=== PATIENT | female | born 1940 | race Caucasian/White ===

== ENCOUNTER 2023-03-05 09:48 | Outpatient (OUT) | payer MEDICARE, OTHER, SELFPAY ==
[2023-03-05 10:12] LABS: Basophils Percent Auto 0.4 % (0.2-2.0); Eosinophils Absolute Auto 0.2 10^3/uL (0.0-0.7); Eosinophils Percent Auto 2.8 % (0.9-7.0); Hematocrit 42.8 % (36.0-48.0); Hemoglobin 13.4 g/dL (12.0-16.0); Immature Granulocytes Abs Auto 0.03 10^3/uL (0.00-0.03); Immature Granulocytes Pct Auto 0.4 % (0.0-0.5); Lymphocytes Absolute Auto 2.1 10^3/uL (1.2-3.8); Lymphocytes Percent Auto 30.5 % (20.5-60.0); Mean Corpuscular HGB Conc 31.3 g/dL (29.9-35.2); Mean Corpuscular Hemoglobin 28.6 pg (26.7-34.0); Mean Corpuscular Volume 91.3 fL (81.0-99.0); Mean Platelet Volume 8.7 fL (9.5-13.5); Monocytes Absolute Auto 0.5 10^3/uL (0.3-0.8); Monocytes Percent Auto 7.8 % (1.7-12.0); Neutrophils Percent Auto 58.1 % (43.0-75.0); Platelet Count 202 10^3/uL (150-450); Red Blood Count 4.69 10^6/uL (4.20-5.40); Red Cell Distribution Width 16.1 % (11.0-15.0); White Blood Count 6.8 10^3/uL (4.0-11.0)
[2023-03-05 10:44] LABS: Alanine Aminotransferase 17 U/L (14-59); Albumin Globulin Ratio 0.7; Albumin Level 3.2 g/dL (3.4-5.0); Alkaline Phosphatase 83 U/L (46-116); Anion Gap 13.4; Aspartate Amino Transferase 15 U/L (15-37); BUN Creatinine Ratio 20.2; Bilirubin Total 0.5 mg/dL (0.2-1.0); Calcium 8.5 mg/dL (8.5-10.1); Carbon Dioxide 26.8 mmol/L (21.0-32.0); Chloride 103 mmol/L (98-107); Chol HDL Ratio 2.5; Cholesterol 158 mg/dL (<=200); Estimated GFR (African America >60 (>=60); Estimated GFR (Non-African Ame >60 (>=60); Globulin 4.7 g/dL; Glucose 102 mg/dL (74-106); HDL Cholesterol 63 mg/dL (40-60); Potassium 4.2 mmol/L (3.5-5.1); Sodium 139 mmol/L (136-145); Total Protein 7.9 g/dL (6.4-8.2); Triglycerides 105 mg/dL (<=150)
== END 2023-03-05 09:49 | disposition home or self-care (01) ==
LOC: LAB 09:53
PROVIDERS: PCP Internal Medicine; Visit Provider Nurse Practitioner Acute Care
DX: I25.10 Atherosclerotic heart disease of native coronary artery without angina pectoris (principal)
CPT/HCPCS: 36415; 80053; 80061; 85025

== ENCOUNTER 2023-05-25 12:45 | Outpatient (OUT) | payer MEDICARE, OTHER, SELFPAY ==
[2023-05-25 13:20] LABS: Basophils Percent Auto 0.3 % (0.2-2.0); Eosinophils Absolute Auto 0.1 10^3/uL (0.0-0.7); Hematocrit 43.1 % (36.0-48.0); Hemoglobin 13.6 g/dL (12.0-16.0); Immature Granulocytes Abs Auto 0.04 10^3/uL (0.00-0.03); Immature Granulocytes Pct Auto 0.4 % (0.0-0.5); Lymphocytes Absolute Auto 1.8 10^3/uL (1.2-3.8); Mean Corpuscular HGB Conc 31.6 g/dL (29.9-35.2); Mean Corpuscular Hemoglobin 28.3 pg (26.7-34.0); Mean Corpuscular Volume 89.6 fL (81.0-99.0); Mean Platelet Volume 9.2 fL (9.5-13.5); Monocytes Absolute Auto 0.7 10^3/uL (0.3-0.8); Monocytes Percent Auto 7.3 % (1.7-12.0); Neutrophils Absolute Auto 6.8 10^3/uL (1.4-6.5); Platelet Count 185 10^3/uL (150-450); Red Blood Count 4.81 10^6/uL (4.20-5.40); Red Cell Distribution Width 15.3 % (11.0-15.0); White Blood Count 9.4 10^3/uL (4.0-11.0)
[2023-05-25 13:54] LABS: Alanine Aminotransferase 15 U/L (14-59); Albumin Globulin Ratio 0.7; Albumin Level 3.1 g/dL (3.4-5.0); Alkaline Phosphatase 89 U/L (46-116); Anion Gap 12.9; Aspartate Amino Transferase 16 U/L (15-37); BUN Creatinine Ratio 22.1; Bilirubin Total 0.4 mg/dL (0.2-1.0); Calcium 8.8 mg/dL (8.5-10.1); Carbon Dioxide 25.2 mmol/L (21.0-32.0); Chloride 103 mmol/L (98-107); Estimated GFR (African America >60 (>=60); Estimated GFR (Non-African Ame >60 (>=60); Globulin 4.7 g/dL; Glucose 84 mg/dL (74-106); Potassium 4.1 mmol/L (3.5-5.1); Sodium 137 mmol/L (136-145); Total Protein 7.8 g/dL (6.4-8.2)
== END 2023-05-25 12:46 | disposition home or self-care (01) ==
LOC: LAB 12:52
PROVIDERS: PCP Family Medicine; Visit Provider Nurse Practitioner
DX: I50.41 Acute combined systolic (congestive) and diastolic (congestive) heart failure (principal)
CPT/HCPCS: 36415; 80053; 83880; 85025

== ENCOUNTER 2024-01-04 10:03 | Outpatient (OUT) | payer MEDICARE, OTHER, SELFPAY ==
--- NOTE | 2024-01-04 10:04 | CT_ITS ---
[address] [address] Patient Name: KEENAN SILVA MRN: [facility]:[id number] date: 1940 Sex: F Assigned Patient Location: CT Current Patient Location: CT Accession/Order Number: [id number] Exam Date: 01/04/2024 10:32 Report Date: 01/04/2024 13:01 At the request of: RICHARD TEMPLE Procedure: CT abdomen pelvis wo con EXAMINATION: CT abdomen pelvis wo con HISTORY: Kidney Stone N20.0 COMPARISON: CT abdomen pelvis 05/14/2019 TECHNIQUE: Axial, Coronal, and Sagittal images were obtained without and/or with IV contrast as indicated by examination type. Dose reduction techniques were achieved by using automated exposure control and/or adjustment of mA and/or kV according to patient size and/or use of iterative reconstruction technique. FINDINGS: LUNG BASES: Cardiomegaly. No visible pulmonary or pleural disease. LIVER: No enlargement, atrophy, suspicious density, or significant focal lesion. BILIARY: Cholecystectomy. PANCREAS: No lesion, fluid collection, or abnormal duct dilatation. SPLEEN: No enlargement or focal lesion. ADRENALS: No mass or enlargement. KIDNEYS: Large amount of fat within renal hilum bilaterally. Small parapelvic cysts in moderate cortical thinning bilaterally. 9 x 3 x 3 mm nonobstructing stone within left kidney inferior pole. Unremarkable ureters. BOWEL/MESENTERY: No visible mass, obstruction, or bowel wall thickening. Normal appendix. AORTA/VASCULAR: No aneurysm or dissection. Filter within IVC. RETROPERITONEUM: No mass or adenopathy. LYMPH NODES: No adenopathy. URINARY BLADDER: No visible focal wall thickening, lesion, or calculus. PELVIC ORGANS: Hysterectomy. ABDOMINAL WALL: No mass or hernia. BONES: L3-4 marked degenerative disc disease. L4-5 mild grade 1 anterolisthesis. OTHER: Negative. CT/CT abdomen pelvis wo con IMPRESSION: 1. Nonobstructing left nephrolithiasis. Moderate renal atrophy bilaterally. 2. Degenerative disc disease of lower lumbar spine. 3. Cardiomegaly. Electronically authenticated by: DIMITRI BIANCHI Date: 01/04/2024 13:01
== END 2024-01-04 10:04 | disposition home or self-care (01) ==
LOC: CT 10:03
PROVIDERS: PCP Family Medicine; Visit Provider Physician Assistant
DX: N20.0 Calculus of kidney (principal); M51.36 Other intervertebral disc degeneration, lumbar region; I51.7 Cardiomegaly
CPT/HCPCS: 74176

== ENCOUNTER 2024-02-06 09:21 | Outpatient (OUT) | payer MEDICARE, OTHER, SELFPAY ==
--- OUTSIDE RECORDS SUMMARY | 2024-02-06 09:44 | XMS_ITS | CCD ---
Author Organization [facility] Care Team Providers Care General Forecaster Name Role Phone DEE DEE GARBER Admitting Unavailable SELF, REFERRED Referring Unavailable MARIA EUGENIA BHATIA Primary Care Unavailable MARY DRAKE Attending Unavailable MO Procedure Practitioner UnavailKENNEDI Burroughs Surgeon Unavailable COMPA FOOTE Primary Care Physician [phone] DR ANASTASIIA BUTCHER Admitting Unavailable HADLEY, DR LAURENT Attending Unavailable HADLEY, DR LAURENT Consulting Unavailable QAMAR, DR DIXON Primary Care Unavailable QAMAR, DR DIXON Primary Care Unavailable REGINA VALIENTE Admitting Unavailable REGINA VALIENTE Attending Unavailable REGINA VALIENTE Consulting Unavailable QAMAR, DR DIXON Primary Care Unavailable ANASTASIIA ESTRADA Admitting Unavailable ANASTASIIA ESTRADA Attending Unavailable ANASTASIIA ESTRADA Consulting Unavailable MERLIN, DR DARYA Falk Attending Unavailabl e MERLIN, DR DARYA Falk Consulting Unavailabl e QAMAR, DR DIXON Primary Care Unavailable MERLIN, DR DARYA Falk Admitting Unavailabl JORGE Henley Attending Unavailable YULISSA WOODARD Attending Unavailable SHELL GUARDADO Attending Unavailable MARY LUGO Primary Care Physician [phone] JUAN DIEGO CATSILLO Primary Care Physician Unav ailable Anna RAG INSPECTOR-STATE ARCHIVISTJuan Diego Primary Care Provide r Compa Foote MD Unavailable Mary Lugo MD Primary Care Provider MICHELLE VIDALES Attending Unavailable MAKENNA TAMAYO Attending Unavailable MAKENNA TAMAYO Attending Unavailable MAKENNA TAMAYO Attending Unavailable JUAN DIEGO CASTILLO Primary Care Unavailable REGINA VALIENTE Attending Unavailable REGINA VALIENTE Attending Unavailable JUAN DIEGO CASTILLO Primary Care Unavailable JUAN DIEGO CASTILLO Primary Care Unavailable REGAN, Leonardo R Attending Unavailable SCHLACHTER, JUAN DIEGO Primary Care Unavailable REGAN, Leonardo R Attending Unavailable MAVERICK, REGINA E Attending Unavailable REGAN, Leonardo R Referring Unavailable SCHLACHTER, JUAN DIEGO Primary Care Unavailable REGAN, Leonardo R Admitting Unavailable REGAN, Leonardo R Attending Unavailable SCHLACHTER, JUAN DIEGO Primary Care Unavailable MAVERICK, REGINA E Admitting Unavailable MAVERICK, REGINA E Attending Unavailable MAVERICK, REGINA E Attending Unavailable MAVERICK, REGINA E Admitting Unavailable SCHLACHTER, JUAN DIEGO Primary Care Unavailable MAVERICK, REGINA E Attending Unavailable MAVERICK, REGINA E Admitting Unavailable SCHLACHTER, JUAN DIEGO Primary Care Unavailable SCHLACHTER, JUAN DIEGO Primary Care Unavailable MAVERICK, REGINA E Attending Unavailable MAVERICK, REGINA E Attending Unavailable REGAN, Leonardo R Attending Unavailable SCHLACHTER, JUAN DIEGO Primary Care Unavailable MAVERICK, REGINA E Attending Unavailable SCHLACHTER, JUAN DIEGO Attending Unavailable SCHLACHTER, JUAN DIEGO Referring Unavailable SCHLACHTER, JUAN DIEGO Primary Care Unavailable SCHLACHTER, JUAN DIEGO Attending Unavailable SCHLACHTER, JUAN DIEGO Referring Unavailable SCHLACHTER, JUAN DIEGO Primary Care Unavailable SCHLACHTER, JUAN DIEGO Attending Unavailable SCHLACHTER, JUAN DIEGO Referring Unavailable SCHLACHTER, JUAN DIEGO Primary Care Unavailable SCHLACHTER, JUAN DIEGO Referring Unavailable SCHLACHTER, JUAN DIEGO Primary Care Unavailable Qamar GREENFIELD MD, Compa Calhoun Primary Care Provider [phone] John ELY, Maria Eugenia [place] Unavailable Allergies Allergy Classification Reported Allergen(s) Allergy Type Date of Onset Reaction(s) Facility (8 sources) linaclotide; Translations: [LINACLOTIDE] Drug Allergy 6 Diarrhea, Other (See Comments), GI Disturbance, Vomiting [facility] Repository Medications Current Medications Medication Drug Class(es) Dates Sig (Normalized) Sig (Original) 8 hr acetaminophen 650 mg extended release oral tablet (2 sources) take 1 tablet by mouth every eight hours as needed acetaminophen (TYLENOL ARTHRITIS PAIN) 650 mg CR tablet Take 650 mg by mouth every 8 hours as needed. 0 Active [id number] actuat albuterol 0.09 mg/actuat metered dose inhaler (7 sources) beta2-Adrenergic Agonist Start: 06-05-2023 take 2 puff(s) by inhalation every six hours as needed albuterol HFA (PROVENTIL HFA, VENTOLIN HFA) 90 mcg/actuation inhaler Inhale 2 Puffs as instructed every 6 hours as needed. 0 06/05/2023 Active Start: 06-05-2023 take 2 puff(s) by in halation every six hours as needed for chronic obstructive pulmonary disease albuterol (PROVENTIL HFA;VENTOLIN HFA) 90 mcg/actuation inhaler Indications: Chronic obstructive pulmonary disease, unspecified COPD type ([facility]) Inhale 2 puffs every 6 (six) hours as needed for wheezing or shortness of breath. For COPD 18 g 11 06/05/2023 Active Start: 04-19-2020 take 1 puff(s) by in halation every four hours albuterol HFA 90 mcg/act inhaler Inhale 1 puff every 4 (four) hours if needed. 0 04/19/2020 Active Start: 07-02-2015 take 2 puff(s) by in halation every four hours ProAir HFA 2 puff(s), Inhalation, q4hr Wheezing, Refill(s) 0 Start Date: 07/02/15 Status: Ordered albuterol 0.833 mg/ml / ipratropium bromide 0.167 mg/ml inhalation solution (1 source) Anticholinergic, beta2-Adrenergic Agonist ipratropium-albutero l (Duo-Neb) 0.5-2.5 mg/3 mL nebulizer solution 3 mL in the morning and 3 mL at noon and 3 mL in the evening and 3 mL before bedtime. 0 Active amLODIPine 5 mg oral tablet (4 sources) Dihydropyridine Calcium Channel Hussein Star t: 06-07- 15 take 1 tablet by mouth once daily amLODIPine (NORVASC) 5 mg tablet Take 1 tablet by mouth once daily. 90 tablet 3 05/22/2018 Active apixaban 5 mg oral tablet (19 sources) Factor Xa Inhibitor Star t: 05-06 2- 20 take 1 mg by mouth twice daily Eliquis 5 mg oral tablet mg tab(s), Oral, BID, Refills(s) 0 Start Date: 05/17/20 Status: Ordered atorvastatin 40 mg oral tablet (20 sources) HMG-CoA Reductase Inhibitor Star t: 06-07 End: 09-06 take 1 tablet by mouth once daily atorvastatin (LIPITOR) 40 mg tablet Take 1 tablet by mouth once daily. 90 tablet 3 05/22/2018 Active betamethasone 0.5 mg/ml / clotrimazole 10 mg/ml topical cream (1 source) Azole Antifungal, Corticosteroid Star t: 01-04 clotrimazole-betamethason e (LOTRISONE) cream Apply 1 Application to affected area. 0 01/14/2024 Active biotin 10 mg oral tablet (1 source) take 1 tablet by mouth twice daily biotin 10 MG tablet 1 tablet Orally two times daily for 30 days 0 Active carboxymethylcellulose sodium 5 mg/ml ophthalmic solution (1 source) carboxymethylcel lulose PF (EQ Restore Plus Lubricant Eye) 0.5 % ophthalmic solution Eye promise restore 0 Active cephalexin 500 mg oral capsule (9 sources) Cephalosporin Antibacterial Star t: 11-05 End: 11-06 take 1 capsule by mouth every twelve hours Keflex 500 mg Cap 500 mg = 1 cap(s), Oral, q12hr, X 7 day(s), # 14 cap(s), Refills(s) 0, [facility]acy: [facility] #[id number], 153, cm, 11/27/23 10:33:00 EDT, Height/Length Dosing, 120, kg, 11/27/23 10:33:00 EDT, Weight Dosing Start Date: 11/27/23 Stop Date: 12/04/23 Status: Ordered Start: 07-27-2023 take 1 capsule by [facility] twice daily Keflex 500 mg Cap 500 mg = 1 cap(s), Oral, BID, Start the day prior to procedure, # 14 cap(s), Refills(s) 0, [facility]: [id number], 153, cm, 06/05/23 11:56:00 EDT, Height/Length Dosing, 116, kg, 06/05/23 11:56:00 EDT, Weight Dosing Start Date: 07/27/23 Status: Ordered Start: 06-05-2023 take 1 capsule by [facility] twice daily Keflex 250 mg Cap 250 mg = 1 cap(s), Oral, BID, Start the day before the procedure, # 14 cap(s), Refills(s) 0, Pharmacy: [facility] #[id number], 153, cm, 06/05/23 11:56:00 EDT, Height/Length Dosing, 116, kg, 06/05/23 11:56:00 EDT, Weight Dosing Start Date: 06/05/23 Status: Ordered diazePAM 5 mg oral tablet (3 sources) Benzodiazepine Start: 07-27-2023 Valium 5 mg Tab 5 mg = 1 tab(s), Oral, Once, Take 1 hour prior to procedure. 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, # 1 tab(s), Refills(s) 0, Pharmacy: [facility] #[id number], 153, cm, 06/05/23 11:56:00 EDT, Height/Length Dosing, 116, kg, 06/05/23 11:56:00 EDT, Weight Dosing Start Date: 07/27/23 Status: Ordered docusate sodium 100 mg oral capsule (1 source) Start: 06-11-2019 take 1 capsule by mouth twice daily docusate sodium (COLACE) 100 mg capsule Take 1 capsule by mouth twice daily. 30 capsule 0 06/11/2019 Active donepezil hydrochloride 5 mg oral tablet (16 sources) Start: 04-06-2023 donepezil (ARICEPT) 5 mg tablet Take 5 mg by mouth. 0 04/24/2023 Active FLUoxetine 40 mg oral capsule (19 sources) Serotonin Reuptake Inhibitor Start: 05-10-2022 FLUoxetine 40 mg Cap Refills(s) 0 Start Date: 05/10/22 Status: Ordered furosemide 40 mg oral tablet (20 sources) Loop Diuretic Start: 02-26-2023 take 1 tablet by mouth in the morning furosemide (Lasix) 20 MG tablet Indications: Chronic diastolic heart failure (CMS/HCC) Take 1 tablet (20 mg) by mouth in the morning. 100 tablet 3 02/26/2023 Active Start: 07-02-2015 End: 05-27-2024 take 1 tablet by mouth once daily furosemide (LASIX) 40 mg tablet Indications: Chronic diastolic heart failure (HCC) Take 1 tablet by mouth once daily. 90 tablet 3 07/24/2018 Active hyoscyamine sulfate 0.125 mg oral tablet (1 source) hyoscyamine (Praveena spaz,Levsin) 0.125 MG tablet every 4 (four) hours if needed. 0 Active lactulose 667 mg/ml oral solution (3 sources) Osmotic Laxative Start: 05-10-2022 Lactulose 10 g/15 mL Syrup Refills(s) 0 Start Date: 05/10/22 Status: Ordered lactulose (Chron ulac) 10 GM/15ML solution Take 15 mL by mouth. 0 Active memantine hydrochloride 10 mg oral tablet (13 sources) D-uawitd-B-aspartate Receptor Antagonist Start: 01-11-2024 End: 02-10-2024 memantine (NAMENDA) 10 mg tablet Take 10 mg by mouth. 0 01/11/2024 02/10/2024 Active Start: 03-30-2023 memantine 5 mg Tab Refills(s) 0 Start Date: 04/24/23 Status: Ordered 24 hr metoprolol succinate 100 mg extended release oral tablet (7 sources) beta-Adrenergic Hussein Start: 05-28-2023 take 1 tablet by mouth every twenty-four hours in the morning metoprolol succinate XL (TOPROL XL) 100 mg 24 hr tablet Take 1 tablet (100 mg total) by mouth in the morning. 0 05/28/2023 Active Start: 05-17-2020 take 1 mg by mouth once daily metoprolol 50 mg ER Tab mg tab(s), Oral, Daily, Refills(s) 0 Start Date: 05/17/20 Status: Ordered metoprolol succi charlene ER (TOPROL XL) 50 mg 24 hr tablet 100 mg. 0 Active METOPROLOL SUCC ER 50 MG TAB (14 sources) Start: 05-10-2022 METOPROLOL SUC C ER 50 MG TAB METOPROLOL SUCC ER 50 MG TAB Start Date: 05/10/22 Status: Ordered 24 hr mirabegron 50 mg extended release oral tablet (18 sources) beta3-Adrenergic Agonist Start: 06-05-2023 take 1 tablet by mouth once daily Myrbetriq 50 mg oral tablet, extended release 50 mg = 1 tab(s), Oral, Daily Start Date: 06/05/23 Status: Ordered Start: 02-26-2023 take 1 tablet by khushi th every twenty-four hours in the morning mirabegron ER (Myrbetriq) 50 MG 24 hr tablet Indications: OAB (overactive bladder) Take 1 tablet (50 mg) by mouth in the morning. 100 tablet 3 02/26/2023 Active Start: 10-17-2022 Myrbetriq 50 m g oral tablet, extended release Refills(s) 0 Start Date: 10/17/22 Status: Ordered Start: 06-26-2021 End: 06-21-2022 take 2 tablets by mouth once daily Myrbetriq 50 mg oral tablet, extended release 100 mg = 2 tab(s), Oral, Daily, X 90 day(s), # 180 tab(s), Refills(s) 3, [facility]: [id number], 153, cm, 10/25/20 11:47:00 EDT, Height/Length Dosing, 125, kg, 10/25/20 11:47:00 EDT, Weight Dosing Start Date: 06/26/21 Stop Date: 06/21/22 Status: Ordered nitrofurantoin, macrocrystals 25 mg / nitrofurantoin, monohydrate 75 mg oral capsule (1 source) Nitrofuran Antibacterial Start: 01-08-2024 End: 01-15-2024 take 1 capsule by mouth twice daily Macrobid 100 mg Cap 100 mg = 1 cap(s), Oral, BID, X 7 day(s), # 14 cap(s), Refills(s) 0, [facility]: [facility][id number], 153, cm, 01/08/24 15:17:00 EDT, Height/Length Dosing, 116, kg, 01/08/24 15:17:00 EDT, Weight Dosing Start Date: 01/08/24 Stop Date: 01/15/24 Status: Ordered Oxygen (1 source) oxygen (O2) gas 2 L/min if needed. 0 Active OXYGEN, HOME THERAPY, (1 source) OXYGEN, HOME THERAPY, 2 L/min by Nasal Cannula route as directed. 0 Active pantoprazole 40 mg delayed release oral tablet (19 sources) Proton Pump Inhibitor Start: 05-17-2020 take 1 mg by mouth once daily Pantoprazole [address] Tab mg tab(s), Oral, Daily, Refills(s) 0 Start Date: 05/17/20 Status: Ordered phenazopyridine hydrochloride 200 mg oral tablet (2 sources) Start: 12-07-2023 End: 05-06-2024 take 1 tablet by mouth three times daily as needed Pyridium 200 mg Tab 200 mg = 1 tab(s), Oral, TID, PRN burning with urination, X 3 day(s), # 9 tab(s), Refills(s) 0, [facility]: [facility][id number], 153, cm, 11/27/23 10:33:00 EDT, Height/Length Dosing, 120, kg, 11/27/23 10:33:00 EDT, Weight Dosing Start Date: 12/07/23 Stop Date: 12/10/23 Status: Ordered promethazine hydrochloride 25 mg oral tablet (18 sources) Phenothiazine Start: 06-04-2023 take 1 tablet by mouth every six hours as needed for nausea and vomiting promethazine (PHENERGAN) 25 mg tablet Take 1 tablet (25 mg total) by mouth every 6 (six) hours as needed for nausea or vomiting. 30 tablet 5 06/04/2023 Active Start: 12-26-2022 take 1 tablet by mouth once pr omethazine (Phenergan) 25 MG tablet Indications: Nausea Take 1 tablet (25 mg) by mouth every 12 (twelve) hours if needed for nausea or vomiting. 60 tablet 3 12/26/2022 Active Start: 05-17-2020 take 1 mg rectal rou te every six hours promethazine 25 mg Supp mg supp, Rectal, q6hr, Refills(s) 0 Start Date: 05/17/20 Status: Ordered QUEtiapine 25 mg oral tablet (3 sources) Atypical Antipsychotic Start: 12-13-2023 quetiap ine 25 mg Tab 25 mg = 1 tab(s) Start Date: 01/08/24 Status: Ordered Start: 07-12-2023 take 0.5 tablet by m outh at bedtime QUEtiapine (SEROquel) 25 MG tablet Indications: Mild cognitive impairment with memory loss , Alzheimer's disease (CMS/HCC) Take 0.5 tablets (12.5 mg) by mouth at bedtime 15 tablet 3 07/12/2023 Active 0.25 mg, 0.5 mg dose 1.5 ml semaglutide 1.34 mg/ml pen injector (1 source) Start: 02-26-2023 inject 0.5 mg by subcutaneous injection every week semaglutide (Ozempic, 0.25 or 0.5 MG/DOSE,) 2 MG/1.5ML solution pen-injector Indications: Type 2 diabetes mellitus without complication, unspecified whether [place] insulin use (CMS/[facility]) Inject 0.5 mg under the skin 1 (one) time per week. 4.5 mL 3 02/26/2023 Active sucralfate 1000 mg oral tablet (2 sources) Aluminum Complex Start: 05-17-2020 sucralfate 1 g Tab gram tab(s), Oral, QIDACHS, Refills(s) 0 Start Date: 05/17/20 Status: Ordered sulfamethoxazole 800 mg / trimethoprim 160 mg oral tablet (2 sources) Dihydrofolate Reductase Inhibitor Antibacterial, Sulfonamide Antimicrobial Start: 12-07-2023 End: 12-17-2023 Bactrim D.S. 800 mg-160 mg Tab 1 tab(s), Oral, BID for 10 day(s), 20 tab(s), Refill(s) 0, [facility] #[id number], 153, cm, 11/27/23 10:33:00 EDT, Height/Length Dosing, 120, kg, 11/27/23 10:33:00 EDT, Weight Dosing Start Date: 12/07/23 Stop Date: 12/17/23 Status: Ordered Symbicort 160/4.5 inhalation aerosol with adapter (2 sources) Start: 07-02-2015 take 2 puff(s) by inhalation twice daily Symbicort 160/4.5 inhalation aerosol with adapter 2 puff(s), Inhalation, BID Shortness of breath or wheezing, Refill(s) 0 Start Date: 07/02/15 Status: Ordered tamsulosin hydrochloride 0.4 mg oral capsule (3 sources) alpha-Adrenergic Hussein Start: 06-12-2019 tamsulosin ER (FLOMAX) 0.4 mg cap Take 1 capsule by mouth once daily. 30 minutes after the same meal each day. 30 capsule 0 06/12/2019 Active tamsulosin ER (F TRESA) 0.4 mg cap q 24 HR. 0 Active 24 hr tolterodine tartrate 4 mg extended release oral capsule (3 sources) Cholinergic Muscarinic Antagonist Start: 06-26-2021 End: 06-21-2022 take 1 capsule by mouth twice daily Detrol LA 4 mg Cap-ER 4 mg = 1 cap(s), Oral, BID, X 90 day(s), # 180 cap(s), Refills(s) 3, Pharmacy: [id number], 153, cm, 10/25/20 11:47:00 EDT, Height/Length Dosing, 125, kg, 10/25/20 11:47:00 EDT, Weight Dosing Start Date: 06/26/21 Stop Date: 06/21/22 Status: Ordered tolterodine LA ( Detrol LA) 4 MG 24 hr capsule tolterodine ER 4 mg capsule,extended release 24 hr 0 Active traMADol hydrochloride 50 mg oral tablet (1 source) Opioid Agonist Start: 08-26-2021 take 1-2 tablets by mouth every six hours as needed traMADol (Ultram) 50 MG tablet 1-2 tablets every 6 (six) hours if needed. 0 08/26/2021 Active Completed/Discontinued Medications Medication Drug Class(es) Dates Sig (Normalized) Sig (Original) ciprofloxacin 500 mg oral tablet (2 sources) Quinolone Antimicrobial Start: 05-10-2022 take 1 tablet by mouth once daily Cipro 500 mg Tab 500 mg = 1 tab(s), Oral, q12hr, Take 1 tab the day before procedure and 1 tab the day of procedure after the procedure., # 2 tab(s), Refills(s) 0, Pharmacy: [facility] [id number], 153, cm, 10/25/20 11:47:00 EDT, Height/Length Dosing, 125, kg, 10/25... Start Date: 05/10/22 Status: Ordered linaclotide 0.29 mg oral capsule (4 sources) Guanylate Cyclase-C Agonist Start: 07-02-2015 take 1 capsule by mouth once daily Linzess 290 mcg oral capsule 290 microgram = 1 cap(s), Oral, Daily, Refills(s) 0 Start Date: 07/02/15 Status: Ordered linaclotide (ABHI ZESS) 145 mcg capsule Linzess 145 mcg capsule 0 Active Problems Active Problems Problem Classification Problem Date Documented Da te Episodic/Chronic Abdominal hernia (15 sources) Hiatal hernia; Translations: [Diaphragmatic hernia without obstruction or gangrene] Onset: 09-06-2022 07-02-2015 Episodic Abdominal pain (14 sources) Flank pain 05-17-2020 Episodic Allergic reactions (1 source) Dermatitis, unspecified; Translations: [Dermatitis, unspecified] Onset: 01-14-2024 Episodic Blindness and vision defects (1 source) Visual impairment; Translations: [Unspecified visual loss] Onset: 12-22-2022 12-22-2022 Chronic Calculus of urinary tract (20 sources) Calculus of kidney; Translations: [History of calculus of kidney] Onset: 06-25-2018 Episodic Cardiac dysrhythmias (10 sources) Chronic atrial fibrillation; Translations: [Longstanding persistent atrial fibrillation] Onset: 06-04-2018 03-15-2023 Chronic Chronic kidney disease (4 sources) Chronic kidney disease stage 3A ; Translations: [Stage 3a chronic kidney disease] Onset: 12-22-2022 03-15-2023 Chronic Chronic kidney disease (1 source) Chronic kidney disease; Translations: [Chronic kidney disease, stage 3a] Onset: 03-15-2023 Chronic obstructive pulmonary disease and bronchiectasis (5 sources) Chronic obstructive lung disease; Translations: [Chronic obstructive pulmonary disease, unspecified] Onset: 12-22-2022 03-15-2023 Chronic Conditions associated with dizziness or vertigo (3 sources) Dizziness and giddiness; Translations: [DIZZINESS AND GIDDINESS] Onset: 09-05-2022 Episodic Congestive heart failure; nonhypertensive (7 sources) Chronic diastolic heart failure; Translations: [Chronic diastolic (congestive) heart failure] Onset: 06-24-2015 03-15-2023 Chronic Coronary atherosclerosis and other heart disease (10 sources) Atherosclerotic heart disease of [place] coronary artery without angina pectoris; Translations: [Coronary arteriosclerosis] Onset: 06-24-2015 Resolved: 09-06-2017 Chronic Deficiency and other anemia (1 source) Anemia, unspecified; Translations: [ANEMIA, UNSPECIFIED] Onset: 08-11-2018 Episodic Delirium, dementia, and amnestic and other cognitive disorders (6 sources) Alzheimer's disease; Translations: [Alzheimer's disease, unspecified] Onset: 12-22-2022 03-15-2023 Chronic Diabetes mellitus with complications (2 sources) Disorder of kidney due to diabetes mellitus; Translations: [Type 2 diabetes mellitus with diabetic nephropathy] Onset: 12-22-2022 12-22-2022 Chronic Diabetes mellitus without complication (1 source) Type 2 diabetes mellitus without complication; Translations: [Type 2 diabetes mellitus without complications] Onset: 12-22-2022 12-22-2022 Chronic Esophageal disorders (20 sources) Gastro-esophageal reflux disease without esophagitis; Translations: [Gastroesophageal reflux disease] Onset: 08-11-2018 07-02-2015 Chronic Essential hypertension (20 sources) Essential (primary) hypertension; Translations: [Hypertensive disorder] Onset: 08-11-2018 07-02-2015 Chronic Genitourinary symptoms and ill-defined conditions (20 sources) Mixed incontinence; Translations: [Incontinence] Onset: 04-23-2022 Chronic Genitourinary symptoms and ill-defined conditions (20 sources) Dysuria; Translations: [Dysuria] Onset: 04-23-2022 Episodic Hypertension with complications and secondary hypertension (3 sources) 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; Translations: [Hypertensive heart disease with heart failure] Onset: 12-22-2022 12-22-2022 Chronic Menopausal disorders (1 source) Decreased estrogen level; Translations: [Other primary ovarian failure] Onset: 12-22-2022 12-22-2022 Chronic Mood disorders (5 sources) Recurrent major depressive episodes, moderate ; Translations: [Major depressive disorder, recurrent, moderate] Onset: 12-22-2022 03-15-2023 Chronic Osteoarthritis (17 sources) Osteoarthritis; Translations: [Primary gonarthrosis, bilateral] Onset: 12-22-2022 07-02-2015 Chronic Osteoporosis (4 sources) Senile osteoporosis; Translations: [Age-related osteoporosis without current pathological fracture] Onset: 12-22-2022 03-15-2023 Chronic Other circulatory disease (1 source) Other disorders of arteries, arterioles and capillaries in diseases classified elsewhere; Translations: [Other disorders of arteries, arterioles and capillaries in diseases classified elsewhere] Onset: 01-28-2024 Chronic Other circulatory disease (1 source) Personal history of transient ischemic attack (TIA), and cerebral infarction without residual deficits; Translations: [PERS HX TIA AND CI NO RESID DEFICIT] Onset: 09-06-2022 Episodic Other connective tissue disease (2 sources) Other specified soft tissue disorders; Translations: [Other specified soft tissue disorders] Onset: 01-28-2024 Episodic Other diseases of bladder and urethra (4 sources) Overactive bladder; Translations: [OVERACTIVE BLADDER] Onset: 04-18-2022 Chronic Other diseases of bladder and urethra (1 source) Overactive bladder; Translations: [Overactive bladder] Onset: 12-22-2022 12-22-2022 Chronic Other gastrointestinal disorders (2 sources) Pelvic mass; Translations: [Intra-abdominal and pelvic swelling, mass and lump, unspecified site] Onset: 08-15-2022 12-27-2022 Episodic Other nervous system disorders (4 sources) Polyneuropathy; Translations: [Polyneuropathy, unspecified] Onset: 12-22-2022 03-15-2023 Chronic Other nervous system disorders (1 source) Chronic pain syndrome; Translations: [Chronic pain syndrome] Onset: 12-22-2022 12-22-2022 Chronic Other nervous system disorders (1 source) Polyneuropathy, unspecified; Translations: [Polyneuropathy, unspecified] Onset: 03-15-2023 Chronic Other nutritional; endocrine; and metabolic disorders (1 source) Body mass index (BMI) 50-59.9, adult; Translations: [BODY MASS INDEX (BMI) 50-59.9, ADULT] Onset: 08-11-2018 Chronic Other nutritional; endocrine; and metabolic disorders (2 sources) Morbid (severe) obesity due to excess calories; Translations: [MORBID (SEVERE) OBESITY DUE TO EXCESS CALORIES] Onset: 08-11-2018 Chronic Other nutritional; endocrine; and metabolic disorders (4 sources) Obesity caused by energy imbalance; Translations: [Morbid (severe) obesity due to excess calories] Onset: 12-22-2022 03-15-2023 Chronic Other nutritional; endocrine; and metabolic disorders (2 sources) Body mass index 40+ - severely obese; Translations: [Body mass index (BMI) 50.0-59.9, adult] Onset: 08-08-2016 07-12-2023 Chronic Peripheral and visceral atherosclerosis (3 sources) Peripheral vascular disease, unspecified; Translations: [Peripheral vascular disease] Onset: 12-22-2022 Chronic Phlebitis; thrombophlebitis and thromboembolism (6 sources) 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; Translations: [Embolism from thrombosis of vein of distal lower extremity] Onset: 08-11-2018 03-15-2023 Chronic Pulmonary heart disease (2 sources) Pulmonary hypertension, unspecified; Translations: [Pulmonary hypertension, unspecified] Onset: 03-02-2023 Chronic Residual codes; unclassified (1 source) Obstructive sleep apnea (adult) (pediatric); Translations: [OBSTRUCTIVE SLEEP APNEA (ADULT) (PEDIATRIC)] Onset: 08-11-2018 Chronic Residual codes; unclassified (15 sources) Sleep apnea; Translations: [Sleep apnea, unspecified] 07-02-2015 Chronic Residual codes; unclassified (1 source) Sleep apnea, unspecified; Translations: [SLEEP APNEA UNSPECIFIED] Onset: 09-06-2022 Chronic Residual codes; unclassified (4 sources) Obstructive sleep apnea syndrome; Translations: [Obstructive sleep apnea (adult) (pediatric)] Onset: 12-22-2022 03-15-2023 Chronic Residual codes; unclassified (1 source) Dependence on wheelchair; Translations: [Dependence on wheelchair] Onset: 12-22-2022 12-22-2022 Chronic Residual codes; unclassified (1 source) Acquired absence of other specified parts of digestive tract; Translations: [ACQ ABSENCE OTH PART DIGESTV TRACT] Onset: 09-06-2022 Episodic Residual codes; unclassified (1 source) Acquired absence of both cervix and uterus; Translations: [ACQUIRED ABSENCE BOTH CERVIX AND UTERUS] Onset: 09-06-2022 Episodic Residual codes; unclassified (2 sources) Edema, unspecified; Translations: [Edema, unspecified] Onset: 05-25-2023 Episodic Retinal detachments; defects; vascular occlusion; and retinopathy (4 sources) Exudative age-related macular degeneration; Translations: [Exudative age-related macular degeneration, unspecified eye, stage unspecified] Onset: 12-22-2022 12-22-2022 Chronic Rheumatoid arthritis and related disease (1 source) Rheumatoid arthritis; Translations: [Rheumatoid arthritis, unspecified] Onset: 12-22-2022 12-22-2022 Chronic Transient cerebral ischemia (16 sources) Transient cerebral ischemia; Translations: [Transient cerebral ischemic attack, unspecified] Onset: 08-15-2022 07-02-2015 Chronic Unclassified (2 sources) LLE DVT Onset: 08-11-2018 Unclassified (3 sources) Longstanding persistent atrial fibrillation; Translations: [Longstanding persistent atrial fibrillation] Onset: 03-01-2023 Unclassified (1 source) Annual Exam Onset: 01-28-2024 Urinary tract infections (20 sources) Urinary tract infection, site not specified; Translations: [Postinfective urethral stricture of female] Onset: 08-29-2022 Episodic Viral infection (1 source) COVID-19; Translations: [COVID-19] Onset: 09-06-2022 Past or Other Problems Problem Classification Problem Date Documented Da te Episodic/Chronic Nausea and vomiting (3 sources) Nausea; Translations: [NAUSEA] Onset: 02-03-2022 Episodic Other aftercare (1 source) intermediate manager (current) use of anticoagulants; Translations: [ALF CURRNT USE ANTICOAGULANTS] Onset: 02-07-2022 Episodic Other aftercare (1 source) Other oysterman (current) drug therapy; Translations: [OTH ELEVATOR PILOT CURRENT DRUG THERAPY] Onset: 02-07-2022 Episodic Other connective tissue disease (2 sources) Repeated falls; Translations: [Repeated falls] Onset: 08-15-2022 Episodic Other connective tissue disease (1 source) Pain in right lower limb; Translations: [Pain in right leg] Onset: 12-22-2022 12-22-2022 Episodic Other connective tissue disease (1 source) Fibromyalgia; Translations: [Fibromyalgia] Onset: 12-22-2022 12-22-2022 Episodic Other connective tissue disease (1 source) Recurrent falls ; Translations: [Repeated falls] Onset: 12-22-2022 12-22-2022 Episodic Other connective tissue disease (1 source) Muscle weakness; Translations: [Muscle weakness (generalized)] Onset: 12-22-2022 12-22-2022 Episodic Other diseases of kidney and ureters (3 sources) Renal impairment; Translations: [Disorder of kidney and ureter, unspecified] Onset: 11-01-2022 11-01-2022 Episodic Other eye disorders (1 source) Dry eyes; Translations: [Dry eye syndrome of bilateral lacrimal glands] Onset: 04-23-2023 04-23-2023 Episodic Other nervous system disorders (1 source) Ataxic gait; Translations: [Ataxic gait] Onset: 12-22-2022 12-22-2022 Episodic Other nervous system disorders (1 source) Skin sensation disturbance; Translations: [Unspecified disturbances of skin sensation] Onset: 01-11-2023 01-11-2023 Episodic Other non-traumatic joint disorders (1 source) Pain in right knee; Translations: [Pain in joint, lower leg] Onset: 12-22-2022 12-22-2022 Episodic Phlebitis; thrombophlebitis and thromboembolism (9 sources) Acute embolism and thrombosis of left femoral vein; Translations: [Acute embolism and thrombosis of unspecified deep veins of left lower extremity] Onset: 08-11-2018 Episodic Residual codes; unclassified (1 source) Altered mental status, unspecified; Translations: [ALTERED MENTAL STATUS UNSPECIFIED] Onset: 04-23-2022 Episodic Residual codes; unclassified (4 sources) Altered mental status; Translations: [Altered mental status, unspecified] Onset: 11-01-2022 11-01-2022 Episodic Residual codes; unclassified (1 source) Bilateral lower limb edema; Translations: [Localized edema] Onset: 12-22-2022 12-22-2022 Episodic Residual codes; unclassified (1 source) Amnesia; Translations: [Other amnesia] Onset: 12-22-2022 12-22-2022 Episodic Spondylosis; intervertebral disc disorders; other back problems (4 sources) Lumbar radiculopathy; Translations: [Radiculopathy, lumbar region] Onset: 12-22-2022 05-03-2023 Episodic Unclassified (3 sources) Onset: 07-27-2023 07-27-2023 Results Test Name Value Interpretation Reference Range Facil ity Screenson 01-09-2024 Screens [id number]# 1.00TIFF Normal [facility] Ambulatory Visit Summaryon 0 01-08-2024 Ambulatory Visit Summary LACIE GARZA :1940 Visit Date:01/08/2024 Ambulatory Visit Instructions Your Diagnosis Left renal stone Mixed incontinence History of UTI History of kidney stones Postinfective urethral stricture in female Your Care Team Attending Physician - REGINA VALIENTE PA-C Primary Care Physician - JUAN DIEGO CASTILLO CNP This Is Your Medications List [facility] Prescription (METOPROLOL SUCC ER 50 MG TAB) apixaban (Eliquis 5 mg oral tablet) atorvastatin (Lipitor 40 mg Tab) donepezil (donepezil 5 mg Tab) fluoxetine (FLUoxetine 40 mg Cap) furosemide (Lasix 40 mg Tab) memantine (memantine 5 mg Tab) mirabegron (Myrbetriq 50 mg oral tablet, extended release) pantoprazole (Pantoprazole [address] Tab) promethazine (promethazine 25 mg Supp) quetiapine (quetiapine 25 mg Tab) Procedures Performed Injection of botulinum toxin type A into detrusor muscle of urinary bladder (08/07/2023), Cystourethroscopy with dilation of urethral stricture (06/13/2022), Cystourethroscopy with dilation of urethral stricture (05/25/2020), Cystoscopic removal of ureteric stent (06/24/2019), Cataract, Catheterization of aorta, Cholecystectomy, Colonoscopy, Hernia repair, Hysterectomy, Knee, Tonsillectomy and adenoidectomy, Total knee replacement.., Umbilical hernia. Discharge Vitals Height 153 cm Height 60 in Weight 116 kg Weight 255.2 lb BMI 49.55 What to do next Scheduled Follow-Up Appointments Sunday 10:00 AM EST With: REGINA VALIENTE PA-C Where: [facility] Patient Educationon 01-08-20 Patient Education Nephrology Laser Therapy for Kidney Stones, Care After This sheet gives you information about how to care for yourself after your procedure. Your health care provider may also give you more specific instructions. If you have problems or questions, contact your health care provider. What can I expect after the procedure? After the procedure, it is common to have: ? Pain. ? A burning sensation while urinating. ? Small amounts of blood in your urine. ? A need to urinate frequently. ? Pieces of kidney stone in your urine. ? Mild discomfort when urinating that may be felt in the back. You may experience this if you have a flexible tube (stent) in your ureter. Follow these instructions at home: Medicines ? Take rvyx-juv-cnhotdh and prescription medicines only as told by your health care provider. ? If you were prescribed an antibiotic medicine, take it as told by your health care provider. Do not stop taking the antibiotic even if you start to feel better. ? Ask your health care provider if the medicine prescribed to you: ? Requires you to avoid driving or using heavy machinery. ? Can cause constipation. You may need to take actions to prevent or treat constipation, such as: ? Take lzdh-ljq-fijikgf or prescription medicines. ? Eat foods that are high in fiber, such as beans, whole grains, and fresh fruits and vegetables. ? Limit foods that are high in fat and processed sugars, such as fried or sweet foods. Activity ? Return to your normal activities as told by your health care provider. Ask your health care provider what activities are safe for you. ? Do not drive for 24 hours if you were given a sedative during your procedure. General instructions ? If your health care provider approves, you may take a warm bath to ease discomfort and burning. ? Drink enough fluid to keep your urine pale yellow. Your health care provider may recommend drinking two 8 oz (237 mL) glasses of water per hour for a few hours after your procedure. ? You may be asked to strain your urine to collect any stone fragments that you pass. These fragments may be tested. ? Keep all follow-up visits as told by your health care provider. This is important. If you have a stent, you will need to return to your health care provider to have the stent removed. Contact a health care provider if you: ? Have pain or a burning feeling that lasts more than 2 days. ? Feel nauseous. ? Vomit more and more often. ? Have difficulty urinating. ? Have pain that gets worse or does not get better with medicine. Get help right away if: ? You are unable to urinate, even if your bladder feels full. ? You have: ? Bright red blood or blood clots in your urine. ? More blood in your urine. ? Severe pain or discomfort. ? A fever or shaking chills. ? Abdominal pain. ? Difficulty breathing. ? Swelling in your legs. This information is not intended to replace advice given to you by your health care provider. Make sure you discuss any questions you have with your health care provider. Document Revised: 11/29/2022 Document Reviewed: 03/27/2022 [employer] Patient Education ? 2022 [employer] Laser Therapy for Kidney Stones Laser therapy for kidney stones is a procedure to break up small, hard mineral deposits that form in the kidney (kidney stones). The procedure is done using a device that produces a focused beam of light (laser). The laser breaks up kidney stones into pieces that are small enough to be passed out of the body through urination or removed from the body during the procedure. You may need laser therapy if you have kidney stones that are painful or block your urinary tract. This procedure is done by inserting a tube (ureteroscope) into your kidney through the urethral opening. The urethra is the part of the body that drains urine from the bladder. In women, the urethra opens above the vaginal opening. In men, the urethra opens at the tip of the penis. The ureteroscope is inserted through the urethra, and surgical instruments are moved through the bladder and the muscular tube that connects the kidney to the bladder (ureter) until they reach the kidney. Tell a health care provider about: ? Any allergies you have. ? All medicines you are taking, including vitamins, herbs, eye drops, creams, and mfau-ggy-vfxclyg medicines. ? Any problems you or family members have had with anesthetic medicines. ? Any blood disorders you have. ? Any surgeries you have had. ? Any medical conditions you have. ? Whether you are or may be . What are the risks? Generally, this is a safe procedure. However, problems may occur, including: ? Infection. ? Bleeding. ? Allergic reactions to medicines. ? Damage to the urethra, bladder, or ureter. ? Urinary tract infection (UTI). ? Narrowing of the urethra (urethral stricture). ? Difficulty passing urine. ? Blockage of the kidney caused by a fragment of kidney st (more content not included)... Normal [facility] Urology Office/Clinic Noteon 01-08-2024 Urology Office/Clinic Note Chief Complaint OV HPI Staff 83 year old female here for F/U with CT done 01/04/24. Previous DX: mixed incontinence, nocturia, UTI, postinfective urethral stricture in female and H/O kidney stone. S/P Cysto/UD done 05/25/20 and 06/13/22. Pt. taking Myrbetriq 50mg ER bid. Pt. given Keflex on 11/27/23 and finished on 12/03/23, Pt. called in c/o pain, burning, frequency, urgency and leaking. 12/07/23 C&S done and Pt. given Bactrim D.S 800mg-160mg BID. 12/19/23 Pt. still having burning. Pt. urine being sent for UTiD on 12/20/23, PVR 62mL done 12/20/23. Pt. was given Macrobid 100mg BID 01/01/24. Dysuria: Pt. states still having some burning. Pt. states not as it was. Incomplete bladder emptying: no Hematuria: no Frequency: at least once an hour Urgency: yes Nocturia: 2x's Stream: good stream Post void dripping: _ Wearing pads/ Depends: yes, Pt. will use a pull and pad together Urge incontinence: yes Stress incontinence: yes Incontinence without Sensory Awareness: yes Abdominal pain: no Flank pain: no History of Present Illness staff HPI reviewed and agree. Tests Reviewed: Reviewed UA, cx, CT Review of Systems PHQ Score Initial Depression Screen Score: 0 SCORE no fever, chills, malaise, myalgia. no rash/lesions. no chest pain, palpitations, or SOB. no abdominal pain, nausea, vomiting. no unilateral calf swelling, redness, pain Physical Exam Vitals & Measurements HT: 60 in HT: 153 cm WT: 116 kg WT: 255.2 lb BMI: 49.55 General: nontoxic, NAD Mouth: moist mucosa Lungs: normal respiratory effort Cardio: regular rate, good distal perfusion Abdomen: nondistended, no suprapubic distention or tenderness, no CVA tenderness Neurologic: Grossly normal Skin: No rashes or suspicious lesions Assessment/Plan Pt accompanied by two adults today. 1. Left renal stone (N20.0: Calculus of kidney) CT AP wo con 01/04/24 - 9 x 3 x 3 mm nonobstructing stone LIP. Large amount of fat w/i renal hilum bilaterally. Reviewed CT with pt. Pt/daughter shares that ESWL has not worked for pt in the past multiple times due to body habitus. States laser litho is all that works. However she does not tolerate stent very well. -Will schedule L URS, L laser litho with Dr. Regan. The procedural risks, benefits, details, and treatment alternatives have been discussed with the patient. These include bleeding, infection, inability to break or retrieve all of the stone, injury to the ureter (the tube which connects the kidney to the bladder), injury to the kidney scarring of the ureter, and need for repeat procedures, among others. Full informed consent has been obtained. Will order General anesthesia. 2. Mixed incontinence (N39.46: Mixed incontinence) Failed tolterodine. Not a candidate for other anticholinergics due to chronic constipation and risk of confusion. [1] S/p Botox 100u 08/07/23. Taking Myrbetriq 50mg ER qd. Reports she did not notice improvement immediately after Botox but started to a few weeks after. However then things worsened again. I suspect this is due to the UTI and advised her as much. PVR (cc): 12/20/23 - 62 Need to get her cleared of UTIs before we can truly assess efficacy of Botox. 3. History of UTI (Z87.440: Personal history of urinary (tract) infections) UCx: 11/27/23 - >100k E. coli, loya sensitive, treated with Keflex 12/07/23 - >100k E. coli, loya sensitive, treated with Bactrim DS 12/20/23 - UTiD sent, showed Enterobacter and Aerococcus, treated with Macrobid 100 mg bid x 7 days Burning has improved but has not completed resolved. Will extend abx course another 7 days. ? renal stone harboring infection ? pt is not retaining urine. she is does not have fecal incontinence. hopefully infections will clear once stone treated. otherwise may need suppressive abx. -Extend abx course with Macrobid 100 mg bid x 7 days. Rx sent to [facility]. 4. History of kidney stones (Z87.442: Personal history of urinary calculi) Pt shares she has an extensive hx of renal stones. 5. Postinfective urethral stricture in female (N35.12: Postinfective urethral stricture, not elsewhere classified, female) S/p Cysto/UD 06/13/22 and 05/25/20. Follow-up With When Contact Information MAVERICK TREJO, REGINA Covington, URL [address] [place] [address] Additional Instructions: schedule L URS, L laser litho with Dr. Regan Patient Education Laser Therapy for Kidney Stones, Care After Laser Therapy for Kidney Stones Documentation recorded by the scrmirna Coyne accurately reflects the services(s) I performed and decisions made by me. Authenticated by Regina Valiente PA-C on 01/08/2024 15:45:37. I, Caty Coyne, personally scribed for [employer] on 01/08/2024 15:32:29. . Problem List/Past Medical History Ongoing Apnea, sleep At risk for falls Dysuria Flank pain GERD (gastroesophageal reflux disease) Hiatal hernia History of ki (more content not included)... Normal [facility] Comment on above: Result Comment: Elec tronically Signed By: REGINA VALIENTE PA-C\.br\Date and Time Signed: 01/08/24 15:46 EDT\.br\Electronically Co-Signed By: Caty Coyne\.br\Date and Time Co-Signed: 01/08/24 15:33 EDT RAD - CT Reporton 01-07-2024 RAD - CT Report [id number] #1.00TIFF Normal [facility] Pre-Certification Formon Pre-Certification Form [id number] #1.00TIFF Normal [facility] UTI ([facility])on 12-25-2023 URINARY TRACT PATHOGENS PANEL:-:PT:URINE:-: PROBE.AMP.TAR Diagnosis Info Invalid Interpretation Code [facility] Comment on above: Result Comment: Álvaro penalauro UTI Organisms Acinetobacter baumannii:NOTDETECTED Aerococcus urinae:DETECTED Alloscardovia omnicolens:NOTDETECTED Paloma albicans:NOTDETECTED Paloma glabrata:NOTDETECTED Paloma parapsilosis:NOTDETECTED Corynebacterium riegelii:NOTDETECTED Corynebacterium urealyticum:NOTDETECTED Citrobacter amalonaticus:NOTDETECTED Citrobacter freundii:NOTDETECTED Citrobacter koseri:NOTDETECTED Enterobacter aerogenes:NOTDETECTED Enterobacter cloacae:DETECTED Enterococcus faecalis:NOTDETECTED Escherichia coli:NOTDETECTED Enterococcus faecium:NOTDETECTED Klebsiella oxytoca:NOTDETECTED Klebsiella pneumoniae:NOTDETECTED Morganella morganii:NOTDETECTED Pantoea agglomerans:NOTDETECTED Proteus mirabilis:NOTDETECTED Providencia stuartii:NOTDETECTED Pseudomonas aeruginosa:NOTDETECTED Serratia marcescens:NOTDETECTED Staphylococcus aureus:NOTDETECTED Staphylococcus epidermidis:NOTDETECTED Staphylococcus haemolyticus:NOTDETECTED Mycobacterium tuberculosis:NOTDETECTED Mycoplasma genitalium:NOTDETECTED Mycoplasma hominis:NOTDETECTED Staphylococcus Lugdunensis:NOTDETECTED Staphylococcus saprophyticus:NOTDETECTED Streptococcus agalactiae:NOTDETECTED Streptococcus pasteuranus:NOTDETECTED Streptococcus pyogenes:NOTDETECTED Ureaplasma urealyticum:NOTDETECTED ABR Genes AmpC ?-lactamase (Class C):NOTDETECTED Carbapenemase (Class A):NOTDETECTED Carbapenemase (Class A):NOTDETECTED Carbapenemase (Class B):NOTDETECTED Carbapenemase (Class B):NOTDETECTED Carbapenemase (Class D):NOTDETECTED Extended Spectrum ?-lactamase (Class A):NOTDETECTED Extended Spectrum ?-lactamase (Class A):NOTDETECTED Extended-Spectrum-?-Lactamase:NOTDETECTED Extended-Spectrum-?-Lactamase:NOTDETECTED Extended-Spectrum-?-Lactamase:NOTDETECTED Extended-Spectrum-?-Lactamase:NOTDETECTED Macrolide Resistance:NOTDETECTED Quinolone Resistance:NOTDETECTED Vancomycin Resistance:NOTDETECTED ?-lactamase (class D):NOTDETECTED Quinolone Resistance:NOTDETECTED rosalina integron-encoded metallo-?-lactamase:NOTDETECTED Culture Urine Enterobacter cloacae complex AntibioticAntibiotic MICMIC Sensitivity Amoxicillin/Clavulanic AcidAmoxicillin/Clavulanic Acid N AztreonamAztreonam N CefazolinCefazolin >32>32 Resistant CefepimeCefepime <=0.12<=0.12 Susceptible CeftazidimeCeftazidime <=1<=1 Susceptible CeftriaxoneCeftriaxone N CiprofloxacinCiprofloxacin <=0.25<=0.25 Susceptible ErtapenemErtapenem N GentamicinGentamicin <=1<=1 Susceptible ImipenemImipenem <=0.25<=0.25 Susceptible LevofloxacinLevofloxacin <=0.12<=0.12 Susceptible MeropenemMeropenem N NitrofurantoinNitrofurantoin 6464 Intermediate Piperacillin/TazobactamPiperacillin/Tazobactam 88 Susceptible TetracyclineTetracycline N TobramycinTobramycin <=1<=1 Susceptible Trimethoprim/SulfamethoxazoleTrimethoprim/Sulfamethoxazole >160>160 Resistant ColonyCountColonyCount Electronically signed by : on: 12/25/2023 22:17:02 Performed By: #### 2 [id number] #### [facility] [address] [address] UTI ([facility])on 12-20-2023 UTI Method of Extraction Voided Normal [facility] Comment on above: Performed By: #### 2 [id number] #### [facility] [address] [place] [address] UTI Number of Jars 1 Invalid Interpretation Code [facility] Comment on above: Performed By: #### 2 [id number] #### [facility] [address] [place] [address] UTI Specimen Urine Normal [facility] Comment on above: Performed By: #### 2 [id number] #### [facility] [address] [place] [address] UTI Type of Service Global Normal [facility] Comment on above: Performed By: #### 2 [id number] #### [facility] [address] [place] [address] C Urineon 12-09-2023 Bacteria identified Cx Nom (U) Microbiology PROCEDURE: Urine Culture [R1] SOURCE: U CleanCatch BODY SITE: COLLECTED DATE/TIME: 12/07/2023 15:08 EDT RECEIVED DATE/TIME: 12/07/2023 22:02 EDT START DATE/TIME: 12/07/2023 22:02 EDT FREE TEXT SOURCE: REGINA VALIENTE PA-C, PA-C, REGINA Covington FINAL REPORTS Final Report [] Verified Date/Time: 12/09/2023 09:53 EDT >100,000 cfu/ml Escherichia coli <10,000 cfu/ml Mixed skin contaminants SUSCEPTIBILITY RESULTS LEGEND: S=Susceptible, N/R=Not Reported, Blank=Data not available, or drug not advisable or tested, I=Intermediate, ESBL=Extended spectrum beta-lactamase, R=Resistant, TFG=Thymidine-depend ent strain, SUSHMA=Beta-lactamase positive, ANNIE=mcg/m;(mg/L), S*=Predicted susceptible interp, R*=Predicted resistant interp EC Antibiotic ANNIE Dilutn ANNIE Interp Amikacin <=16 S Ampicillin <=8 S Ampicillin/ <=8/4 S Sulbactam Aztreonam <=4 S Cefazolin <=2 S Cefepime <=2 S Cefoxitin <=8 S Ceftazidime <=1 S Ceftazidime/ <=8 S Avibactam Ceftriaxone <=1 S Ciprofloxacin <=1 S Ertapenem <=0.5 S Gentamicin <=4 S Levofloxacin <=2 S Meropenem <=1 S Nitrofurantoin <=32 S Piperacillin/ <=16 S Tazobactam Tetracycline <=4 S Tigecycline <=2 S Tobramycin <=4 S Trimethoprim/ <=2/38 S Sulfa Performing Locations R1: This test was performed at: [facility], [address] [place] [address], [facility] , , [facility] Comment on above: Performed By: #### [id number] ####[place] [address] C Urineon 11-29-2023 Bacteria identified Cx Nom (U) Microbiology PROCEDURE: Urine Culture [R1] SOURCE: U Random BODY SITE: COLLECTED DATE/TIME: 11/27/2023 10:44 EDT RECEIVED DATE/TIME: 11/27/2023 18:06 EDT START DATE/TIME: 11/27/2023 18:06 EDT FREE TEXT SOURCE: REGINA VALIENTE PA-C, PA-C, REGINA Covington FINAL REPORTS Final Report [] Verified Date/Time: 11/29/2023 09:16 EDT >100,000 cfu/ml Escherichia coli SUSCEPTIBILITY RESULTS LEGEND: S=Susceptible, N/R=Not Reported, Blank=Data not available, or drug not advisable or tested, I=Intermediate, ESBL=Extended spectrum beta-lactamase, R=Resistant, TFG=Thymidine-depend ent strain, SUSHMA=Beta-lactamase positive, ANNIE=mcg/m;(mg/L), S*=Predicted susceptible interp, R*=Predicted resistant interp EC Antibiotic ANNIE Dilutn ANNIE Interp Amikacin <=16 S Ampicillin <=8 S Ampicillin/ <=8/4 S Sulbactam Aztreonam <=4 S Cefazolin <=2 S Cefepime <=2 S Cefoxitin <=8 S Ceftazidime <=1 S Ceftazidime/ <=8 S Avibactam Ceftriaxone <=1 S Ciprofloxacin <=1 S Ertapenem <=0.5 S Gentamicin <=4 S Levofloxacin <=2 S Meropenem <=1 S Nitrofurantoin <=32 S Piperacillin/ <=16 S Tazobactam Tetracycline <=4 S Tigecycline <=2 S Tobramycin <=4 S Trimethoprim/ <=2/38 S Sulfa Performing Locations R1: This test was performed at: [facility], [address] [place] [address], [phone] , [place], Normal [facility] Comment on above: Performed By: #### [id number] ####[facility] [id number] [place] [address] Screenson 11-28-2023 Screens [id number] 9#1.00TIFF [facility] Ambulatory Visit Summaryon 0 11-27-2023 Ambulatory Visit Summary LACIE GARZA :1940 Visit Date:11/27/2023 Ambulatory Visit Instructions Your Diagnosis Mixed incontinence Nocturia UTI symptoms Postinfective urethral stricture in female History of kidney stones Your Care Team Attending Physician - REGINA VALIENTE PA-C Primary Care Physician - JUAN DIEGO CASTILLO CNP This Is Your Medications List diazepam (Valium 5 mg Tab) Contact prescribing physician if questions or concerns Misc Prescription (METOPROLOL SUCC ER 50 MG TAB) apixaban (Eliquis 5 mg oral tablet) atorvastatin (Lipitor 40 mg Tab) donepezil (donepezil 5 mg Tab) fluoxetine (FLUoxetine 40 mg Cap) furosemide (Lasix 40 mg Tab) memantine (memantine 5 mg Tab) mirabegron (Myrbetriq 50 mg oral tablet, extended release) pantoprazole (Pantoprazole [address] Tab) promethazine (promethazine 25 mg Supp) Procedures Performed Injection of botulinum toxin type A into detrusor muscle of urinary bladder (08/07/2023), Cystourethroscopy with dilation of urethral stricture (06/13/2022), Cystourethroscopy with dilation of urethral stricture (05/25/2020), Cystoscopic removal of ureteric stent (06/24/2019), Cataract, Catheterization of aorta, Cholecystectomy, Colonoscopy, Hernia repair, Hysterectomy, Knee, Tonsillectomy and adenoidectomy, Total knee replacement.., Umbilical hernia. Discharge Vitals Heart Rate (Peripheral) 77 Respiratory Rate 16 Blood Pressure 131/71 Height 153 cm Height 60 in Weight 120 kg Weight 264 lb BMI 51.26 What to do next You Need to Schedule the Following Appointments Follow Up with MAVERICK TREJO, FRANCISCA BALTAZAR When: Where: [address] [address] [id number] Medications What How Much When Instructions Unchanged diazepam (Valium 5 mg Tab) 1 Tablets By Mouth Once Take 1 hour prior to procedure. 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 Unchanged apixaban (Eliquis 5 mg oral tablet) By Mouth 2 times a day Contact prescribing physician if questions or concerns Unchanged atorvastatin (Lipitor 40 mg Tab) 1 Tablets By Mouth Once a day (at bedtime) Contact prescribing physician if questions or concerns Unchanged donepezil (donepezil 5 mg Tab) Contact prescribing physician if questions or concerns Unchanged fluoxetine (FLUoxetine 40 mg Cap) Contact prescribing physician if questions or concerns Unchanged furosemide (Lasix 40 mg Tab) 1 Tablets By Mouth Every day Contact prescribing physician if questions or concerns Unchanged memantine (memantine 5 mg Tab) Contact prescribing physician if questions or concerns Unchanged mirabegron (Myrbetriq 50 mg oral tablet, extended release) 1 Tablets By Mouth Every day Contact prescribing physician if questions or concerns Unchanged Misc Prescription (METOPROLOL SUCC ER 50 MG TAB) 0 Contact prescribing physician if questions or concerns Unchanged pantoprazole (Pantoprazole [address] Tab) By Mouth Every day Contact prescribing physician if questions or concerns Unchanged promethazine (promethazine 25 mg Supp) By rectum Every 6 hours Contact prescribing physician if questions or concerns Allergies No Known Allergies Problems Ongoing - Any problem that you are currently receiving treatment for. Apnea, sleep At risk for falls Dysuria Flank pain GERD (gastroesophageal reflux disease) Hiatal hernia History of kidney stones History of urethral stricture HTN (hypertension) Kidney stone Mixed incontinence Nocturia OA (osteoarthritis) Postinfective urethral stricture in female TIA (transient ischemic attack) Urinary tract infection Patient Survey You may receive a survey via text or e-mail asking about your office visit. Please share your experience with us by completing your survey. We appreciate your feedback and thank you for choosing us for your care. Education Materials Urinary Tract Infection, Adult A urinary tract infection (UTI) is an infection of any part of the urinary tract. The urinary tract includes: ? The kidneys. ? The ureters. ? The bladder. ? The urethra. These organs make, store, and get rid of pee (urine) in the body. What are the causes? This infection is caused by germs (bacteria) in your genital area. These germs grow and cause swelling (inflammation) of your urinary tract. What increases the risk? The following factors may make you more likely to develop this condition: ? Using a small, thin tube (catheter) to drain pee. ? Not being able to control when you pee or poop (incontinence). ? Being female. If you are female, these things can increase the risk: ? Using these methods to prevent : ? A medicine that kills sperm (spermicide). ? A device that blocks sperm (diaphragm). ? Having low levels of a female hormone (estrogen). ? Being . You are more likely to develop this condition if: ? You have genes that add to your risk. ? You are sexually active. (more content not included)... Normal [facility] Patient Educationon 11-27-19 Patient Education Obstetrics and Gynecology Urinary Tract Infection, Adult A urinary tract infection (UTI) is an infection of any part of the urinary tract. The urinary tract includes: ? The kidneys. ? The ureters. ? The bladder. ? The urethra. These organs make, store, and get rid of pee (urine) in the body. What are the causes? This infection is caused by germs (bacteria) in your genital area. These germs grow and cause swelling (inflammation) of your urinary tract. What increases the risk? The following factors may make you more likely to develop this condition: ? Using a small, thin tube (catheter) to drain pee. ? Not being able to control when you pee or poop (incontinence). ? Being female. If you are female, these things can increase the risk: ? Using these methods to prevent : ? A medicine that kills sperm (spermicide). ? A device that blocks sperm (diaphragm). ? Having low levels of a female hormone (estrogen). ? Being . You are more likely to develop this condition if: ? You have genes that add to your risk. ? You are sexually active. ? You take antibiotic medicines. ? You have trouble peeing because of: ? A prostate that is bigger than normal, if you are male. ? A blockage in the part of your body that drains pee from the bladder. ? A kidney stone. ? A nerve condition that affects your bladder. ? Not getting enough to drink. ? Not peeing often enough. ? You have other conditions, such as: ? Diabetes. ? A weak disease-fighting system (immune system). ? Sickle cell disease. ? Gout. ? Injury of the spine. What are the signs or symptoms? Symptoms of this condition include: ? Needing to pee right away. ? Peeing small amounts often. ? Pain or burning when peeing. ? Blood in the pee. ? Pee that smells bad or not like normal. ? Trouble peeing. ? Pee that is cloudy. ? Fluid coming from the vagina, if you are female. ? Pain in the belly or lower back. Other symptoms include: ? Vomiting. ? Not feeling hungry. ? Feeling mixed up (confused). This may be the first symptom in older adults. ? Being tired and grouchy (irritable). ? A fever. ? Watery poop (diarrhea). How is this treated? ? Taking antibiotic medicine. ? Taking other medicines. ? Drinking enough water. In some cases, you may need to see a specialist. Follow these instructions at home: Medicines ? Take fmtw-eoy-rbbidsu and prescription medicines only as told by your doctor. ? If you were prescribed an antibiotic medicine, take it as told by your doctor. Do not stop taking it even if you start to feel better. General instructions ? Make sure you: ? Pee until your bladder is empty. ? Do not hold pee for a long time. ? Empty your bladder after sex. ? Wipe from front to back after peeing or pooping if you are a female. Use each tissue one time when you wipe. ? Drink enough fluid to keep your pee pale yellow. ? Keep all follow-up visits. Contact a doctor if: ? You do not get better after 1?2 days. ? Your symptoms go away and then come back. Get help right away if: ? You have very bad back pain. ? You have very bad pain in your lower belly. ? You have a fever. ? You have chills. ? You feeling like you will vomit or you vomit. Summary ? A urinary tract infection (UTI) is an infection of any part of the urinary tract. ? This condition is caused by germs in your genital area. ? There are many risk factors for a UTI. ? Treatment includes antibiotic medicines. ? Drink enough fluid to keep your pee pale yellow. This information is not intended to replace advice given to you by your health care provider. Make sure you discuss any questions you have with your health care provider. Document Revised: 03/04/2021 Document Reviewed: 03/04/2021 ITC Patient Education ? 2022 [employer] Urology Office/Clinic Noteon 11-27-2023 Urology Office/Clinic Note Chief Complaint 7 mo f/u HPI Staff PRW pt S/P Botox 100u 08/07/23 DX: Mixed Incontinence, Nocturia, UTI, Urethral Stricture & Hx of Kidney Stones *Myrbetriq 50mg ER bid Dysuria: yes Incomplete bladder emptying: yes Hematuria: denies Frequency: yes Urgency: yes Nocturia: 0-1x a night Stream: steady Leaking: yes Post void dripping: yes Wearing pads/ Depends: wears depends and pads Urge incontinence: yes Stress incontinence: yes Incontinence without Sensory Awareness: denies Abdominal pain: denies Flank pain: denies Sexual complaints: _ History of Present Illness staff HPI reviewed and agree. Review of Systems PHQ Score Initial Depression Screen Score: 0 SCORE no fever, chills, malaise, myalgia. no rash/lesions. no chest pain, palpitations, or SOB. no abdominal pain, nausea, vomiting. no unilateral calf swelling, redness, pain Physical Exam Vitals & Measurements HR: 77(Peripheral) RR: 16 BP: 131/71 HT: 60 in HT: 153 cm WT: 120 kg WT: 264 lb BMI: 51.26 General: nontoxic, NAD Mouth: moist mucosa Lungs: normal respiratory effort Cardio: regular rate, good distal perfusion Abdomen: nondistended, no suprapubic distention or tenderness, no CVA tenderness Neurologic: Grossly normal Skin: No rashes or suspicious lesions Assessment/Plan Dr. Regan pt here with her daughter today. Pt is a poor historian. 1. UTI symptoms (R39.9: Unspecified symptoms and signs involving the genitourinary system) UA today shows moderate blood, large leuks, and positive nitrites. Has pain/burning with urination. Says it's been going on for a while. Thought she called to tell us. Has trouble remembering things. -Urine sample sent for culture. Pt to take Keflex 500mg bid x7 days. -Timed voids (see #2) Ordered: Urine Culture 2. Mixed incontinence (N39.46: Mixed incontinence) Failed tolterodine. Not a candidate for other anticholinergics due to chronic constipation and risk of confusion. [1] S/p Botox 100u 08/07/23. BBS 22 (20). PVR 44 (55) mL. Taking Myrbetriq 50mg ER qd. Reports she did not notice improvement immediately after Botox but started to a few weeks after. However then things worsened again. I suspect this is due to the UTI and advised her as much. Still wearing pads and depends due to incontinence. However daughter thinks this is more behavioral than medical at this point. Says pt waits too long to void. Says she will get urge to void and doesn't immediately go. I explained that if she waits for urge to void it's probably already too late, needs to be doing timed voids. Pt also reports issues w constipation. Was managing w apple juice/prunes but reports having to push/strain. I recommended bowel regimen and again, not holding BMs. -Timed voids -bowel regimen -Cont Myrbetriq Ordered: [id number] Measure Post Void residual urine and/or bladder capacity by US- non-imaging Body Mass Index (BMI) documented 3008F Current tobacco non-user 1036F Depression Screening Negative 3352F Influenza immunization status assessed 1030F Medication list documented in medical record 1159F Most recent diastolic blood pressure <80 mm Hg 3078F Patient screen for fall risk: no falls in last year or 1 fall with no injury in last year 1101F Review of all meds by a prescribing practitioner or clinical pharmacist documented in EHR 1160F Systolic BP 130-139 mm Hg (Most Recent) 3075F Urine Culture Urnls Dip Stick Auto w/o Microscopy POC 61466 3. 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 Reported improvement in urination after dilation. Grade 2 cystocele noted at that time. S/p Cysto/UD 06/13/[address] Regan. No noticeable improvement this time. [2] Good, steady stream. Ordered: 58422 Measure Post Void residual urine and/or bladder capacity by US- non-imaging Body Mass Index (BMI) documented 3008F Current tobacco non-user 1036F Depression Screening Negative 3352F Influenza immunization status assessed 1030F Medication list documented in medical record 1159F Most recent diastolic blood pressure <80 mm Hg 3078F Patient screen for fall risk: no falls in last year or 1 fall with no injury in last year 1101F Review of all meds by a prescribing practitioner or clinical pharmacist documented in EHR 1160F Systolic BP 130-139 mm Hg (Most Recent) 3075F Urine Culture Urnls Dip Stick Auto w/o Microscopy POC 89629 4. History of kidney stones (Z87.442: Personal history of urinary calculi) Has passed stones on her own before. Has also required surgical intervention. No recent stone episodes. denies flank pain. Ordered: 11789 Measure Post Void residual urine and/or bladder capacity by US- non-imaging Body Mass Index (BMI) documented 3008F Current tobacco non-user 1036F Depression Screening Negative 3352F Influenza immunization status assessed 1030F Medication list documented in med (more content not included)... Normal [facility] Comment on above: Result Comment: Elec tronically Signed By: REGINA VALIENTE PA-C\.br\Date and Time Signed: 11/27/23 11:13 EDT\.br\Electronically Co-Signed By: Lauren Foote\.br\Date and Time Co-Signed: 11/27/23 10:54 EDT Consent for Procedure/Surger yon 08-30-2023 Consent for Procedure/Surgery [id number] 9#1.00TIFF [facility] Insurance Correspondenceon 0 08-09-2023 Insurance Correspondence [id number] 7#1.00TIFF [facility] Consent for Procedure/Surger yon 08-07-2023 Consent for Procedure/Surgery [id number] 0#1.00TIFF [facility] Consent for Treatmenton Consent for Treatment [id number] #1.00TIFF [facility] IntraOperative Documentson 0 08-07-2023 IntraOperative Documents [id number] 5#1.00TIFF [facility] Main OR Intraoperative Recor don 08-07-2023 Main OR Intraoperative Record IntraOp Document Type FTURO Summary Primary Physician: Leonardo REGAN MD Finalized Date/Time: 08/07/23 12:34:13 Pt. Name: GARZALACIE/Sex: 1940 Female Med Rec #: [id number] Physician: Leonardo REGAN MD Financial #: [id number] Pt. Type: O Room/Bed: / Admit/Disch: 08/07/23 10:19:19 - Institution: Case Times FTURO Entry 1 Patient Times In Room 08/07/23 12:10:00 Out Room 08/07/23 12:30:00 Procedure Times Start 08/07/23 12:13:00 Stop 08/07/23 12:25:00 Anesthesia Times Last Modified By: Maritza CAVANAUGH, Samantha THURSTON 08/07/23 12:22:43 Case Attendance FTURO Entry 1 Entry 2 Entry 3 Case Attendee SHEREEN ELY, Leonardo Salas RN, EVIEOR, Rosy Warner Role Performed Surgeon - Primary Lithographer Helper - Primary Scrub - Primary Time In 08/07/23 12:10:00 08/07/23 12:10:00 08/07/23 12:10:00 Time Out 08/07/23 12:30:00 08/07/23 12:30:00 08/07/23 12:30:00 Procedure CYSTOSCOPY LOCAL BOTOX CYSTOSCOPY LOCAL BOTOX CYSTOSCOPY LOCAL BOTOX INJECTION(.) INJECTION(.) INJECTION(.) Comments Last Modified By: Maritza RN, CNOR, Maritza RN, EVIEOR, Maritza CAVANAUGH, Samantha THURSTON 08/07/23 Samantha 08/07/23 Samantha 08/07/23 12:22:44 12:22:44 12:22:44 Surgical Procedures FTURO Entry 1 Procedure Description Procedure CYSTOSCOPY LOCAL BOTOX Modifiers . INJECTION Surgeon Description CYSTO WITH BOTOX 100 UNITS Primary Procedure Yes Primary Surgeon Leonardo REGAN MD Start 08/07/23 12:13:00 Stop 08/07/23 12:25:00 Anesthesia Type Local Surgical Service Urology Wound Class 2 - Clean-Contaminated Last Modified By: KARENA Salas RN, Ruthann 08/07/23 12:23:45 General Comments: BOTOX 100 UNITS OUTDATE 11/29 LOT [id number] General Case Data FTURO Pre-Care Text: Classifies surgical wound, implements aseptic technique, initiates traffic control Entry 1 Case Information OR URO 1 FT Case Level None Wound Class 2 - Clean-Contaminated Specialty Urology Preop Diagnosis MIXED INCONTINENCE Postop Same As Preop Yes Postop Diagnosis MIXED INCONTINENCE Outcomes Met? Yes Last Modified By: KARENA Salas RN, Ruthann 08/07/23 12:23:54 Post-Care Text: The patient is free from signs and symptoms of infection EU IntraOp - FTURO Pre-Care Text: Implements protective measures prior to operative or invasive procedure, confirms identity before the operative or invasive procedure, verifies operative procedure, surgical site, and laterality Entry 1 EU Perioperative Protocols Procedure(s) CYSTOSCOPY LOCAL BOTOX Patient Identity Birthday, ID Band INJECTION(.) Verified (select at Check, Patient least 2): Participation Consents / H and P HandP, Surgery/Procedure Operative Site N/A Verified Consent Marking Verified Surgical Site Yes Laterality Verified n/a Verified Procedure Verified Yes Correct Patient Yes Position Verified Availability Equipment, Medication Time Out Leonardo REGAN MD, Verified (If Participants Maritza CAVANAUGH, EVIEOR, Applicable) Timmy Singh Laura C Time Out Complete 08/07/23 12:12:00 Allergies Reviewed? Yes Allergies Reviewed Self/Patient With Body Position Low Lithotomy Prep Area PERINEAL AREA Prep Agents Betadine Solution Skin. Condition Unable to Visualize Additional None Specimens Collected Vitals - EU Blood Pressure Pulse Respirations SPO2 EBL 0 IandO - EU Total Intake 0 mL Total Output 0 mL Outcomes Met? Yes Last Modified By: KARENA Salas RN, Ruthann 08/07/23 12:22:01 Post-Care Text: The patient is free from signs and symptoms of injury caused by extraneous objects Sign Out FTURO Entry 1 Before Patient Leaves OR Nurse verbally Yes Nurse verbally n/a confirms with the confirms with the team the name of team that the procedure(s) instrument, sponge, recorded and needle counts are correct (or N/A) Nurse verbally n/a Nurse verbally n/a confirms with the confirms with the team how the team whether there specimen is labeled are any equipment (including patient problems to be name), if applicable addressed Sign Out Complete 08/07/23 12:27:00 Last Modified By: KARENA Salas RN, Ruthann 08/07/23 12:25:06 Case Comments Finalized By: KARENA Salas RN, Ruthann Document Signatures Signed By: KARENA Salas RN, Ruthann 08/07/23 12:33 KARENA Salas RN, Ruthann 08/07/23 12:25 KARENA Salas RN, Ruthann 08/07/23 12:34 Normal [facility] Main OR Preoperative Recordo n 08-07-2023 Main OR Preoperative Record Holding Area Document Type FTURO Summary Primary Physician: Leonardo REGAN MD Finalized Date/Time: 08/07/23 12:22:25 Pt. Name: LACIE GARZA Nadya Kelsey/Sex: 1940 Female Med Rec #: [id number] Physician: Leonardo REGAN MD Financial #: [id number] Pt. Type: O Room/Bed: / Admit/Disch: 08/07/23 10:19:19 - Institution: Case Times Holding FTURO Pre-Care Text: Verifies consent for planned procedure, identifies individual values and wishes concerning care, includes family members in perioperative teaching Secures patient's records' belongings, and valuables, maintains patient's dignity and privacy, and maintains patient confidentiality Entry 1 In Holding 08/07/23 11:40:00 Outcomes Met? Yes Last Modified By: Krysta Genao RN 08/07/23 11:41:03 Post-Care Text: The patient participates in decisions affecting his or her perioperative plan of care The patient's right to privacy is maintained Surgery Checklist FTURO Entry 1 Patient Birthday, ID Band Procedure History and Physical, Identification: Check, Patient Verification: Surgical Consent, With Participation Patient NPO after Midnight: n/a Personal Items: Glasses, Jewelry Personal Items GLASSES; WATCH X 1; Limitations: UP AD BLAKE WITH CANE Comment: RING X 3 Complaints of Pain: No Pain Comment: 0/10 Skin Integrity Dry, Warm, Bruised Vitals - EU Blood Pressure 161/85 Pulse 67 bpm Respirations 16 br/min SPO2 95 % Additional Other (See Comment) Specimens Comment URINE DIPSTICK Specimens Collected RN Reviewed Yes Last Modified By: Krysta Genao RN 08/07/23 12:01:27 General Comments: ECCHYMOSIS TO RIGHT LEG. MAO MÉNDEZ Finalized By: KARENA Salas RN, Ruthann Document Signatures Signed By: Krysta Genao RN 08/07/23 12:01 Krysta Genao RN 08/07/23 11:49 KARENA Salas RN, Ruthann 08/07/23 12:22 Normal [facility] Operative Reporton Operative Report Patient: LACIE GARZA Age: 83 years Sex: Female : 1940 Associated Diagnoses: None Author: Leonardo REGAN MD Procedure Operative Information Details: Date/ Time: 08/07/2023 12:28:00. Pre-Op Dx: Incont/Urge - N39.41, Mixed Urinary Incontinence - N39.46. Post-Op Dx: Same. Anesthesia Type: Local. Procedure: Local Cystoscopy with botox injection. Complications: None. Risks/Benefits/Infor med Consent: Surgical risks, benefits, details of the procedure have been explained to the patient, Full informed consent has been obtained. Intraoperative Information Prepped: Patient is brought back to the endoscopy suite, Male Prep, Female Prep (Patient is placed in modified dorso/lithotomy position, 5 cc 2% Xylocaine Jelly is placed per Urethra, Straight cath inserted to obtain urine specimen, 60 cc 2% Xylocaine liquid inserted into bladder, 5 additional cc 2% Xylocaine Jelly is placed per Urethra, Patient in sitting position for 20 min dwell), Urine Specimen Results Negative for infection, Patient prepped in the usual fashion with Betadine solution, After waiting several minutes the Cystoscope is introduced. Procedure: The trigone was identified and evaluated, 20 template injection sites were identified, The bladder was instilled with enough saline to achieve adequate visualization for the injections, The needle was inserted approximately 2 mm into the detrusor spaced approximately 1 cm apart, A total of 20 injections with a 0.5 ml volume was delivered at each site for a total of 100 units of Botox. The Urethra is: Normal. The Bladder is: Normal. The ureteral orifices: Show efflux of clear urine. Devices Implanted: None. Removal: Cystoscope is removed, The patient tolerated it well. Postoperative Information Discharge: Patient is discharged home with antibiotic coverage, Follow up arranged. Normal [facility] Comment on above: Result Comment: Elec tronically Signed By: SHEREEN ELY, Leonardo Cisneros\.br\Date and Time Signed: 08/07/23 12:28 EST Outpatient Surgery Discharge Instructionon 08-07-2023 Outpatient Surgery Discharge Instruction [id number] 9#1.00TIFF Normal [facility] Ambulatory Visit Summaryon 1 10-02-2022 Ambulatory Visit Summary LACIE GARZA :1940 Visit Date:08/01/2023 Ambulatory Visit Instructions Your Care Team Attending Physician - SHEREEN ELY, Leonardo Cisneros Primary Care Physician - MARY LUGO MD This Is Your Medications List Misc Prescription (METOPROLOL SUCC ER 50 MG TAB) apixaban (Eliquis 5 mg oral tablet) atorvastatin (Lipitor 40 mg Tab) cephalexin (Keflex 250 mg Cap) cephalexin (Keflex 500 mg Cap) diazepam (Valium 5 mg Tab) donepezil (donepezil 5 mg Tab) fluoxetine (FLUoxetine 40 mg Cap) furosemide (Lasix 40 mg Tab) memantine (memantine 5 mg Tab) mirabegron (Myrbetriq 50 mg oral tablet, extended release) pantoprazole (Pantoprazole [address] Tab) promethazine (promethazine 25 mg Supp) Procedures Performed Cystourethroscopy with dilation of urethral stricture (06/13/2022), Cystourethroscopy with dilation of urethral stricture (05/25/2020), Cystoscopic removal of ureteric stent (06/24/2019), Cataract, Catheterization of aorta, Cholecystectomy, Colonoscopy, Hernia repair, Hysterectomy, Knee, Tonsillectomy and adenoidectomy, Total knee replacement.., Umbilical hernia. What to do next Scheduled Follow-Up Appointments Sunday 9:00 AM EST With: Where: [facility] Sunday 11:30 AM EST With: Where: [facility] Sunday 10:00 AM EST With: MAVERICK TREJO, REGINA [place] Where: [facility] Normal [address] [place] [address]- \.br\ Medications\.br\ What How Much When Instructions\.br \ Unchanged apixaban (Eliquis 5 mg oral tablet) By Mouth 2 times a day\.br\ Unchanged atorvastatin (Lipitor 40 mg Tab) 1 Tablets By Mouth Once a day (at bedtime)\.br\ Unchanged cephalexin (Keflex 250 mg Cap) 1 Capsules By Mouth 2 times a day Start the day before the procedure \.br\ Unchanged cephalexin (Keflex 500 mg Cap) 1 Capsules By Mouth 2 times a day Start the day prior to procedure \.br\ Unchanged diazepam (Valium 5 mg Tab) 1 Tablets By Mouth Once Take 1 hour prior to procedure. 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 \.br\ Unchanged donepezil (donepezil 5 mg Tab)\.br\ Unchanged fluoxetine (FLUoxetine 40 mg Cap)\.br\ Unchanged furosemide (Lasix 40 mg Tab) 1 Tablets By Mouth Every day\.br\ Unchanged memantine (memantine 5 mg Tab)\.br\ Unchanged mirabegron (Myrbetriq 50 mg oral tablet, extended release) 1 Tablets By Mouth Every day\.br\ Unchanged Misc Prescription (METOPROLOL SUCC ER 50 MG TAB) 0\.br\ Unchanged pantoprazole (Pantoprazole [address] Tab) By Mouth Every day\.br\ Unchanged promethazine (promethazine 25 mg Supp) By rectum Every 6 hours\.br\ Allergies\.br\ No Known Allergies\.br\ Problems\.br\ Ongoing - Any problem that you are currently receiving treatment for.\.br\ Apnea, sleep\.br\ Dysuria\.br\ Flank pain\.br\ GERD (gastroesophagea l reflux disease)\.br\ Hiatal hernia\.br\ History of kidney stones\.br\ History of urethral stricture\.br\ HTN (hypertension)\. br\ Kidney stone\.br\ Mixed incontinence\.br \ Nocturia\.br\ OA (osteoarthritis) \.br\ Postinfective urethral stricture in female\.br\ TIA (transient ischemic attack)\.br\ Urinary tract infection\.br\ Patient Survey\.br\ You may receive a survey via text or e-mail asking about your office visit. Please share your experience with us by completing your survey. We appreciate your feedback and thank you for choosing us for your care.\.br\ \.br\ [facility] Urology Office/Clinic Noteon 06-11-2023 Urology Office/Clinic Note Chief Complaint OV HPI Staff PRW pt, Pt. was asking about being put back on Flomax or Tolterodine. Last seen in our office by BK due to Mixed Incontinence, Nocturia, UTI, Urethral Stricture & Hx of Kidney Stones. Plan at that time was to f/u in 7m. Pt is scheduled for 11/27/23 *Myrbetriq 50mg ER BID Pt's daughter corey walton office 05/10/23 stating that the pt was getting up 4-5x/night. & having increased incontinence. NEG UA @ PCP's office Pt is here today to discuss Tx options. S/P Cysto/UD 06/13/22 Dysuria: Pt. states having some pain with urination Incomplete bladder emptying: no Hematuria: no Frequency: every 2 hours Urgency: yes Nocturia: 1x Stream: good stream Post void dripping: yes Wearing pads/ Depends: Pt. using a big pack in a week Urge incontinence: yes Stress incontinence: yes Incontinence without Sensory Awareness: yes Abdominal pain: lower abd Flank pain: lower back History of Present Illness staff HPI reviewed and agree. Review of Systems PHQ Score Initial Depression Screen Score: 0 no fever, chills, malaise, myalgia. no rash/lesions. no chest pain, palpitations, or SOB. no abdominal pain, nausea, vomiting. no unilateral calf swelling, redness, pain Physical Exam Vitals & Measurements HT: 60 in HT: 153 cm WT: 116 kg WT: 255.2 lb BMI: 49.55 General: nontoxic, NAD Mouth: moist mucosa Lungs: normal respiratory effort Cardio: regular rate, good distal perfusion Abdomen: nondistended, no suprapubic distention or tenderness, no CVA tenderness Neurologic: Grossly normal Skin: No rashes or suspicious lesions Assessment/Plan Dr. Regan pt here with her daughter. 1. Mixed incontinence (N39.46: Mixed incontinence) Failed tolterodine. Not a candidate for other anticholinergics due to chronic constipation and risk of confusion. BBSQ 20. PVR 10/17/ - 55mL Wears pads daily, changes 6-7x/day. Does not always have sensation to void. Advised pt to begin timed voids at prior OV. No major improvements despite this. C/o nocturia x4-5 as most bothersome sx. Wakes up wet. Denies other reasons for nocturia (LE swelling, sleep apnea, PM bladder irritants, anxiety, insomnia, PM diuretics). Taking Myrbetriq 50mg ER bid. Educated pt that she is currently on double max dose of Myrbetriq. Discussed with patient and daughter that Botox would be the most appropriate option at this time. Had another long discussion regarding Botox. -Will schedule Botox with Dr. Regan. The procedural risks, benefits, details, and treatment alternatives have been discussed with the patient. These include bleeding, infection, continued problems with overactive bladder, inability to empty the bladder which could require an indwelling catheter or need for in/out catheterization to empty the bladder, and need for repeat procedures over time (usually lasts up to six months), as well as fatigue and insomnia, among others. There is a minimal risk of Botox entering the blood stream and causing neurological problems, which is quite rare. Full informed consent has been obtained. Will order Local anesthesia. -Bladder irritant sheet given. Discussed with the patient that limiting foods and fluids which are irritating to the bladder may help decrease urinary symptoms. If medications have been given, avoiding these irritants may allow the medications to work better. 2. Nocturia (R35.1: Nocturia) 4-5x/ night on Myrbetriq. Was 0-1x/night at prior OV. 3. Urinary tract infection (N39.0: Urinary tract infection, site not specified) UA today shows trace leuks. Continues applying barrier protection. 4. 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 Reported improvement in urination after dilation. Grade 2 cystocele noted at that time. S/p Cysto/UD 06/13/[address] Regan. No noticeable improvement this time. 5. History of kidney stones (Z87.442: Personal history of urinary calculi) Has passed stones on her own before. Has also required surgical intervention. Chronic mild, intermittent R flank pain. Follow-up With When Contact Information REGINA VALIENTE PA-C, URL [address] [place] [address] [phone] Additional Instructions: sched Botox Patient Education Overactive Bladder, Adult Documentation recorded by the scribnadya Foote accurately reflects the services(s) I performed and decisions made by me. Authenticated by Rgeina Valinete PA-C on 06/11/2023 21:00:46. I, Lauren Foote, personally scribed for Regina Valiente PA-C on 06/05/2023 13:12:10. . Problem List/Past Medical History Ongoing Apnea, sleep Dysuria Flank pain GERD (gastroesophageal reflux disease) Hiatal hernia History of kidney stones History of urethral stricture HTN (hypertension) Kidney stone Mixed incontinence Nocturia OA (osteoarthritis) Postinfectiv (more content not included)... Normal [facility] Comment on above: Result Comment: Elec tronically Signed By: REGINA VALIENTE PA-C\.br\Date and Time Signed: 06/11/23 21:04 EST [place] 06-06-2023 Screens [id number] Normal [facility] Ambulatory Visit Summaryon 1 Ambulatory Visit Summary LACIE GARZA :1940 MRN: Visit Date:06/05/2023 Ambulatory Visit Instructions Your Diagnosis Mixed incontinence Nocturia Urinary tract infection Postinfective urethral stricture in female History of kidney stones Tests Performed Urnls Dip Stick Auto w/o Microscopy POC 00762 Your Care Team Attending Physician - REGINA VALIENTE PA-C Primary Care Physician - MARY LUGO MD This Is Your Medications List Contact prescribing physician if questions or concerns Misc Prescription (METOPROLOL SUCC ER 50 MG TAB) apixaban (Eliquis 5 mg oral tablet) atorvastatin (Lipitor 40 mg Tab) donepezil (donepezil 5 mg Tab) fluoxetine (FLUoxetine 40 mg Cap) furosemide (Lasix 40 mg Tab) memantine (memantine 5 mg Tab) mirabegron (Myrbetriq 50 mg oral tablet, extended release) pantoprazole (Pantoprazole [address] Tab) promethazine (promethazine 25 mg Supp) Procedures Performed Cystourethroscopy with dilation of urethral stricture (06/13/2022), Cystourethroscopy with dilation of urethral stricture (05/25/2020), Cystoscopic removal of ureteric stent (06/24/2019), Cataract, Catheterization of aorta, Cholecystectomy, Colonoscopy, Hernia repair, Hysterectomy, Knee, Tonsillectomy and adenoidectomy, Total knee replacement.., Umbilical hernia. Discharge Vitals Height 153 cm Height 60 in Weight 116 kg Weight 255.2 lb BMI 49.55 What to do next Scheduled Follow-Up Appointments Sunday 10:30 AM EST With: Where: [facility] Invalid Interpretation Code [address] [place] [address]- \.br\ Sunday 10:00 AM EDT \.br\ With: REGINA VALIENTE PA-C\.br\ Where: [facility] Patient Educationon 06-05-20 23 Patient Education Obstetrics and Gynecology Overactive Bladder, Adult Overactive bladder is a condition in which a person has a sudden and frequent need to urinate. A person might also leak urine if he or she cannot get to the bathroom fast enough (urinary incontinence). Sometimes, symptoms can interfere with work or social activities. What are the causes? Overactive bladder is associated with poor nerve signals between your bladder and your brain. Your bladder may get the signal to empty before it is full. You may also have very sensitive muscles that make your bladder squeeze too soon. This condition may also be caused by other factors, such as: ? Medical conditions: ? Urinary tract infection. ? Infection of nearby tissues. ? Prostate enlargement. ? Bladder stones, inflammation, or tumors. ? Diabetes. ? Muscle or nerve weakness, especially from these conditions: ? A spinal cord injury. ? Stroke. ? Multiple sclerosis. ? Parkinson's disease. ? Other causes: ? Surgery on the uterus or urethra. ? Drinking too much caffeine or alcohol. ? Certain medicines, especially those that eliminate extra fluid in the body (diuretics). ? Constipation. What increases the risk? You may be at greater risk for overactive bladder if you: ? Are an older adult. ? Smoke. ? Are going through menopause. ? Have prostate problems. ? Have a neurological disease, such as stroke, dementia, Parkinson's disease, or multiple sclerosis (MS). ? Eat or drink alcohol, spicy food, caffeine, and other things that irritate the bladder. ? Are overweight or obese. What are the signs or symptoms? Symptoms of this condition include a sudden, strong urge to urinate. Other symptoms include: ? Leaking urine. ? Urinating 8 or more times a day. ? Waking up to urinate 2 or more times overnight. How is this diagnosed? This condition may be diagnosed based on: ? Your symptoms and medical history. ? A physical exam. ? Blood or urine tests to check for possible causes, such as infection. You may also need to see a health care provider who specializes in urinary tract problems. This is called a urologist. How is this treated? Treatment for overactive bladder depends on the cause of your condition and whether it is mild or severe. Treatment may include: ? Bladder training, such as: ? Learning to control the urge to urinate by following a schedule to urinate at regular intervals. ? Doing Kegel exercises to strengthen the pelvic floor muscles that support your bladder. ? Special devices, such as: ? Biofeedback. This uses sensors to help you become aware of your body's signals. ? Electrical stimulation. This uses electrodes placed inside the body (implanted) or outside the body. These electrodes send gentle pulses of electricity to strengthen the nerves or muscles that control the bladder. ? Women may use a plastic device, called a pessary, that fits into the vagina and supports the bladder. ? Medicines, such as: ? Antibiotics to treat bladder infection. ? Antispasmodics to stop the bladder from releasing urine at the wrong time. ? Tricyclic antidepressants to relax bladder muscles. ? Injections of botulinum toxin type A directly into the bladder tissue to relax bladder muscles. ? Surgery, such as: ? A device may be implanted to help manage the nerve signals that control urination. ? An electrode may be implanted to stimulate electrical signals in the bladder. ? A procedure may be done to change the shape of the bladder. This is done only in very severe cases. Follow these instructions at home: Eating and drinking ? Make diet or lifestyle changes recommended by your health care provider. These may include: ? Drinking fluids throughout the day and not only with meals. ? Cutting down on caffeine or alcohol. ? Eating a healthy and balanced diet to prevent constipation. This may include: ? Choosing foods that are high in fiber, such as beans, whole grains, and fresh fruits and vegetables. ? Limiting foods that are high in fat and processed sugars, such as fried and sweet foods. Lifestyle ? Lose weight if needed. ? Do not use any products that contain nicotine or tobacco. These include cigarettes, chewing tobacco, and vaping devices, such as e-cigarettes. If you need help quitting, ask your health care provider. General instructions ? Take [id number] and prescription medicines only as told by your health care provider. ? If you were prescribed an antibiotic medicine, take it as told by your health care provider. Do not stop taking the antibiotic even if you start to feel better. ? Use any implants or pessary as told by your health care provider. ? If needed, wear pads to absorb urine leakage. ? Keep a log to track how much and when you drink, and when you need to urinate. This will help your health care provider monitor yo (more content not included)... Normal [facility] 37on 05-25-2023 37 Resume metoprolol 100 mg daily Increase lasix (furosemide) to 40 mg daily Continue all other meds Normal [facility] Office Visiton 05-25-2023 Follow-up visit [id number] Lacie Garza Nadya 1940 F Date Provider Department Center 05/25/2023 [place] AMIA [place] Family History Problem Relation Age of Onset Coronary artery disease Mother Family Status - Relation Status Age at Mother Level of Service:88379 MO OFFICE/OUTPATIENT ESTABLISHED LOW MDM 20-29 MIN Normal [facility] Documentationon 05-23-2023 Documentation [id number] Lacie Garza Nadya 1940 F Date Provider Department Center 05/23/20[address] [place] MA[address] [facility] Family History Problem Relation Age of Onset Coronary artery disease Mother Family Status - Relation Status Age at Mother Normal [facility] Patient Educationon 04-24-20 Patient Education Obstetrics and Gynecology Kegel Exercises Kegel exercises can help strengthen your pelvic floor muscles. The pelvic floor is a group of muscles that support your rectum, small intestine, and bladder. In females, pelvic floor muscles also help support the uterus. These muscles help you control the flow of urine and stool (feces). Kegel exercises are painless and simple. They do not require any equipment. Your provider may suggest Kegel exercises to: ? Improve bladder and bowel control. ? Improve sexual response. ? Improve weak pelvic floor muscles after surgery to remove the uterus (hysterectomy) or after , in females. ? Improve weak pelvic floor muscles after prostate gland removal or surgery, in males. Kegel exercises involve squeezing your pelvic floor muscles. These are the same muscles you squeeze when you try to stop the flow of urine or keep from passing gas. The exercises can be done while sitting, standing, or lying down, but it is best to vary your position. Ask your health care provider which exercises are safe for you. Do exercises exactly as told by your health care provider and adjust them as directed. Do not begin these exercises until told by your health care provider. Exercises How to do Kegel exercises: 1. Squeeze your pelvic floor muscles tight. You should feel a tight lift in your rectal area. If you are a female, you should also feel a tightness in your vaginal area. Keep your stomach, buttocks, and legs relaxed. 2. Hold the muscles tight for up to 10 seconds. 3. Breathe normally. 4. Relax your muscles for up to 10 seconds. 5. Repeat as told by your health care provider. Repeat this exercise daily as told by your health care provider. Continue to do this exercise for at least 4?6 weeks, or for as long as told by your health care provider. You may be referred to a physical therapist who can help you learn more about how to do Kegel exercises. Depending on your condition, your health care provider may recommend: ? Varying how long you squeeze your muscles. ? Doing several sets of exercises every day. ? Doing exercises for several weeks. ? Making Kegel exercises a part of your regular exercise routine. This information is not intended to replace advice given to you by your health care provider. Make sure you discuss any questions you have with your health care provider. Document Revised: 12/01/2021 Document Reviewed: 12/01/2021 ITC Patient Education ? 2022 [employer]. [facility] Urology Office/Clinic Noteon 04-24-2023 Urology Office/Clinic Note Chief Complaint 6m HPI Staff PRW pt 6 month F/U Previous DX; Mixed Incontinence, Nocturia, Urinary Tract infection, Urethral stricture, History of Kidney Stones *Myrbetriq 50mg increased to 2 tabs qd Pt states she take the Myrbetriq BID. 1 in the AM 1 QHS. Since then she does not wet as much Continues to wear a pad daily. Has to change 6-7x/day. (Has improved per pt) Loss of bladder control while just sitting and watching TV. Occasional urge to void, sometimes loses bladder control with sensory awareness. Occasionally wets the bed. Other times the urge does waken her through the night. Maybe 1-2x/night. Adamant that she does not want Botox procedure. Can tolerate the leaking. Believes it is getting better. Intermittent burning with urination. Started back up this morning. Denies visible blood in urine. Intermittent Rt flank pain. No complaints with urinary stream. PVR last office visit 55ml. Pt does feel empty. History of Present Illness staff HPI reviewed and agree. Review of Systems PHQ Score Initial Depression Screen Score: 0 no fever, chills, malaise, myalgia. no rash/lesions. no chest pain, palpitations, or SOB. no abdominal pain, nausea, vomiting. no unilateral calf swelling, redness, pain Physical Exam Vitals & Measurements HR: 87(Peripheral) RR: 16 BP: 144/85 HT: 60 in HT: 153 cm WT: 116 kg WT: 255.2 lb BMI: 49.55 General: nontoxic, NAD Mouth: moist mucosa Lungs: normal respiratory effort Cardio: regular rate, good distal perfusion Abdomen: nondistended, no suprapubic distention or tenderness, no CVA tenderness Neurologic: Grossly normal Skin: No rashes or suspicious lesions Assessment/Plan 1. Mixed incontinence (N39.46: Mixed incontinence) Pt failed tolterodine previously. Would not be a good candidate for other anticholinergics due to already experiencing constipation & confusion. (daughter confirms pt is in early stages of dementia) Pt is currently on Myrbetriq 50mg ER - 2 tabs QD. Pt states she take the Myrbetriq BID. 1 in the AM 1 QHS. PVR (55mL) Since then she does not wet as much . Continues to wear pads daily. Has to change 6-7x/day. (Has improved per pt). Adamant that she does not want Botox procedure. Can tolerate the leaking. Believes it is getting better. Pt states that she drink apple juice in the morning and then water for the rest of the day. Pt states that she voids prior to leaving for appts and when she gets to her appt, she will void when she feels the sensation, but she doesn't always get he sensation. Discussed timed voids and ensure that she empties as well as she can. -Cont Myrbetriq. -Timed voids. 2. Nocturia (R35.1: Nocturia) much better. was 3-4x/night, now 0-1x. 3. Urinary tract infection (N39.0: Urinary tract infection, site not specified) Pt was c/o constant burning since [place], vaginal & urethral. UA was neg for infection. Advised this could be due to irritation from incontinence, recommended barrier protection like Desitin/Aquaphor. Pt started this last visit and has been diligent w use. was doing really well for a while. still gets burning intermittently. Started back up this morning. Denies visible blood in urine. UA today is negative for blood and infection. Advised pt that her UA looks good and shows no signs of infection, if the burning doesn't go away within the next couple of days, she is to give our office a call. Pt states that the burning comes and goes. 4. 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 Reported improvement in urination after dilation. Grade 2 cystocele noted at that time. S/p Cysto/UD 06/13/[address] Regan. No noticeable improvement this time. 5. History of kidney stones (Z87.442: Personal history of urinary calculi) Has passed stones on her own before & surgical intervention. Pt was c/o mild intermittent back pain but unsure if it's related to kidney stones. More midline, not where kidneys located. Pt states she has intermittent Rt flank pain. Follow up in 7mos. All questions/concerns were discussed. Pt to call the office if she encounters any issues prior. Pt acknowledges understanding. Follow-up With When Contact Information REGINA VALIENTE PA-C, [place] In 7 months [address] [place] [address] Additional Instructions: Patient Education Sharon Astudillo I, Nadeen Valentine, personally scribed for Regina Valiente PA-C on 04/24/2023 10:38:59. . Documentation recorded by the scrmirna Valentine accurately reflects the services(s) I performed and decisions made by me. Authenticated by Regina Valiente PA-C on 04/24/2023 10:45:05. Problem List/Past Medical History Ongoing Apnea, sleep Dysuria Flank pain GERD (gastroesophageal reflux disease) Hiatal hernia History of kidney stones History of urethral strict (more content not included)... Normal [facility] Comment on above: Result Comment: Elec tronically Signed By: REGINA VALIENTE PA-C\.br\Date and Time Signed: 04/24/23 10:45 EDT\.br\Electronically Co-Signed By: Nadeen Valentinebr\Date and Time Co-Signed: 04/24/23 10:39 EDT Office Visiton 03-02-2023 Follow-up visit [id number] Lacie Garza Nadya 1940 F Date Provider Department Center 03/02/2023 JORGE ALATORRE MAIA [facility] Family History Problem Relation Age of Onset Coronary artery disease Mother Family Status - Relation Status Age at Mother Level of Service:36015 MO OFFICE/OUTPATIENT ESTABLISHED MOD MDM 30-39 MIN Reason for Visit and Comments: Follow-up [805179] Normal [facility] CULTURE URINEon 09-06-2022 CULTURE URINE Culture Observations: GREATER THAN TWO ORGANISMS PRESENT. PLEASE RESUBMIT CLEAN CATCH MID-STREAM URINE IF CLINICALLY INDICATED. Normal [facility] Comment on above: Performed By: #### B MP #### [facility] [address] [place] [address] Dr. Jesse Maldonado CBC W MANUAL DIFFon 09-05-19 23 ATYPICAL LYMPH # 0.00 103/ul Normal [facility] Comment on above: Performed By: #### B MP #### [facility] [address] [place] [address] Dr. Jesse Maldonado ATYPICAL LYMPH % 0 % Normal [facility] Comment on above: Performed By: #### B MP #### [facility] [address] [place] [address] Dr. Jesse Maldonado BAND # 0.7 103/ul Critically high 0.0-0.3 [facility] Comment on above: Performed By: #### B MP #### [facility] Laboratory [address] [place] [address] Dr. Jesse Maldonado BAND % 14 % Critically high 0-5 [facility] Comment on above: Performed By: #### B MP #### [facility] [address] [place] [address] Dr. Jesse Maldonado BASOM # 0.11 103/ul Critically high 0.00-0.10 [facility] Comment on above: Performed By: #### B MP #### [facility] [address] [place] [address] Dr. Jesse Maldonado BASOM % 2.0 % Normal 0.2-2.0 [facility] Comment on above: Performed By: #### B MP #### [facility] [address] [place] [address] Dr. Jesse Maldonado BLAST # 0.0 103/ul Normal [facility] Comment on above: Performed By: #### B MP #### [facility] [address] [place] [address] Dr. Jesse Maldonado BLAST % 0 % Normal [facility] Comment on above: Performed By: #### B MP #### [facility] [address] [place] [address] Dr. Jesse Maldonado CORRECTED WBC Normal 4.0-11.0 [facility] Comment on above: Performed By: #### B MP #### [facility] [address] [place] [address] Dr. Jesse Maldonado EOS # 0.05 103/ul Normal 0.00-0.70 [facility] Comment on above: Performed By: #### B MP #### [facility] [address] [place] [address] Dr. Jesse Maldonado EOS% 1.0 % Normal 0.9-7.0 [facility] Comment on above: Performed By: #### B MP #### [facility] [address] [place] [address] Dr. Jesse Maldonado HCT 41.5 % Normal 36.0-48.0 [facility] Comment on above: Performed By: #### B MP #### [facility] [address] [place] [address] Dr. Jesse Maldonado HGB 13.2 g/dl Normal 12.0-16.0 [facility] Comment on above: Performed By: #### B MP #### [facility] [address] [place] [address] Dr. Jesse Maldonado LYMPHM # 0.42 103/ul Critically low 1.20-3.80 [facility] Comment on above: Performed By: #### B MP #### [facility] [address] [place] [address] Dr. Jesse Maldonado LYMPHM% 8.0 % Critically low 20.5-60.0 [facility] Comment on above: Performed By: #### B MP #### [facility] [address] [place] [address] Dr. Jesse Maldonado MCH 28.5 pg Normal 26.7-34.0 [facility] Comment on above: Performed By: #### B MP #### [facility] [address] [place] [address] Dr. Jesse Maldonado MCHC 31.8 g/dl Normal 29.9-35.2 [facility] Comment on above: Performed By: #### B MP #### [facility] [address] [place] [address] Dr. Jesse Maldonado MCV 89.6 fL Normal 81.0-99.0 [facility] Comment on above: Performed By: #### B MP #### [facility] [address] [place] [address] Dr. Jesse Maldonado METAMYELOCYTE # 0.2 103/ul Normal [facility] Comment on above: Performed By: #### B MP #### [facility] [address] [place] [address] Dr. eJsse Maldonado METAMYELOCYTE % 3 % Normal [facility] Comment on above: Performed By: #### B MP #### [facility] [address] [place] [address] Dr. Jesse Maldonado MONOM# 0.53 103/ul Normal 0.30-0.80 [facility] Comment on above: Performed By: #### B MP #### [facility] [address] [place] [address] Dr. Jesse Maldonado MONOM% 10.0 % Normal 1.7-12.0 [facility] Comment on above: Performed By: #### B MP #### [facility] [address] [place] [address] Dr. Jesse Maldonado MPV 9.7 fL Normal 9.5-13.5 [facility] Comment on above: Performed By: #### B MP #### [facility] [address] [place] [address] Dr. Jesse Maldonado MYELOCYTE # 0.0 103/ul Normal [facility] Comment on above: Performed By: #### B MP #### [facility] [address] [place] [address] Dr. Jesse Maldonado MYELOCYTE % 0 % Normal [facility] Comment on above: Performed By: #### B MP #### [facility] [address] [place] [address] Dr. Jesse Maldonado NRBC 0 Normal [facility] Comment on above: Performed By: #### B MP #### [facility] [address] [place] [address] Dr. Jesse Maldonado PLT 140 103/ul Critically low 150-450 [facility] Comment on above: Performed By: #### B MP #### [facility] [address] [place] [address] Dr. Jesse Maldonado RBC 4.63 106/ul Normal 4.20-5.40 [facility] Comment on above: Performed By: #### B MP #### [facility] [address] [place] [address] Dr. Jesse Maldonado RDW 14.8 % Normal 11.0-15.0 [facility] Comment on above: Performed By: #### B MP #### [facility] [address] [place] [address] Dr. Jesse Maldonado SEG # 3.29 103/ul Normal 1.40-6.50 [facility] Comment on above: Performed By: #### B MP #### [facility] [address] [place] [address] Dr. Jesse Maldonado SEG % 62.0 % Normal 43.0-75.0 [facility] Comment on above: Performed By: #### B MP #### [facility] [address] [place] [address] Dr. Jesse Maldoando WBC 5.3 103/ul Normal 4.0-11.0 [facility] Comment on above: Performed By: #### B MP #### [facility] [address] [place] [address] Dr. Jesse Maldonado Covid-19 PCR ([facility])on 08-08 SARS-CoV-2 (COVID-19) RNA JOE+probe Ql (Unsp spec) Detected Abnormal NOT DETECTED [facility] Comment on above: Result Comment: This test is not yet approved or cleared by the [place] FDA. When there are no FDA-approved or cleared tests available, and other criteria are met, FDA can make tests available under an emergency access mechanism called an Emergency Use Authorization (EUA). The EUA for this test is supported by the [employer] of Health and Human Service's declaration that circumstances exist to justify the emergency use of in vitro diagnostics for the detection and/or diagnosis of the virus that causes COVID-19. This EUA will remain in effect for the duration of the COVID-19 declaration justifying emergency of IVDs, unless it is terminated or revoked by the FDA (after which the test may no longer be used). Performed By: #### [facility] #### [facility] [address] [place] [address] Dr. Jesse Maldonado ER URINE PROFILEon 3 Bilirubin Ql (U) SMALL Abnormal NEGATIVE [facility] Comment on above: Performed By: #### E MICHAELR UMICRO #### [facility] [address] [place] [address] Dr. Jesse Maldonado Clarity (U) CLEAR Normal CLEAR [facility] Comment on above: Performed By: #### E MICHAELR, UMICRO #### [facility] [address] [place] [address] Dr. Jesse Maldonado Color (U) YELLOW Normal YELLOW [facility] Comment on above: Performed By: #### E RUR, UMICRO #### [facility] [address] [place] [address] Dr. Jesse Maldonado ERUAHD A micrscopic examination will be performed if indicated. Normal [facility] Comment on above: Performed By: #### E RUR, UMICRO #### [facility] [address] [place] [address] Dr. Jesse Maldonado Glucose Ql (U) Negative Normal NEGATIVE [facility] Comment on above: Performed By: #### E RUR, UMICRO #### [facility] [address] [place] [address] Dr. Jesse Maldonado Hemoglobin Ql (U) TRACE-INTACT Abnormal NEGATIVE [facility] Comment on above: Performed By: #### NICHOLAS QUINTERORO #### [facility] [address] [place] [address] Dr. Jesse Maldonado Ketones Ql (U) TRACE Abnormal NEGATIVE [facility] Comment on above: Performed By: #### NICHOLAS QUINTERORO #### [facility] [address] [place] [address] Dr. Jesse Maldonado LEUKOCYTES MODERATE Abnormal NEGATIVE [facility] Comment on above: Performed By: #### NICHOLAS QUINTERORO #### [facility] [address] [place] [address] Dr. Jesse Maldonado Nitrite Ql (U) Negative Normal NEGATIVE [facility] Comment on above: Performed By: #### NICHOLAS QUINTERORO #### [facility] [address] [place] [address] Dr. Jesse Maldonado pH (U) 5.5 [pH] Normal 5-9 [facility] Comment on above: Performed By: #### NICHOLAS QUINTERORO #### [facility] [address] [place] [address] Dr. Jesse Maldonado Protein (U) [Mass/Vol] 100 mg/dL Abnormal NEGATIVE/ TRACE [facility] Comment on above: Performed By: #### NICHOLAS QUINTERORO #### [facility] [address] [place] [address] Dr. Jesse Maldonado SPEC GRAVITY >=1.030 Abnormal 1.005-<=1.025 [facility] Comment on above: Performed By: #### NICHOLAS QUINTERORO #### [facility] [address] [place] [address] Dr. Jesse Maldonado UR MICRO IND INDICATED Normal [facility] Comment on above: Performed By: #### CAIN QUINTERO #### [facility] [address] [place] [address] Dr. Jesse Maldonado Urobilinogen Qn (U) 1.0 {Christiano'U}/dL Normal 0.2 - 1. 0 [facility] Comment on above: Performed By: #### E CAIN BEAUCHAMP #### [facility] [address] [place] [address] Dr. Jesse Maldonado LACTATE/LACTIC ACIDon 2022 Lactate [Moles/Vol] 1.9 mmol/L Normal 0.4-1.9 [facility] Comment on above: Performed By: #### L ACT #### [facility] [address] [address] [address] Jesse Maldonado PROF 14(COMP METB)on 023 Albumin [Mass/Vol] 3.1 g/dL Critically low 3.4-5.0 [facility] Comment on above: Performed By: #### C MP, HSTROPN #### [facility] [address] [place] [address] Dr. Jesse Maldonado Albumin/Globulin [Mass ratio] 0.7 {ratio} Normal [facility] Comment on above: Performed By: #### C MP, HSTROPN #### [facility] [address] [address] [address] Jesse Maldonado ALP [Catalytic activity/Vol] 70 U/L Normal 46-116 [facility] Comment on above: Performed By: #### C MP, HSTROPN #### [facility] [address] [address] [address] Jesse Maldonado ALT [Catalytic activity/Vol] 17 U/L Normal 14-59 [facility] Comment on above: Performed By: #### C MP, HSTROPN #### [facility] [address] [address] [address] Jesse Maldonado Anion gap [Moles/Vol] 16.4 mmol/L Normal [facility] Comment on above: Performed By: #### C MP, HSTROPN #### [facility] [address] [address] [address] Jesse Maldonado AST [Catalytic activity/Vol] 23 U/L Normal 15-37 [facility] Comment on above: Performed By: #### C MP, HSTROPN #### [facility] [address] [address] [address] Jesse Maldonado Bilirubin [Mass/Vol] 0.5 mg/dL Normal 0.2-1.0 [facility] Comment on above: Performed By: #### C MP, HSTROPN #### [facility] [address] [address] [address] Jesse Maldonado Calcium [Mass/Vol] 8.4 mg/dL Critically low 8.5-10.1 Th e [facility] Comment on above: Performed By: #### C MP, HSTROPN #### [facility] [address] [place] [address] Dr. Jesse Maldonado Chloride [Moles/Vol] 102 mmol/L Normal 98-107 [facility] Comment on above: Performed By: #### C MP, HSTROPN #### [facility] [address] [address] [address] Jesse Maldonado CO2 [Moles/Vol] 25.3 mmol/L Normal 21.0-32.0 [facility] Comment on above: Performed By: #### C MP, HSTROPN #### [facility] [address] [place] [address] Dr. Jesse Maldonado Creatinine [Mass/Vol] 0.95 mg/dL Normal 0.55-1.02 [facility] Comment on above: Performed By: #### C MP, HSTROPN #### [facility] [address] [place] [address] Dr. Jesse Maldonado EGFR-AF CHILEAN >60 Normal >=60 [facility] Comment on above: Performed By: #### C MP, HSTROPN #### [facility] [address] [place] [address] Dr. Jesse Maldonado EGFR-NON AF CHILEAN 56 mL/min/1.73m2 Critically low >=60 [facility] Comment on above: Performed By: #### C MP, HSTROPN #### [facility] [address] [place] [address] Dr. Jesse Maldonado Globulin (S) [Mass/Vol] 4.7 g/dL Normal [facility] Comment on above: Performed By: #### C MP, HSTROPN #### [facility] [address] [address] [address] Jesse Maldonado Glucose [Mass/Vol] 135 mg/dL Critically high 74-106 [facility] Comment on above: Performed By: #### C MP, HSTROPN #### [facility] [address] [place] [address] Dr. Jesse Maldonado Potassium [Moles/Vol] 3.7 mmol/L Normal 3.5-5.1 [facility] Comment on above: Performed By: #### C MP, HSTROPN #### [facility] [address] [place] [address] Dr. Jesse Maldonado Protein [Mass/Vol] 7.8 g/dL Normal 6.4-8.2 [facility] Comment on above: Performed By: #### C MP, HSTROPN #### [facility] [address] [place] [address] Dr. Jesse Maldonado Sodium [Moles/Vol] 140 mmol/L Normal 136-145 [facility] Comment on above: Performed By: #### C MP, HSTROPN #### [facility] [address] [place] [address] Dr. Jesse Maldonado Urea nitrogen [Mass/Vol] 12.0 mg/dL Normal 7.0-18.0 [facility] Comment on above: Performed By: #### C MP, HSTROPN #### [facility] [address] [place] [address] Dr. Jesse Maldonado Urea nitrogen/Creatinine [Mass ratio] 12.6 mg/mg Normal [facility] Comment on above: Performed By: #### C MP, HSTROPN #### [facility] [address] [place] [address] Dr. Jesse Maldonado TROPONIN, HIGH SENSITIVITYon 09-05-2022 HSTROP 10.7 pg/mL Normal 4.0-51.3 [facility] Comment on above: Result Comment: CUT- OFF POINTS HAVE BEEN ESTABLISHED BASED ON THE FOURTH UNIVERSAL DEFINITIONS OF MYOCARDIAL INFARCTION. THE UPPER REFERENCE LIMIT (URL) OF TROPONIN, DEFINED THE 99TH PERCENTILE OF cTnI DISTRIBUTION IN A REFERENCE POPULATION, HAS BEEN CONFIRMED THE DECISION THRESHOLD FOR [place] DIAGNOSIS. Performed By: #### C MP, HSTROPN #### [facility] [address] [place] [address] Dr. Jesse Maldonado URINE MICROSCOPIC ONLYon BACTERIA SMALL Abnormal NONE SEEN The [facility] Comment on above: Performed By: #### E RUR, UMICRO #### [facility] [address] [place] [address] Dr. Jesse Maldonado Bacteria identified Cx Nom (U) INDICATED Normal [facility] Comment on above: Performed By: #### E RUR, UMICRO #### [facility] [address] [place] [address] Dr. Jesse Maldonado CAST NONE SEEN Normal NONE SEEN [facility] Comment on above: Performed By: #### E RUR, UMICRO #### [facility] [address] [place] [address] Dr. Jesse Maldonado Crystals LM Nom (Urine sed) NONE SEEN Normal NONE SEEN [facility] Comment on above: Performed By: #### E RUR, UMICRO #### [facility] [address] [place] [address] Dr. Jesse Maldonado Epithelial cells LM Ql (Urine sed) MODERATE Abnormal NONE SEEN /RARE The [facility] Comment on above: Performed By: #### E RUR, UMICRO #### [facility] [address] [place] [address] Dr. Jesse Maldonado MUCOUS SMALL Abnormal NONE SEEN The [facility] Comment on above: Performed By: #### E RUR, UMICRO #### [facility] [address] [place] [address] Dr. Jesse Maldonado RBC 0-2 Normal 0-2 [facility] Comment on above: Performed By: #### E RUR, UMICRO #### [facility] [address] [place] [address] Dr. Jesse Maldonado WBC 5-10 Abnormal NONE SEEN The [facility] Comment on above: Performed By: #### E CAIN BEAUCHAMP #### [facility] [address] [address] [address] Jesse Maldonado CULTURE URINEon 08-31-2022 CULTURE URINE Isolate 1 Escherichia coli 25,000 cfu/mL of ORGANISM 1 Escherichia coli ANTIBIOTIC M.I.C RX STATUS Ampicillin <=2 S F Ampicillin/Sulbactam <=2 S F Piperacillin/Tazobac gunderson <=4 S F Cefazolin <=4 S F Ceftazidime <=1 S F Ceftriaxone <=1 S F Ertapenem <=0.5 S F Imipenem <=0.25 S F Amikacin <=2 S F Gentamicin <=1 S F Tobramycin <=1 S F Ciprofloxacin <=0.25 S F Levofloxacin <=0.12 S F Nitrofurantoin <=16 S F Trimethoprim/Sulfame thoxazole <=20 S F Normal [facility] Comment on above: Performed By: #### B MP #### [facility] [address] [place] [address] Dr. Jesse Maldonado Follow-Upon 08-15-2022 Follow-Up [id number] Lacie Garza 1940 F Date Provider Department Center 08/15/2022 YULISSA HAYES [facility] Family History Problem Relation Age of Onset Coronary artery disease Mother Family Status - Relation Status Age at Mother Level of Service:91920 MO OFFICE/OUTPATIENT ESTABLISHED LOW MDM 20-29 MIN Reason for Visit and Comments: Atrial Fibrillation [80] Peripheral Vascular Disease [458] Hypertension [800758] Normal [facility] 36on 08-04-2022 34 Approving, but needs appt for additional refills. Normal [facility] CULTURE URINEon 04-20-2022 CULTURE URINE Isolate 1 Escherichia coli 25,000 cfu/mL of ORGANISM 1 Escherichia coli ANTIBIOTIC M.I.C RX STATUS Ampicillin 4 S F Ampicillin/Sulbactam <=2 S F Piperacillin/Tazobac gunderson <=4 S F Cefazolin <=4 S F Ceftazidime <=1 S F Ceftriaxone <=1 S F Ertapenem <=0.5 S F Imipenem <=0.25 S F Amikacin <=2 S F Gentamicin <=1 S F Tobramycin <=1 S F Ciprofloxacin <=0.25 S F Levofloxacin <=0.12 S F Nitrofurantoin <=16 S F Trimethoprim/Sulfame thoxazole <=20 S F Normal [facility] Comment on above: Performed By: #### B MP #### [facility] [address] [place] [address] Dr. Jesse Maldonado AMMONIAon 04-18-2022 Ammonia (P) [Mass/Vol] ug/dL Critically low [facility] Comment on above: Performed By: #### A MM #### [facility] [address] [place] [address] Dr. Jesse Maldonado CBC AUTO DIFFon 04-18-2022 BASO # 0.0 103/ul Normal 0.0-0.1 [facility] Comment on above: Performed By: #### C BC #### [facility] [address] [place] [address] Dr. Jesse Maldonado Basophils/100 WBC (Bld) 0.5 % Normal 0.2-2.0 [facility] Comment on above: Performed By: #### C BC #### [facility] [address] [place] [address] Dr. Jesse Maldonado EO # 0.1 103/ul Normal 0.0-0.7 [facility] Comment on above: Performed By: #### C BC #### [facility] [address] [place] [address] Dr. Jesse Maldonado Eosinophils/100 WBC (Bld) 0.9 % Normal 0.9-7.0 [facility] Comment on above: Performed By: #### C BC #### [facility] [address] [place] [address] Dr. Jesse Maldonado Erythrocyte distribution width (RBC) [Ratio] 14.4 % Normal 11.0-15.0 [facility] Comment on above: Performed By: #### C BC #### [facility] [address] [place] [address] Dr. Jesse Maldonado Hematocrit (Bld) [Volume fraction] 43.9 % Normal 36.0-48.0 [facility] Comment on above: Performed By: #### C BC #### [facility] [address] [place] [address] Dr. Jesse Maldonado Hemoglobin (Bld) [Mass/Vol] 13.9 g/dL Normal 12.0-16.0 [facility] Comment on above: Performed By: #### C BC #### [facility] [address] [place] [address] Dr. Jesse Maldonado IG # 0.03 10e3/ul Normal 0.00-0.03 [facility] Comment on above: Performed By: #### C BC #### [facility] [address] [place] [address] Dr. Jesse Maldonado IG % 0.3 % Normal 0.0-0.5 [facility] Comment on above: Performed By: #### C BC #### [facility] [address] [place] [address] Dr. Jesse Maldonado LYMPH # 2.5 103/ul Normal 1.2-3.8 [facility] Comment on above: Performed By: #### C BC #### [facility] [address] [place] [address] Dr. Jesse Maldonado Lymphocytes/100 WBC (Bld) 29.0 % Normal 20.5-60.0 [facility] Comment on above: Performed By: #### C BC #### [facility] [address] [place] [address] Dr. Jesse Maldonado MANUAL DIFF REQ NO Normal [facility] Comment on above: Performed By: #### C BC #### [facility] [address] [place] [address] Dr. Jesse Maldonado MCH (RBC) [Entitic mass] 28.9 pg Normal 26.7-34.0 [facility] Comment on above: Performed By: #### C BC #### [facility] [address] [place] [address] Dr. Jesse Maldonado MCHC (RBC) [Mass/Vol] 31.7 g/dL Normal 29.9-35.2 [facility] Comment on above: Performed By: #### C BC #### [facility] [address] [place] [address] Dr. Jesse Maldonado MCV (RBC) [Entitic vol] 91.3 fL Normal 81.0-99.0 [facility] Comment on above: Performed By: #### C BC #### [facility] [address] [place] [address] Dr. Jesse Maldonado MONO # 0.7 103/ul Normal 0.3-0.8 [facility] Comment on above: Performed By: #### C BC #### [facility] [address] [place] [address] Dr. Jesse Maldonado Monocytes/100 WBC (Bld) 7.6 % Normal 1.7-12.0 [facility] Comment on above: Performed By: #### C BC #### [facility] [address] [place] [address] Dr. Jesse Maldonado NEUT # 5.4 103/ul Normal 1.4-6.5 [facility] Comment on above: Performed By: #### C BC #### [facility] [address] [place] [address] Dr. Jesse Maldonado Neutrophils/100 WBC (Bld) 61.7 % Normal 43.0-75.0 [facility] Comment on above: Performed By: #### C BC #### [facility] [address] [place] [address] Dr. Jesse Maldonado Platelet mean volume (Bld) [Entitic vol] 9.7 fL Normal 9.5-13.5 [facility] Comment on above: Performed By: #### C BC #### [facility] [address] [place] [address] Dr. Jesse Maldonado PLT 198 103/ul Normal 150-450 [facility] Comment on above: Performed By: #### C BC #### [facility] [address] [place] [address] Dr. Jesse Maldonado RBC 4.81 106/ul Normal 4.20-5.40 [facility] Comment on above: Performed By: #### C BC #### [facility] [address] [place] [address] Dr. Jesse Maldonado WBC 8.8 103/ul Normal 4.0-11.0 [facility] Comment on above: Performed By: #### C BC #### [facility] [address] [place] [address] Dr. Jesse Maldonado PROF 14(COMP METB)on 022 Albumin [Mass/Vol] 3.4 g/dL Normal 3.4-5.0 [facility] Comment on above: Performed By: #### B MP #### [facility] [address] [place] [address] Dr. Jesse Maldonado Albumin/Globulin [Mass ratio] 0.7 {ratio} Normal [facility] Comment on above: Performed By: #### B MP #### [facility] [address] [place] [address] Dr. Jesse Maldonado ALP [Catalytic activity/Vol] 85 U/L Normal 46-116 [facility] Comment on above: Performed By: #### B MP #### [facility] [address] [place] [address] Dr. Jesse Maldonado ALT [Catalytic activity/Vol] 13 U/L Critically low 14-59 [facility] Comment on above: Performed By: #### B MP #### [facility] [address] [place] [address] Dr. Jesse Maldonado Anion gap [Moles/Vol] 11.3 mmol/L Normal [facility] Comment on above: Performed By: #### B MP #### [facility] [address] [place] [address] Dr. Jesse Maldonado AST [Catalytic activity/Vol] 13 U/L Critically low 15-37 [facility] Comment on above: Performed By: #### B MP #### [facility] [address] [place] [address] Dr. Jesse Maldonado Bilirubin [Mass/Vol] 0.6 mg/dL Normal 0.2-1.0 [facility] Comment on above: Performed By: #### B MP #### [facility] [address] [address] [address] Jesse Maldonado Calcium [Mass/Vol] 8.8 mg/dL Normal 8.5-10.1 [facility] Comment on above: Performed By: #### B MP #### [facility] [address] [address] [address] Jesse Maldonado Chloride [Moles/Vol] 104 mmol/L Normal 98-107 [facility] Comment on above: Performed By: #### B MP #### [facility] [address] [address] [address] Jesse Maldonado CO2 [Moles/Vol] 26.7 mmol/L Normal 21.0-32.0 [facility] Comment on above: Performed By: #### B MP #### [facility] [address] [address] [address] Jesse Maldonado Creatinine [Mass/Vol] 0.99 mg/dL Normal 0.55-1.02 [facility] Comment on above: Performed By: #### B MP #### [facility] [address] [address] [address] Jesse Maldonado EGFR-AF CHILEAN >60 Normal >=60 [facility] Comment on above: Performed By: #### B MP #### [facility] [address] [address] [address] Jesse Maldonado EGFR-NON AF CHILEAN 53 mL/min/1.73m2 Critically low >=60 [facility] Comment on above: Performed By: #### B MP #### [facility] [address] [address] [address] Jesse Maldonado Globulin (S) [Mass/Vol] 4.6 g/dL Normal [facility] Comment on above: Performed By: #### B MP #### [facility] [address] [address] [address] Jesse Maldonado Glucose [Mass/Vol] 106 mg/dL Normal 74-106 [facility] Comment on above: Performed By: #### B MP #### [facility] [address] [address] [address] Jesse Maldonado Potassium [Moles/Vol] 4.0 mmol/L Normal 3.5-5.1 [facility] Comment on above: Performed By: #### B MP #### [facility] [address] [place] [address] Dr. Jesse Maldonado Protein [Mass/Vol] 8.0 g/dL Normal 6.4-8.2 [facility] Comment on above: Performed By: #### B MP #### [facility] [address] [place] [address] Dr. Jesse Maldonado Sodium [Moles/Vol] 138 mmol/L Normal 136-145 [facility] Comment on above: Performed By: #### B MP #### [facility] [address] [place] [address] Dr. Jesse Maldonado Urea nitrogen [Mass/Vol] 19.0 mg/dL Critically high 7.0-18.0 [facility] Comment on above: Performed By: #### B MP #### [facility] [address] [place] [address] Dr. Jesse Maldonado Urea nitrogen/Creatinine [Mass ratio] 19.2 mg/mg Normal [facility] Comment on above: Performed By: #### B MP #### [facility] [address] [place] [address] Dr. Jesse Maldonado UA (CLEAN/CATCH) GUN SYNCHRONIZER/MICRO I F IND.on 04-18-2022 Bilirubin Ql (U) Negative Normal NEGATIVE [facility] Comment on above: Performed By: #### B MP #### [facility] [address] [place] [address] Dr. Jesse Maldonado Clarity (U) CLEAR Normal CLEAR [facility] Comment on above: Performed By: #### B MP #### [facility] [address] [place] [address] Dr. Jesse Maldonado Color (U) YELLOW Normal YELLOW [facility] Comment on above: Performed By: #### B MP #### [facility] [address] [place] [address] Dr. Jesse Maldonado Glucose Ql (U) Negative Normal NEGATIVE [facility] Comment on above: Performed By: #### B MP #### [facility] [address] [place] [address] Dr. Jesse Maldonado Hemoglobin Ql (U) Negative Normal NEGATIVE [facility] Comment on above: Performed By: #### B MP #### [facility] [address] [place] [address] Dr. Jesse Maldonado Ketones Ql (U) Negative Normal NEGATIVE [facility] Comment on above: Performed By: #### B MP #### [facility] [address] [place] [address] Dr. Jesse Maldonado LEUKOCYTES TRACE Abnormal NEGATIVE [facility] Comment on above: Performed By: #### B MP #### [facility] [address] [place] [address] Dr. Jesse Maldonado Nitrite Ql (U) Negative Normal NEGATIVE [facility] Comment on above: Performed By: #### B MP #### [facility] [address] [place] [address] Dr. Jesse Maldonado pH (U) 5.5 [pH] Normal 5-9 [facility] Comment on above: Performed By: #### B MP #### [facility] [address] [place] [address] Dr. Jesse Maldonado SPEC GRAVITY 1.025 Normal 1.005-<=1.025 [facility] Comment on above: Performed By: #### B MP #### [facility] [address] [place] [address] Dr. Jesse Maldonado UA PROTEIN Negative Normal NEGATIVE/ TRACE [facility] Comment on above: Performed By: #### B MP #### [facility] [address] [place] [address] Dr. Jesse Maldonado UR MICRO IND INDICATED Normal [facility] Comment on above: Performed By: #### B MP #### [facility] [address] [place] [address] Dr. Jesse Maldonado Urobilinogen Qn (U) 0.2 {Christiano'U}/dL Normal 0.2 - 1. 0 [facility] Comment on above: Performed By: #### B MP #### [facility] [address] [place] [address] Dr. Jesse Maldonado URINE MICROSCOPIC ONLYon BACTERIA SMALL Abnormal NONE SEEN [facility] Comment on above: Performed By: #### B MP #### [facility] [address] [place] [address] Dr. Jesse Maldonado Bacteria identified Cx Nom (U) INDICATED Normal [facility] Comment on above: Performed By: #### B MP #### [facility] [address] [place] [address] Dr. Jesse Maldonado CAST NONE SEEN Normal NONE SEEN [facility] Comment on above: Performed By: #### B MP #### [facility] [address] [place] [address] Dr. Jesse Maldonado Crystals LM Nom (Urine sed) NONE SEEN Normal NONE SEEN [facility] Comment on above: Performed By: #### B MP #### [facility] [address] [place] [address] Dr. Jesse Maldonado Epithelial cells LM Ql (Urine sed) MANY Abnormal NONE SEEN /RARE [facility] Comment on above: Performed By: #### B MP #### [facility] [address] [place] [address] Dr. Jesse Maldonado MUCOUS NONE SEEN Normal NONE SEEN [facility] Comment on above: Performed By: #### B MP #### [facility] [address] [place] [address] Dr. Jesse Maldonado RBC NONE SEEN Abnormal 0-2 [facility] Comment on above: Performed By: #### B MP #### [facility] [address] [place] [address] Dr. Jesse Maldonado WBC 10-20 Abnormal NONE SEEN [facility] Comment on above: Performed By: #### B MP #### [facility] [address] [place] [address] Dr. Jesse Maldonado CULTURE URINEon 02-05-2022 CULTURE URINE Isolate 1 Escherichia coli >100,000 cfu/ml of ORGANISM 1 Escherichia coli ANTIBIOTIC M.I.C RX STATUS Ampicillin <=2 S F Ampicillin/Sulbactam <=2 S F Piperacillin/Tazobac gunderson <=4 S F Cefazolin <=4 S F Ceftazidime <=1 S F Ceftriaxone <=1 S F Ertapenem <=0.5 S F Imipenem <=0.25 S F Amikacin <=2 S F Gentamicin <=1 S F Tobramycin <=1 S F Ciprofloxacin <=0.25 S F Levofloxacin <=0.12 S F Nitrofurantoin <=16 S F Trimethoprim/Sulfame thoxazole <=20 S F Normal [facility] Comment on above: Performed By: #### B MP #### [facility] [address] [place] [address] Dr. Jesse Maldonado CBC AUTO DIFFon 02-03-2022 BASO # 0.0 103/ul Normal 0.0-0.1 [facility] Comment on above: Performed By: #### C BC #### [facility] [address] [place] [address] Dr. Jesse Maldonado Basophils/100 WBC (Bld) 0.5 % Normal 0.2-2.0 [facility] Comment on above: Performed By: #### C BC #### [facility] [address] [place] [address] Dr. Jesse Maldonado EO # 0.2 103/ul Normal 0.0-0.7 [facility] Comment on above: Performed By: #### C BC #### [facility] [address] [place] [address] Dr. Jesse Maldonado Eosinophils/100 WBC (Bld) 2.0 % Normal 0.9-7.0 [facility] Comment on above: Performed By: #### C BC #### [facility] [address] [place] [address] Dr. Jesse Maldonado Erythrocyte distribution width (RBC) [Ratio] 14.5 % Normal 11.0-15.0 [facility] Comment on above: Performed By: #### C BC #### [facility] [address] [place] [address] Dr. Jesse Maldonado Hematocrit (Bld) [Volume fraction] 42.1 % Normal 36.0-48.0 [facility] Comment on above: Performed By: #### C BC #### [facility] [address] [place] [address] Dr. Jesse Maldonado Hemoglobin (Bld) [Mass/Vol] 13.6 g/dL Normal 12.0-16.0 [facility] Comment on above: Performed By: #### C BC #### [facility] [address] [place] [address] Dr. Jesse Maldonado IG # 0.03 10e3/ul Normal 0.00-0.03 [facility] Comment on above: Performed By: #### C BC #### [facility] [address] [place] [address] Dr. Jesse Maldonado IG % 0.4 % Normal 0.0-0.5 [facility] Comment on above: Performed By: #### C BC #### [facility] [address] [place] [address] Dr. Jesse Maldonado LYMPH # 2.1 103/ul Normal 1.2-3.8 [facility] Comment on above: Performed By: #### C BC #### [facility] [address] [place] [address] Dr. Jesse Maldonado Lymphocytes/100 WBC (Bld) 28.4 % Normal 20.5-60.0 [facility] Comment on above: Performed By: #### C BC #### [facility] [address] [place] [address] Dr. Jesse Maldonado MANUAL DIFF REQ NO Normal [facility] Comment on above: Performed By: #### C BC #### [facility] [address] [place] [address] Dr. Jesse Maldonado MCH (RBC) [Entitic mass] 29.3 pg Normal 26.7-34.0 [facility] Comment on above: Performed By: #### C BC #### [facility] [address] [place] [address] Dr. Jesse Maldonado MCHC (RBC) [Mass/Vol] 32.3 g/dL Normal 29.9-35.2 [facility] Comment on above: Performed By: #### C BC #### [facility] [address] [address] [address] Jesse Maldonado MCV (RBC) [Entitic vol] 90.7 fL Normal 81.0-99.0 [facility] Comment on above: Performed By: #### C BC #### [facility] [address] [address] [address] Jesse Maldonado MONO # 0.6 103/ul Normal 0.3-0.8 [facility] Comment on above: Performed By: #### C BC #### [facility] [address] [address] [address] Jesse Maldonado Monocytes/100 WBC (Bld) 7.9 % Normal 1.7-12.0 [facility] Comment on above: Performed By: #### C BC #### [facility] [address] [place] [address] Dr. Jesse Maldonado NEUT # 4.6 103/ul Normal 1.4-6.5 [facility] Comment on above: Performed By: #### C BC #### [facility] [address] [place] [address] Dr. Jesse Maldonado Neutrophils/100 WBC (Bld) 60.8 % Normal 43.0-75.0 [facility] Comment on above: Performed By: #### C BC #### [facility] [address] [place] [address] Dr. Jesse Maldonado Platelet mean volume (Bld) [Entitic vol] 9.1 fL Critically low 9.5-13.5 [facility] Comment on above: Performed By: #### C BC #### [facility] [address] [address] [address] Jesse Maldonado PLT 178 103/ul Normal 150-450 [facility] Comment on above: Performed By: #### C BC #### [facility] [address] [address] [address] Jesse Maldonado RBC 4.64 106/ul Normal 4.20-5.40 [facility] Comment on above: Performed By: #### C BC #### [facility] [address] [place] [address] Dr. Jesse Maldonado WBC 7.5 103/ul Normal 4.0-11.0 [facility] Comment on above: Performed By: #### C BC #### [facility] [address] [place] [address] Dr. Jesse Maldonado ER URINE PROFILEon 2 Bilirubin Ql (U) Negative Normal NEGATIVE [facility] Comment on above: Performed By: #### B MP #### [facility] [address] [place] [address] Dr. Jesse Maldonado Clarity (U) CLEAR Normal CLEAR [facility] Comment on above: Performed By: #### B MP #### [facility] [address] [place] [address] Dr. Jesse Maldonado Color (U) LT. YELLOW Normal YELLOW [facility] Comment on above: Performed By: #### B MP #### [facility] [address] [place] [address] Dr. Jesse HENNESSYLauro A micrscopic examination will be performed if indicated. Normal [facility] Comment on above: Performed By: #### B MP #### [facility] [address] [place] [address] Dr. Jesse Maldonado Glucose Ql (U) Negative Normal NEGATIVE [facility] Comment on above: Performed By: #### B MP #### [facility] [address] [place] [address] Dr. Jesse Maldonado Hemoglobin Ql (U) TRACE-LYSED Abnormal NEGATIVE [facility] Comment on above: Performed By: #### B MP #### [facility] [address] [place] [address] Dr. Jesse Maldonado Ketones Ql (U) Negative Normal NEGATIVE [facility] Comment on above: Performed By: #### B MP #### [facility] [address] [place] [address] Dr. Jesse Maldonado LEUKOCYTES Negative Normal NEGATIVE [facility] Comment on above: Performed By: #### B MP #### [facility] [address] [place] [address] Dr. Jesse Maldonado Nitrite Ql (U) Negative Normal NEGATIVE [facility] Comment on above: Performed By: #### B MP #### [facility] [address] [place] [address] Dr. Jesse Maldonado pH (U) 5.5 [pH] Normal 5-9 [facility] Comment on above: Performed By: #### B MP #### [facility] [address] [place] [address] Dr. Jesse Maldonado SPEC GRAVITY 1.020 Normal 1.005-<=1.025 [facility] Comment on above: Performed By: #### B MP #### [facility] [address] [place] [address] Dr. Jesse Maldonado UA PROTEIN Negative Normal NEGATIVE/ TRACE [facility] Comment on above: Performed By: #### B MP #### [facility] [address] [place] [address] Dr. Jesse Maldonado UR MICRO IND INDICATED Normal [facility] Comment on above: Performed By: #### B MP #### [facility] [address] [place] [address] Dr. Jesse Maldonado Urobilinogen Qn (U) 0.2 {Christiano'U}/dL Normal 0.2 - 1. 0 [facility] Comment on above: Performed By: #### B MP #### [facility] [address] [place] [address] Dr. Jesse Maldonado PROF CHEM 8 (BAS METB)on Anion gap [Moles/Vol] 13.4 mmol/L Normal [facility] Comment on above: Performed By: #### B MP #### [facility] [address] [place] [address] Dr. Jesse Maldonado Calcium [Mass/Vol] 8.6 mg/dL Normal 8.5-10.1 [facility] Comment on above: Performed By: #### B MP #### [facility] [address] [place] [address] Dr. Jesse Maldonado Chloride [Moles/Vol] 105 mmol/L Normal 98-107 [facility] Comment on above: Performed By: #### B MP #### [facility] [address] [address] [address] Jesse Maldonado CO2 [Moles/Vol] 23.4 mmol/L Normal 21.0-32.0 [facility] Comment on above: Performed By: #### B MP #### [facility] [address] [address] [address] Jesse Maldonado Creatinine [Mass/Vol] 1.02 mg/dL Normal 0.55-1.02 [facility] Comment on above: Performed By: #### B MP #### [facility] [address] [address] [address] Jesse Maldonado EGFR-AF CHILEAN 63 mL/min/1.73m2 Normal >=60 [facility] Comment on above: Performed By: #### B MP #### [facility] [address] [address] [address] Jesse Maldonado EGFR-NON AF CHILEAN 52 mL/min/1.73m2 Critically low >=60 [facility] Comment on above: Performed By: #### B MP #### [facility] [address] [address] [address] Jesse Maldonado Glucose [Mass/Vol] 101 mg/dL Normal 74-106 [facility] Comment on above: Performed By: #### B MP #### [facility] [address] [address] [address] Jesse Maldonado Potassium [Moles/Vol] 3.8 mmol/L Normal 3.5-5.1 [facility] Comment on above: Performed By: #### B MP #### [facility] [address] [address] [address] Jesse Maldonado Sodium [Moles/Vol] 138 mmol/L Normal 136-145 [facility] Comment on above: Performed By: #### B MP #### [facility] [address] [address] [address] Jesse Maldonado Urea nitrogen [Mass/Vol] 18.0 mg/dL Normal 7.0-18.0 [facility] Comment on above: Performed By: #### B MP #### [facility] [address] [place] [address] Dr. Jesse Maldonado Urea nitrogen/Creatinine [Mass ratio] 17.6 mg/mg Normal [facility] Comment on above: Performed By: #### B MP #### [facility] [address] [place] [address] Dr. Jesse Maldonado URINE MICROSCOPIC ONLYon BACTERIA SMALL Abnormal NONE SEEN [facility] Comment on above: Performed By: #### B MP #### [facility] [address] [place] [address] Dr. Jesse Maldonado Bacteria identified Cx Nom (U) INDICATED Normal [facility] Comment on above: Performed By: #### B MP #### [facility] [address] [place] [address] Dr. Jesse Maldonado CAST SEEN Abnormal NONE SEEN [facility] Comment on above: Performed By: #### B MP #### [facility] [address] [place] [address] Dr. Jesse Maldonado Crystals LM Nom (Urine sed) NONE SEEN Normal NONE SEEN [facility] Comment on above: Performed By: #### B MP #### [facility] [address] [place] [address] Dr. Jesse Maldonado Epithelial cells LM Ql (Urine sed) FEW Abnormal NONE SEEN /RARE [facility] Comment on above: Performed By: #### B MP #### [facility] [address] [place] [address] Dr. Jesse Maldonado HYALINE CAST RARE Normal [facility] Comment on above: Performed By: #### B MP #### [facility] [address] [place] [address] Dr. Jesse Maldonado MUCOUS TRACE Abnormal NONE SEEN [facility] Comment on above: Performed By: #### B MP #### [facility] [address] [place] [address] Dr. Jesse Maldonado RBC 0-2 Normal 0-2 [facility] Comment on above: Performed By: #### B MP #### [facility] [address] [place], [place] [id number] Dr. Jesse Maldonado WBC 5-10 Abnormal NONE SEEN [facility] Comment on above: Performed By: #### B #### [facility] [address] [place] [address] Dr. Jesse Maldonado CNPTOUTREACHon 09-02-2020 CNPTOUTRGEETA Patient Outreach ([facility]) LACIE GARZA ([id number]) 1940 F Date Time Provider Department 09/02/20 ANGELICAS, JUAN ALBERTO [facility] During your visit today, we recorded the following information about you: Allergies As of Date: 09/02/2020 Noted Allergy Reaction LINACLOTIDE 03/02/2016 6 - Diarrhea 11 - Vomiting Comments: Bile regurgitation Date Reviewed: 06/12/2019 Reviewed by: Doris (Rn) MAO De La Cruz - Fully Assessed Order(s):SARS-COVID VACCINE 1ST DOSE APPT [[id number]] Order #: [id number] FUTURE Prescriptions as of 09/02/2020 Sig: ACETAMINOPHEN ER 650 MG TABLE* Take 650 mg by mouth every 8 * DOCUSATE SODIUM 100 MG CAPSULE Take 1 capsule by mouth twice* PANTOPRAZOLE 40 MG TABLET,DEL* pantoprazole 40 mg tablet,del* APIXABAN 5 MG TABLET Eliquis 5 mg tablet LINACLOTIDE 145 MCG CAPSULE Linzess 145 mcg capsule METOPROLOL SUCCINATE ER 50 MG* metoprolol succinate ER 50 mg* TAMSULOSIN 0.4 MG CAPSULE q 24 HR. FUROSEMIDE 40 MG TABLET Take 1 tablet by mouth once d* AMLODIPINE 5 MG TABLET Take 1 tablet by mouth once d* ATORVASTATIN 40 MG TABLET Take 1 tablet by mouth once d* OXYGEN (HOME THERAPY) 2 L/min by Nasal Cannula rout* MIRABEGRON ER 50 MG TABLET,EX* Take 50 mg by mouth once luis carlos* Problem List As Of Date 09/02/2020 Noted Resolved Ischemic chest pain (HCC) [I20.9] 06/24/2015 09/06/2017 Chronic diastolic heart failure (HCC) [I50.32] 06/24/2015 TIA (transient ischemic attack) [G45.9] Sleep apnea [G47.30] Pelvic mass in female [R19.00] Kidney stones [N20.0] Hypertension [I10] GERD (gastroesophageal reflux disease) [K21.9] BMI 50.0-59.9, adult (HCC) [Z68.43] 08/08/2016 Coronary artery disease involving [place]*10/04/2017 Paroxysmal atrial fibrillation (HCC) [I48.0] 06/04/2018 Calculus of kidney [N20.0] 06/25/2018 More... Left renal stone [N20.0] 06/11/2019 Encounter Status:Closed by [employer], PRODUSER on 09/06/20 Normal [facility] BASIC METABOLIC PANELon Calcium mass conc 8.2 mg/dL Low 8.6-10.3 [facility] Comment on above: Order Comment: Yes: Add to Previous draw if able Performed By: #### 0 0071 #### [facility] [address] [place] [address], [facility] Chloride molar conc 104 mmol/L Normal 98-107 [facility] Comment on above: Order Comment: Yes: Add to Previous draw if able Performed By: #### 0 0071 #### [facility] [address] [place] [address], [facility] CO2 molar conc 27 mmol/L Normal 21-31 [facility] Comment on above: Order Comment: Yes: Add to Previous draw if able Performed By: #### 0 0071 #### [facility] [address] [place] [address], [facility] Creatinine mass conc 0.70 mg/dL Normal 0.60-1.20 [facility] Comment on above: Order Comment: Yes: Add to Previous draw if able Performed By: #### 0 0071 #### [facility] [address] [place] [id number], [facility] GFR/1.73 sq M predicted among blacks MDRD vol rate/area (S/P/Bld) mL/min/{1.73_m2} Normal >60 [facility] Comment on above: Order Comment: Yes: Add to Previous draw if able Result Comment: Calc ulation may not be valid for patients over 70 years Performed By: #### 0 0071 #### [facility] [address] [place] [address], [facility] GFR/1.73 sq M predicted among non-blacks MDRD vol rate/area (S/P/Bld) mL/min/{1.73_m2} Normal >60 [facility] Comment on above: Order Comment: Yes: Add to Previous draw if able Result Comment: Calc ulation may not be valid for patients over 70 years Performed By: #### 0 0071 #### [facility] [address] [place] [address], [facility] Glucose mass conc 139 mg/dL High 70-100 [facility] Comment on above: Order Comment: Yes: Add to Previous draw if able Performed By: #### 0 0071 #### [facility] [address] [place] [address], [facility] Potassium molar conc 3.4 mmol/L Low 3.5-5.1 [facility] Comment on above: Order Comment: Yes: Add to Previous draw if able Performed By: #### 0 0071 #### [facility] [address] [place] [address], [place] Sodium molar conc 139 mmol/L Normal 136-145 [facility] Comment on above: Order Comment: Yes: Add to Previous draw if able Performed By: #### 0 0071 #### [facility] [address] [place] [address], [place] Urea nitrogen mass conc 12 mg/dL Normal 7-25 [facility] Comment on above: Order Comment: Yes: Add to Previous draw if able Performed By: #### 0 0071 #### [facility] [address] [place] [address], [place] POC GLUCOSE LABon 08-14-2018 Glucose mass conc 134 mg/dL High 70-100 [facility] Comment on above: Performed By: #### 5 6101, 71953 #### [facility] [address] [place] [address], [place] Glucose mass conc 123 mg/dL High 70-100 [facility] Comment on above: Performed By: #### 5 6101, 48563 #### [facility] [address] [place] [address], [place] ACTIVATED CLOTTING TIMEon ACTIVATED CLOTTING TIME 115 sec Normal 82-152 [facility] Comment on above: Performed By: #### 5 6101, 83872 #### [facility] [address] [place] [address], [place] BASIC METABOLIC PANELon Calcium mass conc 8.3 mg/dL Low 8.6-10.3 [facility] Comment on above: Order Comment: No: D o not add to previous draw Performed By: #### 5 6101, 12594 #### [facility] [address] [place] [address], [place] Chloride molar conc 105 mmol/L Normal 98-107 [facility] Comment on above: Order Comment: No: D o not add to previous draw Performed By: #### 5 6101, 49162 #### [facility] [address] [place] [address], [place] CO2 molar conc 25 mmol/L Normal 21-31 [facility] Comment on above: Order Comment: No: D o not add to previous draw Performed By: #### 5 6101, 76028 #### [facility] [address] [place] [address], [place] Creatinine mass conc 0.82 mg/dL Normal 0.60-1.20 [facility] Comment on above: Order Comment: No: D o not add to previous draw Performed By: #### 5 610, 19517 #### [facility] [address] [place] [address], [place] GFR/1.73 sq M predicted among blacks MDRD vol rate/area (S/P/Bld) mL/min/{1.73_m2} Normal >60 [facility] Comment on above: Order Comment: No: D o not add to previous draw Result Comment: Calc ulation may not be valid for patients over 70 years Performed By: #### 5 610, 72205 #### [facility] [address] [place] [address], [facility] GFR/1.73 sq M predicted among non-blacks MDRD vol rate/area (S/P/Bld) mL/min/{1.73_m2} Normal >60 [facility] Comment on above: Order Comment: No: D o not add to previous draw Result Comment: Calc ulation may not be valid for patients over 70 years Performed By: #### 5 610, 84745 #### [facility] [address] [place] [address], [facility] Glucose mass conc 133 mg/dL High 70-100 [facility] Comment on above: Order Comment: No: D o not add to previous draw Performed By: #### 5 610, 85107 #### [facility] [address] [place] [address], [place] Potassium molar conc 3.6 mmol/L Normal 3.5-5.1 [facility] Comment on above: Order Comment: No: D o not add to previous draw Performed By: #### 5 6101, 93550 #### [facility] [address] [place] [address], [place] Sodium molar conc 139 mmol/L Normal 136-145 [facility] Comment on above: Order Comment: No: D o not add to previous draw Performed By: #### 5 610, 87412 #### [facility] [address] [place] [address], [facility] Urea nitrogen mass conc 22 mg/dL Normal 7-25 [facility] Comment on above: Order Comment: No: D o not add to previous draw Performed By: #### 5 6100, 57094 #### [facility] [address] [place] [id number], [facility] CBC COMPLETE BLOOD COUNTon 0 08-13-2018 Erythrocyte distribution width Ratio (RBC) 15.4 % High 11.5-15.0 [facility] Comment on above: Order Comment: No: D o not add to previous draw Performed By: #### 5 6100, 92437 #### [facility] [address] Hematocrit Volume Fraction (Bld) 33.0 % Low 36.0-45.0 [facility] Comment on above: Order Comment: No: D o not add to previous draw Performed By: #### 5 6100, 23847 #### [facility] [address] [place] [address], [facility] Hemoglobin mass conc (Bld) 10.2 g/dL Low 12.0-15.0 [facility] Comment on above: Order Comment: No: D o not add to previous draw Performed By: #### 5 6100, 52760 #### [facility] [address] [place] [address], [facility] MCH Entitic mass (RBC) 26.6 pg Low 27.0-33.0 [facility] Comment on above: Order Comment: No: D o not add to previous draw Performed By: #### 5 6100, 45373 #### [facility] [address] [place] [address], [facility] MCHC mass conc (RBC) 30.9 g/dL Low 32.0-35.0 [facility] Comment on above: Order Comment: No: D o not add to previous draw Performed By: #### 5 6100, 08384 #### [facility] [address] [place] [address], [facility] MCV Entitic volume (RBC) 86.2 fL Normal 82.0-98.0 [facility] Comment on above: Order Comment: No: D o not add to previous draw Performed By: #### 5 6100, 23624 #### [facility] [address] [place] [address], [facility] Nucleated RBC/100 WBC Ratio (Bld) 0 % Normal 0-0 [facility] Comment on above: Order Comment: No: D o not add to previous draw Performed By: #### 5 6100, 43044 #### [facility] [address] [place] [address], [facility] PLAT CNT 130 10*3/uL Low 150-400 [facility] Comment on above: Order Comment: No: D o not add to previous draw Performed By: #### 5 6100, 15202 #### [facility] [address] [place] [address], [facility] RBC #/vol (Bld) 3.83 10*6/uL Normal 3.80-5.00 [facility] Comment on above: Order Comment: No: D o not add to previous draw Performed By: #### 5 6100, 20423 #### [facility] [address] [place] [address], [facility] WBC #/vol (Bld) 11.09 10*3/uL High 4.00-10.60 [facility] Comment on above: Order Comment: No: D o not add to previous draw Performed By: #### 5 6100, 28778 #### [facility] [address] [place] [address], [facility] Erythrocyte distribution width Ratio (RBC) 15.2 % High 11.5-15.0 [facility] Comment on above: Order Comment: No: D o not add to previous draw Performed By: #### 5 6101, 08903 #### [facility] [address] [place] [address], [facility] Hematocrit Volume Fraction (Bld) 33.0 % Low 36.0-45.0 [facility] Comment on above: Order Comment: No: D o not add to previous draw Performed By: #### 5 6100, 50863 #### [facility] [address] [place] [address], [facility] Hemoglobin mass conc (Bld) 10.3 g/dL Low 12.0-15.0 [facility] Comment on above: Order Comment: No: D o not add to previous draw Performed By: #### 5 6100, 28628 #### [facility] [address] [place] [address], [facility] MCH Entitic mass (RBC) 26.4 pg Low 27.0-33.0 [facility] Comment on above: Order Comment: No: D o not add to previous draw Performed By: #### 5 6100, 27175 #### [facility] [address] [place] [address], [facility] MCHC mass conc (RBC) 31.2 g/dL Low 32.0-35.0 [facility] Comment on above: Order Comment: No: D o not add to previous draw Performed By: #### 5 6100, 35066 #### [facility] [address] [place] [address], [facility] MCV Entitic volume (RBC) 84.6 fL Normal 82.0-98.0 [facility] Comment on above: Order Comment: No: D o not add to previous draw Performed By: #### 5 6100, 59292 #### [facility] [address] [place] [address], [facility] Nucleated RBC/100 WBC Ratio (Bld) 0 % Normal 0-0 [facility] Comment on above: Order Comment: No: D o not add to previous draw Performed By: #### 5 6100, 52957 #### [facility] [address] [place] [address], [facility] PLAT CNT 135 10*3/uL Low 150-400 [facility] Comment on above: Order Comment: No: D o not add to previous draw Performed By: #### 5 6100, 20275 #### [facility] [address] [place] [id number], [facility] RBC #/vol (Bld) 3.90 10*6/uL Normal 3.80-5.00 [facility] Comment on above: Order Comment: No: D o not add to previous draw Performed By: #### 5 6100, 00963 #### [facility] [address] [place] [address], [facility] WBC #/vol (Bld) 12.38 10*3/uL High 4.00-10.60 [facility] Comment on above: Order Comment: No: D o not add to previous draw Performed By: #### 5 6100, 64842 #### [facility] [address] [place] [address], [facility] Erythrocyte distribution width Ratio (RBC) 15.3 % High 11.5-15.0 [facility] Comment on above: Order Comment: No: D o not add to previous draw Performed By: #### 5 6100, 24747 #### [facility] [address] [place] [address], [facility] Hematocrit Volume Fraction (Bld) 33.7 % Low 36.0-45.0 [facility] Comment on above: Order Comment: No: D o not add to previous draw Performed By: #### 5 6100, 22418 #### [facility] [address] [place] [address], [facility] Hemoglobin mass conc (Bld) 10.7 g/dL Low 12.0-15.0 [facility] Comment on above: Order Comment: No: D o not add to previous draw Performed By: #### 5 6100, 43181 #### [facility] [address] MCH Entitic mass (RBC) 26.9 pg Low 27.0-33.0 [facility] Comment on above: Order Comment: No: D o not add to previous draw Performed By: #### 5 6100, 71489 #### [facility] [address] MCHC mass conc (RBC) 31.8 g/dL Low 32.0-35.0 [facility] Comment on above: Order Comment: No: D o not add to previous draw Performed By: #### 5 6100, 52014 #### [facility] [address] MCV Entitic volume (RBC) 84.7 fL Normal 82.0-98.0 [facility] Comment on above: Order Comment: No: D o not add to previous draw Performed By: #### 5 6100, 15098 #### [facility] [address] Nucleated RBC/100 WBC Ratio (Bld) 0 % Normal 0-0 [facility] Comment on above: Order Comment: No: D o not add to previous draw Performed By: #### 6100, 74823 #### [facility] [address] [place] [address], [facility] PLAT CNT 138 10*3/uL Low 150-400 [facility] Comment on above: Order Comment: No: D o not add to previous draw Performed By: #### 5 6100, 17662 #### [facility] [address] [place] [address], [facility] RBC #/vol (Bld) 3.98 10*6/uL Normal 3.80-5.00 [facility] Comment on above: Order Comment: No: D o not add to previous draw Performed By: #### 5 6100, 26067 #### [facility] [address] WBC #/vol (Bld) 13.08 10*3/uL High 4.00-10.60 [facility] Comment on above: Order Comment: No: D o not add to previous draw Performed By: #### 5 6100, 32088 #### [facility] [address] Erythrocyte distribution width Ratio (RBC) 15.1 % High 11.5-15.0 [facility] Comment on above: Order Comment: No: D o not add to previous draw Performed By: #### 5 6100, 67406 #### [facility] [address] Hematocrit Volume Fraction (Bld) 33.7 % Low 36.0-45.0 [facility] Comment on above: Order Comment: No: D o not add to previous draw Performed By: #### 5 6100, 99909 #### [facility] [address] [facility] Hemoglobin mass conc (Bld) 10.7 g/dL Low 12.0-15.0 [facility] Comment on above: Order Comment: No: D o not add to previous draw Performed By: #### 5 6100, 61168 #### [facility] [address] [facility] [address], [facility] MCH Entitic mass (RBC) 27.0 pg Normal 27.0-33.0 [facility] Comment on above: Order Comment: No: D o not add to previous draw Performed By: #### 5 610, 77935 #### [facility] [address] [facility] [address], [facility] MCHC mass conc (RBC) 31.8 g/dL Low 32.0-35.0 [facility] Comment on above: Order Comment: No: D o not add to previous draw Performed By: #### 5 610, 68656 #### [facility] [address] [place] [address], [facility] MCV Entitic volume (RBC) 84.9 fL Normal 82.0-98.0 [facility] Comment on above: Order Comment: No: D o not add to previous draw Performed By: #### 5 6100, 87067 #### [facility] [address] Nucleated RBC/100 WBC Ratio (Bld) 0 % Normal 0-0 [facility] Comment on above: Order Comment: No: D o not add to previous draw Performed By: #### 5 6100, 55461 #### [facility] [address] [place] [address], [facility] PLAT CNT 136 10*3/uL Low 150-400 [facility] Comment on above: Order Comment: No: D o not add to previous draw Performed By: #### 5 610, 38577 #### [facility] [address] [place] [address], [facility] RBC #/vol (Bld) 3.97 10*6/uL Normal 3.80-5.00 [facility] Comment on above: Order Comment: No: D o not add to previous draw Performed By: #### 5 610, 29293 #### [facility] [address] [place] [address], [facility] WBC #/vol (Bld) 15.94 10*3/uL High 4.00-10.60 [facility] Comment on above: Order Comment: No: D o not add to previous draw Performed By: #### 5 6101, 78353 #### [facility] [address] Cardiovascular Lab Reporton 08-13-2018 Cardiovascular Lab Report [facility] MR #: [id number] Department of Physician: Delroy Randolph M.D. Division of Service Date: 08/12/2018 Cardiology Birthdate: 1940 Adult Cardiovascular Room #: [id number] [facility] [address] [place] [address] Cardiovascular Laboratory Report PERIPHERAL INTERVENTION REPORT CLINICAL PRESENTATION: The patient is an 78-year-old female with past medical history significant for atrial fibrillation, hypertension, severe obesity, prior cholecystectomy and hysterectomy. The patient has been diagnosed with a staghorn calculus and is being evaluated by Urology. She recently developed severe left leg swelling and pain. She was evaluated in the [facility] and diagnosed with acute left leg DVT. She is transferred to the [facility] for further evaluation. I personally reviewed the duplex ultrasound, which showed large thrombus burden throughout the left femoral popliteal vein, as well as the left common and external iliac vein. On clinical exam, she has 3+ edema affecting the left leg and significant pain. I recommended IVC filter placement and catheter-directed thrombectomy and thrombolysis. FINAL IMPRESSION: 1. Severe clot burden throughout the distal IVC, left common and external iliac vein, left femoral and popliteal veins. 2. Successful Angiojet pulse spray thrombectomy. There was significant improvement in the left femoral and iliac veins after Angiojet thrombectomy. 3. There is significant residual thrombus in the distal IVC. I elected to place an EKOS catheter for catheter-directed thrombolysis. PLAN: 1. The patient will be treated with EKOS catheter-directed thrombolysis. The alteplase (t-PA) dose will be 1 mg/hour through the EKOS catheter. 2. Low-dose, fixed dose heparin will be infused at a rate of 600 units/hour through the left popliteal sheath during the catheter-directed thrombolysis. 3. The Interventional cardiology team will evaluate and remove the catheter and sheath at the bedside once the treatment period has completed. We are estimating a treatment period of 12-18 hours. 4. We will monitor CBC, fibrinogen during the treatment. PROCEDURES: IVC filter placement, venograms of the IVC, left iliac vein, left femoral vein, ultrasound guidance for vascular access, Angiojet percutaneous transluminal mechanical thrombectomy (venous), EKOS transcatheter therapy (venous infusion), left lower extremity venogram, conscious sedation 80 minutes. INDICATION: Acute left leg DVT, severe pain and swelling of the left leg, significant thrombus burden visualized with ultrasound. DESCRIPTION OF PROCEDURE: The patient was brought to the catheterization lab in a fasting state. Informed and written consent was obtained. She was prepped and draped in usual sterile fashion over the left popliteal vein. She was positioned in the prone position. I initially anesthetized the area above the popliteal vein with 1% lidocaine, then using ultrasound guidance and a micropuncture access technique, I placed a 6-[place] sheath in the left popliteal vein. Venograms were performed. This showed heavy thrombus burden throughout the entire popliteal, femoral, and iliac veins on the left side. Using a 5-[place] angled glide catheter and angled Glidewire, I maneuvered to the IVC. Using an exchange J-wire, I exchanged to a 6-[place] pigtail catheter. Venogram was performed. Venogram showed adequate size of the IVC for an IVC filter. Also showed a large clot in the distal IVC. I placed an Option Elite IVC filter. Using the exchange J-wire, the pigtail catheter was removed and then the Option Elite delivery sheath was delivered to the infrarenal IVC and the Option Elite filter was then deployed. Next, I performed Angiojet mechanical thrombectomy. The Angiojet device was prepared and then advanced through the femoral and iliac veins and using the pulse spray setting, 20 mg of T-PA was deposited into the venous system. We then waited 20 minutes to allow this to work. Using the normal suction thrombectomy settings, the Angiojet device was advanced with multiple passes throughout the femoral and iliac veins. At this point, venograms were performed, which showed significant improvement throughout the femoral and iliac veins. however, there remained a very large thrombus in the distal IVC. I elected to finish the procedure by placing an EKOS catheter for catheter-directed thrombolysis. The 50 cm EKOS catheter was then exchanged over the wire and placed from the IVC to the distal left femoral vein. It was then secured to the skin with Tegaderm dressings. The sheath was sutured to the skin and secured with Tegaderm dressings. The EKOS ultrasound filament was then advanced through the central lumen. The t-PA was then infused through the EKOS catheter and the heparin was infused through the left popliteal venous sheath. At this point, the procedure was completed. The patient will be monitored in the ICU. We will continue the T-PA infusion for 12-18 hours. There were no apparent complications. TOTAL CONTRAST: 35 mL. TOTAL CONSCIOUS SEDATION TIME: 80 minutes. TOTAL FLUOROSCOPY TIME: 50 minutes 26 seconds, 1.2 Gy. Electronically Signed by: Kennedi Mulligan M.D. 09/06/2018 03:47 P Kennedi Mulligan M.D. Date Dict: 08/12/2018/05:17 P/Kennedi Mulligan M.D. Date Trans: 08/13/2018 03:48 A/prashant [id number] cc: Maria Eugenia Miranda M.D. [address] [place] [id number] Normal [facility] FIBRINOGENon 08-13-2018 FIBRINOGEN 152 mg/dL Normal 150-425 [facility] Comment on above: Order Comment: No: D o not add to previous draw Performed By: #### 5 6101, 04465 #### [facility] [address] [facility]. [address] FIBRINOGEN 142 mg/dL Low 150-425 [facility] Comment on above: Order Comment: No: D o not add to previous draw Performed By: #### 5 6101, 46443 #### [facility] [address] [facility] [place] [address], [facility] FIBRINOGEN 162 mg/dL Normal 150-425 [facility] Comment on above: Performed By: #### 5 6101, 79411 #### [facility] [address] [place] [address], [facility] POC GLUCOSE LABon 08-13-2018 Glucose mass conc 157 mg/dL High 70-100 [facility] Comment on above: Performed By: #### 5 6101, 95415 #### [facility] [address] [place] [address], [facility] UFH HEPARIN ASSAYon 08-13-19 19 UNFRACTIONATED HEPARIN <0.10 Critically low 0.30-0.70 [facility] Comment on above: Result Comment: [place] roxaban and Apixaban will interfere with the anti Xa assay used to monitor UFH and LMWH. RESULTS CHECKED AND CALLED. ACCURATELY READ BACK BY LAZARO WISE RN @ 1775 Performed By: #### 5 6101, 34968 #### [facility] [address] [place] [address], [facility] UNFRACTIONATED HEPARIN <0.10 Critically low 0.30-0.70 [facility] Comment on above: Order Comment: No: D o not add to previous draw Result Comment: [place] roxaban and Apixaban will interfere with the anti Xa assay used to monitor UFH and LMWH. RESULTS CHECKED AND CALLED. ACCURATELY READ BACK BY Johana Zavaleta RN @ 0110 on 08-13-18 Performed By: #### 5 6101, 78501 #### [facility] [address] [place] [address], [facility] APTTon 08-12-2018 aPTT Coag time (Bld) 83.8 s Critically high 25.0-35.0 [facility] Comment on above: Result Comment: ALL RESULTS MUST BE INTERPRETED WITH RESPECT TO BLOOD DRAWING ARTIFACT OR DILUTION ERROR OF ANTICOAGULANT AT THE TIME OF SAMPLING. THE APTT SHOULD NOT BE USED TO MONITOR UNFRACTIONATED HEPARIN THERAPY, THIS LABORATORY NO LONGER HAS AN ESTABLISHED THERAPEUTIC RANGE BASED ON THE APTT. IT IS RECOMMENDED THAT THE UFH - HEPARIN ASSAY (ANTI-XA ACTIVITY) BE USED FOR THIS PURPOSE. RESULTS CHECKED AND CALLED. ACCURATELY READ BACK BY DELROY GUIDO RN @2736 CLINICAL SIGNIFICANCE OF THE PTT RESULT IS QUESTIONABLE IN THE PRESENCE OF HEPARIN. Performed By: #### 3 0477, 87564 #### [facility] [address] [place] [address], [facility] BASIC METABOLIC PANELon Calcium mass conc 8.8 mg/dL Normal 8.6-10.3 [facility] Comment on above: Order Comment: No: D o not add to previous draw Performed By: #### 4 1000, 58323, 83315 #### [facility] [address] [place] [address], [place] Chloride molar conc 101 mmol/L Normal 98-107 [facility] Comment on above: Order Comment: No: D o not add to previous draw Performed By: #### 4 1000, 24663, 10020 #### [facility] [address] [place] [address], [place] CO2 molar conc 24 mmol/L Normal 21-31 [facility] Comment on above: Order Comment: No: D o not add to previous draw Performed By: #### 4 1000, 26749, 30583 #### [facility] [address] [place] [address], [place] Creatinine mass conc 0.88 mg/dL Normal 0.60-1.20 [facility] Comment on above: Order Comment: No: D o not add to previous draw Performed By: #### 4 1000, 44704, 61790 #### [facility] [address] [place] [address], [place] GFR/1.73 sq M predicted among blacks MDRD vol rate/area (S/P/Bld) mL/min/{1.73_m2} Normal >60 [facility] Comment on above: Order Comment: No: D o not add to previous draw Result Comment: Calc ulation may not be valid for patients over 70 years Performed By: #### 4 1000, 34939, 33936 #### [facility] [address] [place] [address], [place] GFR/1.73 sq M predicted among non-blacks MDRD vol rate/area (S/P/Bld) mL/min/{1.73_m2} Normal >60 [facility] Comment on above: Order Comment: No: D o not add to previous draw Result Comment: Calc ulation may not be valid for patients over 70 years Performed By: #### 4 1000, 64858, 33495 #### [facility] [address] [place] [address], [place] Glucose mass conc 136 mg/dL High 70-100 [facility] Comment on above: Order Comment: No: D o not add to previous draw Performed By: #### 4 1000, 46875, 70943 #### [facility] [address] [place] [address], [place] Potassium molar conc 3.5 mmol/L Normal 3.5-5.1 [facility] Comment on above: Order Comment: No: D o not add to previous draw Performed By: #### 4 999, 56408, 91297 #### [facility] [address] [place] [address], [place] Sodium molar conc 137 mmol/L Normal 136-145 [facility] Comment on above: Order Comment: No: D o not add to previous draw Performed By: #### 4 999, 14192, 72134 #### [facility] [address] [place] [address], [place] Urea nitrogen mass conc 20 mg/dL Normal 7-25 [facility] Comment on above: Order Comment: No: D o not add to previous draw Performed By: #### 4 999, 77488, 93389 #### [facility] [address] [place] [address], [place] Calcium mass conc 8.9 mg/dL Normal 8.6-10.3 [facility] Comment on above: Order Comment: Yes: Add to Previous draw if able Performed By: #### 0 0071 #### [facility] [address] [place] [address], [place] Chloride molar conc 100 mmol/L Normal 98-107 [facility] Comment on above: Order Comment: Yes: Add to Previous draw if able Performed By: #### 0 0071 #### [facility] [address] [place] [address], [place] CO2 molar conc 23 mmol/L Normal 21-31 [facility] Comment on above: Order Comment: Yes: Add to Previous draw if able Performed By: #### 0 0071 #### [facility] [address] [place] [address], [facility] Creatinine mass conc 1.01 mg/dL Normal 0.60-1.20 [facility] Comment on above: Order Comment: Yes: Add to Previous draw if able Performed By: #### 0 0071 #### [facility] [address] [place] [address], [place] GFR/1.73 sq M predicted among blacks MDRD vol rate/area (S/P/Bld) mL/min/{1.73_m2} Normal >60 [facility] Comment on above: Order Comment: Yes: Add to Previous draw if able Result Comment: Calc ulation may not be valid for patients over 70 years Performed By: #### 0 0071 #### [facility] [address] [place] [address], [facility] GFR/1.73 sq M predicted among non-blacks MDRD vol rate/area (S/P/Bld) 53 ml/min/1.73sq m Abnormal >60 [facility] Comment on above: Order Comment: Yes: Add to Previous draw if able Result Comment: Calc ulation may not be valid for patients over 70 years Performed By: #### 0 0071 #### [facility] [address] [place] [address], [facility] Glucose mass conc 167 mg/dL High 70-100 [facility] Comment on above: Order Comment: Yes: Add to Previous draw if able Performed By: #### 0 0071 #### [facility] [address] [place] [address], [place] Potassium molar conc 3.4 mmol/L Low 3.5-5.1 [facility] Comment on above: Order Comment: Yes: Add to Previous draw if able Performed By: #### 0 0071 #### [facility] [address] [place] [address], [place] Sodium molar conc 136 mmol/L Normal 136-145 [facility] Comment on above: Order Comment: Yes: Add to Previous draw if able Performed By: #### 0 0071 #### [facility] [address] [place] [address], [facility] Urea nitrogen mass conc 22 mg/dL Normal 7-25 [facility] Comment on above: Order Comment: Yes: Add to Previous draw if able Performed By: #### 0 0071 #### [facility] [address] [place] [address], [facility] CBC COMPLETE BLOOD COUNTon 0 08-12-2018 Erythrocyte distribution width Ratio (RBC) 15.0 % Normal 11.5-15.0 [facility] Comment on above: Order Comment: No: D o not add to previous draw Performed By: #### 5 6101, 29044 #### [facility] [address] Hematocrit Volume Fraction (Bld) 39.2 % Normal 36.0-45.0 [facility] Comment on above: Order Comment: No: D o not add to previous draw Performed By: #### 5 610, 38431 #### [facility] [address] [place] [address], [facility] Hemoglobin mass conc (Bld) 11.9 g/dL Low 12.0-15.0 [facility] Comment on above: Order Comment: No: D o not add to previous draw Performed By: #### 5 6101, 02285 #### [facility] [address] [place] [address], [facility] MCH Entitic mass (RBC) 27.0 pg Normal 27.0-33.0 [facility] Comment on above: Order Comment: No: D o not add to previous draw Performed By: #### 5 610, 02209 #### [facility] [address] [place] [address], [facility] MCHC mass conc (RBC) 30.4 g/dL Low 32.0-35.0 [facility] Comment on above: Order Comment: No: D o not add to previous draw Performed By: #### 5 610, 46708 #### [facility] [address] [place] [address], [facility] MCV Entitic volume (RBC) 89.1 fL Normal 82.0-98.0 [facility] Comment on above: Order Comment: No: D o not add to previous draw Performed By: #### 5 610, 77509 #### [facility] [address] [place] [address], [facility] Nucleated RBC/100 WBC Ratio (Bld) 0 % Normal 0-0 [facility] Comment on above: Order Comment: No: D o not add to previous draw Performed By: #### 5 610, 25331 #### [facility] [address] [place] [address], [facility] PLAT CNT 168 10*3/uL Normal 150-400 [facility] Comment on above: Order Comment: No: D o not add to previous draw Performed By: #### 5 610, 50592 #### [facility] [address] [place] [address], [facility] RBC #/vol (Bld) 4.40 10*6/uL Normal 3.80-5.00 [facility] Comment on above: Order Comment: No: D o not add to previous draw Performed By: #### 5 610, 55945 #### [facility] [address] [place] [address], [facility] WBC #/vol (Bld) 19.58 10*3/uL High 4.00-10.60 [facility] Comment on above: Order Comment: No: D o not add to previous draw Performed By: #### 5 610, 35503 #### [facility] [address] [place] [id number], [facility] Erythrocyte distribution width Ratio (RBC) 14.9 % Normal 11.5-15.0 [facility] Comment on above: Order Comment: No: D o not add to previous draw Performed By: #### 5 0608 #### [facility] [address] [place] [address], [facility] Hematocrit Volume Fraction (Bld) 36.7 % Normal 36.0-45.0 [facility] Comment on above: Order Comment: No: D o not add to previous draw Performed By: #### 5 0608 #### [facility] [address] [place] [address], [facility] Hemoglobin mass conc (Bld) 11.4 g/dL Low 12.0-15.0 [facility] Comment on above: Order Comment: No: D o not add to previous draw Performed By: #### 5 0608 #### [facility] [address] [place] [address], [facility] MCH Entitic mass (RBC) 26.3 pg Low 27.0-33.0 [facility] Comment on above: Order Comment: No: D o not add to previous draw Performed By: #### 5 0608 #### [facility] [address] [place] [address], [facility] MCHC mass conc (RBC) 31.1 g/dL Low 32.0-35.0 [facility] Comment on above: Order Comment: No: D o not add to previous draw Performed By: #### 5 0608 #### [facility] [address] [place] [address], [facility] MCV Entitic volume (RBC) 84.8 fL Normal 82.0-98.0 [facility] Comment on above: Order Comment: No: D o not add to previous draw Performed By: #### 5 0608 #### [facility] [address] [place] [address], [facility] Nucleated RBC/100 WBC Ratio (Bld) 0 % Normal 0-0 [facility] Comment on above: Order Comment: No: D o not add to previous draw Performed By: #### 5 0608 #### [facility] [address] [place] [address], [facility] PLAT CNT 183 10*3/uL Normal 150-400 [facility] Comment on above: Order Comment: No: D o not add to previous draw Performed By: #### 5 0608 #### [facility] [address] [facility] [place] [address], [facility] RBC #/vol (Bld) 4.33 10*6/uL Normal 3.80-5.00 [facility] Comment on above: Order Comment: No: D o not add to previous draw Performed By: #### 5 0608 #### [facility] [address] [facility] [place] [address], [facility] WBC #/vol (Bld) 11.41 10*3/uL High 4.00-10.60 [facility] Comment on above: Order Comment: No: D o not add to previous draw Performed By: #### 5 0608 #### [facility] [address] [facility] [place] [address], [facility] FIBRINOGENon 08-12-2018 FIBRINOGEN 324 mg/dL Normal 150-425 [facility] Comment on above: Order Comment: No: D o not add to previous draw Performed By: #### 5 6101, 58472 #### [facility] [address] [facility] [address], [facility] MAGNESIUM BLOODon 08-12-2018 Magnesium mass conc 2.0 mg/dL Normal 1.9-2.7 [facility] Comment on above: Order Comment: No: D o not add to previous draw Performed By: #### 4 1000, 53440, 96916 #### [facility] [address] [facility] [place] [address], [facility] PHOSPHORUS BLOODon 9 Phosphate mass conc 4.0 mg/dL Normal 2.5-5.0 [facility] Comment on above: Order Comment: No: D o not add to previous draw Performed By: #### 4 1000, 69237, 74599 #### [facility] [address] [place] [address], [facility] TYPE AND SCREENon 08-12-2018 ABO INTERPRETATION O Normal [facility] Comment on above: Order Comment: No: D o not add to previous draw Performed By: #### 5 6101, 41717 #### [facility] [address] [place] [address], [facility] RH INTERPRETATION Positive Normal [facility] Comment on above: Order Comment: No: D o not add to previous draw Performed By: #### 5 6101, 63356 #### [facility] [address] [place] [address], [facility] UFH HEPARIN ASSAYon 08-12-19 19 UNFRACTIONATED HEPARIN 0.14 IU/mL Critically low 0.30-0.70 [facility] Comment on above: Order Comment: No: D o not add to previous draw Result Comment: [place] roxaban and Apixaban will interfere with the anti Xa assay used to monitor UFH and LMWH. RESULTS CHECKED AND CALLED. ACCURATELY READ BACK BY SALVATORE Garay Performed By: #### 5 6101, 58571 #### [facility] [address] [place] [address], [facility] UNFRACTIONATED HEPARIN 0.19 IU/mL Low 0.30-0.70 [facility] Comment on above: Result Comment: [place] roxaban and Apixaban will interfere with the anti Xa assay used to monitor UFH and LMWH. Performed By: #### 5 6101, 30332 #### [facility] [address] [place] [address], [facility] UNFRACTIONATED HEPARIN 0.79 IU/mL High 0.30-0.70 [facility] Comment on above: Result Comment: [place] roxaban and Apixaban will interfere with the anti Xa assay used to monitor UFH and LMWH. Performed By: #### 5 6101, 82553 #### [facility] [address] UNFRACTIONATED HEPARIN >1.00 Critically high 0.30-0.70 [facility] Comment on above: Result Comment: [place] roxaban and Apixaban will interfere with the anti Xa assay used to monitor UFH and LMWH. RESULTS CHECKED AND CALLED. ACCURATELY READ BACK BY DELROY GUIDO RN @5090 UFH=1.54 Performed By: #### 3 0477, 56962 #### [facility] [address] APTTon 08-11-2018 aPTT Coag time (Bld) 36.9 s High 25.0-35.0 [facility] Comment on above: Order Comment: No: D o not add to previous draw Result Comment: ALL RESULTS MUST BE INTERPRETED WITH RESPECT TO BLOOD DRAWING ARTIFACT OR DILUTION ERROR OF ANTICOAGULANT AT THE TIME OF SAMPLING. THE APTT SHOULD NOT BE USED TO MONITOR UNFRACTIONATED HEPARIN THERAPY, THIS LABORATORY NO LONGER HAS AN ESTABLISHED THERAPEUTIC RANGE BASED ON THE APTT. IT IS RECOMMENDED THAT THE UFH - HEPARIN ASSAY (ANTI-XA ACTIVITY) BE USED FOR THIS PURPOSE. Performed By: #### 5 6101, 35885 #### [facility] [address] [facility]. [address] CBC COMPLETE BLOOD COUNTon 0 08-11-2018 Erythrocyte distribution width Ratio (RBC) 15.2 % High 11.5-15.0 [facility] Comment on above: Order Comment: No: D o not add to previous draw Performed By: #### 5 0608 #### [facility] [address] [facility]. [address] Hematocrit Volume Fraction (Bld) 43.6 % Normal 36.0-45.0 [facility] Comment on above: Order Comment: No: D o not add to previous draw Performed By: #### 5 0608 #### [facility] [address] Hemoglobin mass conc (Bld) 13.4 g/dL Normal 12.0-15.0 [facility] Comment on above: Order Comment: No: D o not add to previous draw Performed By: #### 5 0608 #### [facility] [address] IMM PLATELET FRAC 2.6 % Normal 0.8-6.3 [facility] Comment on above: Order Comment: No: D o not add to previous draw Performed By: #### 5 0608 #### [facility] [address] [place] [address], [facility] MCH Entitic mass (RBC) 27.0 pg Normal 27.0-33.0 [facility] Comment on above: Order Comment: No: D o not add to previous draw Performed By: #### 5 0608 #### [facility] [address] MCHC mass conc (RBC) 30.7 g/dL Low 32.0-35.0 [facility] Comment on above: Order Comment: No: D o not add to previous draw Performed By: #### 5 0608 #### [facility] [address] MCV Entitic volume (RBC) 87.7 fL Normal 82.0-98.0 [facility] Comment on above: Order Comment: No: D o not add to previous draw Performed By: #### 5 0608 #### [facility] [address] [facility] [address] Nucleated RBC/100 WBC Ratio (Bld) 0 % Normal 0-0 [facility] Comment on above: Order Comment: No: D o not add to previous draw Performed By: #### 5 0608 #### [facility] [address] [facility] [place] [address], [facility] PLAT CNT 122 10*3/uL Low 150-400 [facility] Comment on above: Order Comment: No: D o not add to previous draw Performed By: #### 5 0608 #### [facility] [address] RBC #/vol (Bld) 4.97 10*6/uL Normal 3.80-5.00 [facility] Comment on above: Order Comment: No: D o not add to previous draw Performed By: #### 5 0608 #### [facility] [address] WBC #/vol (Bld) 12.98 10*3/uL High 4.00-10.60 [facility] Comment on above: Order Comment: No: D o not add to previous draw Performed By: #### 5 0608 #### [facility] [address] PROTHROMBIN TIMEon 9 INR Coag RelTime (PPP) 1.27 {INR} High 0.91-1.16 [facility] Comment on above: Order Comment: No: D o not add to previous draw Result Comment: ACCC P RECOMMENDED INR FOR WARFARIN THERAPY ------ ------- CONDITION INR PROPHYLAXIS OF VENOUS THROMBOSIS 2-3 (HIGH-RISK SURGERY) TREATMENT OF VENOUS THROMBOSIS 2-3 TREATMENT OF PULMONARY EMBOLISM 2-3 PREVENTION OF SYSTEMIC EMBOLISM: 2-3 ACUTE MYOCARDIAL INFARCTION TISSUE HEART VALVES VALVULAR HEART DISEASE ATRIAL FIBRILLATION RECURRENT SYSTEMIC EMBOLISM MECHANICAL HEART VALVE 2.5-3.5 FROM: ORAL ANTICOAGULANTS. MECHANISM OF ACTION, CLINICAL EFFECTIVENESS, AND OPTIMAL THERAPEUTIC RANGE. CHEST 1995;108:[id number]. Performed By: #### 5 6101, 43656 #### [facility] [address] Prothrombin time (PT) Coag time (PPP) 15.9 s High 12.3-14.8 [facility] Comment on above: Order Comment: No: D o not add to previous draw Result Comment: ALL RESULTS MUST BE INTERPRETED WITH RESPECT TO BLOOD DRAWING ARTIFACT OR DILUTION ERROR OF ANTICOAGULANT AT THE TIME OF SAMPLING. Performed By: #### 5 6101, 80097 #### [facility] [address] Vital Signs Date Time Vital Sign Value Performing Clinician Faci lity 02-05-2024 11:18-0400 Body height 152.4 cm Murali Rangel MD Work Phone: [facility] 02-05-2024 11:18-0400 Body mass index (BMI) [Ratio] 54.1 kg/m2 Murali Rangel MD Work Phone: [facility] 02-05-2024 11:18-0400 Body weight 125.65 kg Murali Rangel MD Work Phone: [facility] 02-05-2024 11:18-0400 Diastolic blood pressure 81 mm[Hg] Murali Rangel MD Work Phone: [facility] 02-05-2024 11:18-0400 Heart rate 55 /min Murali Rangel MD Work Phone: [facility] 02-05-2024 11:18-0400 Respiratory rate 18 /min Murali Rangel MD Work Phone: [facility] 02-05-2024 11:18-0400 Systolic blood pressure 129 mm[Hg] Murali Rangel MD Work Phone: [facility] 11-27-2023 10:18-0400 Blood Pressure Location REGINA VALIENTE [facility] 11-27-2023 10:18-0400 Diastolic blood pressure 71 mm[Hg] REGINA VALIENTE [facility] 11-27-2023 10:18-0400 Heart rate 77 /min REGINA MAVERICK [facility] 11-27-2023 10:18-0400 Respiratory rate 16 /min REGINA MAVERICK [facility] 11-27-2023 10:18-0400 Systolic blood pressure 131 mm[Hg] REGINA MAVERICK [facility] 04-24-2023 10:11-0400 Blood Pressure Location REGINA MAVERICK [facility] 04-24-2023 10:11-0400 Diastolic blood pressure 85 mm[Hg] REGINA MAVERICK [facility] 04-24-2023 10:11-0400 Heart rate 87 /min REGINA MAVERICK [facility] 04-24-2023 10:11-0400 Respiratory rate 16 /min REGINA MAVERICK [facility] 04-24-2023 10:11-0400 Systolic blood pressure 144 mm[Hg] REGINA MAVERICK [facility] 05-10-2022 13:43-0400 Blood Pressure Location Shayne England [facility] 05-10-2022 13:43-0400 Diastolic blood pressure 70 mm[Hg] Shayne England [facility] 05-10-2022 13:43-0400 Heart rate 77 /min Shayne England [facility] 05-10-2022 13:43-0400 Respiratory rate 16 /min Shayne England [facility] 05-10-2022 13:43-0400 Systolic blood pressure 117 mm[Hg] Shayne England [facility] Encounters Encounter Date Encounter Type Care Provider Facility Start: 02-05-2024 End: 02-05-2024 Patient encounter procedure Murali Rangel MD Work Phone: Urology Comment on above: Calculus of kidney ( Primary Dx); Kidney stones; Primary hypertension; Paroxysmal atrial fibrillation (HCC); Coronary artery disease involving [place] coronary artery of [place] heart without angina pectoris, 50% ostial LAD, 60% OM1; Urinary incontinence, mixed Start: 02-01-2024 End: 02-01-[address] [facility] Start: 01-28-2024 End: 01-28-2024 ambulatory [facility] Start: 01-28-2024 Encounter for genera l adult medical examination without abnormal findings [facility] Start: 01-14-2024 End: 01-14-2024 ambulatory [facility] Start: 01-08-2024 End: 01-08-2024 ambulatory [facility] Facility:[facility] Start: 01-08-2024 End: 01-08-2024 Patient encounter procedure REGINA VALIENTE [facility] Start: 12-20-2023 End: 12-20-2023 Lab Drop off REGINA VALIENTE [facility] Start: 12-20-2023 End: 12-20-2023 ambulatory [facility] Facility[facility] Start: 12-20-2023 End: 12-20-2023 Patient encounter procedure Leonardo REGAN [facility] Start: 12-13-2023 End: 12-13-2023 ambulatory MAKENNA TAMAYO Not Available Start: 12-07-2023 End: 12-07-2023 Lab Drop off REGINA Nadya VALIENTE [facility] Start: 12-07-2023 End: 12-07-2023 ambulatory REGINA Nadya MAVERICK Facility:[facility] Start: 12-07-2023 End: 12-07-2023 Patient encounter procedure Leonardo Cisneros REGAN [facility] Start: 11-27-2023 End: 11-27-2023 Lab Drop off REGINA VALIENTE [facility] Start: 11-27-2023 End: 11-27-2023 ambulatory REGINA VALIENTE Facility:[facility] Start: 11-27-2023 End: 11-27-2023 Patient encounter procedure REGINA VALIENTE [facility] Start: 09-20-2023 Refill Arianna [facility] Start: 09-13-2023 End: 09-13-2023 ambulatory MAKENNA TAMAYO Not Available Start: 09-12-2023 Chart abstracting Makenna malone MD Work Phone: [facility] Start: 08-28-2023 End: 08-28-2023 ambulatory JUAN DIEGO CASTILLO Facility:[facility] Start: 08-28-2023 End: 08-28-2023 Patient encounter procedure REGINA Nadya MAVERICK [facility] Start: 08-27-2023 Telephone encounter Estella [facility] Start: 08-20-2023 Telephone encounter Griselda willson CNA Work Phone: [facility] Start: 08-07-2023 End: 08-07-2023 ambulatory Leonardoad REGAN Facility:[facility] Start: 08-07-2023 End: 08-07-2023 Patient encounter procedure Leonardo REGAN [facility] Start: 08-01-2023 End: 08-01-2023 ambulatory Leonardoad REGAN Facility:[facility] Start: 08-01-2023 End: 08-01-2023 Patient encounter procedure Leonardo REGAN [facility] Start: 07-27-2023 End: 07-27-[address] [facility] Start: 07-12-2023 End: 07-12-2023 ambulatory MAKENNA TAMAYO Not Available Start: 06-19-2023 End: 06-19-2023 ambulatory MICHELLE VIDALES Not Available Start: 06-05-2023 End: 06-05-2023 ambulatory REGINA VALIENTE Facility:[facility] Start: 05-25-2023 End: 05-25-2023 [facility] Start: 04-24-2023 End: 04-24-2023 ambulatory REGINA VALIENTE Facility:[facility] Start: 04-24-2023 End: 04-24-2023 Patient encounter procedure REGINA VALIENTE [facility] Start: 03-02-2023 End: 03-02-2023 [facility] Start: 10-17-2022 End: 10-17-2022 Patient encounter procedure REGINA VALIENTE [facility] Start: 09-05-2022 End: 09-05-[address] DARYA BOYER Facility:[facility] Start: 08-29-2022 End: 08-29-[address] COMPA FOOTE Facility:[facility] Start: 08-15-2022 End: 08-15-2022 ambulatory YULISSA WOODARD [facility] Start: 06-13-2022 End: 06-13-2022 Patient encounter procedure Leonardo Blayne REGAN [facility] Start: 05-10-2022 End: 05-10-2022 Patient encounter procedure Shayne England [facility] Start: 04-18-2022 End: 04-19-[address] COMPA FOOTE Facility:[facility] Start: 02-03-2022 End: 02-03-[address] ANASTASIIA BUTCHER Facility:[facility] Start: 08-11-2018 End: 08-14-2018 Evaluation and management of inpatient DEE DEE GARBER Facility:[facility] Procedures Date Procedure Procedure Detail Performing Clinician Start: 08-07-2023 Injection of botulin um toxin type A into detrusor muscle of urinary bladder REGINADENISE MEJIARY Start: 07-27-2023 Follow-up visit Follow-up JUAN DIEGO CASTILLO Start: 06-13-2022 Cystourethroscopy wi th dilation of urethral stricture REIGNADENISE VALIENTE Start: 05-25-2020 Cystourethroscopy wi th dilation of urethral stricture REGINA VALIENTE Start: 06-24-2019 Cystoscopic removal of ureteric stent RGEINADENISE MEJIARY Start: 08-12-2018 Antibody screen INDIGO GARBER Comment on above: Order Comment: No: D o not add to previous draw Performed By: #### 5 [id number] #### [address] Start: 08-12-2018 EXTIRPATION OF MATTE R FROM L COM ILIAC VEIN, PERC APPROACH KENNEDI MULLIGAN Start: 08-12-2018 EXTIRPATION OF MATTE R FROM LEFT FEMORAL VEIN, PERC APPROACH KENNEDI MULLIGAN Start: 08-12-2018 FLUOROSCOPY OF INFER IOR VENA CAVA USING OTHER CONTRAST KENNEDI MULLIGAN Start: 08-12-2018 FLUOROSCOPY OF LEFT LOWER EXTREMITY VEINS USING OTH CONTRAST KENNEDI MULLIGAN Start: 08-12-2018 FLUOROSCOPY OF LEFT PELVIC (ILIAC) VEINS USING OTH CONTRAST KENNEDI MULLIGAN Start: 08-12-2018 INSERTION OF INFUSIO N DEV INTO INF VENA CAVA, PERC APPROACH KENNEDI MULLIGAN Start: 08-12-2018 INSERTION OF INTRALU M DEV INTO INF VENA CAVA, PERC APPROACH KENNEDI MULLIGAN Start: 08-12-2018 INTRODUCE OTH THROMB OLYTIC IN CENTRAL VEIN, PERC KENNEDI MULLIGAN Cataract (disorder) Shayne England Catheterization of aorta Cesar madai [place] Cholecystectomy Lanmadai Miguel mons Colonoscopy Lanmadai Clegermán s Hernia repair Shayne Riveramo ns Hysterectomy Shayne [place]iedra s Knee region structur e (body structure) Lanrochellee [place] Tonsillectomy and adenoidectomy Reddye [place] Total knee replacement Zia England Comment on above: rt Umbilical hernia (disorder) Shayne England Plan of Treatment Date Care Activity Detail Author Start: 04-01-2026 Diabetes Screening Diabetes Screening [facility] Start: 06-19-2025 Glaucoma screening Diabetes: Retinopathy Screening [facility] Start: 07-27-2024 Adult BMI Follow Up Plan Adult BMI Follow Up Plan [facility] Start: 07-27-2024 Adult BMI Screening Adult BMI Screening [facility] Start: 07-27-2024 Tobacco Screening Tobacco Screening [facility] Start: 06-10-2024 ambulatory Ambulatory Facility:[facility] Start: 04-06-2024 Influenza vaccination Influenza Vaccine (#1) [facility] Start: 01-28-2024 End: 01-28-2024 Patient encounter procedure 01/28/2024 9:00 AM EDT Office Visit [facility] [address] [place] [id number] Juan Diego Castillo, RAG INSPECTOR-STATE ARCHIVIST [address] [place] [address] [facility] Start: 11-14-2023 End: 11-14-2023 Patient encounter procedure 11/14/2023 1:30 PM EDT Office Visit [facility] [address] [place] [address] Rajni Lopez, RAG INSPECTOR-STATE ARCHIVIST [address] [address] [facility] Start: 09-13-2023 End: 09-13-2023 Patient encounter procedure 09/13/2023 10:00 AM EST Office Visit [facility] [address] [phone] Makenna Tamayo MD [address] [facility] [address] [id number] [facility] Start: 08-29-2023 End: 08-29-2023 Patient encounter procedure 08/29/2023 9:00 AM EST Office Visit [facility] [address] [place] [place] [address] Rajni Lopez, RAG INSPECTOR-STATE ARCHIVIST [address] [address] [facility] Start: 08-06-2023 Advance Directive Discussion Advance Directive Discussion [facility] Start: 08-06-2023 Behavioral Health Screening Behavioral Health Screening [facility] Start: 04-06-2023 COVID-19 Vaccine ( season) COVID-19 Vaccine ( season) [facility] Start: 04-06-2023 Influenza vaccination [facility] Start: 09-10-2021 Hemoglobin A1c measurement Diabetes: Hemoglobin A1C [facility] Start: 2003 Fall Risk Screening Fall Risk Screening [facility] Start: 1998 RSV Vaccine (1 - 1-dose 60+ series) RSV Vaccine (1 - 1-dose 60+ series) [facility] Start: 01-27-1988 Administration of varicella zoster vaccine Zoster (Shingles) Vaccine (1 of 2) [facility] Start: 01-27-1988 Shingrix Vaccine (1 of 2) Shingrix Vaccine (1 of 2) [facility] Start: 1957 DTaP,Tdap and Td Vaccines (1 - Tdap) DTaP,Tdap and Td Vaccines (1 - Tdap) [facility] Start: 1957 Urine microalbumin profile DTaP,Tdap,Td Vaccine (1 - Tdap) [facility] Start: 01-27-1956 Hepatitis B surface antibody level LDL Cholesterol [facility] Start: 1950 Depression Screening Depression Screening [facility] Start: 01-27-1944 Pneumococcal Vaccine: 65+ (1 of 2 - PCV) Pneumococcal Vaccine: 65+ (1 of 2 - PCV) [facility] Start: 1938 Medicare Annual Wellness (AWV) Medicare Annual Wellness (AWV) [facility] Start: 1938 Medicare Annual Wellness Visit Medicare Annual Wellness Visit [facility] Immunizations Immunization Date Immunization Notes Care Provider Zaid brown 06-21-2021 SARS-CoV-2 (COVID-19 ) mRNA BNT-162b2 [facility] 11-25-2020 SARS-CoV-2 (COVID-19 ) mRNA BNT-162b2 vax [facility] 11-05-2020 SARS-CoV-2 (COVID-19 ) mRNA BNT-162b2 [facility] Payers Date Payer Category Payer [employer] ( and others) 2022 [employer] ( and others) [id number] 2022 Medicare [id number] 2022 Medicare [id number] 2018 [facility] ( and others) [id number] 2015 Unknown [id number] 1959 [facility] ( and others) [id number] 1959 Unknown [id number] 1938 Unknown [id number] 2.16.840.1.768965.3.579.2.647 1938 Unknown [id number] 2.16.840.1.094890.3.579.2.593 1938 Unknown [id number] 2.16.840.1.144389.3.579.2.593 1938 Unknown [id number] 2.16.840.1.102121.3.579.2.593 1938 Unknown [id number] 2.16.840.1.376704.3.579.2.593 1938 Unknown [id number] 2.16.840.1.179730.3.579.2.1259 1938 Unknown [id number] 2.16.840.1.508120.3.579.2.1259 1938 Unknown [id number] 2.16.840.1.300892.3.579.2.1259 1938 Unknown [id number] 2.16.840.1.574245.3.579.2.1259 1938 Unknown [id number] 2.16.840.1.062158.3.579.2.727 1938 Unknown [id number] 2.16.840.1.350230.3.579.2.727 1938 Unknown [id number] 2.16.840.1.004066.3.579.2.727 1938 Unknown [id number] 2.16.840.1.395949.3.579.2.727 1938 Unknown [id number] 2.16.840.1.626674.3.579.2.72 1938 Unknown [id number] 2.16.840.1.011513.3.579.2.72 1938 Unknown [id number] 2.16.840.1.785106.3.579.2.72 1938 Unknown [id number] 2.16.840.1.225121.3.579.2. 1938 Unknown [id number] 2.16.840.1.093367.3.579.2. 1938 Unknown [id number] 2.16.840.1.871366.3.579.2. 1938 Unknown [id number] 2.16.840.1.237562.3.579.2. 1938 Unknown [id number] 2.16.840.1.539311.3.579.2. 1938 Unknown [id number] 2.16.840.1.718329.3.579.2. 1938 Unknown [id number] 2.16.840.1.527466.3.579.2.128 1938 Unknown [id number] 2.16.840.1.251848.3.579.2.128 1938 Unknown [id number] 2.16.840.1.911295.3.579.2.128 1938 Unknown [id number] 2.16.840.1.009628.3.579.2.1286 Medicare [id number] Social History Date Type Detail Facility Start: 06-24-2015 End: 10-25-2020 Tobacco smoking status Never smoked tobacco (finding) [facility] Start: 09-17-2020 End: 07-27-2023 Sex Assigned At Female [facility] Tobacco smoking status Never [facility] Start: 06-24-2015 End: 11-01-2022 Tobacco use and exposure Smokeless tobacco non-user [facility] [employer] [facility] Start: 07-12-2023 End: 07-27-2023 Alcohol intake Lifetime non-drinker (finding) [facility] Start: 09-17-2020 End: 07-27-2023 History of Social function [facility] Start: 1940 Sex Assigned At Not on file [facility] Start: 02-05-2024 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 intake 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 (finding) [facility] Medical Equipment Procedure Code Equipment Code Equipment Origin al Text Equipment Identifier Dates Stent Inlay Opti ma 7fr Taper [place] [employer] Polymer Phreecoat 26cm Ureteral - [id number] Start: 06-11-2019 Functional Status Date Assessment Result Facility 01-08-2024 Functional Status N/A [facility] 11-27-2023 Functional Status N/A [facility] 08-07-2023 Functional Status N/A [facility] 04-24-2023 Functional Status N/A [facility] 06-06-2022 Functional Status N/A [facility] 05-10-2022 Functional Status N/A [facility] Clinical Notes 06-13-2022 to 02-05-2024 Murali Rangel MD - 02/05/2024 11:34 AM EDTTelephone Encounter - Arianna Minre LPN - 09/20/2023 9:39 AM ESTTelephone Encounter - Arianna Miner LPN - 09/20/2023 9:39 AM EST Note Date & Type Note Facility 02-05-2024 History of Present illness Narrative STAFF UROLOGY NOTE: We had the pleasure of seeing Laice Garza in our Multidisciplinary Stone Clinic today. Notes indicate I previously saw this patient in 2017 and at that time, she decided to pursue further evaluation of her stone situation with CT and other tests and was to let me know if she wanted stone-removal surgery. She now returns after approximately 7 years, referred by Aaron Milligan, for possible treatment of left renal stone and recurrent UTI's. Consultation requested by Dr. Regan for an opinion regarding left renal calculus/UTI's. My final recommendations will be communicated back to the requesting physician by way of shared Medical record or letter to requesting physician via US mail. She is a pleasant 84 year old female who first had a stone episode approximately 30 years ago. She is accompanied by her ? daughter? Uncertain what if any prior stone surgery she has had. Recent CT (see below) shows a 5.1 mm stone in the left lower kidney without obstruction. She wears > 10 pads/day for incontinence, she gets recurrent UTI's, she is essentially wheel-chair bound due to arthritis and knee problems, she has essential hypertension, hx of CAD and paroxysmal atrial fibrillation, and she has used home oxygen in the past. She has chronic constipation. She's considered a very high surgical risk with BMI of 54.10. She has a positive family history of stones but not Gout. She was counseled on the most recent imaging studies. CT Scan Imaging Date: Stone Side Location Length (mm) Width (mm) HU STSD 1 2 3 4 5 Renal US or KUB Imaging Date: 01/04/24 Stone Side Location Length (mm) Width (mm) 1 Left Lower kidney 5.1 mm 2 3 4 5 She was counseled on the options of: 1. Observation - risks including stone growth, stone movement, pain, impact on renal function. Chance of spontaneous stone passage of the largest stone: 80-90% 2. Shockwave lithotripsy - risks of bleeding (1 in 1000 severe bleed), residual fragments, need for a secondary procedure. Success based on size, location, hounsfield units and ivfd-pj-nixvs distance: 30% 3. Ureteroscopy - risks of UTI, ureteral injury (1 in 1000 severe injury requiring major surgery), morbidity from ureteral stent Success: 80% 4. PCNL - risks of lung injury (1%), transfusion (5%), embolization (1%), injury to other organs, need for secondary procedure. Success: 95% Imp: The primary encounter diagnosis was Calculus of kidney. Diagnoses of Kidney stones, Primary hypertension, Paroxysmal atrial fibrillation (HCC), Coronary artery disease involving [place] coronary artery of [place] heart without angina pectoris, 50% ostial LAD, 60% OM1, and Urinary incontinence, mixed were also pertinent to this visit. Plan: Based on this discussion, she wishes to undergo surveillance for her 5.1 mm non-obstructing asymptomatic left lower pole renal calculus. I don't feel this very small stone relates to the patient's recurring UTI's and/or incontinence -- likely due to voiding dysfunction. Will refer to female urology for this. F/U with me prn. I spent >44 minutes in this visit (including reviewing x-rays and records plus patient discussion), with more than 50% of the total niko-rm-ctzh time of the visit devoted to patient counseling/coordination of care. Murali Rangel MD Director, Surgical Stone Disease [facility], [facility] Pager [phone] 02/05/2024 documented in this encounter [facility] 01-08-2024 Hospital Discharge instructions Patient Education 01/08/2024 15:29:37 Laser Therapy for Kidney Stones, Care After Laser Therapy for Kidney Stones, Care After This sheet gives you information about how to care for yourself after your procedure. Your health care provider may also give you more specific instructions. If you have problems or questions, contact your health care provider. What can I expect after the procedure? After the procedure, it is common to have: Pain. A burning sensation while urinating. Small amounts of blood in your urine. A need to urinate frequently. Pieces of kidney stone in your urine. Mild discomfort when urinating that may be felt in the back. You may experience this if you have a flexible tube (stent) in your ureter. Follow these instructions at home: Medicines Take ttpu-ddn-eapxdri and prescription medicines only as told by your health care provider. If you were prescribed an antibiotic medicine, take it as told by your health care provider. Do not stop taking the antibiotic even if you start to feel better. Ask your health care provider if the medicine prescribed to you: ?Requires you to avoid driving or using heavy machinery. ?Can cause constipation. You may need to take actions to prevent or treat constipation, such as: ?Take luot-xbn-aqphibh or prescription medicines. ?Eat foods that are high in fiber, such as beans, whole grains, and fresh fruits and vegetables. ?Limit foods that are high in fat and processed sugars, such as fried or sweet foods. Activity Return to your normal activities as told by your health care provider. Ask your health care provider what activities are safe for you. Do not drive for 24 hours if you were given a sedative during your procedure. General instructions If your health care provider approves, you may take a warm bath to ease discomfort and burning. Drink enough fluid to keep your urine pale yellow. Your health care provider may recommend drinking two 8 oz (237 mL) glasses of water per hour for a few hours after your procedure. You may be asked to strain your urine to collect any stone fragments that you pass. These fragments may be tested. Keep all follow-up visits as told by your health care provider. This is important. If you have a stent, you will need to return to your health care provider to have the stent removed. Contact a health care provider if you: Have pain or a burning feeling that lasts more than 2 days. Feel nauseous. Vomit more and more often. Have difficulty urinating. Have pain that gets worse or does not get better with medicine. Get help right away if: You are unable to urinate, even if your bladder feels full. You have: ?Bright red blood or blood clots in your urine. ?More blood in your urine. ?Severe pain or discomfort. ?A fever or shaking chills. ?Abdominal pain. ?Difficulty breathing. ?Swelling in your legs. This information is not intended to replace advice given to you by your health care provider. Make sure you discuss any questions you have with your health care provider. Document Revised: 11/29/2022 Document Reviewed: 03/27/2022 [employer] Patient Education 2022 [employer] 01/08/2024 15:29:36 Laser Therapy for Kidney Stones Laser Therapy for Kidney Stones Laser therapy for kidney stones is a procedure to break up small, hard mineral deposits that form in the kidney (kidney stones). The procedure is done using a device that produces a focused beam of light (laser). The laser breaks up kidney stones into pieces that are small enough to be passed out of the body through urination or removed from the body during the procedure. You may need laser therapy if you have kidney stones that are painful or block your urinary tract. This procedure is done by inserting a tube (ureteroscope) into your kidney through the urethral opening. The urethra is the part of the body that drains urine from the bladder. In women, the urethra opens above the vaginal opening. In men, the urethra opens at the tip of the penis. The ureteroscope is inserted through the urethra, and surgical instruments are moved through the bladder and the muscular tube that connects the kidney to the bladder (ureter) until they reach the kidney. Tell a health care provider about: Any allergies you have. All medicines you are taking, including vitamins, herbs, eye drops, creams, and srlj-tvr-soxyajh medicines. Any problems you or family members have had with anesthetic medicines. Any blood disorders you have. Any surgeries you have had. Any medical conditions you have. Whether you are or may be . What are the risks? Generally, this is a safe procedure. However, problems may occur, including: Infection. Bleeding. Allergic reactions to medicines. Damage to the urethra, bladder, or ureter. Urinary tract infection (UTI). Narrowing of the urethra (urethral stricture). Difficulty passing urine. Blockage of the kidney caused by a fragment of kidney stone. What happens before the procedure? Medicines Ask your health care provider about: ?Changing or stopping your regular medicines. This is especially important if you are taking diabetes medicines or blood thinners. ?Taking medicines such as aspirin and ibuprofen. These medicines can thin your blood. Do not take these medicines unless your health care provider tells you to take them. ?Taking jdrb-pju-gcgfqhk medicines, vitamins, herbs, and supplements. Eating and drinking Follow instructions from your health care provider about eating and drinking, which may include: 8 hours before the procedure stop eating heavy meals or foods, such as meat, fried foods, or fatty foods. 6 hours before the procedure stop eating light meals or foods, such as toast or cereal. 6 hours before the procedure stop drinking milk or drinks that contain milk. 2 hours before the procedure stop drinking clear liquids. Staying hydrated Follow instructions from your health care provider about hydration, which may include: Up to 2 hours before the procedure you may continue to drink clear liquids, such as water, clear fruit juice, black coffee, and plain tea. General instructions You may have a physical exam before the procedure. You may also have tests, such as imaging tests and blood or urine tests. If your ureter is too narrow, your health care provider may place a soft, flexible tube (stent) inside of it. The stent may be placed days or weeks before your laser therapy procedure. Plan to have someone take you home from the hospital or clinic. If you will be going home right after the procedure, plan to have someone stay with you for 24 hours. Do not use any products that contain nicotine or tobacco for at least 4 weeks before the procedure. These products include cigarettes, e-cigarettes, and chewing tobacco. If you need help quitting, ask your health care provider. Ask your health care provider: ?How your surgical site will be marked or identified. ?What steps will be taken to help prevent infection. These may include: ?Removing hair at the surgery site. ?Washing skin with a germ-killing soap. ?Taking antibiotic medicine. What happens during the procedure? An IV will be inserted into one of your veins. You will be given one or more of the following: ?A medicine to help you relax (sedative). ?A medicine to numb the area (local anesthetic). ?A medicine to make you fall asleep (general anesthetic). A ureteroscope will be inserted into your urethra. The ureteroscope will send images to a video screen in the operating room to guide your surgeon to the area of your kidney that will be treated. A small, flexible tube will be threaded through the ureteroscope and into your bladder and ureter, up to your kidney. The laser device will be inserted into your kidney through the tube. Your surgeon will pulse the laser on and off to break up kidney stones. A surgical instrument that has a tiny wire basket may be inserted through the tube into your kidney to remove the pieces of broken kidney stone. The procedure may vary among health care providers and hospitals. What happens after the procedure? Your blood pressure, heart rate, breathing rate, and blood oxygen level will be monitored until you leave the hospital or clinic. You will be given pain medicine as needed. You may continue to receive antibiotics. You may have a stent temporarily placed in your ureter. Do not drive for 24 hours if you were given a sedative during your procedure. You may be given a strainer to collect any stone fragments that you pass in your urine. Your health care provider may have these tested. This information is not intended to replace advice given to you by your health care provider. Make sure you discuss any questions you have with your health care provider. Document Revised: 11/29/2022 Document Reviewed: 03/27/2022 [employer] Patient Education 2022 [employer]. Follow Up Care 01/02/2024 15:42:06 With:MAVERICK TREJO, REGINA [place], URL Address: [address] [place] [address] When: Unknown [facility] [employer] 11-27-2023 Hospital Discharge instructions Patient Education 11/27/2023 10:53:04 Urinary Tract Infection, Adult, Wqzx-et-Jmxb Urinary Tract Infection, Adult A urinary tract infection (UTI) is an infection of any part of the urinary tract. The urinary tract includes: The kidneys. The ureters. The bladder. The urethra. These organs make, store, and get rid of pee (urine) in the body. What are the causes? This infection is caused by germs (bacteria) in your genital area. These germs grow and cause swelling (inflammation) of your urinary tract. What increases the risk? The following factors may make you more likely to develop this condition: Using a small, thin tube (catheter) to drain pee. Not being able to control when you pee or poop (incontinence). Being female. If you are female, these things can increase the risk: ?Using these methods to prevent : ?A medicine that kills sperm (spermicide). ?A device that blocks sperm (diaphragm). ?Having low levels of a female hormone (estrogen). ?Being . You are more likely to develop this condition if: You have genes that add to your risk. You are sexually active. You take antibiotic medicines. You have trouble peeing because of: ?A prostate that is bigger than normal, if you are male. ?A blockage in the part of your body that drains pee from the bladder. ?A kidney stone. ?A nerve condition that affects your bladder. ?Not getting enough to drink. ?Not peeing often enough. You have other conditions, such as: ?Diabetes. ?A weak disease-fighting system (immune system). ?Sickle cell disease. ?Gout. ?Injury of the spine. What are the signs or symptoms? Symptoms of this condition include: Needing to pee right away. Peeing small amounts often. Pain or burning when peeing. Blood in the pee. Pee that smells bad or not like normal. Trouble peeing. Pee that is cloudy. Fluid coming from the vagina, if you are female. Pain in the belly or lower back. Other symptoms include: Vomiting. Not feeling hungry. Feeling mixed up (confused). This may be the first symptom in older adults. Being tired and grouchy (irritable). A fever. Watery poop (diarrhea). How is this treated? Taking antibiotic medicine. Taking other medicines. Drinking enough water. In some cases, you may need to see a specialist. Follow these instructions at home: Medicines Take mthg-jox-fskpizm and prescription medicines only as told by your doctor. If you were prescribed an antibiotic medicine, take it as told by your doctor. Do not stop taking it even if you start to feel better. General instructions Make sure you: ?Pee until your bladder is empty. ?Do not hold pee for a long time. ?Empty your bladder after sex. ?Wipe from front to back after peeing or pooping if you are a female. Use each tissue one time when you wipe. Drink enough fluid to keep your pee pale yellow. Keep all follow-up visits. Contact a doctor if: You do not get better after 1 2 days. Your symptoms go away and then come back. Get help right away if: You have very bad back pain. You have very bad pain in your lower belly. You have a fever. You have chills. You feeling like you will vomit or you vomit. Summary A urinary tract infection (UTI) is an infection of any part of the urinary tract. This condition is caused by germs in your genital area. There are many risk factors for a UTI. Treatment includes antibiotic medicines. Drink enough fluid to keep your pee pale yellow. This information is not intended to replace advice given to you by your health care provider. Make sure you discuss any questions you have with your health care provider. Document Revised: 03/04/2021 Document Reviewed: 03/04/2021 [employer] Patient Education 2022 [employer]. Follow Up Care 04/24/2023 10:40:01 With:REGINA VALIENTE PA-C, URL Address: [address] [address] [phone] When: Unknown [facility] [employer] 09-20-2023 Miscellaneous Notes Johann requesting refill of Atorvastatin to [facility] documented in this encounter [facility] 09-20-2023 Telephone encounter Note Johann requesting refill of Atorvastatin to [facility] 08-27-2023 Miscellaneous Notes Left voicemail for patient informing her appointment on 08/29/2023 with [facility] was cancelled due to provider out of office in the morning, asked that patient contact our office to reschedule the appointment. documented in this encounter [facility] 08-27-2023 Telephone encounter Note Left voicemail for patient informing her appointment on 08/29/2023 with [facility] was cancelled due to provider out of office in the morning, asked that patient contact our office to reschedule the appointment. [facility] 08-20-2023 Miscellaneous Notes Left voicemail to move 08/29 appointment to later time on same day or 09/05. documented in this encounter [facility] 08-20-2023 Telephone encounter Note Left voicemail to move 08/29 appointment to later time on same day or 09/05. [place] Work Phone: 08-07-2023 Hospital Discharge instructions Patient Education 08/07/2023 12:26:58 [facility] - Cystoscopy with Botox Injection Discharge Instructions (CUSTOM) Cystoscopy with Botox injection Voiding after the procedure: there may be some pain, burning, urgency, frequency and blood tinged urine following the procedure. These symptoms usually resolve within 2-5 days. Drink the amount of fluid it takes to keep the urine pink to yellow or clear in color. Drinking enough water and fluids will help to ease any discomfort after your procedure. It may take a few days to a week to notice a gradual improvement in the overactive bladder symptoms. If you are having problems that seem out of the ordinary, please call. If unable to contact your physician and you feel it is an emergency, go to the nearest emergency room or call 911 Do not lift more than fifteen pounds for 1-2 days. If you see a lot of blood, you probably did too much. Diet you may resume your normal diet. Pain control You may take extra strength Tylenol or Motrin for discomfort. Call if you have a fever over 100 degrees. Follow Up Care 07/31/2023 12:42:03 With:Leonardo REGAN Address: [facility] [address] , [place] [address]- Business (1) When:08/21/2023 12:26:37 Comments:With a bladder scan PVR [facility] 08-07-2023 Note [id number] [facility] 08-07-2023 Note Custom Cystoscopy with Botox injection ? Voiding after the procedure: there may be some pain, burning, urgency, frequency and blood tinged urine following the procedure. These symptoms usually resolve within 2-5 days. Drink the amount of fluid it takes to keep the urine pink to yellow or clear in color. Drinking enough water and fluids will help to ease any discomfort after your procedure. ? It may take a few days to a week to notice a gradual improvement in the overactive bladder symptoms. ? If you are having problems that seem out of the ordinary, please call. ? If unable to contact your physician and you feel it is an emergency, go to the nearest emergency room or call 911 ? Do not lift more than fifteen pounds for 1-2 days. If you see a lot of blood, you probably did too much. ? Diet ? you may resume your normal diet. ? Pain control ? You may take extra strength Tylenol or Motrin for discomfort. ? Call if you have a fever over 100 degrees. [facility] 05-25-2023 Note Stable, continue top rol and eliquis D/W pt and family that if pt has recurrent falls/injury will need to revisit risk vs benefit of anticoagulation. [facility] 05-25-2023 Note [facility] II-III Continue GDMT- increase lasix to 40 mg daily- Diuretic therapy Monitor daily weights, I&O, fluid restriction 1.5-2L/day, renal function and electrolytes [facility] 05-25-2023 Note Hypertension is Elev ated 142/96- pt currently is not taking metoprolol 100 mg daily. Therefore, will resume toprol- script sent and med list sent with pt and family. [facility] 05-25-2023 Note Coronary artery dise ase is stable Continue GDMT- lipitor, toprol continue risk factor modifications- heart healthy diet, regular exercise as tolerated and continue all medications. [facility] 05-25-2023 Note Patient here per c/o LE edema and uncontrolled hypertension, per [facility]. Had labs today before apt. Amlodipine was stopped at last visit in February 2023 by Jorge Jose CNP due to lightheadedness and hypotension. Metoprolol is not on the med list she brought, nor is the bottle in the bag of her medication bottles today. Review of Systems Constitutional: Positive for weight loss (12# since February 2023). Cardiovascular: Positive for chest pain, dyspnea on exertion and leg swelling. Gastrointestinal: Positive for nausea. Neurological: Positive for dizziness and light-headedness. All other systems reviewed and are negative. [facility] 05-25-2023 Note [facility] ESS NOTE HPI: Lacie Garza is a 83 y.o. female here for F/U after visit with Pulm and concerns of elevated B/P and leg swelling Patient here per c/o LE edema and uncontrolled hypertension, per [facility]. Had labs today before apt. Amlodipine was stopped at last visit in February 2023 by Jorge Jose CNP due to lightheadedness and hypotension. Metoprolol is not on the med list she brought, nor is the bottle in the bag of her medication bottles today. Review of Systems Constitutional: Positive for weight loss (12# since February 2023). Cardiovascular: Positive for chest pain, dyspnea on exertion and leg swelling. Gastrointestinal: Positive for nausea. Neurological: Positive for dizziness and light-headedness. All other systems reviewed and are negative. Visit Vitals BP (!) 142/96 (BP Location: Right arm, Patient Position: Sitting) Pulse 81 Ht 1.524 m (5') Wt 120 kg (264 lb) SpO2 97% BMI 51.56 kg/m??? Smoking Status Never BSA 2.25 m??? Allergies Allergen Reactions Linaclotide Diarrhea and Other Bile regurgitation Other Reaction(s): Vomiting Bile regurgitation Medications: Current Outpatient Medications on File Prior to Visit Medication Sig Dispense Refill apixaban (Eliquis) 5 mg tablet Take 1 tablet (5 mg) by mouth in the morning and at bedtime. 180 tablet 3 atorvastatin (Lipitor) 40 mg tablet Take 40 mg by mouth at bedtime. donepezil (Aricept) 5 mg tablet Take 5 mg by mouth at bedtime. FLUoxetine (PROzac) 40 mg capsule Take 40 mg by mouth in the morning. mirabegron (Myrbetriq) 50 mg tablet extended release 24 hr Take 50 mg by mouth in the morning. pantoprazole (ProtoNix) 40 mg EC tablet pantoprazole 40 mg tablet,delayed release [DISCONTINUED] furosemide (Lasix) 40 mg tablet Take 1 tablet (40 mg) by mouth in the morning. (Patient taking differently: Take 20 mg by mouth in the morning.) 90 tablet 3 linaCLOtide (Linzess) 145 mcg capsule Take 145 mcg by mouth in the morning. metoprolol succinate XL (Toprol-XL) 100 mg 24 hr tablet Take 100 mg by mouth 1 (one) time each day. semaglutide (Ozempic) 0.25 mg or 0.5 mg(2 mg/1.5 mL) pen injector tamsulosin (Flomax) 0.4 mg 24 hr capsule Take 0.4 mg by mouth in the morning. traMADol (Ultram) 50 mg tablet Take 1 tablet as needed by oral route for 30 days. [DISCONTINUED] albuterol 90 mcg/actuation inhaler albuterol sulfate HFA 90 mcg/actuation aerosol inhaler No current facility-administered medications on file prior to visit. Physical Exam: Constitutional: Appearance: Normal appearance. Without apparent distress HENT: Head: Normocephalic and atraumatic. Nose: Nose normal. Mouth/Throat: Mouth: Mucous membranes are moist. Eyes: Extraocular Movements: Extraocular movements intact. Conjunctiva/sclera: Conjunctivae normal. Neck: Vascular: No JVD. Cardiovascular: Rate and Rhythm: Normal rate and regular rhythm. Pulses: Dorsalis pedis pulses are 3 on the right side and 3on the left side. Posterior tibial pulses are 3 on the right side and 3 on the left side. Heart sounds: Normal heart sounds, S1 normal and S2 normal. Pulmonary: Effort: Pulmonary effort is normal. Breath sounds: Normal breath sounds. Abdominal: General: Bowel sounds are normal. Palpations: Abdomen is soft. Musculoskeletal: General: Normal range of motion. Cervical back: Normal range of motion. Right lower le+ pitting edema and lymphedema Left lower le+ pitting edema and lymphedema Skin: General: Skin is warm and dry. Capillary Refill: Capillary refill takes less than 2 seconds. Neurological: General: No focal deficit present. Mental Status: She is alert and oriented to person, place, and time, forgetful Psychiatric: Mood and Affect: Mood normal. Behavior: Behavior normal. Labs: 05/25/23 CBC normal BUN 19, CR 0.86- normal K+ 4.1 LFT normal Pro BNP 736- normal Last lab values have been reviewed CV Testing: ECG 02/03/2022: Atrial fibrillation, nonspecific ST-T wave abnormalities. Heart rate 96 bpm. Blood testing 02/03/2022: Hemoglobin 13.6, platelets 178, potassium 3.8, BUN 18, creatinine 1.02, EGFR 52. ABIs 09/20/2018: R 1.03; L 0.51 Mild hemodynamic impairment of right lower extremity Moderate hemodynamic impairment of left lower extremity at rest ECG 08/12/2018: Atrial fibrillation Moderate voltage criteria for LVH, may be normal variant Nonspecific ST and T wave abnormality Abnormal ECG Echocardiogram 08/14/2018: Global left ventricular systolic function is normal (Visually estimated EF 60-65%). The septum is abnormal, consistent with RV volume and/or pressure overload. Unable to assess diastolic dysfunction. The left atrium is severely enlarged. The right atrium is severely enlarged. Mild mitral regurgitation. Doppler studies suggest mildly elevated right sided pressures. Mild aortic dilatation . Stress test on 10/16/2017 was negativ (more content not included)... [facility] 05-23-2023 Note [facility] in [place] called office today r/t concerns of uncontrolled HTN, leg edema of this pt at their visit today. State b/p was 140-150/80-90, sat 93%, HR stable in office- they asked if pt should be evaluated in ED. Recommended to offer to pt evaluation in ED, the other alternative is that she may be able to be seen in cardiology clinic in [place] tomorrow or Sunday depending if pulmonology provider feels pt is stable enough or not. Make sure pt is taking lasix and metoprolol as prescribed and I will send orders for labs- CBC, CMP and BNP Message sent to Lucia Graff MA in [place] clinic to set up appt tomorrow or Sunday and to call pt tomorrow. Shell Guardado [employer] Division of Cardiology, [facility]- [phone] Pager- [phone] Email- [email or web address] 04-24-2023 Hospital Discharge instructions Patient Education 04/24/2023 10:38:31 Kegel Exercises Kegel Exercises Kegel exercises can help strengthen your pelvic floor muscles. The pelvic floor is a group of muscles that support your rectum, small intestine, and bladder. In females, pelvic floor muscles also help support the uterus. These muscles help you control the flow of urine and stool (feces). Kegel exercises are painless and simple. They do not require any equipment. Your provider may suggest Kegel exercises to: Improve bladder and bowel control. Improve sexual response. Improve weak pelvic floor muscles after surgery to remove the uterus (hysterectomy) or after , in females. Improve weak pelvic floor muscles after prostate gland removal or surgery, in males. Kegel exercises involve squeezing your pelvic floor muscles. These are the same muscles you squeeze when you try to stop the flow of urine or keep from passing gas. The exercises can be done while sitting, standing, or lying down, but it is best to vary your position. Ask your health care provider which exercises are safe for you. Do exercises exactly as told by your health care provider and adjust them as directed. Do not begin these exercises until told by your health care provider. Exercises How to do Kegel exercises: 1.Squeeze your pelvic floor muscles tight. You should feel a tight lift in your rectal area. If you are a female, you should also feel a tightness in your vaginal area. Keep your stomach, buttocks, and legs relaxed. 2.Hold the muscles tight for up to 10 seconds. 3.Breathe normally. 4.Relax your muscles for up to 10 seconds. 5.Repeat as told by your health care provider. Repeat this exercise daily as told by your health care provider. Continue to do this exercise for at least 4 6 weeks, or for as long as told by your health care provider. You may be referred to a physical therapist who can help you learn more about how to do Kegel exercises. Depending on your condition, your health care provider may recommend: Varying how long you squeeze your muscles. Doing several sets of exercises every day. Doing exercises for several weeks. Making Kegel exercises a part of your regular exercise routine. This information is not intended to replace advice given to you by your health care provider. Make sure you discuss any questions you have with your health care provider. Document Revised: 12/01/2021 Document Reviewed: 12/01/2021 [employer] Patient Education 2022 [employer] Follow Up Care 10/17/2022 10:59:55 With:REGINA VALIENTE PA-C, URL Address: [address] [place] [address] When:Within 7 Month(s) [facility] 03-02-2023 Note Subjective Patient ID: Lacie Garza is a 83 y.o. female who presents for Follow-up. HPI Review of Systems Respiratory: Positive for shortness of breath. Gastrointestinal: Positive for nausea. Neurological: Positive for dizziness and light-headedness. Objective There were no vitals taken for this visit. Physical Exam Assessment/Plan No diagnosis found. No orders of the defined types were placed in this encounter. No results found for this or any previous visit (from the past 36 hour(s)). No follow-ups on file. [facility] 03-02-2023 Note Cardiology Clinic No te Subjective Lacie Garza is a 83 y.o. year old female patient with past medical history of atrial fibrillation on Eliquis, nonobstructive coronary artery disease, hypertension, peripheral artery disease, history of DVT, and morbid obesity seen in follow-up. 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 (CMS/HCC) Bilateral leg edema Chronic embolism and thrombosis of unspecified deep veins of unspecified distal lower extremity (CMS/HCC) Chronic obstructive pulmonary disease (CMS/HCC) Chronic pain syndrome Decreased estrogen level Dependent on wheelchair Renal insufficiency Disturbance of skin sensation Exudative age-related macular degeneration (CMS/HCC) Frailty Incontinence in female Longstanding persistent atrial fibrillation (CMS/HCC) Lumbar radiculopathy Memory loss Moderate episode of recurrent major depressive disorder (CMS/HCC) Morbid (severe) obesity due to excess calories (CMS/HCC) Muscle weakness OAB (overactive bladder) Polyneuropathy Primary osteoarthritis of both knees Primary osteoarthritis of left ankle Primary osteoarthritis of left knee Rheumatoid arthritis (CMS/HCC) Stage 3a chronic kidney disease (CMS/HCC) Type 2 diabetes mellitus without complication (CMS/HCC) Unspecified visual loss Ureter colic Family History Problem Relation Name Age of Onset Coronary artery disease Mother Social History Tobacco Use Smoking status: Never Smokeless tobacco: Never Substance Use Topics Alcohol use: Not Currently HPI She is an 83-year-old female with past medical history significant for atrial fibrillation on eliquis, coronary artery disease (coronary angiography 2014 showed moderate ostial LAD stenosis about 50%, moderate ostial OM1 stenosis about 60% with recommendations for medical management), left lower extremity DVT s/p IVC filter and EKOS catheter directed thrombolysis (08/12/2018), hypertension, severe obesity, prior cholecystectomy and hysterectomy. Update 10/21/2018: She is seen in follow up. She says that the left leg is week. She has no claudication, rest pain, significant numbness, or ulcers. Update 01/29/2019: She is seen in follow-up. She has been doing well. No chest pain and no significant shortness of breath. She has been ambulating better and now uses a cane. She denies any lower extremity claudication or ulcers. Update 05/26/2019: She is seen in follow-up. Most recently she had swelling in the leg. She underwent a duplex ultrasound that ruled out DVT. She says that recently she sustained a fall while standing up and injured her right knee and the right arm. She also says that she had near syncope. She did not seek medical attention at that time. This was about 2 weeks ago. she uses a cane to ambulate. She and her daughter mention that she falls frequently (twice this year). They mention that her balance is not steady. At home she uses the walker. She has no chest pain. She has dyspnea on exertion that is chronic. She says that the left leg is ok, no pain except occasionally. She needs to have a kidney stone removal on 06/11/2019. Update 01/29/2020: She is seen in follow up via telemedicine. She says she has been relatively well however she has been having issues with pain in her legs with worse pain in the left leg and the left leg has more swelling. Pain goes all the way to the hip. the calves hurt but not as bad as the rest of the leg. when she lays on her hip it hurts. She has swelling in the ankles. It's better in the morning or with leg elevation. She has dyspnea on exertion. No chest pain. Her balance is not good. She fell recently. She also fell few months ago. She says she walks like a drunk . Update 02/07/2022: She is seen in follow-up. Today she reports that she has been having episodes of chest discomfort that she describes as sharp pain located in epigastric area and the lower left side of the chest. She would drop the chest pain and it goes away. She noted that it is also related to her eating and she has difficulty swallowing and digesting food. She has a lot of issues in terms of balance and she uses a cane as well as a walker to ambulate. She has been trying to lose weight and manage her morbid obesity. She was evaluated in emergency room on 02/03/2022. ECG showed atrial fibrillation as k (more content not included)... [facility] 10-17-2022 Hospital Discharge instructions Patient Education 10/17/2022 10:43:03 Urinary Incontinence Urinary Incontinence Urinary incontinence refers to a condition in which a person is unable to control where and when to pass urine. A person with this condition will urinate when he or she does not mean to (involuntarily). What are the causes? This condition may be caused by: Medicines. Infections. Constipation. Overactive bladder muscles. Weak bladder muscles. Weak pelvic floor muscles. These muscles provide support for the bladder, intestine, and, in women, the uterus. Enlarged prostate in men. The prostate is a gland near the bladder. When it gets too big, it can pinch the urethra. With the urethra blocked, the bladder can weaken and lose the ability to empty properly. Surgery. Emotional factors, such as anxiety, stress, or post-traumatic stress disorder (PTSD). Pelvic organ prolapse. This happens in women when organs shift out of place and into the vagina. This shift can prevent the bladder and urethra from working properly. What increases the risk? The following factors may make you more likely to develop this condition: Older age. Obesity and physical inactivity. and childbirth. Menopause. Diseases that affect the nerves or spinal cord (neurological diseases). Long-term (chronic) coughing. This can increase pressure on the bladder and pelvic floor muscles. What are the signs or symptoms? Symptoms may vary depending on the type of urinary incontinence you have. They include: A sudden urge to urinate, but passing urine involuntarily before you can get to a bathroom (urge incontinence). Suddenly passing urine with any activity that forces urine to pass, such as coughing, laughing, exercise, or sneezing (stress incontinence). Needing to urinate often, but urinating only a small amount, or constantly dribbling urine (overflow incontinence). Urinating because you cannot get to the bathroom in time due to a physical disability, such as arthritis or injury, or communication and thinking problems, such as Alzheimer disease (functional incontinence). How is this diagnosed? This condition may be diagnosed based on: Your medical history. A physical exam. Tests, such as: ?Urine tests. ?X-rays of your kidney and bladder. ?Ultrasound. ?CT scan. ?Cystoscopy. In this procedure, a health care provider inserts a tube with a light and camera (cystoscope) through the urethra and into the bladder in order to check for problems. ?Urodynamic testing. These tests assess how well the bladder, urethra, and sphincter can store and release urine. There are different types of urodynamic tests, and they vary depending on what the test is measuring. To help diagnose your condition, your health care provider may recommend that you keep a log of when you urinate and how much you urinate. How is this treated? Treatment for this condition depends on the type of incontinence that you have and its cause. Treatment may include: Lifestyle changes, such as: ?Quitting smoking. ?Maintaining a healthy weight. ?Staying active. Try to get 150 minutes of moderate-intensity exercise every week. Ask your health care provider which activities are safe for you. ?Eating a healthy diet. ?Avoid high-fat foods, like fried foods. ?Avoid refined carbohydrates like white bread and white rice. ?Limit how much alcohol and caffeine you drink. ?Increase your fiber intake. Foods such as fresh fruits, vegetables, beans, and whole grains are healthy sources of fiber. Pelvic floor muscle exercises. Bladder training, such as lengthening the amount of time between bathroom breaks, or using the bathroom at regular intervals. Using techniques to suppress bladder urges. This can include distraction techniques or controlled breathing exercises. Medicines to relax the bladder muscles and prevent bladder spasms. Medicines to help slow or prevent the growth of a man's prostate. Botox injections. These can help relax the bladder muscles. Using pulses of electricity to help change bladder reflexes (electrical nerve stimulation). For women, using a medical director/head team physician to prevent urine leaks. This is a small, tampon-like, disposable device that is inserted into the urethra. Injecting collagen or carbon beads (bulking agents) into the urinary sphincter. These can help thicken tissue and close the bladder opening. Surgery. Follow these instructions at home: Lifestyle Limit alcohol and caffeine. These can fill your bladder quickly and irritate it. Keep yourself clean to help prevent odors and skin damage. Ask your doctor about special skin creams and cleansers that can protect the skin from urine. Consider wearing pads or adult diapers. Make sure to change them regularly, and always change them right after experiencing incontinence. General instructions Take [id number] and prescription medicines only as told by your health care provider. Use the bathroom about every 3 4 hours, even if you do not feel the need to urinate. Try to empty your bladder completely every time. After urinating, wait a minute. Then try to urinate again. Make sure you are in a relaxed position while urinating. If your incontinence is caused by nerve problems, keep a log of the medicines you take and the times you go to the bathroom. Keep all follow-up visits as told by your health care provider. This is important. Contact a health care provider if: You have pain that gets worse. Your incontinence gets worse. Get help right away if: You have a fever or chills. You are unable to urinate. You have redness in your groin area or down your legs. Summary Urinary incontinence refers to a condition in which a person is unable to control where and when to pass urine. This condition may be caused by medicines, infection, weak bladder muscles, weak pelvic floor muscles, enlargement of the prostate (in men), or surgery. The following factors increase your risk for developing this condition: older age, obesity, and childbirth, menopause, neurological diseases, and chronic coughing. There are several types of urinary incontinence. They include urge incontinence, stress incontinence, overflow incontinence, and functional incontinence. This condition is usually treated first with lifestyle and behavioral changes, such as quitting smoking, eating a healthier diet, and doing regular pelvic floor exercises. Other treatment options include medicines, bulking agents, medical devices, electrical nerve stimulation, or surgery. This information is not intended to replace advice given to you by your health care provider. Make sure you discuss any questions you have with your health care provider. Document Released: 08/30/2005 Document Revised: 08/02/2018 Document Reviewed: 11/01/2017 ITC Patient Education 2020 [employer]. Follow Up Care 06/13/2022 11:49:22 With:MAVERICK TREJO, REGINA Covington, URL Address: [address] [place] [id number] When: Unknown [facility] Note Patient here for 6 m o follow up afib, PVD/PAD, and hypertension. She fell around Thanksgiving. Has lots of balance and equilibrium issues she says, which are not new. She's been out of Eliquis for a week or so. Denies chest pain, SOB, and bleeding on Eliquis. Review of Systems Cardiovascular: Positive for leg swelling. Musculoskeletal: Positive for falls. Neurological: Positive for light-headedness. All other systems reviewed and are negative. [facility] 08-15-2022 Note Cardiovascular Medic ine [facility] SUBJECTIVE Chief Complaint Patient presents with Atrial Fibrillation Peripheral Vascular Disease Hypertension Lacie Garza is a 82 y.o. female here for follow-up. HPI She denies any changes from a cardiology standpoint. She c/o trouble with holding her urine and persistent issues with urinary tract infection. It is affecting her quality of life. She follows with Dr. Regan. She will be calling Dr. Foote and Dr. Regan to address. She c/o fatigue for the past month. She gets dizzy if she bends over and then stands up. She has occasional falls, no significant falls. She ambulates with a cane. Her accompanied her today. Last visit per Dr. Scott: Visit of 09/16/2018: She recently was admitted to [facility] with extensive left lower extremity DVT and underwent catheter directed lysis with placement of a retrievable Option Elite IVC filter. She had a duplex ultrasound of the legs that showed evidence of significant arterial obstruction to flow. This was done at [facility] on 09/09/2018. She has no palpable pulses in the left foot. She has been having leg swelling in the left that improved significantly after the left leg DVT intervention. She continues to be on eliquis. She still has hematuria. She has the renal calculi that she was supposed to have removed but this was canceled due to her developing DVT. She has no rest foot pain. No non-healed ulcers. Mild left leg swelling. She has left sided claudication. She uses a walker. Prior history: She is an 78-year-old female with past medical history significant for atrial fibrillation, hypertension, severe obesity, prior cholecystectomy and hysterectomy. She recently has been diagnosed with a staghorn calculus and is being evaluated by Urology. She was on eliquis but stopped due to ? hematuria. She recently developed severe left leg swelling and pain. She was evaluated in the [facility] and diagnosed with acute left leg DVT. She is transferred to the [facility] for further evaluation. Duplex ultrasound showed large thrombus burden throughout the left femoral popliteal vein, as well as the left common and external iliac vein. On clinical exam, she had 3+ edema affecting the left leg and significant pain. She underwent catheter directed lysis and IVC filter placement. Update 10/21/2018: She is seen in follow up. She says that the left leg is week. She has no claudication, rest pain, significant numbness, or ulcers. Update 01/29/2019: She is seen in follow-up. She has been doing well. No chest pain and no significant shortness of breath. She has been ambulating better and now uses a cane. She denies any lower extremity claudication or ulcers. Update 05/26/2019: She is seen in follow-up. Most recently she had swelling in the leg. She underwent a duplex ultrasound that ruled out DVT. She says that recently she sustained a fall while standing up and injured her right knee and the right arm. She also says that she had near syncope. She did not seek medical attention at that time. This was about 2 weeks ago. she uses a cane to ambulate. She and her daughter mention that she falls frequently (twice this year). They mention that her balance is not steady. At home she uses the walker. She has no chest pain. She has dyspnea on exertion that is chronic. She says that the left leg is ok, no pain except occasionally. She needs to have a kidney stone removal on 06/11/2019. Update 01/29/2020: She is seen in follow up via telemedicine. She says she has been relatively well however she has been having issues with pain in her legs with worse pain in the left leg and the left leg has more swelling. Pain goes all the way to the hip. the calves hurt but not as bad as the rest of the leg. when she lays on her hip it hurts. She has swelling in the ankles. It's better in the morning or with leg elevation. She has dyspnea on exertion. No chest pain. Her balance is not good. She fell recently. She also fell few months ago. She says she walks like a drunk . Update 02/07/2022: She is seen in follow-up. Today she reports that she has been having episodes of chest discomfort that she describes as sharp pain located in epigastric area and the lower left side of the chest. She would drop the chest pain and it goes away. She noted that it is also related to her eating and she has difficulty swallowing and digesting food. She has a lot of issues in terms of balance and she uses a cane as well as a walker to ambulate. She has been trying to lose weight and manage her morbid obesity. She was evaluated in emergency room on 02/03/2022. ECG showed atrial fibrillation as known before. Her blood work was within normal limits. She was found to have a urine infection and is being treated with antibiotics. Patient Ac (more content not included)... [facility] 06-13-2022 Hospital Discharge instructions Patient Education 06/13/2022 11:36:19 EU - Cystoscopy with Urethral Dilation Discharge Instructions (CUSTOM) Cystoscopy with Urethral Dilation Voiding after the procedure: there may be some pain, urethral bleeding, burning, urgency, frequency and blood tinged urine following the procedure. These symptoms usually resolve within 2-5 days. Drink the amount of fluid it takes to keep the urine pink to yellow or clear in color. Drinking enough water and fluids will help to ease any discomfort after your procedure. If you are having problems that seem out of the ordinary, please call. If unable to contact your physician and you feel it is an emergency, go to the nearest emergency room or call 911 Diet you may resume your normal diet. Activity you may resume your normal activities Call if you have a fever over 100 degrees Follow Up Care 05/30/2022 13:56:56 With:Leonardo REGAN Address: [facility] [address] [place] [address]- Business (1) When:10/11/2022 11:35:57 Comments:Patient is to see the physician assistant statistician [facility] Evaluation + Plan note No data available for this section [facility] Evaluation + Plan note Future Appointments Appointment Date:10/17/2022 11:00:00 AM Scheduled Provider:REGINA VALIENTE PA-C [facility] Office Visit [facility] Evaluation + Plan note Future Appointments Appointment Date:04/24/2023 10:00:00 AM Scheduled Provider:REGINA VALIENTE PA-C [facility] Type:URO Office Visit [facility] Evaluation + Plan note Future Appointments Appointment Date:11/27/2023 10:00:00 AM Scheduled Provider:REGINA VALIENTE PA-C [facility] Type:URO Office Visit [facility] Evaluation + Plan note Future Appointments Appointment Date:08/07/2023 11:30:00 AM Scheduled Provider: Location:[facility] Appointment Type:Urology FT Appointment Date:08/28/2023 10:00:00 AM Scheduled Provider:REGINA VALIENTE PA-C Location:[facility] [place] Appointment Type:URO Office Visit Appointment Date:11/27/2023 10:00:00 AM Scheduled Provider:REGINA VALIENTE PA-C Location:[facility] [place] Appointment Type:URO Office Visit [facility] Evaluation + Plan note Future Appointments Appointment Date:08/28/2023 10:00:00 AM Scheduled Provider:REGINA VALIENTE PA-C Location:[facility] Appointment Type:URO Office Visit Appointment Date:11/27/2023 10:00:00 AM Scheduled Provider:REGINA VALIENTE PA-C Location:[facility] Appointment Type:URO Office Visit [facility] Evaluation + Plan note Future Appointments Appointment Date:06/10/2024 10:00:00 AM Scheduled Provider:REGINA VALIENTE PA-C Location:[facility] Appointment Type:URO Office Visit [facility] Evaluation + Plan note Future Appointments Appointment Date:06/10/2024 10:00:00 AM Scheduled Provider:REGINA VALIENTE PA-C Location:[facility] Appointment Type:URO Office Visit Diagnostic Tests PendingUrine Culture 11/27/23 [facility] Evaluation + Plan note Future Appointments Appointment Date:06/10/2024 10:00:00 AM Scheduled Provider:REGINA VALIENTE PA-C Location:[facility] Appointment Type:URO Office Visit Diagnostic Tests PendingUrine Culture 12/07/23 [facility] Evaluation + Plan note Future Appointments Appointment Date:06/10/2024 10:00:00 AM Scheduled Provider:REGINA VALIENTE PA-C Location:[facility] Appointment Type:URO Office Visit Diagnostic Tests PendingUTI ([facility]) 12/20/23 [facility] Evaluation note Diagnosis Calculus of kidney- Primary Kidney stones Calculus of kidney Primary hypertension Unspecified essential hypertension Paroxysmal atrial fibrillation (HCC) Atrial fibrillation Coronary artery disease involving [place] coronary artery of [place] heart without angina pectoris, 50% ostial LAD, 60% OM1 Urinary incontinence, mixed Mixed incontinence urge and stress (male)(female) documented in this encounter [facility] Discharge instructions No data available for this section [facility] [place] InstructionsNot on filedocumented in this encounter [facility] on filedocumented in this encounter [facility] No data available for this section [facility] [place] Summary Purpose Family History No Family History Records FoundNo Family History Records FoundNo Family History Records FoundNo Family History Records Found No data available for this section No data available for this section No data available for this section No data available for this section No data available for this section No data available for this section No data available for this section No Family History Records Found No data available for this section No data available for this section No data available for this section No Family History Records FoundNo Family History Records FoundNo Family History Records FoundNo Family History Records Found Advance Directives Latest Code Status on File Code Status Date Activated Date Inactivated Comments Full Code 11/01/2022 10:40 AM 11/01/2022 7:52 PM Documents on File Type Date Recorded Patient [employer] Expl anation Advance Directive(s) 08/02/2018 3:20 PM Hospital Course Note MR#: [id number] [facility] Pt. Name: Lacie Garza Admitted: 08/11/2018 Discharged: 08/14/2018 Date of : 1940 Physician: Mary Drake MD DISCHARGE SUMMARY PRIMARY DIAGNOSIS: Left lower extremity deep vein thrombosis. SECONDARY DIAGNOSES: 1. Hypertension. 2. Staghorn renal calculi, bilateral. 3. Gastroesophageal reflux disease. 4. Obstructive sleep apnea, on CPAP. 5. Morbid obesity. CONSULTATIONS DURING HOSPITALIZATION: Cardiology. PROCEDURES DURING HOSPITALIZATION: Intravascular directed thrombolysis. HOSPITAL COURSE: The patient is an 78-year-old woman who was admitted with extensive left lower extremity venous thrombosis. The patient had been previously placed on anticoagulants on an outpatient basis and developed episode of unexplained presumed hemorrhage. This was attributed potentially to the known Staghorn renal calculi. The patient was scheduled to have these renal calculi addressed at [facility], but had not gone to t (more content not included)... Additional Source Comments INFORMATION SOURCE (unrecogn ized section and content) DATE CREATED AUTHOR 09/24/2018 [facility] DATE CREATED AUTHOR AUTHOR'S ORGANIZ ATION 09/19/2020 [facility] DATE CREATED AUTHOR AUTHOR'S ORGANIZ ATION 09/06/2022 [facility] DATE CREATED AUTHOR AUTHOR'S ORGANIZ ATION 05/27/2023 [facility] DATE CREATED AUTHOR AUTHOR'S ORGANIZ ATION 12/15/2023 [facility] DATE CREATED AUTHOR AUTHOR'S ORGANIZ ATION 01/09/2024 Rip [facility] DATE CREATED AUTHOR AUTHOR'S ORGANIZ ATION 01/28/2024 [facility] DATE CREATED AUTHOR AUTHOR'S ORGANIZ ATION 02/03/2024 [facility] Patient Care team informatio n (unrecognized section and content) General Forecaster Relationship Specialty Start Date End Date Juan Diego Castillo APRN-STATE ARCHIVIST [address] [place] [address] PCP - General Family Medicine 03/15/23 General Forecaster Relationship Specialty Start Date End Date Juan Diego Castillo APRN-STATE ARCHIVIST [address] [place] [address] PCP - General Family Medicine 03/15/23 General Forecaster Relationship Specialty Start Date End Date Compa Foote MD [address] [facility] [address] [place] [address] PCP - Abhay MESA 08/11/21 Mary Lugo MD [address] [place] [address] PCP - General Family Medicine 04/03/23 General Forecaster Relationship Specialty Start Date End Date Juan Diego Castillo RAG INSPECTOR-STATE ARCHIVIST [address] [place] [address] PCP - General Family Medicine 03/15/23 General Forecaster Relationship Specialty Start Date End Date Compa Foote II, MD [address] [facility] [address] [place] [address] PCP - General Internal Medicine 05/30/19 Maria Eugenia Bhatia MD [address] [facility] [place] [id number] Family Medicine 06/17/15 Reason for Visit (unrecogniz ed section and content) Reason Onset Date Comments Med Refill 09/20/2023 Source Comments (unrecognize d section and content) In the event this informatio n is protected by the Federal Confidentiality of Alcohol and Drug Abuse Patient Records regulations: The Federal rules restrict any use of the information to criminally investigate or prosecute any alcohol or drug abuse patient.[facility] FOR RECORDS PERTAINING TO PATIENTS WHO ARE OR HAVE BEEN ENROLLED IN A CHEMICAL DEPENDENCY/SUBSTANCEABUSE PROGRAM, SOME INFORMATION MAY BE OMITTED. This clinical summary was aggregated from multiple sources. Caution should be exercised in using it in the provision of clinical care. This summary normalizes information from multiple sources, and as a consequence, information in this document may materially change the coding, format and clinical context of patient data. In addition, data may be omitted in some cases. CLINICAL DECISIONS SHOULD BE BASED ON THE PRIMARY CLINICAL RECORDS. [facility]. provides no warranty or guarantee of the accuracy or completeness of information in this document.
[2024-02-06 09:54] LABS: Basophils Percent Auto 0.4 % (0.2-2.0); Eosinophils Absolute Auto 0.1 10^3/uL (0.0-0.7); Eosinophils Percent Auto 1.6 % (0.9-7.0); Hematocrit 42.2 % (36.0-48.0); Hemoglobin 13.1 g/dL (12.0-16.0); Immature Granulocytes Abs Auto 0.04 10^3/uL (0.00-0.03); Immature Granulocytes Pct Auto 0.5 % (0.0-0.5); Lymphocytes Absolute Auto 1.8 10^3/uL (1.2-3.8); Lymphocytes Percent Auto 22.3 % (20.5-60.0); Mean Corpuscular Hemoglobin 29.6 pg (26.7-34.0); Mean Corpuscular Volume 95.3 fL (81.0-99.0); Mean Platelet Volume 9.6 fL (9.5-13.5); Monocytes Absolute Auto 0.7 10^3/uL (0.3-0.8); Monocytes Percent Auto 8.2 % (1.7-12.0); Neutrophils Absolute Auto 5.5 10^3/uL (1.4-6.5); Platelet Count 181 10^3/uL (150-450); Red Blood Count 4.43 10^6/uL (4.20-5.40); Red Cell Distribution Width 14.8 % (11.0-15.0); White Blood Count 8.2 10^3/uL (4.0-11.0)
[2024-02-06 10:59] LABS: Alanine Aminotransferase 16 U/L (14-59); Albumin Globulin Ratio 0.6; Alkaline Phosphatase 90 U/L (46-116); Anion Gap 11.1; Aspartate Amino Transferase 15 U/L (15-37); Bilirubin Total 0.7 mg/dL (0.2-1.0); Calcium 8.8 mg/dL (8.5-10.1); Carbon Dioxide 30.7 mmol/L (21.0-32.0); Chloride 104 mmol/L (98-107); Cholesterol 231 mg/dL (<=200); Estimated GFR (African America >60 (>=60); Estimated GFR (Non-African Ame 53 (>=60); Globulin 4.7 g/dL; Glucose 104 mg/dL (74-106); HDL Cholesterol 58 mg/dL (40-60); Potassium 3.8 mmol/L (3.5-5.1); Sodium 142 mmol/L (136-145); Total Protein 7.7 g/dL (6.4-8.2); Triglycerides 138 mg/dL (<=150); VLDL CHOLESTEROL 27.6 mg/dL
== END 2024-02-06 09:22 | disposition home or self-care (01) ==
LOC: LAB 09:23
PROVIDERS: PCP Family Medicine; Visit Provider Nurse Practitioner Family
DX: I25.10 Atherosclerotic heart disease of native coronary artery without angina pectoris (principal); I50.32 Chronic diastolic (congestive) heart failure; I48.11 Longstanding persistent atrial fibrillation; N18.31 Chronic kidney disease, stage 3a; I15.9 Secondary hypertension, unspecified
CPT/HCPCS: 36415; 80053; 80061; 83880; 85025

== ENCOUNTER 2024-02-06 10:29 | Outpatient (OUT) | payer MEDICARE, OTHER, SELFPAY ==
--- OUTSIDE RECORDS SUMMARY | 2024-02-06 10:53 | XMS_ITS ---
Patient Summarization (C-CDA 2.1 CCD) Created on: February 06, 2024 GregMrs. Lacie : 1940 Sex: Female Author Organization Sample organization Care Team Providers Care Paste Up Artist Name Role Phone DEE DEE GARBER Admitting Unavailable SELF, REFERRED Referring Unavailable MARIA EUGENIA BHATIA Primary Care Unavailable MARY DRAKE Attending Unavailable RI Procedure Practitioner UnavailKENNEDI Burroughs Surgeon Unavailable COMPA FOOTE Primary Care Physician HADLEY, DR LAURENT Admitting Unavailable HADLEY, DR LAURENT Attending Unavailable HADLEY, DR LAURENT Consulting Unavailable QAMAR, DR DIXON Primary Care Unavailable QAMAR, DR DIXON Primary Care Unavailable REGINA VALIENTE Admitting Unavailable REGINA VALIENTE Attending Unavailable REGINA VALIENTE Consulting Unavailable QAMAR, DR DIXON Primary Care Unavailable ANASTASIIA ESTRADA Admitting Unavailable NATALIE, ANASTASIIA Attending Unavailable ANASTASIIA ESTRADA Consulting Unavailable MERLIN, DR DARYA Falk Attending Unavailabl e MERLIN, DR DARYA Falk Consulting Unavailabl e QAMAR, DR DIXON Primary Care Unavailable MERLIN, DR DRAYA Falk Admitting Unavailabl e JORGE CASSIDY Attending Unavailable YULISSA WOOADRD Attending Unavailable SHELL GUARDADO Attending Unavailable MARY LUGO Primary Care Physician JUAN DIEGO CASTILLO Primary Care Physician Unav ailable Anna TESTING ANALYST-HAND PAINTER, Juan Diego Primary Care Provide r Compa Foote MD Unavailable Mary Lugo MD Primary Care Provider [phone] MICHELLE VIDALES Attending Unavailable MAKENNA TAMAYO Attending Unavailable MAKENNA TAMAYO Attending Unavailable MAKENNA TAMAYO Attending Unavailable JUAN DIEGO CASTILLO Primary Care Unavailable REGINA VALIENTE Attending Unavailable MAVERICK, REGINA Covington Attending Unavailable JUAN DIEGO CASTILLO Primary Care [...] Unavailable MAVERICK, REGINA E Attending Unavailable MAVERICK, REIGNA E Admitting Unavailable SCHLACHTER, JUAN DIEGO Primary [...] GREENFIELD MD, Compa Calhoun Primary Care Provider John ELY, Maria Eugenia Covington Unavailable Allergies Allergy Classification Reported Allergen(s) Allergy Type Date of Onset Reaction(s) Facility (8 sources) linaclotide; Translations: [LINACLOTIDE] Drug Allergy 6 Diarrhea, Other (See Comments), GI Disturbance, Vomiting [facility] Repository Encounters Encounter Date Encounter Type Care Provider Facility Start: 02-05-2024 End: 02-05-2024 Patient encounter procedure Murali Rangel MD Work Phone: Urology Comment on above: Calculus of kidney ( Primary Dx); Kidney stones; Primary hypertension; Paroxysmal atrial fibrillation (HCC); 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 Start: 01-28-2024 End: 01-28-2024 ambulatory [facility] Start: 01-28-2024 Encounter for genera l adult medical examination without abnormal findings [facility] Start: 01-14-2024 End: 01-14-2024 ambulatory [facility] Start: 01-08-2024 End: 01-08-2024 ambulatory [facility] Facility:[facility] Start: 01-08-2024 End: 01-08-2024 Patient encounter procedure REGINA VALIENTE [facility] Start: 12-20-2023 End: 12-20-2023 Lab Drop off REGINA VALIENTE [facility] Start: 12-20-2023 End: 12-20-2023 ambulatory [facility] Start: 12-20-2023 End: 12-20-2023 Patient encounter procedure Leonardo REGAN [facility] Start: 12-13-2023 End: 12-13-2023 ambulatory MAKENNA TAMAYO Not Available Start: 12-07-2023 End: 12-07-2023 Lab Drop off REGINA VALIENTE [facility] Start: 12-07-2023 End: 12-07-2023 ambulatory REGINA VALIENTE [facility] Start: 12-07-2023 End: 12-07-2023 Patient encounter procedure Leonardo REGAN [facility] Start: 11-27-2023 End: 11-27-2023 Lab Drop off REGINA VALIENTE [facility] Start: 11-27-2023 End: 11-27-2023 ambulatory REGINA VALIENTE [facility] Start: 11-27-2023 End: 11-27-2023 Patient encounter procedure REGINA VALIENTE [facility] Start: 09-20-2023 Refill [facility] Start: 09-13-2023 End: 09-13-2023 ambulatory MAKENNA TAMAYO Not Available Start: 09-12-2023 Chart abstracting Makenna malone MD Work Phone: [facility] Start: 08-28-2023 End: 08-28-2023 ambulatory JUAN DIGEO CASTILLO Facility:[facility] Start: 08-28-2023 End: 08-28-2023 Patient encounter procedure REGINA VALIENTE [facility] Start: 08-27-2023 [facility]phone [facility] Start: 08-20-2023 Telephone encounter Griselda willson CNA Work Phone: [facility] Start: 08-07-2023 End: 08-07-2023 ambulatory Leonardo REGAN [facility] Start: 08-07-2023 End: 08-07-2023 Patient encounter procedure Leonardo REGAN [facility] Start: 08-01-2023 End: 08-01-2023 ambulatory Leonardo REGAN Facility:[facility] Start: 08-01-2023 End: 08-01-2023 Patient encounter procedure Leonardo REGAN [facility] Start: 07-27-2023 End: 07-27-2023 ambulatory [facility] Start: 07-12-2023 End: 07-12-2023 ambulatory MAKENNA W JERED Not Available Start: 06-19-2023 End: 06-19-2023 ambulatory MICHELLE VIDALES Not Available Start: 06-05-2023 End: 06-05-2023 ambulatory REGINA VALIENTE Facility:[facility] Start: 05-25-2023 End: 05-25-2023 ambulatory SHELL GEO [facility] Start: 04-24-2023 End: 04-24-2023 ambulatory REGINA VALIENTE Facility:[facility] Start: 04-24-2023 End: 04-24-2023 Patient encounter procedure [facility]GINA VALIENTE [facility] Start: 03-02-2023 End: 03-02-2023 ambulatory JORGE CASSIDY [facility] Start: 10-17-2022 End: 10-17-2022 Patient encounter procedure REGINA VALIENTE [facility] Start: 09-05-2022 End: 09-05-[address] DARYA BOYER Facility:[facility] Start: 08-29-2022 End: 08-29-[address] COMPA FOOTE Facility:[facility] Start: 08-15-2022 End: 08-15-2022 ambulatory YULISSA WOODARD [facility] Start: 06-13-2022 End: 06-13-2022 Patient encounter procedure Leonardo REGAN [facility] Start: 05-10-2022 End: 05-10-2022 Patient encounter procedure Shayne England [facility] Start: 04-18-2022 End: 04-19-[address] COMPA FOOTE Facility:[facility] Start: 02-03-2022 End: 02-03-[address] ANASTASIIA BUTCHER Facility:[facility] Start: 08-11-2018 End: 08-14-2018 Evaluation and management of inpatient DEE DEE GARBER Facility:[facility] Medical Equipment Procedure Code Equipment Code Equipment Origin al Text Equipment Identifier Dates Stent Inlay Opti ma 7fr Taper [place] Green Polymer Phreecoat 26cm Ureteral - [id number] Start: 06-11-2019 Immunizations Immunization Date Immunization Notes Care Provider Zaid brown 06-21-2021 SARS-CoV-2 (COVID-19 ) mRNA BNT-162b2 [facility] [place] [facility] 11-25-2020 SARS-CoV-2 (COVID-19 ) mRNA BNT-162b2 vax Shayne [facility] 11-05-2020 SARS-CoV-2 (COVID-19 ) mRNA BNT-162b2 [facility] Medications Current Medications Medication Drug Class(es) Dates Sig (Normalized) Sig (Original) 8 hr acetaminophen 650 mg extended release oral tablet (2 sources) take 1 tablet by mouth every eight hours as needed acetaminophen (TYLENOL ARTHRITIS PAIN) 650 mg CR tablet Take 650 mg by mouth every 8 hours as needed. 0 Active [id number] 200 actuat albuterol 0.09 mg/actuat metered dose [...] Chronic obstructive pulmonary disease, unspecified COPD type ([facility]) Inhale 2 puffs every 6 (six) hours [...] sources) Dihydropyridine Calcium Channel Hussein Star t: 06-07 15 take 1 tablet by mouth once daily amLODIPine (NORVASC) 5 mg tablet Take 1 tablet by mouth once daily. 90 tablet 3 05/22/2018 Active apixaban 5 mg oral tablet (19 sources) Factor Xa Inhibitor Star t: 05-06 20 take 1 mg by mouth twice daily Eliquis 5 mg oral tablet mg tab(s), Oral, BID, Refills(s) 0 Start Date: 05/17/20 Status: Ordered atorvastatin 40 mg oral tablet (20 sources) HMG-CoA Reductase Inhibitor Star t: 06-07 End: 09-06 24 take 1 tablet by mouth once daily atorvastatin (LIPITOR) 40 mg tablet Take 1 tablet by mouth once daily. 90 tablet 3 05/22/2018 Active betamethasone 0.5 mg/ml / clotrimazole 10 mg/ml topical cream (1 source) Azole Antifungal, Corticosteroid Star t: 01-04 0-20 24 clotrimazole-betamethason e (LOTRISONE) cream Apply 1 Application [...] day(s), # 14 cap(s), Refills(s) 0, Pharmacy: [facility] #[id number], 153, cm, 11/27/23 10:33:00 EDT, Height/Length Dosing, 120, kg, 11/27/23 10:33:00 EDT, Weight Dosing Start Date: 11/27/23 Stop Date: 12/04/23 Status: Ordered Start: 07-27-[address] [facility] twice daily Keflex 500 mg Cap 500 mg = 1 cap(s), Oral, BID, Start the day prior to procedure, # 14 cap(s), Refills(s) 0, Pharmacy: [facility] #[id number], 153, cm, 06/05/23 11:56:00 EDT, Height/Length Dosing, 116, kg, 06/05/23 11:56:00 EDT, Weight Dosing Start Date: 07/27/23 Status: Ordered Start: 06-05-20[address] [facility] twice daily Keflex 250 mg Cap 250 mg = 1 cap(s), Oral, BID, Start the day before the procedure, # 14 cap(s), Refills(s) 0, Pharmacy: [facility] #[id number], 153, cm, 06/05/23 11:56:00 EDT, Height/Length Dosing, 116, kg, 06/05/23 11:56:00 EDT, Weight Dosing Start Date: 06/05/23 Status: Ordered diazePAM 5 mg oral tablet (3 sources) Benzodiazepine Start: 07-27-2023 Valium 5 mg Tab 5 mg = 1 tab(s), Oral, Once, Take 1 hour prior to procedure. 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, # 1 tab(s), Refills(s) 0, [facility]: [id number], 153, cm, 06/05/23 11:56:00 EDT, Height/Length Dosing, [...] hydrochloride 10 mg oral tablet (13 sources) V-fjjida-T-aspartate Receptor Antagonist Start: 01-11-2024 End: 02-10-2024 memantine [...] day(s), # 14 cap(s), Refills(s) 0, Pharmacy: [facility] #[id number], 153, cm, 01/08/24 15:17:00 EDT, Height/Length Dosing, [...] oral tablet (2 sources) Start: 12-07-2023 End: 12-10-2023 take 1 tablet by mouth three times daily as needed Pyridium 200 mg Tab 200 mg = 1 tab(s), Oral, TID, PRN burning with urination, X 3 day(s), # 9 tab(s), Refills(s) 0, Pharmacy: [facility] #[id number], 153, cm, 11/27/23 10:33:00 EDT, Height/Length Dosing, [...] 2 diabetes mellitus without complication, unspecified whether line maintainer insulin use (CMS/HCC) Inject 0.5 mg under the skin 1 [...] day(s), 20 tab(s), Refill(s) 0, [facility] #[id number], 153, cm, 11/27/23 10:33:00 EDT, Height/Length Dosing, [...] day(s), # 180 cap(s), Refills(s) 3, Pharmacy: [facility], 153, [...] procedure., # 2 tab(s), Refills(s) 0, Pharmacy: [facility] [id number], 153, cm, 10/25/20 11:47:00 EDT, Height/Length Dosing, [...] capsule Linzess 145 mcg capsule 0 Active Payers Date Payer Category Payer [employer] [place] 2022 [employer] [place] [id number] 2022 Medicare [id number] 2022 Medicare [id number] 2018 [employer] ( [employer] others) [id number] 2015 Unknown [id number]. 1.13.159.2.7.3.6786 71.315 1959 [employer] ( and others) [id number] 1959 Unknown [id number] 1940 Unknown [id number] 2.16.840.1.750708.3.579.2.647 1940 Unknown [id number] 2.16.840.1.755325.3.579.2.593 1938 Unknown [id number] 2.16.840.1.744799.3.579.2.593 1938 Unknown [id number] 2.16.840.1.064099.3.579.2.593 1938 Unknown [id number] 2.16.840.1.255067.3.579.2.593 1938 Unknown [id number] 2.16.840.1.564106.3.579.2.1259 1938 Unknown [id number] 2.16.840.1.284468.3.579.2.1259 1938 Unknown [id number] 2.16.840.1.331811.3.579.2.1259 1938 Unknown [id number] 2.16.840.1.113271.3.579.2.1259 1938 Unknown [id number] 2.16.840.1.706528.3.579.2.727 1938 Unknown [id number] 2.16.840.1.470212.3.579.2.727 1938 Unknown [id number] 2.16.840.1.907251.3.579.2.727 1938 Unknown [id number] 2.16.840.1.971044.3.579.2.727 1938 Unknown [id number] 2.16.840.1.618936.3.579.2.727 1938 Unknown [id number] 2.16.840.1.268195.3.579.2.727 1938 Unknown [id number] 2.16.840.1.469761.3.579.2.727 1938 Unknown [id number] 2.16.840.1.051359.3.579.2.727 1938 Unknown [id number] 2.16.840.1.902880.3.579.2.727 1938 Unknown [id number] 2.16.840.1.939930.3.579.2.727 1938 Unknown [id number] 2.16.840.1.238856.3.579.2.727 1938 Unknown [id number] 2.16.840.1.034960.3.579.2.727 1938 Unknown [id number] 2.16.840.1.033741.3.579.2.7 1938 Unknown [id number] 2.16.840.1.249617.3.579.2.1286 1938 Unknown [id number] 2.16.840.1.552801.3.579.2.1286 1938 Unknown [id number] 2.16.840.1.497463.3.579.2.1286 1938 Unknown [id number] 2.16.840.1.356711.3.579.2.1286 Medicare [id number] Plan of Treatment Date Care Activity Detail Author Start: 04-01-2026 Diabetes Screening Diabetes Screening [facility] Start: 06-19-2025 Glaucoma screening Diabetes: Retinopathy Screening [facility] Start: 07-27-2024 Adult BMI Follow Up Plan Adult BMI Follow Up Plan [facility] Start: 07-27-2024 Adult BMI Screening Adult BMI Screening [facility] Start: 07-27-2024 Tobacco Screening Tobacco Screening [facility] Start: 06-10-2024 ambulatory Ambulatory Facility:[facility] Start: 04-06-2024 Influenza vaccination Influenza Vaccine (#1) [facility] Start: 01-28-2024 End: 01-28-2024 Patient encounter procedure 01/28/2024 9:00 AM EDT Office Visit [facility] [address] [facility] [place] [phone] Juan Diego Castillo, TESTING ANALYST-HAND PAINTER [address] [place] [address] [facility] Start: 11-14-2023 End: 11-14-2023 Patient encounter procedure 11/14/2023 1:30 PM EDT Office Visit [facility] [address] [place] [phone] Rajni Lopez, TESTING ANALYST-HAND PAINTER [address] [address] [facility] Start: 09-13-2023 End: 09-13-2023 Patient encounter procedure 09/13/2023 10:00 AM EST Office Visit [facility] [address] [phone] Makenna Tamayo MD [address] [facility] [address] [place] [address] [place] [address] [facility] Start: 08-29-2023 End: 08-29-2023 Patient encounter procedure 08/29/2023 9:00 AM EST Office Visit [facility] [address] [facility] [phone] Rajni Lopez, TESTING ANALYST-HAND PAINTER [facility] [address] [address] [facility] Start: 08-06-2023 Advance Directive Discussion Advance Directive Discussion [facility] Start: 08-06-2023 Behavioral Health Screening Behavioral Health Screening [facility] Start: 04-06-2023 COVID-19 Vaccine (4 - 2023-24 season) COVID-19 Vaccine ( season) [facility] Start: 04-06-2023 Influenza vaccination [facility] Start: 09-10-2021 Hemoglobin A1c measurement Diabetes: Hemoglobin A1C [facility] Start: 2003 Fall Risk Screening Fall Risk Screening [facility] Start: 1998 RSV Vaccine (1 - 1-dose 60+ series) RSV Vaccine (1 - 1-dose 60+ series) [facility] Start: 01-27-1988 Administration of varicella zoster vaccine Zoster (Shingles) Vaccine (1 of 2) [facility] Start: 01-27-1988 Shingrix Vaccine (1 of 2) Shingrix Vaccine (1 of 2) [facility] Start: 1957 DTaP,Tdap and Td Vaccines (1 - Tdap) DTaP,Tdap and Td Vaccines (1 - Tdap) [facility] Start: 1957 Urine microalbumin profile DTaP,Tdap,Td Vaccine (1 - Tdap) [facility] Start: 01-27-1956 Hepatitis B surface antibody level LDL Cholesterol [facility] Start: 1950 Depression Screening Depression Screening [facility] Start: 01-27-1944 Pneumococcal Vaccine: 65+ (1 of 2 - PCV) Pneumococcal Vaccine: 65+ (1 of 2 - PCV) [facility] Start: 1940 Medicare Annual Wellness (AWV) Medicare Annual Wellness (AWV) [facility] Start: 1940 Medicare Annual Wellness Visit Medicare Annual Wellness Visit [facility] Problems Active Problems Problem Classification Problem Date [...] disease (10 sources) Atherosclerotic heart disease of cahto coronary artery without angina pectoris; Translations: [Coronary [...] Onset: 02-03-2022 Episodic Other aftercare (1 source) 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; Translations: [KNIFE SETTER CURRNT USE ANTICOAGULANTS] Onset: 02-07-2022 Episodic Other aftercare (1 source) Other line maintainer (current) drug therapy; Translations: [OTH KNIFE SETTER CURRENT DRUG THERAPY] Onset: 02-07-2022 Episodic Other [...] Episodic Unclassified (3 sources) Onset: 07-27-2023 07-27-2023 Procedures Date Procedure Procedure Detail Performing Clinician Start: 08-07-2023 Injection of botulin um toxin type A into detrusor muscle of urinary bladder REGINA VALIENTE Start: 07-27-2023 Follow-up visit Follow-up JUAN DIEGO CASTILLO Start: 06-13-2022 Cystourethroscopy wi th dilation of urethral stricture REGINA VALIENTE Start: 05-25-2020 Cystourethroscopy wi th dilation of urethral stricture REGINADENISE VALIENTE Start: 06-24-2019 Cystoscopic removal of ureteric stent REGINA VALIENTE Start: 08-12-2018 Antibody screen INDIGO GARBER Comment on above: Order Comment: No: D o not add to previous draw Performed By: #### 5 [id number] #### [address] Start: 08-12-2018 EXTIRPATION OF MATTE R [...] CENTRAL VEIN, PERC KENNEDI MULLIGAN Cataract (disorder) Lannette [place] Catheterization of aorta Cesar madai Samanta Cholecystectomy Lannette Miguel mons Colonoscopy Lannette Clemon s Hernia repair Lannette Clemo ns Hysterectomy Lannette Clemon s Knee region structur e (body structure) Lannette [place] Tonsillectomy and adenoidectomy Lannette [place] Total knee replacement Zia schultze Samanta Comment on above: rt Umbilical hernia (disorder) Lannette Samanta Results Test Name Value Interpretation Reference Range Facil ity Screenson 01-09-2024 Screens [id number]# 1.00TIFF [facility] Ambulatory Visit Summaryon 0 01-08-2024 Ambulatory Visit Summary LACIE GARZA :1940 Visit Date:01/08/2024 Ambulatory Visit Instructions Your Diagnosis Left renal stone Mixed incontinence History of UTI History of kidney stones Postinfective urethral stricture in female Your Care Team Attending Physician - REGINA VALIENTE PA-C Primary Care Physician - JUAN DIEGO CASTILLO CNP This Is Your Medications List Misc Prescription [...] REGINA VALIENTE PA-C Where: [facility] Patient Educationon 01-08-20 Patient Education Nephrology Laser [...] these instructions at home: Medicines ? Take ails-vuo-phdtgnz and prescription medicines only as told by [...] or treat constipation, such as: ? Take uaae-kem-uzxrhct or prescription medicines. ? Eat foods that [...] provider. Document Revised: 11/29/2022 Document Reviewed: 03/27/2022 [employer] Patient Education ? 2022 [employer] Laser Therapy for Kidney Stones Laser [...] including vitamins, herbs, eye drops, creams, and clqd-sor-kpgzdpi medicines. ? Any problems you or family [...] kidney st (more content not included)... [facility] Urology Office/Clinic Noteon 01-08-2024 Urology Office/Clinic [...] Contact Information MAVERICK TREJO, REGINA [place], URL [address] [facility] [place] [address] Additional Instructions: schedule L URS, L laser litho with Dr. Regan Patient Education Laser Therapy for Kidney Stones, Care After Laser Therapy for Kidney Stones Documentation recorded by the scribnadya Coyne accurately reflects the services(s) I performed and decisions made by me. Authenticated by Regina Valiente PA-C on 01/08/2024 15:45:37. I, Caty Coyne, personally scribed for [facility] on 01/08/2024 15:32:29. . Problem List/Past Medical History Ongoing Apnea, sleep At risk for falls Dysuria Flank pain GERD (gastroesophageal reflux disease) Hiatal hernia History of ki (more content not included)... [facility] Comment on above: Result Comment: Elec tronically Signed By: REGINA VALIENTE PA-C\.br\Date and Time Signed: 01/08/24 15:46 EDT\.br\Electronically Co-Signed By: Caty Coyne\.br\Date and Time Co-Signed: 01/08/24 15:[address] EDT RAD - CT Reporton 01-07-2024 RAD - CT Report [id number] #1.00TIFF [facility] Pre-Certification Formon Pre-Certification Form [id number] #1.00TIFF [facility] UTI (P4 Labs)on 12-25-2023 URINARY TRACT PATHOGENS PANEL:-:PT:URINE:-: PROBE.AMP.TAR Diagnosis Info Invalid Interpretation Code [facility] Comment on above: Result Comment: Álvaro sanches UTI Organisms Acinetobacter baumannii:NOTDETECTED Aerococcus urinae:DETECTED [facility] [...] on: 12/25/2023 22:17:02 Performed By: #### 2 [id number] #### [facility] [address] [place] [address] UTI ( Labs)on 12-20-2023 UTI Method of Extraction Voided [facility] Comment on above: Performed By: #### 2 [id number] #### [facility] [address] [facility] [place] [address] UTI Number of Jars 1 Invalid Interpretation Code [facility] Comment on above: Performed By: #### 2 [id number] #### [facility] [address] [facility] [place] [address] UTI Specimen Urine Normal [facility] Comment on above: Performed By: #### 2 [id number] #### [facility] [address] [facility] [place] [address] UTI Type of Service Global Normal [facility] Comment on above: Performed By: #### 2 [id number] #### [facility] [address] [facility] [place] [address] C Urineon 12-09-2023 Bacteria identified Cx Nom (U) Microbiology PROCEDURE: Urine Culture [R1] SOURCE: U CleanCatch BODY SITE: COLLECTED DATE/TIME: 12/07/2023 15:08 EDT RECEIVED DATE/TIME: 12/07/2023 22:02 EDT START DATE/TIME: 12/07/2023 22:02 EDT FREE TEXT SOURCE: MAVERICK TREJO, REGINA VALIENTE PA-C, REGINA [place] FINAL REPORTS Final Report [...] Locations R1: This test was performed at: [facility], [address] [place] [address], [facility] , , [facility] Comment on above: Performed By: #### 2 [id number] ####[address] Urineon 11-29-2023 Bacteria identified Cx Nom (U) Microbiology PROCEDURE: Urine Culture [R1] SOURCE: U Random BODY SITE: COLLECTED DATE/TIME: 11/27/2023 10:44 EDT RECEIVED DATE/TIME: 11/27/2023 18:06 EDT START DATE/TIME: 11/27/2023 18:06 EDT FREE TEXT SOURCE: MAVERICK TREJO, REGINA VALIENTE PA-C, REGINA [place] FINAL REPORTS Final Report [...] Locations R1: This test was performed at: [facility], [address] [place], [place] [address], [address]- , [place], [facility] Comment on above: Performed By: #### 2 [id number] ####[facility] [address] [place] [address] Screenson 11-28-2023 Screens [id number] 9#1.00TIFF [facility] Ambulatory Visit Summaryon 0 11-27-2023 Ambulatory Visit [...] Schedule the Following Appointments Follow Up with KEYUR VALIENTE PA-CFER E, URL When: Where: [address] [place] [place] [address] [phone] Medications What How Much When Instructions Unchanged diazepam (Valium 5 mg Tab) 1 Tablets By Mouth Once Take 1 hour prior to procedure. 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 (more content not included)... [facility] Patient Educationon 11-27-19 Patient Education Obstetrics [...] these instructions at home: Medicines ? Take ekts-wdx-boeyheu and prescription medicines only as told by [...] provider. Document Revised: 03/04/2021 Document Reviewed: 03/04/2021 [employer] Patient Education ? 2022 [employer]. [facility] Urology Office/Clinic Noteon 11-27-2023 Urology Office/Clinic Note [...] -Timed voids -bowel regimen -Cont Myrbetriq Ordered: 55863 Measure Post Void residual urine and/or bladder [...] Urnls Dip Stick Auto w/o Microscopy POC 37097 3. 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 Reported improvement in urination after dilation. Grade 2 cystocele noted at that time. S/p Cysto/UD 06/13/[address] Regan. No noticeable improvement this time. [2] Good, steady stream. Ordered: 65872 Measure Post Void residual urine and/or bladder [...] Urnls Dip Stick Auto w/o Microscopy POC 83082 4. History of kidney stones (Z87.442: Personal history of urinary calculi) Has passed stones on her own before. Has also required surgical intervention. No recent stone episodes. denies flank pain. Ordered: 92840 Measure Post Void residual urine and/or bladder capacity by US- non-imaging Body Mass Index (BMI) documented 3008F Current tobacco non-user 1036F Depression Screening Negative 3352F Influenza immunization status assessed 1030F Medication list documented in med (more content not included)... [facility] Comment on above: Result Comment: Elec tronically Signed By: REGINA VALIENTE PA-C\.br\Date and Time Signed: 11/27/23 11:13 EDT\.br\Electronically Co-Signed By: Lauren Foote\.br\Date and Time Co-Signed: 11/27/23 10:54 EDT Consent for Procedure/Surger yon 08-30-2023 Consent for Procedure/Surgery [id number] 9#1.00TIFF [facility] Insurance Correspondenceon 0 08-09-2023 Insurance Correspondence [id number] 7#1.00TIFF [facility] Consent for Procedure/Surger yon 08-07-2023 Consent for Procedure/Surgery [id number] 0#1.00TIFF [facility] Consent for Treatmenton Consent for Treatment [id number] #1.00TIFF [facility] IntraOperative Documentson 0 08-07-2023 IntraOperative Documents [id number] 5#1.00TIFF [facility] Main OR Intraoperative Recor don 08-07-2023 Main OR Intraoperative Record IntraOp Document Type FTURO Summary Primary Physician: Leonardo REGAN MD Finalized Date/Time: 08/07/23 12:34:13 Pt. Name: LACIE GARZA Nadya Kelsey/Sex: 1940 Female Med Rec #: [id number] Physician: Leonardo REGAN MD Financial #: [id number] Pt. Type: O Room/Bed: / Admit/Disch: 08/07/23 10:19:19 - Institution: Case Times FTURO Entry 1 Patient Times In Room 08/07/23 12:10:00 Out Room 08/07/23 12:30:00 Procedure Times Start 08/07/23 12:13:00 Stop 08/07/23 12:25:00 Anesthesia Times Last Modified By: Maritza CAVANAUGH, KARENA, Samantha 08/07/23 12:22:43 Case Attendance FTURO Entry 1 Entry 2 Entry 3 Case Attendee Leonardo REGAN MD RN, CNOR, Rosy Warner Role Performed Surgeon - Primary Toe Closing Machine Tender - Primary Scrub - Primary Time In 08/07/23 12:10:00 08/07/23 12:10:00 08/07/23 12:10:00 Time Out 08/07/23 12:30:00 08/07/23 12:30:00 08/07/23 12:30:00 Procedure CYSTOSCOPY LOCAL BOTOX CYSTOSCOPY LOCAL BOTOX CYSTOSCOPY LOCAL BOTOX INJECTION(.) INJECTION(.) INJECTION(.) Comments Last Modified By: Maritza RN, CNOR, Maritza RN, EVIEOR, Maritza CAVANAUGH, EVIEOR, Samantha 08/07/23 Samantha 08/07/23 Samantha 08/07/23 12:22:44 12:22:44 [...] Comments: BOTOX 100 UNITS OUTDATE 11/29 LOT [id number] General Case Data FTURO Pre-Care Text: Classifies [...] Out Leonardo REGAN MD, Verified (If Participants KARENA Salas RN, Applicable) Timmy Singh Laura C Time Out [...] KARENA Salas RN, Ruthann 08/07/23 12:34 [facility] Main OR Preoperative Recordo n 08-07-2023 Main OR Preoperative Record Holding Area Document Type FTURO Summary Primary Physician: Leonardo REGAN MD Finalized Date/Time: 08/07/23 12:22:25 Pt. Name: LACIE GARZA Nadya Young./Sex: 1940 Female Med Rec #: [id number] Physician: Leonardo REGAN MD Financial #: [id number] Pt. Type: O Room/Bed: / Admit/Disch: 08/07/23 [...] KARENA Salas RN, Ruthann 08/07/23 12:22 [facility] Operative Reporton Operative Report Patient: LACIE [...] with antibiotic coverage, Follow up arranged. [facility] Comment on above: Result Comment: Elec tronically Signed By: SHEREEN ELY, Leonardo Cisneros\.br\Date and Time Signed: 08/07/23 12:28 EST Outpatient Surgery Discharge Instructionon 08-07-2023 Outpatient Surgery Discharge Instruction [id number] 9#1.00TIFF [facility] Ambulatory Visit Summaryon 1 10-02-2022 Ambulatory Visit Summary LACIE GARZA Nadya :1940 Visit Date:08/01/2023 Ambulatory Visit Instructions Your [...] Appointments Sunday 9:00 AM EST With: Where: [facility] Services Sunday 11:30 AM EST With: Where: [facility] Sunday 10:00 AM EST With: MAVERICK TREJO, REGINA [place] Where: [facility] Normal [address] [place] [address] [place] [address]- \.br\ Medications\.br\ What How Much When Instructions\.br [...] 1 hour prior to procedure. 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 BBSQ 20. PVR 10/17/22 - 55mL Wears pads daily, changes 6-7x/day. [...] When Contact Information REGINA VALIENTE PA-C, URL [address] [place] [address] [phone] Additional Instructions: sched Botox Patient Education Overactive Bladder, Adult Documentation recorded by the bk Foote accurately reflects the services(s) I performed and decisions made by me. Authenticated by Regina Valiente PA-C on 06/11/2023 21:00:46. I, Lauren Foote, personally scribed for Regina Valiente PA-C on 06/05/2023 13:12:10. . Problem List/Past Medical History Ongoing Apnea, sleep Dysuria Flank pain GERD (gastroesophageal reflux disease) Hiatal hernia History of kidney stones History of urethral stricture HTN (hypertension) Kidney stone Mixed incontinence Nocturia OA (osteoarthritis) Postinfectiv (more content not included)... [facility] Comment on above: Result Comment: Elec tronically Signed By: REGINA VALIENTE PA-C\.br\Date and Time Signed: 06/11/23 21:04 EST Screenson 06-06-2023 Screens [id number] #1.00TIFF [facility] Ambulatory Visit Summaryon 1 Ambulatory Visit Summary LACIE GARZA :1940 Visit Date:06/05/2023 Ambulatory Visit Instructions Your Diagnosis Mixed incontinence Nocturia Urinary tract infection Postinfective urethral stricture in female History of kidney stones Tests Performed Urnls Dip Stick Auto w/o Microscopy POC 22916 Your Care Team Attending Physician - REGINA [...] AM EST With: Where: [facility] Invalid Interpretation Code [address] [place] [address]- \.br\ Sunday 10:00 AM EDT \.br\ With: REGINA VALEINTE PA-C\.br\ Where: [facility] Patient Educationon 06-05-20 Patient Education Obstetrics and Gynecology Overactive Bladder, [...] health care provider. General instructions ? Take dmmk-tyi-qjibjym and prescription medicines only as told by [...] monitor yo (more content not included)... [facility] 37on 05-25-2023 37 Resume metoprolol 100 mg daily Increase lasix (furosemide) to 40 mg daily Continue all other meds Normal [facility] [place] Office Visiton 05-25-2023 Follow-up visit [id number] Lacie Garza 1940 F Date Provider Department Center 05/25/2023 [place] Family History Problem Relation Age of Onset Coronary artery disease Mother Family Status - Relation Status Age at Mother Level of Service:89339 [place] OFFICE/OUTPATIENT ESTABLISHED LOW MDM 20-29 MIN Normal [facility] [place] Documentationon 05-23-2023 Documentation [id number] Lacie Garza 1940 F Date Provider Department Center 05/23/[address] Family History Problem Relation Age of Onset Coronary artery disease Mother Family Status - Relation Status Age at Mother Normal [facility] [place] Patient Educationon 04-24-20 Patient Education Obstetrics and [...] provider. Document Revised: 12/01/2021 Document Reviewed: 12/01/2021 [employer] Patient Education ? 2022 [employer]. [facility] Urology Office/Clinic Noteon 04-24-2023 Urology Office/Clinic Note [...] specified) Pt was c/o constant burning since Jayna, vaginal & urethral. UA was neg for [...] When Contact Information REGINA VALIENTE PA-C, URL In 7 months [address] [place] [address] Additional Instructions: Patient Education Sharon Astudillo I, Nadeen Valentine, personally scribed for Regina Valiente PA-C on 04/24/2023 10:38:59. . Documentation recorded by the scribnadya Valentine accurately reflects the services(s) I performed and decisions made by me. Authenticated by Regina Valiente PA-C on 04/24/2023 10:45:05. Problem List/Past Medical History Ongoing Apnea, sleep Dysuria Flank pain GERD (gastroesophageal reflux disease) Hiatal hernia History of kidney stones History of urethral strict (more content not included)... [facility] Comment on above: Result Comment: Elec tronically Signed By: REGINA VALIENTE PA-C\.br\Date and Time Signed: 04/24/23 10:45 EDT\.br\Electronically Co-Signed By: Nadeen Valentine\.br\Date and Time Co-Signed: 04/24/23 10:39 EDT Office Visiton 03-02-2023 Follow-up visit [id number] Lacie Garza 1940 F Date Provider Department Center 03/02/202341341-IPZTWGXEYJORGE CASSIDY [facility] Family History Problem Relation Age of Onset Coronary artery disease Mother Family Status - Relation Status Age at Mother Level of Service:14924 RI OFFICE/OUTPATIENT ESTABLISHED MOD MDM 30-39 MIN Reason for Visit and Comments: Follow-up [328188] Normal [facility] [place] CULTURE URINEon 09-06-2022 CULTURE URINE Culture Observations: GREATER THAN TWO ORGANISMS PRESENT. PLEASE RESUBMIT CLEAN CATCH MID-STREAM URINE IF CLINICALLY INDICATED. Normal [facility] Comment on above: Performed By: #### B MP #### [facility] [address] [place] [address] Dr. Jesse Maldonado CBC W MANUAL DIFFon 09-05-19 ATYPICAL LYMPH # 0.00 103/ul Normal [facility] Comment on above: Performed By: #### B MP #### [facility] [address] [place] [address] Dr. Jesse Maldonado ATYPICAL LYMPH % 0 % Normal [facility] Comment on above: Performed By: #### B MP #### [facility] [address] [place] [address] Dr. Jesse Maldonado BAND # 0.7 103/ul Critically high 0.0-0.3 [facility] Comment on above: Performed By: #### B MP #### [facility] [address] [place] [address] Dr. Jesse Maldonado BAND % 14 % Critically high 0-5 [facility] Comment on above: Performed By: #### B MP #### [facility] [address] [place] [address] Dr. Jesse Maldonado BASOM # 0.11 103/ul Critically high 0.00-0.10 [facility] Comment on above: Performed By: #### B MP #### [facility] [address] [place] [address] Dr. Jesse Maldonado BASOM % 2.0 % Normal 0.2-2.0 [facility] Comment on above: Performed By: #### B MP #### [facility] [address] [place] [address] Dr. Jesse Maldonado BLAST # 0.0 103/ul Normal [facility] Comment on above: Performed By: #### B MP #### [facility] [address] [place] [address] Dr. Jesse Maldonado BLAST % 0 % Normal [facility] Comment on above: Performed By: #### B MP #### [facility] [address] [place] [address] Dr. Jesse Maldonado CORRECTED WBC Normal 4.0-11.0 [facility] Comment on above: Performed By: #### B MP #### [facility] [address] [place] [address] Dr. Jesse Maldonado EOS # 0.05 103/ul Normal 0.00-0.70 [facility] Comment on above: Performed By: #### B MP #### [facility] [address] [place] [address] Dr. Jesse Maldonado EOS% 1.0 % Normal 0.9-7.0 [facility] Comment on above: Performed By: #### B MP #### [facility] [address] [place] [address] Dr. Jesse Maldonado HCT 41.5 % Normal 36.0-48.0 [facility] Comment on above: Performed By: #### B MP #### [facility] [address] [place] [address] Dr. Jesse Maldonado HGB 13.2 g/dl Normal 12.0-16.0 [facility] Comment on above: Performed By: #### B MP #### [facility] [address] [place] [address] Dr. Jesse Maldonado LYMPHM # 0.42 103/ul Critically low 1.20-3.80 [facility] Comment on above: Performed By: #### B MP #### [facility] [address] [place] [address] Dr. Jesse Maldonado LYMPHM% 8.0 % Critically low 20.5-60.0 [facility] Comment on above: Performed By: #### B MP #### [facility] [address] [place] [address] Dr. Jesse Maldonado MCH 28.5 pg Normal 26.7-34.0 [facility] Comment on above: Performed By: #### B MP #### [facility] [address] [place] [address] Dr. Jesse Maldonado MCHC 31.8 g/dl Normal 29.9-35.2 [facility] Comment on above: Performed By: #### B MP #### [facility] [address] [place] [address] Dr. Jesse Maldonado MCV 89.6 fL Normal 81.0-99.0 [facility] Comment on above: Performed By: #### B MP #### [facility] [address] [place] [address] Dr. Jesse Maldonado METAMYELOCYTE # 0.2 103/ul [facility] Comment on above: Performed By: #### B MP #### [facility] [address] [place] [address] Dr. Jesse Maldonado METAMYELOCYTE % 3 % Normal [facility] Comment on above: Performed By: #### B MP #### [facility] [address] [place] [address] Dr. Jesse Maldonado MONOM# 0.53 103/ul Normal 0.30-0.80 [facility] Comment on above: Performed By: #### B MP #### [facility] [address] [place] [address] Dr. Jesse Maldonado MONOM% 10.0 % Normal 1.7-12.0 [facility] Comment on above: Performed By: #### B MP #### [facility] [address] [place] [address] Dr. Jesse Maldonado MPV 9.7 fL Normal 9.5-13.5 [facility] Comment on above: Performed By: #### B MP #### [facility] [address] [place] [address] Dr. Jesse Maldonado MYELOCYTE # 0.0 103/ul Normal [facility] Comment on above: Performed By: #### B MP #### [facility] [address] [place] [address] Dr. Jesse Maldonado MYELOCYTE % 0 % Normal [facility] Comment on above: Performed By: #### B MP #### [facility] [address] [place] [address] Dr. Jesse Maldonado NRBC 0 Normal [facility] Comment on above: Performed By: #### B MP #### [facility] [address] [place] [address] Dr. Jesse Maldonado PLT 140 103/ul Critically low 150-450 [facility] Comment on above: Performed By: #### B MP #### [facility] [address] [place] [address] Dr. Jesse Maldonado RBC 4.63 106/ul Normal 4.20-5.40 [facility] Comment on above: Performed By: #### B MP #### [facility] [address] [place] [address] Dr. Jesse Maldonado RDW 14.8 % Normal 11.0-15.0 [facility] Comment on above: Performed By: #### B MP #### [facility] [address] [place] [address] Dr. Jesse Maldonado SEG # 3.29 103/ul Normal 1.40-6.50 [facility] Comment on above: Performed By: #### B MP #### [facility] [address] [place] [address] Dr. Jesse Maldonado SEG % 62.0 % Normal 43.0-75.0 [facility] Comment on above: Performed By: #### B MP #### [facility] [address] [place] [address] Dr. Jesse Maldonado WBC 5.3 103/ul Normal 4.0-11.0 [facility] Comment on above: Performed By: #### B MP #### [facility] [address] [place] [address] Dr. Jesse Maldonado [facility] SARS-CoV-2 (COVID-19) RNA JOE+probe Ql (Unsp spec) Detected Abnormal NOT DETECTED [facility] Comment on above: Result Comment: This test is not yet approved or cleared by the [place] FDA. When there are no FDA-approved or cleared tests available, and other criteria are met, FDA can make tests available under an emergency access mechanism called an Emergency Use Authorization (EUA). The EUA for this test is supported by the [employer] In[employer] of [employer] and Human Service's declaration that [...] longer be used). Performed By: #### C VDTB #### [facility] [address] [place] [address] Dr. Jesse Maldonado ER URINE PROFILEon 3 Bilirubin Ql (U) SMALL Abnormal NEGATIVE [facility] Comment on above: Performed By: #### Nadya BEAUCHAMP UMICRO #### [facility] [address] [place] [address] Dr. Jesse Maldonado Clarity (U) CLEAR Normal CLEAR [facility] Comment on above: Performed By: #### Nadya BEAUCHAMP UMICRO #### [facility] [address] [place] [address] Dr. Jesse Maldonado Color (U) YELLOW Normal YELLOW [facility] Comment on above: Performed By: #### Nadya BEAUCHAMP UMICRO #### [facility] [address] [place] [address] Dr. Jesse Maldonado ERUAHD A micrscopic examination will be performed if indicated. Normal [facility] Comment on above: Performed By: #### Nadya RODRIGUEZR UMICRO #### [facility] [address] [place] [address] Dr. Jesse Maldonado Glucose Ql (U) Negative Normal NEGATIVE [facility] Comment on above: Performed By: #### E MICHAELR UMICRO #### [facility] [address] [place] [address] Dr. Jesse Maldonado Hemoglobin Ql (U) TRACE-INTACT Abnormal NEGATIVE [facility] Comment on above: Performed By: #### Nadya BEAUCHAMP UMICRO #### [facility] [address] [place] [address] Dr. Jesse Maldonado Ketones Ql (U) TRACE Abnormal NEGATIVE [facility] Comment on above: Performed By: #### Nadya BEAUCHAMP UMICRO #### [facility] [address] [place] [address] Dr. Jesse Maldonado LEUKOCYTES MODERATE Abnormal NEGATIVE [facility] Comment on above: Performed By: #### Nadya BEAUCHAMP UMICRO #### [facility] [address] [place] [address] Dr. Jesse Maldonado Nitrite Ql (U) Negative Normal NEGATIVE [facility] Comment on above: Performed By: #### Nadya BEAUCHAMP UMICRO #### [facility] [address] [place] [address] Dr. Jesse Maldonado pH (U) 5.5 [pH] Normal 5-9 [facility] Comment on above: Performed By: #### Nadya BEAUCHAMP ICRO #### [facility] [address] [place] [address] Dr. Jesse Maldonado Protein (U) [Mass/Vol] 100 mg/dL Abnormal NEGATIVE/ TRACE [facility] Comment on above: Performed By: #### Nadya BEAUCHAMP UMICRO #### [facility] [address] [place] [address] Dr. Jesse Maldonado SPEC GRAVITY >=1.030 Abnormal 1.005-<=1.025 [facility] Comment on above: Performed By: #### Nadya BEAUCHAMP UMICRO #### [facility] [address] [place] [address] Dr. Jesse Maldonado UR MICRO IND INDICATED Normal [facility] Comment on above: Performed By: #### BETTY QUINTEROICRO #### [facility] [address] [place] [address] Dr. Jesse Maldonado Urobilinogen Qn (U) 1.0 {Christiano'U}/dL Normal 0.2 - 1. 0 [facility] Comment on above: Performed By: #### NICHOLAS QUINTERORO #### [facility] [address] [place] [address] Dr. Jesse Maldonado LACTATE/LACTIC ACIDon 2022 Lactate [Moles/Vol] 1.9 mmol/L Normal 0.4-1.9 [facility] Comment on above: Performed By: #### L ACT #### [facility] [address] [place] [address] Dr. Jesse Maldonado PROF 14(COMP METB)on 023 Albumin [Mass/Vol] 3.1 g/dL Critically low 3.4-5.0 [facility] Comment on above: Performed By: #### C DHAVAL HSTROPN #### [facility] [address] [place] [address] Dr. Jesse Maldonado Albumin/Globulin [Mass ratio] 0.7 {ratio} Normal [facility] Comment on above: Performed By: #### C DHAVAL HSTROPN #### [facility] [address] [place] [address] Dr. Jesse Maldonado ALP [Catalytic activity/Vol] 70 U/L Normal 46-116 [facility] Comment on above: Performed By: #### C DHAVAL, HSTROPN #### [facility] [address] [place] [address] Dr. Jesse Maldonado ALT [Catalytic activity/Vol] 17 U/L Normal 14-59 [facility] Comment on above: Performed By: #### C DHAVAL, HSTROPN #### [facility] [address] [place] [address] Dr. Jesse Maldonado Anion gap [Moles/Vol] 16.4 mmol/L Normal [facility] Comment on above: Performed By: #### C DHAVAL, HSTROPN #### [facility] [address] [place] [address] Dr. Jesse Maldonado AST [Catalytic activity/Vol] 23 U/L Normal 15-37 [facility] Comment on above: Performed By: #### C DHAVAL, HSTROPN #### [facility] [address] [place] [address] Dr. Jesse Maldonado Bilirubin [Mass/Vol] 0.5 mg/dL Normal 0.2-1.0 [facility] Comment on above: Performed By: #### C MP, HSTROPN #### [facility] [address] [address] [address] Jesse Maldonado Calcium [Mass/Vol] 8.4 mg/dL Critically low 8.5-10.1 [facility] Comment on above: Performed By: #### C MP, HSTROPN #### [facility] [address] [address] [address] Jesse Maldonado Chloride [Moles/Vol] 102 mmol/L Normal 98-107 [facility] Comment on above: Performed By: #### C MP, HSTROPN #### [facility] [address] [place] [address] Dr. Jesse Maldonado CO2 [Moles/Vol] 25.3 mmol/L Normal 21.0-32.0 [facility] Comment on above: Performed By: #### C MP, HSTROPN #### [facility] [address] [address] [address] Jesse Maldonado Creatinine [Mass/Vol] 0.95 mg/dL Normal 0.55-1.02 [facility] Comment on above: Performed By: #### C MP, HSTROPN #### [facility] [address] [place] [address] Dr. Jesse Maldonado EGFR-AF [place] >60 Normal >=60 [facility] Comment on above: Performed By: #### C MP, HSTROPN #### [facility] [address] [address] [address] Jesse Maldonado EGFR-NON AF [place] 56 mL/min/1.73m2 Critically low >=60 [facility] Comment on above: Performed By: #### C MP, HSTROPN #### [facility] [address] [address] [address] Jesse Maldonado Globulin (S) [Mass/Vol] 4.7 g/dL Normal [facility] Comment on above: Performed By: #### C MP, HSTROPN #### [facility] [address] [address] [address] Jesse Maldonado Glucose [Mass/Vol] 135 mg/dL Critically high 74-[address] [facility] Comment on above: Performed By: #### C MP, HSTROPN #### [facility] [address] [place] [address] Dr. Jesse Maldonado Potassium [Moles/Vol] 3.7 mmol/L Normal 3.5-5.1 [facility] Comment on above: Performed By: #### C MP, HSTROPN #### [facility] [address] [place] [address] Dr. Jesse Maldonado Protein [Mass/Vol] 7.8 g/dL Normal 6.4-8.2 [facility] Comment on above: Performed By: #### C MP, HSTROPN #### [facility] [address] [place] [address] Dr. Jesse Maldonado Sodium [Moles/Vol] 140 mmol/L Normal 136-145 [facility] Comment on above: Performed By: #### C MP, HSTROPN #### [facility] [address] [place] [address] Dr. Jesse Maldonado Urea nitrogen [Mass/Vol] 12.0 mg/dL Normal 7.0-18.0 [facility] Comment on above: Performed By: #### C MP, HSTROPN #### [facility] [address] [place] [address] Dr. Jesse Maldonado Urea nitrogen/Creatinine [Mass ratio] 12.6 mg/mg Normal [facility] Comment on above: Performed By: #### C MP, HSTROPN #### [facility] [address] [place] [address] Dr. Jesse Maldonado TROPONIN, HIGH SENSITIVITYon 09-05-2022 HSTROP 10.7 pg/mL Normal 4.0-51.3 [facility] Comment on above: Result Comment: CUT- OFF POINTS HAVE BEEN ESTABLISHED BASED ON THE FOURTH UNIVERSAL DEFINITIONS OF MYOCARDIAL INFARCTION. THE UPPER REFERENCE LIMIT (URL) OF TROPONIN, DEFINED THE 99TH PERCENTILE OF cTnI DISTRIBUTION IN A REFERENCE POPULATION, HAS BEEN CONFIRMED THE DECISION THRESHOLD FOR [place] DIAGNOSIS. Performed By: #### C MP, HSTROPN #### [facility] [address] [place] [address] Dr. Jesse Maldonado URINE MICROSCOPIC ONLYon BACTERIA SMALL Abnormal NONE SEEN [facility] Comment on above: Performed By: #### E RUR, UMICRO #### [facility] [address] [place] [address] Dr. Jesse Maldonado Bacteria identified Cx Nom (U) INDICATED Normal [facility] Comment on above: Performed By: #### E RUR, UMICRO #### [facility] [address] [place] [address] Dr. Jesse Maldonado CAST NONE SEEN Normal NONE SEEN [facility] Comment on above: Performed By: #### E RUR, UMICRO #### [facility] [address] [place] [address] Dr. Jesse Maldonado Crystals LM Nom (Urine sed) NONE SEEN Normal NONE SEEN [facility] Comment on above: Performed By: #### E RUR, UMICRO #### [facility] [address] [place] [address] Dr. Jesse Maldonado Epithelial cells LM Ql (Urine sed) MODERATE Abnormal NONE SEEN /RARE [facility] Comment on above: Performed By: #### E RUR, UMICRO #### [facility] [address] [place] [address] Dr. Jesse Maldonado MUCOUS SMALL Abnormal NONE SEEN [facility] Comment on above: Performed By: #### E RUR, UMICRO #### [facility] [address] [place] [address] Dr. Jesse Maldonado RBC 0-2 Normal 0-2 [facility] Comment on above: Performed By: #### E RUR, UMICRO #### [facility] [address] [place] [address] Dr. Jesse Maldonado WBC 5-10 Abnormal NONE SEEN [facility] Comment on above: Performed By: #### E RUR, UMICRO #### [facility] [address] [place], [place] [address] Dr. Jesse Maldonado CULTURE URINEon 08-31-2022 CULTURE [...] F Trimethoprim/Sulfame thoxazole <=20 S F Normal [facility] Comment on above: Performed By: #### B MP #### [facility] [address] [place] [address] Dr. Jesse Maldonado Follow-Upon 08-15-2022 Follow-Up [id number] Lacie Garza 1940 F Date Provider Department Center 08/15/2022 YULISSA HAYES [facility] Family History Problem Relation Age of Onset Coronary artery disease Mother Family Status - Relation Status Age at Mother Level of Service:11924 [place] OFFICE/OUTPATIENT ESTABLISHED LOW MDM 20-29 MIN Reason for Visit and Comments: Atrial Fibrillation [80] Peripheral Vascular Disease [458] Hypertension [775113] Normal [facility] [place] 36on 08-04-2022 34 Approving, but needs appt for additional refills. Normal [facility] [place] CULTURE URINEon 04-20-2022 CULTURE URINE Isolate 1 [...] Trimethoprim/Sulfame thoxazole <=20 S F Normal [facility] Comment on above: Performed By: #### B MP #### [facility] [address] [place] [address] Dr. Jesse Maldonado AMMONIAon 04-18-2022 Ammonia (P) [Mass/Vol] ug/dL Critically low -32 [facility] Comment on above: Performed By: #### A MM #### [facility] [address] [place] [address] Dr. Jesse Maldonado CBC AUTO DIFFon 04-18-2022 BASO # 0.0 103/ul Normal 0.0-0.1 [facility] Comment on above: Performed By: #### C BC #### [facility] [address] [place] [address] Dr. Jesse Maldonado Basophils/100 WBC (Bld) 0.5 % Normal 0.2-2.0 [facility] Comment on above: Performed By: #### C BC #### [facility] [address] [place] [address] Dr. Jesse Maldonado EO # 0.1 103/ul Normal 0.0-0.7 [facility] Comment on above: Performed By: #### C BC #### [facility] [address] [place] [address] Dr. Jesse Maldonado Eosinophils/100 WBC (Bld) 0.9 % Normal 0.9-7.0 [facility] Comment on above: Performed By: #### C BC #### [facility] [address] [place] [address] Dr. Jesse Maldonado Erythrocyte distribution width (RBC) [Ratio] 14.4 % Normal 11.0-15.0 [facility] Comment on above: Performed By: #### C BC #### [facility] [address] [place] [address] Dr. Jesse Maldonado Hematocrit (Bld) [Volume fraction] 43.9 % Normal 36.0-48.0 [facility] Comment on above: Performed By: #### C BC #### [facility] [address] [place] [address] Dr. Jesse Maldonado Hemoglobin (Bld) [Mass/Vol] 13.9 g/dL Normal 12.0-16.0 [facility] Comment on above: Performed By: #### C BC #### [facility] [address] [place] [address] Dr. Jesse Maldonado IG # 0.03 10e3/ul Normal 0.00-0.03 [facility] Comment on above: Performed By: #### C BC #### [facility] [address] [place] [address] Dr. Jesse Maldonado IG % 0.3 % Normal 0.0-0.5 [facility] Comment on above: Performed By: #### C BC #### [facility] [address] [place] [address] Dr. Jesse Maldonado LYMPH # 2.5 103/ul Normal 1.2-3.8 [facility] Comment on above: Performed By: #### C BC #### [facility] [address] [place] [address] Dr. Jesse Maldonado Lymphocytes/100 WBC (Bld) 29.0 % Normal 20.5-60.0 [facility] Comment on above: Performed By: #### C BC #### [facility] [address] [place] [address] Dr. Jesse Maldonado MANUAL DIFF REQ NO Normal [facility] Comment on above: Performed By: #### C BC #### [facility] [address] [place] [address] Dr. Jesse Maldonado MCH (RBC) [Entitic mass] 28.9 pg Normal 26.7-34.0 [facility] Comment on above: Performed By: #### C BC #### [facility] [address] [place] [address] Dr. Jesse Maldonado MCHC (RBC) [Mass/Vol] 31.7 g/dL Normal 29.9-35.2 [facility] Comment on above: Performed By: #### C BC #### [facility] [address] [address] [address] Jesse Maldonado MCV (RBC) [Entitic vol] 91.3 fL Normal 81.0-99.0 [facility] Comment on above: Performed By: #### C BC #### [facility] [address] [address] [address] Jesse Maldonado MONO # 0.7 103/ul Normal 0.3-0.8 [facility] Comment on above: Performed By: #### C BC #### [facility] [address] [place] [address] Dr. Jesse Maldonado Monocytes/100 WBC (Bld) 7.6 % Normal 1.7-12.0 [facility] Comment on above: Performed By: #### C BC #### [facility] [address] [place] [address] Dr. Jesse Maldonado NEUT # 5.4 103/ul Normal 1.4-6.5 [facility] Comment on above: Performed By: #### C BC #### [facility] [address] [place] [address] Dr. Jesse Maldonado Neutrophils/100 WBC (Bld) 61.7 % Normal 43.0-75.0 [facility] Comment on above: Performed By: #### C BC #### [facility] [address] [place] [address] Dr. Jesse Maldonado Platelet mean volume (Bld) [Entitic vol] 9.7 fL Normal 9.5-13.5 [facility] Comment on above: Performed By: #### C BC #### [facility] [address] [place] [address] Dr. Jesse Maldonado PLT 198 103/ul Normal 150-450 [facility] Comment on above: Performed By: #### C BC #### [facility] [address] [place] [address] Dr. Jesse Maldonado RBC 4.81 106/ul Normal 4.20-5.40 [facility] Comment on above: Performed By: #### C BC #### [facility] [address] [place] [address] Dr. Jesse Maldonado WBC 8.8 103/ul Normal 4.0-11.0 [facility] Comment on above: Performed By: #### C BC #### [facility] [address] [place] [address] Dr. Jesse Maldonado PROF 14(COMP METB)on 022 Albumin [Mass/Vol] 3.4 g/dL Normal 3.4-5.0 [facility] Comment on above: Performed By: #### B MP #### [facility] [address] [place] [address] Dr. Jesse Maldonado Albumin/Globulin [Mass ratio] 0.7 {ratio} Normal [facility] Comment on above: Performed By: #### B MP #### [facility] [address] [place] [address] Dr. Jesse Maldonado ALP [Catalytic activity/Vol] 85 U/L Normal 46-116 [facility] Comment on above: Performed By: #### B MP #### [facility] [address] [place] [address] Dr. Jesse Maldonado ALT [Catalytic activity/Vol] 13 U/L Critically low 14-59 [facility] Comment on above: Performed By: #### B MP #### [facility] [address] [place] [address] Dr. Jesse Maldonado Anion gap [Moles/Vol] 11.3 mmol/L Normal [facility] Comment on above: Performed By: #### B MP #### [facility] [address] [place] [address] Dr. Jesse Maldonado AST [Catalytic activity/Vol] 13 U/L Critically low 15-37 [facility] Comment on above: Performed By: #### B MP #### [facility] [address] [place] [address] Dr. Jsese Maldonado Bilirubin [Mass/Vol] 0.6 mg/dL Normal 0.2-1.0 [facility] Comment on above: Performed By: #### B MP #### [facility] [address] [place] [address] Dr. Jesse Maldonado Calcium [Mass/Vol] 8.8 mg/dL Normal 8.5-10.1 [facility] [place] Comment on above: Performed By: #### B MP #### [facility] [address] [place] [address] Dr. Jesse Maldonado Chloride [Moles/Vol] 104 mmol/L Normal 98-107 [facility] Comment on above: Performed By: #### B MP #### [facility] [address] [address] [address] Jesse Maldonado CO2 [Moles/Vol] 26.7 mmol/L Normal 21.0-32.0 [facility] Comment on above: Performed By: #### B MP #### [facility] [address] [place] [address] Dr. Jesse Maldonado Creatinine [Mass/Vol] 0.99 mg/dL Normal 0.55-1.02 [facility] Comment on above: Performed By: #### B MP #### [facility] [address] [address] [address] Jesse Maldonado EGFR-AF [place] >60 Normal >=60 [facility] Comment on above: Performed By: #### B MP #### [facility] [address] [place] [address] Dr. Jesse Maldonado EGFR-NON AF [place] 53 mL/min/1.73m2 Critically low >=60 [facility] Comment on above: Performed By: #### B MP #### [facility] [address] [address] [address] Jesse Maldonado Globulin (S) [Mass/Vol] 4.6 g/dL Normal [facility] Comment on above: Performed By: #### B MP #### [facility] [address] [address] [address] Jesse Maldonado Glucose [Mass/Vol] 106 mg/dL Normal 74-106 [facility] [place] Comment on above: Performed By: #### B MP #### [facility] [address] [place] [address] Dr. Jesse Maldonado Potassium [Moles/Vol] 4.0 mmol/L Normal 3.5-5.1 [facility] Comment on above: Performed By: #### B MP #### [facility] [address] [address] [address] Jesse Maldonado Protein [Mass/Vol] 8.0 g/dL Normal 6.4-8.2 [facility] Comment on above: Performed By: #### B MP #### [facility] [address] [address] [address] Jesse Maldonado Sodium [Moles/Vol] 138 mmol/L Normal 136-145 [facility] Comment on above: Performed By: #### B MP #### [facility] [address] [place] [address] Dr. Jesse Maldonado Urea nitrogen [Mass/Vol] 19.0 mg/dL Critically high 7.0-18.0 [facility] Comment on above: Performed By: #### B MP #### [facility] [address] [place] [address] Dr. Jesse Maldonado Urea nitrogen/Creatinine [Mass ratio] 19.2 mg/mg Normal [facility] Comment on above: Performed By: #### B MP #### [facility] [address] [place] [address] Dr. Jesse Maldonado UA (CLEAN/CATCH) SEED COLLECTOR/MICRO I F IND.on 04-18-2022 Bilirubin Ql (U) Negative Normal NEGATIVE [facility] Comment on above: Performed By: #### B MP #### [facility] [address] [place] [address] Dr. Jesse Maldonado Clarity (U) CLEAR Normal CLEAR [facility] Comment on above: Performed By: #### B MP #### [facility] [address] [place] [address] Dr. Jesse Maldonado Color (U) YELLOW Normal YELLOW [facility] Comment on above: Performed By: #### B MP #### [facility] [address] [place] [address] Dr. Jesse Maldonado Glucose Ql (U) Negative Normal NEGATIVE [facility] Comment on above: Performed By: #### B MP #### [facility] [address] [place], [place] [id number] Dr. Jesse Maldonado Hemoglobin Ql (U) Negative Normal NEGATIVE [facility] Comment on above: Performed By: #### B MP #### [facility] [address] [address] Dr. Jesse Maldonado Ketones Ql (U) Negative Normal NEGATIVE [facility] Comment on above: Performed By: #### B MP #### [facility] [address] [address] Dr. Jesse Maldonado LEUKOCYTES TRACE Abnormal NEGATIVE [facility] Comment on above: Performed By: #### B MP #### [facility] [address] [place] [address] Dr. Jesse Maldonado Nitrite Ql (U) Negative Normal NEGATIVE [facility] Comment on above: Performed By: #### B MP #### [facility] [address] [place] [address] Dr. Jesse Maldonado pH (U) 5.5 [pH] Normal 5-9 [facility] Comment on above: Performed By: #### B MP #### [facility] [address] [place] [address] Dr. Jesse Maldonado SPEC GRAVITY 1.025 Normal 1.005-<=1.025 [facility] Comment on above: Performed By: #### B MP #### [facility] [address] [place] [address] Dr. Jesse Maldonado UA PROTEIN Negative Normal NEGATIVE/ TRACE [facility] Comment on above: Performed By: #### B MP #### [facility] [address] [place] [address] Dr. Jesse Maldonado UR MICRO IND INDICATED Normal [facility] Comment on above: Performed By: #### B MP #### [facility] [address] [place] [address] Dr. Jesse Maldonado Urobilinogen Qn (U) 0.2 {Christiano'U}/dL Normal 0.2 - 1. 0 [facility] Comment on above: Performed By: #### B MP #### [facility] [address] [place] [address] Dr. Jesse Maldonado URINE MICROSCOPIC ONLYon 09- 13-2022 BACTERIA SMALL Abnormal NONE SEEN [facility] Comment on above: Performed By: #### B MP #### [facility] [address] [place] [address] Dr. Jesse Maldonado Bacteria identified Cx Nom (U) INDICATED Normal [facility] Comment on above: Performed By: #### B MP #### [facility] [address] [place] [address] Dr. Jesse Maldonado CAST NONE SEEN Normal NONE SEEN [facility] Comment on above: Performed By: #### B MP #### [facility] [address] [place] [address] Dr. Jesse Maldonado Crystals LM Nom (Urine sed) NONE SEEN Normal NONE SEEN [facility] Comment on above: Performed By: #### B MP #### [facility] [address] [place] [address] Dr. Jesse Maldonado Epithelial cells LM Ql (Urine sed) MANY Abnormal NONE SEEN /RARE [facility] Comment on above: Performed By: #### B MP #### [facility] [address] [place] [address] Dr. Jesse Maldonado MUCOUS NONE SEEN Normal NONE SEEN [facility] Comment on above: Performed By: #### B MP #### [facility] [address] [place] [address] Dr. Jesse Maldonado RBC NONE SEEN Abnormal 0-2 [facility] Comment on above: Performed By: #### B MP #### [facility] [address] [place] [address] Dr. Jesse Maldonado WBC 10-20 Abnormal NONE SEEN [facility] Comment on above: Performed By: #### B MP #### [facility] [address] [place] [address] Dr. Jesse Maldonado CULTURE URINEon 02-05-2022 CULTURE [...] Trimethoprim/Sulfame thoxazole <=20 S F Normal [facility] Comment on above: Performed By: #### B MP #### [facility] [address] [place] [address] Dr. Jesse Maldonado CBC AUTO DIFFon 02-03-2022 BASO # 0.0 103/ul Normal 0.0-0.1 [facility] Comment on above: Performed By: #### C BC #### [facility] [address] [place] [address] Dr. Jesse Maldonado Basophils/100 WBC (Bld) 0.5 % Normal 0.2-2.0 [facility] Comment on above: Performed By: #### C BC #### [facility] [address] [place] [address] Dr. Jesse Maldonado EO # 0.2 103/ul Normal 0.0-0.7 [facility] Comment on above: Performed By: #### C BC #### [facility] [address] [place] [address] Dr. Jesse Maldonado Eosinophils/100 WBC (Bld) 2.0 % Normal 0.9-7.0 [facility] Comment on above: Performed By: #### C BC #### [facility] [address] [place] [address] Dr. Jesse Maldonado Erythrocyte distribution width (RBC) [Ratio] 14.5 % Normal 11.0-15.0 [facility] Comment on above: Performed By: #### C BC #### [facility] [address] [place] [address] Dr. Jesse Maldonado Hematocrit (Bld) [Volume fraction] 42.1 % Normal 36.0-48.0 [facility] Comment on above: Performed By: #### C BC #### [facility] [address] [place] [address] Dr. Jesse Maldonado Hemoglobin (Bld) [Mass/Vol] 13.6 g/dL Normal 12.0-16.0 [facility] Comment on above: Performed By: #### C BC #### [facility] [address] [place] [address] Dr. Jesse Maldonado IG # 0.03 10e3/ul Normal 0.00-0.03 [facility] Comment on above: Performed By: #### C BC #### [facility] [address] [place] [address] Dr. Jesse Maldonado IG % 0.4 % Normal 0.0-0.5 [facility] Comment on above: Performed By: #### C BC #### [facility] [address] [place] [address] Dr. Jesse Maldonado LYMPH # 2.1 103/ul Normal 1.2-3.8 [facility] Comment on above: Performed By: #### C BC #### [facility] [address] [address] [address] Dr. Jesse Maldonado Lymphocytes/100 WBC (Bld) 28.4 % Normal 20.5-60.0 [facility] Comment on above: Performed By: #### C BC #### [facility] [address] [place] [address] Dr. Jesse Maldonado MANUAL DIFF REQ NO [facility] Comment on above: Performed By: #### C BC #### [facility] [address] [address] Dr. Jesse Maldonado MCH (RBC) [Entitic mass] 29.3 pg Normal 26.7-34.0 [facility] Comment on above: Performed By: #### C BC #### [facility] [address] [address] Dr. Jesse Maldonado MCHC (RBC) [Mass/Vol] 32.3 g/dL Normal 29.9-35.2 [facility] Comment on above: Performed By: #### C BC #### [facility] [address] [address] Dr. Jesse Maldonado MCV (RBC) [Entitic vol] 90.7 fL Normal 81.0-99.0 [facility] Comment on above: Performed By: #### C BC #### [facility] [address] [place] [address] Dr. Jesse Maldonado MONO # 0.6 103/ul Normal 0.3-0.8 [facility] Comment on above: Performed By: #### C BC #### [facility] [address] [place] [address] Dr. Jesse Maldonado Monocytes/100 WBC (Bld) 7.9 % Normal 1.7-12.0 [facility] Comment on above: Performed By: #### C BC #### [facility] [address] [place] [address] Dr. Jesse Maldonado NEUT # 4.6 103/ul Normal 1.4-6.5 [facility] Comment on above: Performed By: #### C BC #### [facility] [address] [place] [address] Dr. Jesse Maldonado Neutrophils/100 WBC (Bld) 60.8 % Normal 43.0-75.0 [facility] Comment on above: Performed By: #### C BC #### [facility] [address] [place] [address] Dr. Jesse Maldonado Platelet mean volume (Bld) [Entitic vol] 9.1 fL Critically low 9.5-13.5 [facility] Comment on above: Performed By: #### C BC #### [facility] [address] [place] [address] Dr. Jesse Maldonado PLT 178 103/ul Normal 150-450 [facility] Comment on above: Performed By: #### C BC #### [facility] [address] [place] [address] Dr. Jesse Maldonado RBC 4.64 106/ul Normal 4.20-5.40 [facility] Comment on above: Performed By: #### C BC #### [facility] [address] [place] [address] Dr. Jesse Maldonado WBC 7.5 103/ul Normal 4.0-11.0 [facility] Comment on above: Performed By: #### C BC #### [facility] [address] [address] [address] Jesse Maldonado ER URINE PROFILEon 2 Bilirubin Ql (U) Negative Normal NEGATIVE [facility] Comment on above: Performed By: #### B MP #### [facility] [address] [address] [address] Jesse Maldonado Clarity (U) CLEAR Normal CLEAR [facility] Comment on above: Performed By: #### B MP #### [facility] [address] [address] [address] Jesse Maldonado Color (U) LT. YELLOW Normal YELLOW [facility] Comment on above: Performed By: #### B MP #### [facility] [address] [place] [address] Dr. Jesse JOHNSON A micrscopic examination will be performed if indicated. Normal [facility] Comment on above: Performed By: #### B MP #### [facility] [address] [address] [address] Jesse Maldonado Glucose Ql (U) Negative Normal NEGATIVE [facility] Comment on above: Performed By: #### B MP #### [facility] [address] [address] [address] Jesse Maldonado Hemoglobin Ql (U) TRACE-LYSED Abnormal NEGATIVE [facility] [place] Comment on above: Performed By: #### B MP #### [facility] [address] [address] [address] Jesse Maldonado Ketones Ql (U) Negative Normal NEGATIVE [facility] Comment on above: Performed By: #### B MP #### [facility] [address] [address] [address] Jesse Maldonado LEUKOCYTES Negative Normal NEGATIVE [facility] Comment on above: Performed By: #### B MP #### [facility] [address] [address] [address] Jesse Maldonado Nitrite Ql (U) Negative Normal NEGATIVE [facility] Comment on above: Performed By: #### B MP #### [facility] [address] [place] [address] Dr. Jesse Maldonado pH (U) 5.5 [pH] Normal 5-9 [facility] Comment on above: Performed By: #### B MP #### [facility] [address] [place] [address] Dr. Jesse Maldonado SPEC GRAVITY 1.020 Normal 1.005-<=1.025 [facility] Comment on above: Performed By: #### B MP #### [facility] [address] [place] [address] Dr. Jesse Maldonado UA PROTEIN Negative Normal NEGATIVE/ TRACE [facility] Comment on above: Performed By: #### B MP #### [facility] [address] [place] [address] Dr. Jesse Maldonado UR MICRO IND INDICATED Normal [facility] Comment on above: Performed By: #### B MP #### [facility] [address] [place] [address] Dr. Jesse Maldonado Urobilinogen Qn (U) 0.2 {Christiano'U}/dL Normal 0.2 - 1. 0 [facility] Comment on above: Performed By: #### B MP #### [facility] [address] [place] [address] Dr. Jsese Maldonado PROF CHEM 8 (BAS METB)on Anion gap [Moles/Vol] 13.4 mmol/L Normal [facility] Comment on above: Performed By: #### B MP #### [facility] [address] [place] [address] Dr. Jesse Maldonado Calcium [Mass/Vol] 8.6 mg/dL Normal 8.5-10.1 [facility] [place] Comment on above: Performed By: #### B MP #### [facility] [address] [place] [address] Dr. Jesse Maldonado Chloride [Moles/Vol] 105 mmol/L Normal 98-107 [facility] Comment on above: Performed By: #### B MP #### [facility] [address] [place] [address] Dr. Jesse Maldonado CO2 [Moles/Vol] 23.4 mmol/L Normal 21.0-32.0 [facility] Comment on above: Performed By: #### B MP #### [facility] [address] [address] [address] Jesse Maldonado Creatinine [Mass/Vol] 1.02 mg/dL Normal 0.55-1.02 [facility] Comment on above: Performed By: #### B MP #### [facility] [address] [address] [address] Jesse Maldonado EGFR-AF [place] 63 mL/min/1.73m2 Normal >=60 [facility] Comment on above: Performed By: #### B MP #### [facility] [address] [address] [address] Jesse Maldonado EGFR-NON AF [place] 52 mL/min/1.73m2 Critically low >=60 [facility] Comment on above: Performed By: #### B MP #### [facility] [address] [address] [address] Jesse Maldonado Glucose [Mass/Vol] 101 mg/dL Normal 74-106 [facility] Comment on above: Performed By: #### B MP #### [facility] [address] [address] [address] Jesse Maldonado Potassium [Moles/Vol] 3.8 mmol/L Normal 3.5-5.1 [facility] Comment on above: Performed By: #### B MP #### [facility] [address] [address] [address] Jesse Maldonado Sodium [Moles/Vol] 138 mmol/L Normal 136-145 [facility] Comment on above: Performed By: #### B MP #### [facility] [address] [address] [address] Jesse Maldonado Urea nitrogen [Mass/Vol] 18.0 mg/dL Normal 7.0-18.0 [facility] Comment on above: Performed By: #### B MP #### [facility] [address] [address] [address] Jesse Maldonado Urea nitrogen/Creatinine [Mass ratio] 17.6 mg/mg Normal [facility] Comment on above: Performed By: #### B MP #### [facility] [address] [place] [address] Dr. Jesse Maldonado URINE MICROSCOPIC ONLYon BACTERIA SMALL Abnormal NONE SEEN [facility] Comment on above: Performed By: #### B MP #### [facility] [address] [place] [address] Dr. Jesse Maldonado Bacteria identified Cx Nom (U) INDICATED Normal [facility] Comment on above: Performed By: #### B MP #### [facility] [address] [place] [address] Dr. Jesse Maldonado CAST SEEN Abnormal NONE SEEN [facility] Comment on above: Performed By: #### B MP #### [facility] [address] [place] [address] Dr. Jesse Maldonado Crystals LM Nom (Urine sed) NONE SEEN Normal NONE SEEN [facility] Comment on above: Performed By: #### B MP #### [facility] [address] [place] [address] Dr. Jesse Maldonado Epithelial cells LM Ql (Urine sed) FEW Abnormal NONE SEEN /RARE [facility] Comment on above: Performed By: #### B MP #### [facility] [address] [place] [address] Dr. Jesse Maldonado HYALINE CAST RARE Normal [facility] Comment on above: Performed By: #### B MP #### [facility] [address] [place] [address] Dr. Jesse Maldonado MUCOUS TRACE Abnormal NONE SEEN [facility] Comment on above: Performed By: #### B MP #### [facility] [address] [place] [address] Dr. Jesse Maldonado RBC 0-2 Normal 0-2 [facility] Comment on above: Performed By: #### B MP #### [facility] [address] [place] [address] Dr. Jesse Maldonado WBC 5-10 Abnormal NONE SEEN [facility] Comment on above: Performed By: #### B MP #### [facility] [address] [address] [address] Jesse Maldonado CNPTOUTRDeacon 09-02-2020 CNPTOUTRGEETACH Patient Outreach (COOCC3) LACIE GARZA ([id number]) 1940 F Date Time Provider Department 09/02/20 JUAN ALBERTO BANKS During your visit today, we recorded the following information about you: Allergies As of Date: 09/02/2020 Noted Allergy Reaction LINACLOTIDE 03/02/2016 6 - Diarrhea 11 - Vomiting Comments: Bile regurgitation Date Reviewed: 06/12/2019 Reviewed by: Doris Recinos) MAO De La Cruz - Fully Assessed Order(s):SARS-COVID VACCINE 1ST DOSE APPT [[id number]] Order #: [id number] FUTURE Prescriptions as of 09/02/2020 Sig: ACETAMINOPHEN [...] (HCC) [Z68.43] 08/08/2016 Coronary artery disease involving cahto churchill*10/04/2017 Paroxysmal atrial fibrillation (HCC) [I48.0] 06/04/2018 Calculus of kidney [N20.0] 06/25/2018 More... Left renal stone [N20.0] 06/11/2019 Encounter Status:Closed by [facility], PRODUSER on 09/06/20 Normal [facility] BASIC METABOLIC PANELon Calcium mass conc 8.2 mg/dL Low 8.6-10.3 [facility] Comment on above: Order Comment: Yes: Add to Previous draw if able Performed By: #### 0 0071 #### [facility] [address] [place] [address], [facility] Chloride molar conc 104 mmol/L Normal 98-107 [facility] Comment on above: Order Comment: Yes: Add to Previous draw if able Performed By: #### 0 0071 #### [facility] [address] [place] [address], [place] CO2 molar conc 27 mmol/L Normal 21-31 [facility] Comment on above: Order Comment: Yes: Add to Previous draw if able Performed By: #### 0 0071 #### [facility] [address] [place] [address], [place] Creatinine mass conc 0.70 mg/dL Normal 0.60-1.20 [facility] Comment on above: Order Comment: Yes: Add to Previous draw if able Performed By: #### 0 0071 #### [facility] [address] [place] [address], [place] GFR/1.73 sq M predicted among blacks MDRD vol rate/area (S/P/Bld) mL/min/{1.73_m2} Normal >60 [facility] Comment on above: Order Comment: Yes: Add to Previous draw if able Result Comment: Calc ulation may not be valid for patients over 70 years Performed By: #### 0 0071 #### [facility] [address] [place] [address], [place] GFR/1.73 sq M predicted among non-blacks MDRD vol rate/area (S/P/Bld) mL/min/{1.73_m2} Normal >60 [facility] Comment on above: Order Comment: Yes: Add to Previous draw if able Result Comment: Calc ulation may not be valid for patients over 70 years Performed By: #### 0 0071 #### [facility] [address] [place] [address], [place] Glucose mass conc 139 mg/dL High 70-100 [facility] Comment on above: Order Comment: Yes: Add to Previous draw if able Performed By: #### 0 0071 #### [facility] [address] [place] [address], [place] Potassium molar conc 3.4 mmol/L Low 3.5-5.1 [facility] Comment on above: Order Comment: Yes: Add to Previous draw if able Performed By: #### 0 0071 #### [facility] [address] [place] [address], [place] Sodium molar conc 139 mmol/L Normal 136-145 [facility] Comment on above: Order Comment: Yes: Add to Previous draw if able Performed By: #### 0 0071 #### [facility] [address] [place] [address], [place] Urea nitrogen mass conc 12 mg/dL Normal 7-25 [facility] Comment on above: Order Comment: Yes: Add to Previous draw if able Performed By: #### 0 0071 #### [facility] [address] [place] [address], [place] POC GLUCOSE LABon 08-14-2018 Glucose mass conc 123 mg/dL High 70-100 [facility] Comment on above: Performed By: #### 5 610, 72437 #### [facility] [address] [place] [address], [facility] Glucose mass conc 134 mg/dL High 70-100 [facility] Comment on above: Performed By: #### 5 610, 02229 #### [facility] [address] [place] [address], [facility] ACTIVATED CLOTTING TIMEon ACTIVATED CLOTTING TIME 115 sec Normal 82-152 [facility] Comment on above: Performed By: #### 5 610, 03596 #### [facility] [address] [place] [id number], [facility] BASIC METABOLIC PANELon Calcium mass conc 8.3 mg/dL Low 8.6-10.3 [facility] Comment on above: Order Comment: No: D o not add to previous draw Performed By: #### 5 610, 97452 #### [facility] [address] [place] [address], [facility] Chloride molar conc 105 mmol/L Normal 98-107 [facility] Comment on above: Order Comment: No: D o not add to previous draw Performed By: #### 5 610, 80974 #### [facility] [address] [place] [address], [facility] CO2 molar conc 25 mmol/L Normal 21-31 [facility] Comment on above: Order Comment: No: D o not add to previous draw Performed By: #### 5 610, 41900 #### [facility] [address] [place] [address], [facility] Creatinine mass conc 0.82 mg/dL Normal 0.60-1.20 [facility] Comment on above: Order Comment: No: D o not add to previous draw Performed By: #### 5 610, 93807 #### [facility] [address] [place] [address], [place] GFR/1.73 sq M predicted among blacks MDRD vol rate/area (S/P/Bld) mL/min/{1.73_m2} Normal >60 [facility] Comment on above: Order Comment: No: D o not add to previous draw Result Comment: Calc ulation may not be valid for patients over 70 years Performed By: #### 5 610, 10856 #### [facility] [address] [place] [address], [place] GFR/1.73 sq M predicted among non-blacks MDRD vol rate/area (S/P/Bld) mL/min/{1.73_m2} Normal >60 [facility] Comment on above: Order Comment: No: D o not add to previous draw Result Comment: Calc ulation may not be valid for patients over 70 years Performed By: #### 5 6101, 08097 #### [facility] [address] [place] [address], [place] Glucose mass conc 133 mg/dL High 70-100 [facility] Comment on above: Order Comment: No: D o not add to previous draw Performed By: #### 5 6101, 96200 #### [facility] [address] [place] [address], [place] Potassium molar conc 3.6 mmol/L Normal 3.5-5.1 [facility] Comment on above: Order Comment: No: D o not add to previous draw Performed By: #### 5 6101, 49581 #### [facility] [address] [place] [address], [place] Sodium molar conc 139 mmol/L Normal 136-145 [facility] Comment on above: Order Comment: No: D o not add to previous draw Performed By: #### 5 6101, 10423 #### [facility] [address] [place] [address], [place] Urea nitrogen mass conc 22 mg/dL Normal 7-25 [facility] Comment on above: Order Comment: No: D o not add to previous draw Performed By: #### 5 610, 90770 #### [facility] [address] [place] [address], [place] CBC COMPLETE BLOOD COUNTon 0 08-13-2018 Erythrocyte distribution width Ratio (RBC) 15.1 % High 11.5-15.0 [facility] Comment on above: Order Comment: No: D o not add to previous draw Performed By: #### 5 610, 68215 #### [facility] [address] [place] [address], [place] Erythrocyte distribution width Ratio (RBC) 15.3 % High 11.5-15.0 [facility] Comment on above: Order Comment: No: D o not add to previous draw Performed By: #### 5 610, 93185 #### [facility] [address] [place] [address], [place] Erythrocyte distribution width Ratio (RBC) 15.2 % High 11.5-15.0 [facility] Comment on above: Order Comment: No: D o not add to previous draw Performed By: #### 5 6100, 52274 #### [facility] [address] [place] [address], [place] Erythrocyte distribution width Ratio (RBC) 15.4 % High 11.5-15.0 [facility] Comment on above: Order Comment: No: D o not add to previous draw Performed By: #### 5 610, 25156 #### [facility] [address] [place] [address], [place] Hematocrit Volume Fraction (Bld) 33.7 % Low 36.0-45.0 [facility] Comment on above: Order Comment: No: D o not add to previous draw Performed By: #### 5 610, 00176 #### [facility] [address] [place] [address], [place] Hematocrit Volume Fraction (Bld) 33.7 % Low 36.0-45.0 [facility] Comment on above: Order Comment: No: D o not add to previous draw Performed By: #### 5 610, 06932 #### [facility] [address] [place] [address], [place] Hematocrit Volume Fraction (Bld) 33.0 % Low 36.0-45.0 [facility] Comment on above: Order Comment: No: D o not add to previous draw Performed By: #### 5 6100, 29467 #### [facility] [address] [place] [address], [place] Hematocrit Volume Fraction (Bld) 33.0 % Low 36.0-45.0 [facility] Comment on above: Order Comment: No: D o not add to previous draw Performed By: #### 5 6100, 90441 #### [facility] [address] [place] [address], [place] Hemoglobin mass conc (Bld) 10.7 g/dL Low 12.0-15.0 [facility] Comment on above: Order Comment: No: D o not add to previous draw Performed By: #### 5 6100, 21593 #### [facility] [address] [place] [address], [place] Hemoglobin mass conc (Bld) 10.7 g/dL Low 12.0-15.0 [facility] Comment on above: Order Comment: No: D o not add to previous draw Performed By: #### 5 610, 90320 #### [facility] [address] [place] [address], [place] Hemoglobin mass conc (Bld) 10.3 g/dL Low 12.0-15.0 [facility] Comment on above: Order Comment: No: D o not add to previous draw Performed By: #### 5 610, 68017 #### [facility] [address] [place] [address], [place] Hemoglobin mass conc (Bld) 10.2 g/dL Low 12.0-15.0 [facility] Comment on above: Order Comment: No: D o not add to previous draw Performed By: #### 5 610, 25171 #### [facility] [address] [place] [address], [facility] MCH Entitic mass (RBC) 27.0 pg Normal 27.0-33.0 [facility] Comment on above: Order Comment: No: D o not add to previous draw Performed By: #### 5 610, 09023 #### [facility] [address] [place] [address], [place] MCH Entitic mass (RBC) 26.9 pg Low 27.0-33.0 [facility] Comment on above: Order Comment: No: D o not add to previous draw Performed By: #### 5 6100, 05056 #### [facility] [address] [place] [address], [place] MCH Entitic mass (RBC) 26.4 pg Low 27.0-33.0 [facility] Comment on above: Order Comment: No: D o not add to previous draw Performed By: #### 5 6100, 80327 #### [facility] [address] [place] [address], [place] MCH Entitic mass (RBC) 26.6 pg Low 27.0-33.0 [facility] Comment on above: Order Comment: No: D o not add to previous draw Performed By: #### 5 610, 06812 #### [facility] [address] [place] [address], [place] MCHC mass conc (RBC) 31.8 g/dL Low 32.0-35.0 [facility] Comment on above: Order Comment: No: D o not add to previous draw Performed By: #### 5 610, 02612 #### [facility] [address] [place] [address], [place] MCHC mass conc (RBC) 31.8 g/dL Low 32.0-35.0 [facility] Comment on above: Order Comment: No: D o not add to previous draw Performed By: #### 5 610, 67885 #### [facility] [address] [place] [address], [place] MCHC mass conc (RBC) 31.2 g/dL Low 32.0-35.0 [facility] Comment on above: Order Comment: No: D o not add to previous draw Performed By: #### 5 610, 18760 #### [facility] [address] [place] [address], [place] MCHC mass conc (RBC) 30.9 g/dL Low 32.0-35.0 [facility] Comment on above: Order Comment: No: D o not add to previous draw Performed By: #### 5 610, 27676 #### [facility] [address] [place] [address], [place] MCV Entitic volume (RBC) 84.9 fL Normal 82.0-98.0 [facility] Comment on above: Order Comment: No: D o not add to previous draw Performed By: #### 5 610, 66801 #### [facility] [address] [place] [address], [place] MCV Entitic volume (RBC) 84.7 fL Normal 82.0-98.0 [facility] Comment on above: Order Comment: No: D o not add to previous draw Performed By: #### 5 610, 48814 #### [facility] [address] [place] [address], [place] MCV Entitic volume (RBC) 84.6 fL Normal 82.0-98.0 [facility] Comment on above: Order Comment: No: D o not add to previous draw Performed By: #### 5 610, 63182 #### [facility] [address] [place] [address], [place] MCV Entitic volume (RBC) 86.2 fL Normal 82.0-98.0 [facility] [place] Comment on above: Order Comment: No: D o not add to previous draw Performed By: #### 5 610, 46044 #### [facility] [address] [place] [address], [place] Nucleated RBC/100 WBC Ratio (Bld) 0 % Normal 0-0 [facility] [place] Comment on above: Order Comment: No: D o not add to previous draw Performed By: #### 5 610, 65715 #### [facility] [address] [place] [address], [place] Nucleated RBC/100 WBC Ratio (Bld) 0 % Normal 0-0 [facility] [place] Comment on above: Order Comment: No: D o not add to previous draw Performed By: #### 5 610, 73916 #### [facility] [address] [place] [address], [place] Nucleated RBC/100 WBC Ratio (Bld) 0 % Normal 0-0 [facility] [place] Comment on above: Order Comment: No: D o not add to previous draw Performed By: #### 5 610, 77469 #### [facility] [address] [place] [address], [place] Nucleated RBC/100 WBC Ratio (Bld) 0 % Normal 0-0 [facility] [place] Comment on above: Order Comment: No: D o not add to previous draw Performed By: #### 5 610, 86300 #### [facility] [address] [place] [address], [place] PLAT CNT 136 10*3/uL Low 150-400 [facility] [place] Comment on above: Order Comment: No: D o not add to previous draw Performed By: #### 5 610, 30836 #### [facility] [address] [place] [address], [place] PLAT CNT 138 10*3/uL Low 150-400 [facility] [place] Comment on above: Order Comment: No: D o not add to previous draw Performed By: #### 5 610, 75590 #### [facility] [address] [place] [address], [facility] PLAT CNT 135 10*3/uL Low 150-400 [facility] [place] Comment on above: Order Comment: No: D o not add to previous draw Performed By: #### 5 610, 93688 #### [facility] [address] [place] [address], [facility] PLAT CNT 130 10*3/uL Low 150-400 [facility] [place] Comment on above: Order Comment: No: D o not add to previous draw Performed By: #### 5 610, 38581 #### [facility] [address] [place] [address], [facility] RBC #/vol (Bld) 3.97 10*6/uL Normal 3.80-5.00 [facility] [place] Comment on above: Order Comment: No: D o not add to previous draw Performed By: #### 5 610, 44188 #### [facility] [address] [place] [id number], [facility] RBC #/vol (Bld) 3.98 10*6/uL Normal 3.80-5.00 [facility] [place] Comment on above: Order Comment: No: D o not add to previous draw Performed By: #### 5 610, 22783 #### [facility] [address] [place] [address], [facility] RBC #/vol (Bld) 3.90 10*6/uL Normal 3.80-5.00 [facility] [place] Comment on above: Order Comment: No: D o not add to previous draw Performed By: #### 5 610, 48736 #### [facility] [address] [place] [address], [facility] RBC #/vol (Bld) 3.83 10*6/uL Normal 3.80-5.00 [facility] [place] Comment on above: Order Comment: No: D o not add to previous draw Performed By: #### 5 6101, 71186 #### [facility] [address] [place] [address], [facility] WBC #/vol (Bld) 15.94 10*3/uL High 4.00-10.60 [facility] [place] Comment on above: Order Comment: No: D o not add to previous draw Performed By: #### 5 6101, 17750 #### [facility] [address] [place] [address], [facility] WBC #/vol (Bld) 13.08 10*3/uL High 4.00-10.60 [facility] [place] Comment on above: Order Comment: No: D o not add to previous draw Performed By: #### 5 6101, 37525 #### [facility] [address] [place] [id number], [facility] WBC #/vol (Bld) 12.38 10*3/uL High 4.00-10.60 [facility] [place] Comment on above: Order Comment: No: D o not add to previous draw Performed By: #### 5 6101, 89271 #### [facility] [address] [place] [id number], [facility] WBC #/vol (Bld) 11.09 10*3/uL High 4.00-10.60 [facility] [place] Comment on above: Order Comment: No: D o not add to previous draw Performed By: #### 5 6101, 18958 #### [facility] [address] [place] [address], [facility] Cardiovascular Lab Reporton 08-13-2018 Cardiovascular Lab Report [facility] Patient Name: [facility] MR #: [id number] Department of Physician: Delroy Randolph M.D. Division of Service Date: 08/12/2018 Cardiology Birthdate: 1940 Adult Cardiovascular Room #: [id number] [facility] [address] [place] [address] Cardiovascular Laboratory Report PERIPHERAL INTERVENTION REPORT CLINICAL PRESENTATION: The patient is an 78-year-old female with past medical history significant for atrial fibrillation, hypertension, severe obesity, prior cholecystectomy and hysterectomy. The patient has been diagnosed with a staghorn calculus and is being evaluated by Urology. She recently developed severe left leg swelling and pain. She was evaluated in the [facility] Emergency Department and diagnosed with acute left leg DVT. She is transferred to the [facility] for further evaluation. I personally reviewed the [...] a micropuncture access technique, I placed a 6-Eritrean sheath in the left popliteal vein. Venograms were performed. This showed heavy thrombus burden throughout the entire popliteal, femoral, and iliac veins on the left side. Using a 5-Eritrean angled glide catheter and angled Glidewire, I maneuvered to the IVC. Using an exchange J-wire, I exchanged to a 6-Eritrean pigtail catheter. Venogram was performed. Venogram showed [...] Mulligan M.D. Date Trans: 08/13/2018 03:48 A/prashant [id number] cc: Maria Eugenia Miranda M.D. [address] [facility] [address] Normal [facility] [place] FIBRINOGENon 08-13-2018 FIBRINOGEN 162 mg/dL Normal 150-425 [facility] [place] Comment on above: Performed By: #### 5 6101, 37788 #### [facility] [address] FIBRINOGEN 142 mg/dL Low 150-425 [facility] [place] Comment on above: Order Comment: No: D o not add to previous draw Performed By: #### 5 6101, 03470 #### [facility] [address] [place] [address], [facility] FIBRINOGEN 152 mg/dL Normal 150-425 [facility] [place] Comment on above: Order Comment: No: D o not add to previous draw Performed By: #### 5 6101, 84919 #### [facility] [address] POC GLUCOSE LABon 08-13-2018 Glucose mass conc 157 mg/dL High 70-100 [facility] [place] Comment on above: Performed By: #### 5 6101, 55860 #### [facility] [address] UFH HEPARIN ASSAYon 08-13-19 19 UNFRACTIONATED HEPARIN <0.10 Critically low 0.30-0.70 [facility] [place] Comment on above: Order Comment: No: D o not add to previous draw Result Comment: [place] roxaban and Apixaban will interfere with the anti Xa assay used to monitor UFH and LMWH. RESULTS CHECKED AND CALLED. ACCURATELY READ BACK BY Johana Zavaleta RN @ 0110 on 08-13-18 Performed By: #### 5 6101, 73366 #### [facility] [address] [place] [address], [facility] UNFRACTIONATED HEPARIN <0.10 Critically low 0.30-0.70 [facility] [place] Comment on above: Result Comment: [place] roxaban and Apixaban will interfere with the anti Xa assay used to monitor UFH and LMWH. RESULTS CHECKED AND CALLED. ACCURATELY READ BACK BY LAZARO WISE RN @ 0744 Performed By: #### 5 6101, 67656 #### [facility] [address] [facility]. [address] APTTon 08-12-2018 aPTT Coag time (Bld) 83.8 s Critically high 25.0-35.0 [facility] [place] Comment on above: Result Comment: ALL RESULTS [...] ACCURATELY READ BACK BY DELROY GUIDO RN @5495 CLINICAL SIGNIFICANCE OF THE PTT RESULT IS QUESTIONABLE IN THE PRESENCE OF HEPARIN. Performed By: #### 3 0477, 37276 #### [facility] [address] [facility] [address], [facility] BASIC METABOLIC PANELon Calcium mass conc 8.9 mg/dL Normal 8.6-10.3 [facility] [place] Comment on above: Order Comment: Yes: Add to Previous draw if able Performed By: #### 0 0071 #### [facility] [address] [place] [address], [facility] Calcium mass conc 8.8 mg/dL Normal 8.6-10.3 [facility] [place] Comment on above: Order Comment: No: D o not add to previous draw Performed By: #### 4 1000, 82826, 75765 #### [facility] [address] [place] [address], [place] Chloride molar conc 100 mmol/L Normal 98-107 [facility] [place] Comment on above: Order Comment: Yes: Add to Previous draw if able Performed By: #### 0 0071 #### [facility] [address] [place] [address], [place] Chloride molar conc 101 mmol/L Normal 98-107 [facility] [place] Comment on above: Order Comment: No: D o not add to previous draw Performed By: #### 4 1000, 65852, 44087 #### [facility] [address] [place] [address], [place] CO2 molar conc 23 mmol/L Normal 21-31 [facility] [place] Comment on above: Order Comment: Yes: Add to Previous draw if able Performed By: #### 0 0071 #### [facility] [address] [place] [address], [place] CO2 molar conc 24 mmol/L Normal 21-31 [facility] [place] Comment on above: Order Comment: No: D o not add to previous draw Performed By: #### 4 1000, 86232, 55429 #### [facility] [address] [place] [address], [place] Creatinine mass conc 1.01 mg/dL Normal 0.60-1.20 [facility] [place] Comment on above: Order Comment: Yes: Add to Previous draw if able Performed By: #### 0 0071 #### [facility] [address] [place] [address], [place] Creatinine mass conc 0.88 mg/dL Normal 0.60-1.20 [facility] [place] Comment on above: Order Comment: No: D o not add to previous draw Performed By: #### 4 1000, 11110, 26818 #### [facility] [address] [place] [address], [place] GFR/1.73 sq M predicted among blacks MDRD vol rate/area (S/P/Bld) mL/min/{1.73_m2} Normal >60 [facility] [place] Comment on above: Order Comment: Yes: Add to Previous draw if able Result Comment: Calc ulation may not be valid for patients over 70 years Performed By: #### 0 0071 #### [facility] [address] [place] [address], [place] GFR/1.73 sq M predicted among blacks MDRD vol rate/area (S/P/Bld) mL/min/{1.73_m2} Normal >60 [facility] [place] Comment on above: Order Comment: No: D o not add to previous draw Result Comment: Calc ulation may not be valid for patients over 70 years Performed By: #### 4 1000, 84464, 60180 #### [facility] [address] [place] [address], [facility] GFR/1.73 sq M predicted among non-blacks MDRD vol rate/area (S/P/Bld) 53 ml/min/1.73sq m Abnormal >60 [facility] [place] Comment on above: Order Comment: Yes: Add to Previous draw if able Result Comment: Calc ulation may not be valid for patients over 70 years Performed By: #### 0 0071 #### [facility] [address] [place] [address], [place] GFR/1.73 sq M predicted among non-blacks MDRD vol rate/area (S/P/Bld) mL/min/{1.73_m2} Normal >60 [facility] [place] Comment on above: Order Comment: No: D o not add to previous draw Result Comment: Calc ulation may not be valid for patients over 70 years Performed By: #### 4 1000, 47769, 19255 #### [facility] [address] [place] [address], [place] Glucose mass conc 167 mg/dL High 70-100 [facility] [place] Comment on above: Order Comment: Yes: Add to Previous draw if able Performed By: #### 0 0071 #### [facility] [address] [place] [address], [place] Glucose mass conc 136 mg/dL High 70-100 [facility] [place] Comment on above: Order Comment: No: D o not add to previous draw Performed By: #### 4 1000, 07568, 32543 #### [facility] [address] [place] [address], [place] Potassium molar conc 3.4 mmol/L Low 3.5-5.1 [facility] [place] Comment on above: Order Comment: Yes: Add to Previous draw if able Performed By: #### 0 0071 #### [facility] [address] [place] [address], [place] Potassium molar conc 3.5 mmol/L Normal 3.5-5.1 [facility] [place] Comment on above: Order Comment: No: D o not add to previous draw Performed By: #### 4 999, 10075, 84428 #### [facility] [address] [place] [address], [place] Sodium molar conc 136 mmol/L Normal 136-145 [facility] [place] Comment on above: Order Comment: Yes: Add to Previous draw if able Performed By: #### 0 0071 #### [facility] [address] [place] [address], [place] Sodium molar conc 137 mmol/L Normal 136-145 [facility] [place] Comment on above: Order Comment: No: D o not add to previous draw Performed By: #### 4 999, 35139, 74792 #### [facility] [address] [place] [address], [place] Urea nitrogen mass conc 22 mg/dL Normal 7-25 [facility] [place] Comment on above: Order Comment: Yes: Add to Previous draw if able Performed By: #### 0 0071 #### [facility] [address] [place] [address], [place] Urea nitrogen mass conc 20 mg/dL Normal 7-25 [facility] [place] Comment on above: Order Comment: No: D o not add to previous draw Performed By: #### 4 1000, 73786, 05931 #### [facility] [address] [place] [id number], [facility] CBC COMPLETE BLOOD COUNTon 0 08-12-2018 Erythrocyte distribution width Ratio (RBC) 14.9 % Normal 11.5-15.0 [facility] [place] Comment on above: Order Comment: No: D o not add to previous draw Performed By: #### 5 0608 #### [facility] [address] [place] [address], [facility] Erythrocyte distribution width Ratio (RBC) 15.0 % Normal 11.5-15.0 [facility] [place] Comment on above: Order Comment: No: D o not add to previous draw Performed By: #### 5 6101, 69198 #### [facility] [address] [place] [id number], [facility] Hematocrit Volume Fraction (Bld) 36.7 % Normal 36.0-45.0 [facility] [place] Comment on above: Order Comment: No: D o not add to previous draw Performed By: #### 5 0608 #### [facility] [address] [place] [address], [facility] Hematocrit Volume Fraction (Bld) 39.2 % Normal 36.0-45.0 [facility] [place] Comment on above: Order Comment: No: D o not add to previous draw Performed By: #### 5 6101, 38448 #### [facility] [address] [place] [address], [place] Hemoglobin mass conc (Bld) 11.4 g/dL Low 12.0-15.0 [facility] [place] Comment on above: Order Comment: No: D o not add to previous draw Performed By: #### 5 0608 #### [facility] [address] [place] [address], [place] Hemoglobin mass conc (Bld) 11.9 g/dL Low 12.0-15.0 [facility] [place] Comment on above: Order Comment: No: D o not add to previous draw Performed By: #### 5 6101, 17775 #### [facility] [address] [place] [address], [facility] MCH Entitic mass (RBC) 26.3 pg Low 27.0-33.0 [facility] [place] Comment on above: Order Comment: No: D o not add to previous draw Performed By: #### 5 0608 #### [facility] [address] [place] [address], [facility] MCH Entitic mass (RBC) 27.0 pg Normal 27.0-33.0 [facility] [place] Comment on above: Order Comment: No: D o not add to previous draw Performed By: #### 5 6101, 11246 #### [facility] [address] [place] [address], [facility] MCHC mass conc (RBC) 31.1 g/dL Low 32.0-35.0 [facility] [place] Comment on above: Order Comment: No: D o not add to previous draw Performed By: #### 5 0608 #### [facility] [address] [place] [id number], [facility] MCHC mass conc (RBC) 30.4 g/dL Low 32.0-35.0 [facility] [place] Comment on above: Order Comment: No: D o not add to previous draw Performed By: #### 5 6101, 06400 #### [facility] [address] [place] [address], [facility] MCV Entitic volume (RBC) 84.8 fL Normal 82.0-98.0 [facility] [place] Comment on above: Order Comment: No: D o not add to previous draw Performed By: #### 5 0608 #### [facility] [address] [place] [address], [facility] MCV Entitic volume (RBC) 89.1 fL Normal 82.0-98.0 [facility] [place] Comment on above: Order Comment: No: D o not add to previous draw Performed By: #### 5 6101, 03187 #### [facility] [address] [place] [address], [facility] Nucleated RBC/100 WBC Ratio (Bld) 0 % Normal 0-0 [facility] [place] Comment on above: Order Comment: No: D o not add to previous draw Performed By: #### 5 0608 #### [facility] [address] [place] [address], [facility] Nucleated RBC/100 WBC Ratio (Bld) 0 % Normal 0-0 [facility] [place] Comment on above: Order Comment: No: D o not add to previous draw Performed By: #### 5 6101, 23472 #### [facility] [address] [place] [address], [facility] PLAT CNT 183 10*3/uL Normal 150-400 [facility] [place] Comment on above: Order Comment: No: D o not add to previous draw Performed By: #### 5 0608 #### [facility] [address] [place] [address], [facility] PLAT CNT 168 10*3/uL Normal 150-400 [facility] [place] Comment on above: Order Comment: No: D o not add to previous draw Performed By: #### 5 6101, 59097 #### [facility] [address] [place] [address], [facility] RBC #/vol (Bld) 4.33 10*6/uL Normal 3.80-5.00 [facility] [place] Comment on above: Order Comment: No: D o not add to previous draw Performed By: #### 5 0608 #### [facility] [address] [place] [address], [facility] RBC #/vol (Bld) 4.40 10*6/uL Normal 3.80-5.00 [facility] [place] Comment on above: Order Comment: No: D o not add to previous draw Performed By: #### 5 6101, 28411 #### [facility] [address] [place] [address], [facility] WBC #/vol (Bld) 11.41 10*3/uL High 4.00-10.60 [facility] [place] Comment on above: Order Comment: No: D o not add to previous draw Performed By: #### 5 0608 #### [facility] [address] [place] [id number], [facility] WBC #/vol (Bld) 19.58 10*3/uL High 4.00-10.60 [facility] [place] Comment on above: Order Comment: No: D o not add to previous draw Performed By: #### 5 6101, 97103 #### [facility] [address] [place] [address], [facility] FIBRINOGENon 08-12-2018 FIBRINOGEN 324 mg/dL Normal 150-425 [facility] [place] Comment on above: Order Comment: No: D o not add to previous draw Performed By: #### 5 6101, 55421 #### [facility] [address] [place] [address], [facility] MAGNESIUM BLOODon 08-12-2018 Magnesium mass conc 2.0 mg/dL Normal 1.9-2.7 [facility] [place] Comment on above: Order Comment: No: D o not add to previous draw Performed By: #### 4 999, 84124, 26334 #### [facility] [address] [place] [address], [facility] PHOSPHORUS BLOODon 9 Phosphate mass conc 4.0 mg/dL Normal 2.5-5.0 [facility] [place] Comment on above: Order Comment: No: D o not add to previous draw Performed By: #### 4 999, 07438, 89654 #### [facility] [address] [place] [id number], [facility] TYPE AND SCREENon 08-12-2018 ABO INTERPRETATION O Normal [facility] [place] Comment on above: Order Comment: No: D o not add to previous draw Performed By: #### 5 6101, 26719 #### [facility] [address] [place] [address], [facility] RH INTERPRETATION Positive Normal [facility] [place] Comment on above: Order Comment: No: D o not add to previous draw Performed By: #### 5 6101, 48613 #### [facility] [address] UFH HEPARIN ASSAYon 08-12-19 19 UNFRACTIONATED HEPARIN >1.00 Critically high 0.30-0.70 [facility] [place] Comment on above: Result Comment: [place] roxaban and Apixaban will interfere with the anti Xa assay used to monitor UFH and LMWH. RESULTS CHECKED AND CALLED. ACCURATELY READ BACK BY DELROY GUIDO RN @9833 UFH=1.54 Performed By: #### 3 0477, 09744 #### [facility] [address] UNFRACTIONATED HEPARIN 0.79 IU/mL High 0.30-0.70 [facility] [place] Comment on above: Result Comment: [place] roxaban and Apixaban will interfere with the anti Xa assay used to monitor UFH and LMWH. Performed By: #### 5 6101, 23839 #### [facility] [address] [place] [address], [facility] UNFRACTIONATED HEPARIN 0.19 IU/mL Low 0.30-0.70 [facility] [place] Comment on above: Result Comment: [place] roxaban and Apixaban will interfere with the anti Xa assay used to monitor UFH and LMWH. Performed By: #### 5 6101, 34613 #### [facility] [address] [place] [address], [facility] UNFRACTIONATED HEPARIN 0.14 IU/mL Critically low 0.30-0.70 [facility] [place] Comment on above: Order Comment: No: D o not add to previous draw Result Comment: [place] roxaban and Apixaban will interfere with the anti Xa assay used to monitor UFH and LMWH. RESULTS CHECKED AND CALLED. ACCURATELY READ BACK BY SALVATORE Garay Performed By: #### 5 6101, 83545 #### [facility] [address] APTTon 08-11-2018 aPTT Coag time (Bld) 36.9 s High 25.0-35.0 [facility] [place] Comment on above: Order Comment: No: D [...] THIS PURPOSE. Performed By: #### 5 [id number], [id number] #### [facility] [address] CBC COMPLETE BLOOD COUNTon 0 08-11-2018 Erythrocyte distribution width Ratio (RBC) 15.2 % High 11.5-15.0 [facility] [place] Comment on above: Order Comment: No: D o not add to previous draw Performed By: #### 5 [id number] #### [facility] 3000 [facility]. [address] Hematocrit Volume Fraction (Bld) 43.6 % Normal 36.0-45.0 [facility] [place] Comment on above: Order Comment: No: D o not add to previous draw Performed By: #### 5 [id number] #### [facility] 3000 [facility]. [address] Hemoglobin mass conc (Bld) 13.4 g/dL Normal 12.0-15.0 [facility] [place] Comment on above: Order Comment: No: D o not add to previous draw Performed By: #### 5 [id number] #### [facility] [address] [facility] [place] [place] [address], [facility] IMM PLATELET FRAC 2.6 % Normal 0.8-6.3 [facility] [place] Comment on above: Order Comment: No: D o not add to previous draw Performed By: #### 5 [id number] #### [facility] [address] [place] [address], [facility] MCH Entitic mass (RBC) 27.0 pg Normal 27.0-33.0 [facility] [place] Comment on above: Order Comment: No: D o not add to previous draw Performed By: #### 5 [id number] #### [facility] [address] MCHC mass conc (RBC) 30.7 g/dL Low 32.0-35.0 [facility] [place] Comment on above: Order Comment: No: D o not add to previous draw Performed By: #### 5 [id number] #### [facility] [address] MCV Entitic volume (RBC) 87.7 fL Normal 82.0-98.0 [facility] [place] Comment on above: Order Comment: No: D o not add to previous draw Performed By: #### 5 [id number] #### [facility] 3000 [facility]. [address] Nucleated RBC/100 WBC Ratio (Bld) 0 % Normal 0-0 [facility] [place] Comment on above: Order Comment: No: D o not add to previous draw Performed By: #### 5 [id number] #### [facility] [address] [place] [address], [facility] PLAT CNT 122 10*3/uL Low 150-400 [facility] [place] Comment on above: Order Comment: No: D o not add to previous draw Performed By: #### 5 [id number] #### [facility] [address] [place] [address], [facility] RBC #/vol (Bld) 4.97 10*6/uL Normal 3.80-5.00 [facility] [place] Comment on above: Order Comment: No: D o not add to previous draw Performed By: #### 5 [id number] #### [facility] [address] [place] [address], [facility] WBC #/vol (Bld) 12.98 10*3/uL High 4.00-10.60 [facility] [place] Comment on above: Order Comment: No: D o not add to previous draw Performed By: #### 5 [id number] #### [facility] [address] PROTHROMBIN TIMEon 9 INR Coag RelTime (PPP) 1.27 {INR} High 0.91-1.16 [facility] [place] Comment on above: Order Comment: No: D [...] CHEST 1995;[id number]. Performed By: #### 5 [id number], [id number] #### [facility] [address] Prothrombin time (PT) Coag time (PPP) 15.9 s High 12.3-14.8 [facility] [place] Comment on above: Order Comment: No: D o not add to previous draw Result Comment: ALL RESULTS MUST BE INTERPRETED WITH RESPECT TO BLOOD DRAWING ARTIFACT OR DILUTION ERROR OF ANTICOAGULANT AT THE TIME OF SAMPLING. Performed By: #### 5 [id number], [id number] #### [facility] [place] [address], [facility] Social History Date Type Detail Facility Start: 02-05-2024 Alcohol intake Current non-dr head shipper of alcohol (finding) [facility] Start: 09-17-2020 End: 07-27-2023 Sex Assigned At Female [facility] [place] Start: 07-12-2023 End: 07-27-2023 Alcohol intake Lifetime non-drinker (finding) [email or web address] Start: 09-17-2020 End: 07-27-2023 History of Social function [email or web address] Start: 06-24-2015 End: 11-01-2022 Tobacco use and exposure [facility]ok[facility] Start: 06-24-2015 End: 10-25-2020 Tobacco smoking status Never smoked tobacco (finding) [facility] [place] Start: 1940 Sex Assigned At Not on file [employer] Tobacco smoking status Never [facility] [place] Vital Signs Date Time Vital Sign Value Performing Clinician Faci lity 02-05-2024 11:18040 Body height 152.4 cm Murali Rangel MD Work Phone: [facility] 02-05-2024 11:18-040 Body mass index (BMI) [Ratio] 54.1 kg/m2 Murali Rangel MD Work Phone: [facility] 02-05-2024 11:18-040 Body weight 125.65 kg Murali Rangel MD Work Phone: [facility] 02-05-2024 11:18-040 Diastolic blood pressure 81 mm[Hg] Murali Rangel MD Work Phone: [facility] 02-05-2024 11:18-0400 Heart rate 55 /min Murali Rangel MD Work Phone: [facility] 02-05-2024 11:18-0400 Respiratory rate 18 /min Murali Rangel MD Work Phone: [facility] 02-05-2024 11:18-0400 Systolic blood pressure 129 mm[Hg] Murali Rangel MD Work Phone: [facility] 11-27-2023 10:18-0400 Blood Pressure Location REGINA MAVERICK [facility] 11-27-2023 10:18-0400 Diastolic blood pressure 71 mm[Hg] REGINA MAVERICK [facility] 11-27-2023 10:18-0400 Heart rate 77 /min REGINA MAVERICK [facility] 11-27-2023 10:18-0400 Respiratory rate 16 /min REGINA MAVERICK [facility] 11-27-2023 10:18-0400 Systolic blood pressure 131 mm[Hg] REGINA MAVERICK [facility] 04-24-2023 10:11-0400 Blood Pressure Location REGINA MAVERICK [facility] 04-24-2023 10:11-0400 Diastolic blood pressure 85 mm[Hg] REGINA MAVERICK [facility] 04-24-2023 10:11-0400 Heart rate 87 /min REGINA MAVERICK [facility] 04-24-2023 10:11-0400 Respiratory rate 16 /min REGINA MAVERICK [facility] 04-24-2023 10:11-0400 Systolic blood pressure 144 mm[Hg] REGINA VALIENTE [facility] 05-10-2022 13:43-0400 Blood Pressure Location Shayne England [facility] 05-10-2022 13:43-0400 Diastolic blood pressure 70 mm[Hg] Shayne England [facility] 05-10-2022 13:43-0400 Heart rate 77 /min Shayne England [facility] 05-10-2022 13:43-0400 Respiratory rate 16 /min Shayne England [facility] 05-10-2022 13:43-0400 Systolic blood pressure 117 mm[Hg] Shayne England [facility] Functional Status Date Assessment Result Facility 01-08-2024 Functional Status N/A [facility] 11-27-2023 Functional Status N/A [facility] 08-07-2023 Functional Status N/A [facility] 04-24-2023 Functional Status N/A [facility] 06-06-2022 Functional Status N/A [facility] 05-10-2022 Functional Status N/A [facility] Clinical Notes 06-13-2022 to 02-05-2024 Murali Rangle MD - 02/05/2024 11:34 AM EDTTelephone Encounter - Arianna Miner LPN - 09/20/2023 9:39 AM ESTTelephone Encounter - Arianna Miner LPN - 09/20/2023 9:39 AM EST Note Date & Type Note Facility 02-05-2024 History of Present illness Narrative STAFF UROLOGY NOTE: We had the pleasure of seeing Lacie Garza in our Mult[facility] today. [...] based on size, location, hounsfield units and byzt-jk-fjejs distance: 30% 3. Ureteroscopy - risks of [...] atrial fibrillation (HCC), Coronary artery disease involving cahto coronary artery of cahto heart without angina pectoris, 50% ostial LAD, [...] with more than 50% of the total dssb-kh-dxiy time of the visit devoted to patient counseling/coordination of care. Murali Rangel MD Director, Surgical Stone Disease [facility] [place], [facility] Pager [phone] 02/05/2024 documented in this encounter [facility] 01-08-2024 Hospital Discharge instructions Patient Education [...] Follow these instructions at home: Medicines Take ekkj-wpo-kvctjyx and prescription medicines only as told by [...] prevent or treat constipation, such as: ?Take ryzm-xsm-opdegtl or prescription medicines. ?Eat foods that are [...] provider. Document Revised: 11/29/2022 Document Reviewed: 03/27/2022 [employer] Patient Education 2022 [employer] Inc. 01/08/2024 15:29:36 Laser Therapy for Kidney [...] including vitamins, herbs, eye drops, creams, and llww-ugm-ehphogn medicines. Any problems you or family members [...] provider tells you to take them. ?Taking rjap-fmh-xgzqoyt medicines, vitamins, herbs, and supplements. Eating and [...] provider. Document Revised: 11/29/2022 Document Reviewed: 03/27/2022 [employer] Patient Education 2022 [employer] Follow Up Care 01/02/2024 15:42:06 With:MAVERICK TREJO, REGINA Covington, URL Address: [address] [address] When: Unknown [facility] [employer] 11-27-2023 Hospital Discharge instructions Patient Education 11/27/2023 10:53:04 Urinary Tract Infection, Adult, Vokw-mc-Hith Urinary Tract Infection, Adult A urinary tract [...] Follow these instructions at home: Medicines Take busu-idu-osuqqkw and prescription medicines only as told by [...] provider. Document Revised: 03/04/2021 Document Reviewed: 03/04/2021 [employer] Patient Education 2022 [employer] Follow Up Care 04/24/2023 10:40:01 With:MAVERICK TREJO, REGINA [place], URL Address: [address] [place] [address] [phone] When: Unknown [facility] [employer] 09-20-2023 Miscellaneous Notes Johann requesting refill of Atorvastatin to [facility] documented in this encounter [facility] 09-20-2023 Telephone encounter Note Johann requesting refill of Atorvastatin to [facility] 08-27-2023 Miscellaneous Notes Left voicemail for patient informing her appointment on 08/29/2023 with [facility] was cancelled due to provider out of office in the morning, asked that patient contact our office to reschedule the appointment. documented in this encounter [facility] 08-27-2023 Telephone encounter Note Left voicemail for patient informing her appointment on 08/29/2023 with [facility] was cancelled due to provider out of office in the morning, asked that patient contact our office to reschedule the appointment. [facility] 08-20-2023 Miscellaneous Notes Left voicemail to move 08/29 appointment to later time on same day or 09/05. documented in this encounter [facility] 01-15-2024 Telephone encounter Note Left voicemail to move 08/29 appointment to later time on same day or 09/05. [employer] Work Phone: 08-07-2023 Hospital Discharge instructions Patient [...] With:Leonardo REGAN Address: [facility] [address] [place] [address]- Business (1) When:08/21/2023 12:26:37 Comments:With a bladder scan [facility] 08-07-2023 Note [id number] [facility] 08-07-2023 Note Custom Cystoscopy with Botox [...] you have a fever over 100 degrees. [facility] 05-25-2023 Note Stable, continue top rol and eliquis D/W pt and family that if pt has recurrent falls/injury will need to revisit risk vs benefit of anticoagulation. [facility] 05-25-2023 Note [facility]III Continue GDMT- increase lasix to 40 mg daily- Diuretic therapy Monitor daily weights, I&O, fluid restriction 1.5-2L/day, renal function and electrolytes [facility] 05-25-2023 Note Hypertension is Elev ated 142/96- pt currently is not taking metoprolol 100 mg daily. Therefore, will resume toprol- script sent and med list sent with pt and family. [facility] 05-25-2023 Note Coronary artery dise ase is stable Continue GDMT- lipitor, toprol continue risk factor modifications- heart healthy diet, regular exercise as tolerated and continue all medications. [facility] 05-25-2023 Note Patient here per c/o LE edema and uncontrolled hypertension, per [facility]. Had labs today before apt. Amlodipine was stopped at last visit in February 2023 by Jorge Cassidy CNP due to lightheadedness and hypotension. Metoprolol [...] All other systems reviewed and are negative. [facility] 05-25-2023 Note [facility] ESS NOTE HPI: Lacie Garza is a 83 y.o. female here for F/U after visit with Pulm and concerns of elevated B/P and leg swelling Patient here per c/o LE edema and uncontrolled hypertension, per [facility]. Had labs today before apt. Amlodipine was stopped at last visit in February 2023 by Jorge Cassidy CNP due to lightheadedness and hypotension. Metoprolol [...] 10/16/2017 was negativ (more content not included)... [facility] 05-23-2023 Note [facility] [place] called office today r/t concerns of uncontrolled HTN, leg edema of this pt at their visit today. State b/p was 140-150/80-90, sat 93%, HR stable in office- they asked if pt should be evaluated in ED. Recommended to offer to pt evaluation in ED, the other alternative is that she may be able to be seen in cardiology clinic in [place] tomorrow or Sunday depending if pulmonology provider feels pt is stable enough or not. Make sure pt is taking lasix and metoprolol as prescribed and I will send orders for labs- CBC, CMP and BNP Message sent to Lucia Graff MA in [facility] to set up appt tomorrow or Sunday and to call pt tomorrow. Shell Guardado TEACHER AIDE Division of Cardiology, [facility]- [phone] Pager- [phone] Email- [email or web address] 04-24-2023 Hospital Discharge instructions Patient Education [...] provider. Document Revised: 12/01/2021 Document Reviewed: 12/01/2021 [employer] Patient Education 2022 [employer]. Follow Up Care 10/17/2022 10:59:55 With:REGINA VALIENTE PA-C, URL Address: [address] [place] [address] When:Within 7 Month(s) [facility] 03-02-2023 Note Subjective Patient ID: Lacie Garza [...] past 36 hour(s)). No follow-ups on file. [facility] 03-02-2023 Note Cardiology Clinic No te Subjective Lacie Garza is a 83 y.o. year old female patient with past medical history of atrial fibrillation on Eliquis, nonobstructive coronary artery disease, hypertension, peripheral artery disease, history of DVT, and morbid obesity seen in follow-up. Patient Active Problem List Diagnosis Coronary arteriosclerosis in cahto artery Chronic diastolic heart failure (CMS/HCC) Calculus [...] on eliquis, coronary artery disease (coronary angiography 2015 showed moderate ostial LAD stenosis about 50%, [...] fibrillation as k (more content not included)... [facility] 10-17-2022 Hospital Discharge instructions Patient Education 10/17/2022 [...] (electrical nerve stimulation). For women, using a hospitalist medical director to prevent urine leaks. This is a [...] right after experiencing incontinence. General instructions Take lgqy-jum-pzbmnhe and prescription medicines only as told by [...] 08/30/2005 Document Revised: 08/02/2018 Document Reviewed: 11/01/2017 [employer] Patient Education 2020 [employer]. Follow Up Care 06/13/2022 11:49:22 With:MAVERICK TREJO, REGINA Nadya, URL Address: [address] [place] [address] When: Unknown [facility] [place] 08-15-2022 Note Patient here for 6 m [...] All other systems reviewed and are negative. [facility] 08-15-2022 Note Cardiovascular Medic ine [place] [facility] SUBJECTIVE Chief Complaint Patient presents with [...] of 09/16/2018: She recently was admitted to [facility] with extensive left lower extremity DVT and underwent catheter directed lysis with placement of a retrievable Option Elite IVC filter. She had a duplex ultrasound of the legs that showed evidence of significant arterial obstruction to flow. This was done at [facility] on 09/09/2018. She has no palpable pulses [...] and pain. She was evaluated in the [facility] Emergency Department and diagnosed with acute left leg DVT. She is transferred to the [facility] for further evaluation. Duplex ultrasound showed large [...] antibiotics. Patient Ac (more content not included)... [facility] 06-13-2022 Hospital Discharge instructions Patient Education 06/13/2022 [...] With:Leonardo REGAN Address: [facility] [address], [place] [address]- Business (1) When:10/11/2022 11:35:57 Comments:Patient is to see the physician executive chef assistant [facility] Evaluation + Plan note No data available for this section [facility] Evaluation + Plan note Future Appointments Appointment Date:10/17/2022 11:00:00 AM Scheduled Provider:REGINA VALIENTE PA-C Location:[facility] Appointment Type:URO Office Visit [facility] Evaluation + Plan note Future Appointments Appointment Date:04/24/2023 10:00:00 AM Scheduled Provider:REGINA VALIENTE PA-C [facility] Appointment Type:URO Office Visit [facility] Evaluation + Plan note Future Appointments Appointment Date:11/27/2023 10:00:00 AM Scheduled Provider:REGINA VALIENTE PA-C Location:[facility] Appointment Type:URO Office Visit [facility] Evaluation + Plan note Future Appointments Appointment Date:08/07/2023 11:30:00 AM Scheduled Provider: Location:[facility] Appointment Type:Urology FT Appointment Date:08/28/2023 10:00:00 AM Scheduled Provider:REGINA VALIENTE PA-C Location:[facility] Appointment Type:URO Office Visit Appointment Date:11/27/2023 10:00:00 AM Scheduled Provider:REGINA VALIENTE PA-C Location:[facility] Appointment Type:URO Office Visit [facility] Evaluation + Plan note Future Appointments Appointment Date:08/28/2023 10:00:00 AM Scheduled Provider:REGINA VALIENTE PA-C Location:[facility] Appointment Type:URO Office Visit Appointment Date:11/27/2023 10:00:00 AM Scheduled Provider:REGINA VALIENTE PA-C Location:[facility] Appointment Type:URO Office Visit [facility] Evaluation + Plan note Future Appointments Appointment Date:06/10/2024 10:00:00 AM Scheduled Provider:REGINA VALIENTE PA-C Location:[facility] Appointment Type:URO Office Visit [facility] Evaluation + Plan note Future Appointments Appointment Date:06/10/2024 10:00:00 AM Scheduled Provider:REGINA VALIENTE PA-C Location:[facility] Appointment Type:URO Office Visit Diagnostic Tests PendingUrine Culture 11/27/23 [facility] Evaluation + Plan note Future Appointments Appointment Date:06/10/2024 10:00:00 AM Scheduled Provider:REGINA VALIENTE PA-C Location:[facility] Appointment Type:URO Office Visit Diagnostic Tests PendingUrine Culture 12/07/23 [facility] Evaluation + Plan note Future Appointments Appointment Date:06/10/2024 10:00:00 AM Scheduled Provider:REGINA VALIENTE PA-C Location:[facility] Appointment Type:URO Office Visit Diagnostic Tests PendingUTI ([facility]) 12/20/23 [facility] Evaluation note Diagnosis Calculus of kidney- Primary Kidney stones Calculus of kidney Primary hypertension Unspecified essential hypertension Paroxysmal atrial fibrillation (HCC) Atrial fibrillation Coronary artery disease involving cahto coronary artery of cahto heart without angina pectoris, 50% ostial LAD, 60% OM1 Urinary incontinence, mixed Mixed incontinence urge and stress (male)(female) documented in this encounter [facility] Discharge instructions No data available for this section [facility] InstructionsNot on filedocumented in this encounter [facility] filedocumented in this [facility] No data available for this section [facility] Summary Purpose Family History No Family History [...] Documents on File Type Date Recorded Patient Denier Control Operator Expl anation Advance Directive(s) 08/02/2018 3:20 PM Hospital Course Note MR#: [id number] I [facility] Pt. Name: Lacie Garza Admitted: 08/11/2018 [...] to have these renal calculi addressed at [facility] in [facility], but had not gone to t (more content not included)... Additional Source Comments INFORMATION SOURCE (unrecogn ized section and content) DATE CREATED AUTHOR 09/24/2018 [facility] DATE CREATED AUTHOR AUTHOR'S ORGANIZ ATION 09/19/2020 [facility] DATE CREATED AUTHOR AUTHOR'S ORGANIZ ATION 09/06/2022 [facility] DATE CREATED AUTHOR AUTHOR'S ORGANIZ ATION 05/27/2023 [facility] DATE CREATED AUTHOR AUTHOR'S ORGANIZ ATION 12/15/2023 [facility] EPIC DATE CREATED AUTHOR AUTHOR'S ORGANIZ ATION 01/09/2024 [facility] DATE CREATED AUTHOR AUTHOR'S ORGANIZ ATION 01/28/2024 [facility] DATE CREATED AUTHOR AUTHOR'S ORGANIZ ATION 02/03/2024 [facility] Patient Care team informatio n (unrecognized section and content) Paste Up Artist Relationship Specialty Start Date End Date Juan Diego Castillo APRN-HAND PAINTER [address] [place] [address] PCP - General Family Medicine 03/15/23 Paste Up Artist Relationship Specialty Start Date End Date Juan Diego Castillo APRN-HAND PAINTER [address] [place] [address] PCP - General Family Medicine 03/15/23 Paste Up Artist Relationship Specialty Start Date End Date Compa Foote MD [address] [facility] [address] [place] [address] PCP - Abhay MESA 08/11/21 Mary Lugo MD [address] [place] [address] PCP - General Family Medicine 04/03/23 Paste Up Artist Relationship Specialty Start Date End Date Juan Diego Castillo APRN-HAND PAINTER [address] [place] [address] PCP - General Family Medicine 03/15/23 Paste Up Artist Relationship Specialty Start Date End Date Compa Foote II, MD [address] [place] [address] PCP - General Internal Medicine 05/30/19 [place] [address] [place] [id number] Family Medicine 06/17/15 Reason for Visit (unrecogniz [...] or prosecute any alcohol or drug abuse patient.[facility] FOR RECORDS PERTAINING TO PATIENTS WHO [...] BE BASED ON THE PRIMARY CLINICAL RECORDS. [employer] [facility]. provides no warranty or guarantee of the accuracy or completeness of information in this document.
== END 2024-02-06 10:30 | disposition home or self-care (01) ==
LOC: LAB 10:30
PROVIDERS: PCP Family Medicine; Visit Provider Nurse Practitioner
DX: I50.32 Chronic diastolic (congestive) heart failure (principal)
CPT/HCPCS: 36415; 83880

== ENCOUNTER 2024-03-14 09:53 | Outpatient (OUT) | payer MEDICARE, OTHER, SELFPAY ==
--- NOTE | 2024-03-14 10:00 | CA_ITS ---
Patient Name: KEENAN SILVA MR#: [id number] : 1940 Exam Date: 03/14/2024 Ordering Doctor: JAROD GUARDADO ECHOCARDIOGRAM REPORT PROCEDURE: CA ECHO DOPPLER COMPLETE INDICATIONS: Dyspnea, suspected heart failure, atrial fibrillation COMPARISON: None. DESCRIPTION: COMPLETE ECHOCARDIOGRAM Real-time transthoracic echocardiography with 2D, M-mode, spectral and color flow Doppler performed. QUALITY: Technical quality was good. LEFT VENTRICLE: Normal chamber size. Mild left ventricular hypertrophy. LV EF: Global left ventricular systolic function is difficult to assess but appears preserved; visually estimated ejection fraction is 55 to 60%. Unable to assess regional wall motion abnormalities. DIASTOLIC: Not adequately assessed due to heart rhythm. ATRIAL SEPTUM: Inadequately seen. LEFT ATRIUM: Severe dilatation. RIGHT ATRIUM: Moderate dilatation. RIGHT VENTRICLE: Mild dilatation. Decreased right ventricular systolic function. TRICUSPID VALVE: Normal mobility and thickness. No stenosis with no regurgitation. Unable to assess right-sided pressures due to lack of measurable tricuspid regurgitation. MITRAL VALVE: Normal mobility and thickness. No evidence of mitral valve stenosis. There is no mitral annular calcification. Mild mitral regurgitation. AORTIC VALVE: Normal trileaflet appearance. Mildly calcified aortic valve. Normal leaflet mobility. No evidence of aortic valve stenosis. No aortic regurgitation. AORTIC ROOT: Normal diameter and appearance. PULMONIC VALVE: Normal thickness and mobility. No stenosis. No regurgitation. PERICARDIUM: No evidence of pericardial effusion. IVC: Collapses with inspirations. CONCLUSION: 1. Global left ventricular systolic function is difficult to assess but appears preserved; visually estimated ejection fraction is 55 to 60% 2. The right ventricle is mildly dilated with reduced systolic function 3. Biatrial dilatation 4. Mild left ventricular hypertrophy 5. Mild mitral regurgitation Adult Echocardiography Procedure Report Left Ventricle LVEDD (3.7 - 5.6 cm): 4.43 cm LVESD (2.2 - 4.0 cm): 3.67 cm LVIVS thickness (0.6 - 1.2 cm): 1.18 cm LVPW thickness (0.5 - 1.0 cm): 1.15 cm LVOT Max Gradient: 1.99 mm[Hg], 1.59 mm[Hg] LVOT Area (cm2): 0.67 m/s Peak Velocity (LVOT): 0.71 m/s, 0.63 m/s LVOT Diameter 2.38 cm Left Atrium LA Volume Index (2D A2C): 57.30 ml/m2 Left Atrium Systolic Dimension: 5.62 cm Mitral Valve Mitral Valve E-Wave Peak Velocity: 0.91 m/s Right Ventricle Aorta AO Root Diam: 3.63 cm Ascending Ao Diam: 3.41 cm Aortic Valve AoV Area (Peak Victor Manuel): 3.05 cm2, 3.44 cm2, 2.71 cm2 Peak Velocity(Antegrade Flow): 0.91 m/s, 1.03 m/s Peak Gradient(Antegrade Flow): 3.33 mm[Hg], 4.27 mm[Hg] Tricuspid Valve Pulmonic Valve Mean Gradient: 1.60 mm[Hg] Mean Velocity: 0.58 m/s Peak Velocity: 0.98 m/s, 0.93 m/s Peak Gradient: 3.43 mm[Hg], 3.86 mm[Hg] Right Atrium Right Atrium Systolic Pressure: 82.31 ml, 82.31 ml Dictated by: Theo Hester M.D. on 03/17/2024 at 12:22 Approved by: Theo Hester M.D. on 03/17/2024 at 12:25
--- OUTSIDE RECORDS SUMMARY | 2024-03-14 10:09 | XMS_ITS | CCD ---
Author Organization [facility] Care Team Providers Care Survey Project Manager Name Role Phone DEE DEE GARBER Admitting Unavailable SELF, REFERRED Referring Unavailable MARIA EUGENIA BHATIA Primary Care Unavailable MARY DRAKE Attending Unavailable NE Procedure Practitioner Unavailab KENNEDI Warner Surgeon Unavailable COMPA FOOTE Primary Care Physician [...] Unavailable MERLIN, DR DARYA Falk Attending Unavailabl nadya BOYER, DR DARYA Flak Consulting Unavailavelino FOOTE, DR DIXON Primary Care Unavailable MERLIN, DR DARYA Falk Admitting UnavailMARY Brewer Primary Care Physician JUAN DIEGO CASTILLO Primary Care Physician Unav ailable Anna PEDIATRIC ALLERGIST-Juan Diego HOLLINS Primary Care Provide r Compa Foote MD Unavailable Mary Lugo MD Primary Care Provider MICHELLE VIDALES Attending Unavailable MAKENNA TAMAYO Attending Unavailable MAKENNA TAMAYO Attending Unavailable MAKENNA TAMAYO Attending Unavailable JUAN DIEGO CASTILLO Primary Care Unavailable REGINA VALIENTE Attending Unavailable REGINA VALIENTE Attending Unavailable JUAN DIEGO CASTILLO Primary Care Unavailable JUAN DIEGO CASTILLO Primary Care Unavailable Leonardo REGAN Attending Unavailable JUAN DIEGO CASTILLO Primary Care Unavailable Leonardo REGAN Attending Unavailable REGINA VALIENTE Attending Unavailable Leonardo REGAN Referring Unavailable SCHLACHTER, JUAN DIEGO Primary Care Unavailable Leonardo REGAN Admitting Unavailable Leonardo REGAN R Attending Unavailable SCHLACHTER, JUAN DIEGO Primary [...] REGINA E Attending Unavailable SCHLACHTER, JUAN DIEGO Referring Unavailable SCHLACHTER, JUAN DIEGO Primary Care Unavailable Qamar GREENFIELD MD, Compa Calhoun Primary Care Provider John ELY, Maria Eugenia C[place] Unavailable JORGE CASSIDY Attending Unavailable SHELL GUARDADO Attending Unavailable GEO, SHELL Attending Unavailable COMPA FOOTE II Primary Care Unavailable MITZI RANGEL Attending Unavailable SCHLACHTER, JUAN DIEGO Attending Unavailable [...] Unavailable SCHLACHTER, JUAN DIEGO Primary Care Unavailable Allergies Allergy Classification Reported Allergen(s) Allergy Type Date of Onset Reaction(s) Facility (9 sources) linaclotide; Translations: [LINACLOTIDE] Drug Allergy 6 Diarrhea, Other (See Comments), GI Disturbance, Vomiting [facility] (1 source) linaclotide Drug Allergy 6 Diarrhea [facility] Medications Current Medications Medication Drug Class(es) Dates Sig (Normalized) Sig (Original) 8 hr acetaminophen 650 mg extended release oral tablet (3 sources) take 1 tablet by mouth every eight hours as needed acetaminophen (TYLENOL ARTHRITIS PAIN) 650 mg CR tablet Take 650 mg by mouth every 8 hours as needed. 0 Active [id number] 200 actuat albuterol 0.09 mg/actuat metered dose inhaler (8 sources) beta2-Adrenergic Agonist Start: 06-05-2023 take 2 [...] Chronic obstructive pulmonary disease, unspecified COPD type ([facility]) Inhale 2 puffs [...] 0 Active amLODIPine 5 mg oral tablet (5 sources) Dihydropyridine Calcium Channel Hussein Star t: 06-07- 15 take 1 tablet by mouth once daily amLODIPine (NORVASC) 5 mg tablet Take 1 tablet by mouth once daily. 90 tablet 3 05/22/2018 Active apixaban 5 mg oral tablet (20 sources) Factor Xa Inhibitor Star t: 05-06-20 20 take 1 mg by mouth twice [...] mg/ml / clotrimazole 10 mg/ml topical cream (2 sources) Azole Antifungal, Corticosteroid Star t: 01-04 clotrimazole-betamethason [...] day(s), # 14 cap(s), Refills(s) 0, Pharmacy: [facility] #[id number], 153, cm, 11/27/23 10:33:00 EDT, Height/Length Dosing, 120, kg, 11/27/23 10:33:00 EDT, Weight Dosing Start Date: 11/27/23 Stop Date: 12/04/23 Status: Ordered Start: 07-27-2023 take 1 capsule by [facility] twice daily Keflex 500 mg Cap 500 mg = 1 cap(s), Oral, BID, Start the day prior to procedure, # 14 cap(s), Refills(s) 0, Pharmacy: [facility] #[id number], 153, cm, 06/05/23 11:56:00 EDT, Height/Length Dosing, 116, kg, 06/05/23 11:56:00 EDT, Weight Dosing Start Date: 07/27/23 Status: Ordered Start: 06-05-2023 take 1 capsule by [facility] twice daily Keflex 250 mg Cap 250 mg = 1 cap(s), Oral, BID, Start the day before the procedure, # 14 cap(s), Refills(s) 0, Pharmacy: [facility] #[id number], 153, cm, 06/05/23 11:56:00 EDT, Height/Length Dosing, 116, kg, 06/05/23 11:56:00 EDT, Weight Dosing Start Date: 06/05/23 Status: Ordered diazePAM 5 mg oral tablet (3 sources) Benzodiazepine Start: 07-27-2023 Valium 5 mg Tab 5 mg = 1 tab(s), Oral, Once, Take 1 hour prior to procedure. Have a patient transportation driver, # 1 tab(s), Refills(s) 0, Pharmacy: [facility] #[id number], 153, cm, 06/05/23 11:56:00 EDT, Height/Length Dosing, 116, kg, 06/05/23 11:56:00 EDT, Weight Dosing Start Date: 07/27/23 Status: Ordered docusate sodium 100 mg oral capsule (2 sources) Start: 06-11-2019 take 1 capsule by mouth twice daily docusate sodium (COLACE) 100 mg capsule Take 1 capsule by mouth twice daily. 30 capsule 0 06/11/2019 Active donepezil hydrochloride 5 mg oral tablet (17 sources) Start: 04-06-2023 donepezil (ARICEPT) 5 mg tablet Take 5 mg by mouth. 0 04/24/2023 Active FLUoxetine 40 mg oral capsule (20 sources) Serotonin Reuptake Inhibitor Start: 05-10-2022 FLUoxetine [...] Active memantine hydrochloride 10 mg oral tablet (14 sources) F-fargpx-V-aspartate Receptor Antagonist Start: 01-11-2024 End: 02-10-2024 memantine (NAMENDA) 10 mg tablet Take 10 mg by mouth. 0 01/11/2024 02/10/2024 Active Start: 03-30-2023 memantine 5 mg Tab Refills(s) 0 Start Date: 04/24/23 Status: Ordered 24 hr metoprolol succinate 100 mg extended release oral tablet (8 sources) beta-Adrenergic Hussein Start: 05-28-2023 take 1 [...] mirabegron 50 mg extended release oral tablet (19 sources) beta3-Adrenergi c Agonist Start: 02-26-2023 take 1 tablet by mouth every twenty-four hours in the morning mirabegron ER (Myrbetriq) 50 MG 24 hr tablet Indications: OAB (overactive bladder) Take 1 tablet (50 mg) by mouth in the morning. 100 tablet 3 02/26/2023 Active Start: 10-17-2022 take 1 tablet by mouth once da tomasa Myrbetriq 50 mg oral tablet, extended release 50 mg = 1 tab(s), Oral, Daily Start Date: 06/05/23 Status: Ordered Start: 06-26-2021 End: 06-21-2022 take [...] 14 cap(s), Refills(s) 0, [facility]: [id number], 153, cm, 01/08/24 15:17:00 EDT, Height/Length Dosing, 116, kg, 01/08/24 15:17:00 EDT, Weight Dosing Start Date: 01/08/24 Stop Date: 01/15/24 Status: Ordered Oxygen (1 source) oxygen (O2) gas 2 L/min if needed. 0 Active OXYGEN, HOME THERAPY, (2 sources) OXYGEN, HOME THERAPY, 2 L/min by Nasal Cannula route as directed. 0 Active pantoprazole 40 mg delayed release oral tablet (20 sources) Proton Pump Inhibitor Start: 05-17-2020 take [...] # 9 tab(s), Refills(s) 0, [facility]acy: [facility] #[id number], 153, cm, 11/27/23 10:33:00 EDT, Height/Length Dosing, [...] Status: Ordered QUEtiapine 25 mg oral tablet (4 sources) Atypical Antipsychotic Start: 12-13-2023 QUEtiap ine (SEROQUEL) 25 mg tablet Take 25 mg by mouth. 0 12/13/2023 Active Start: 07-12-2023 take 0.5 tablet by m [...] 2 diabetes mellitus without complication, unspecified whether group home insulin use ([facility]) Inject 0.5 mg under the skin 1 [...] day(s), 20 tab(s), Refill(s) 0, [facility] #[id number], 153, cm, 11/27/23 10:33:00 EDT, Height/Length Dosing, [...] Ordered tamsulosin hydrochloride 0.4 mg oral capsule (5 sources) alpha-Adrenergic Hussein Start: 06-12-2019 tamsulosin ER [...] day(s), # 180 cap(s), Refills(s) 3, Pharmacy: [id number], 153, cm, 10/25/20 11:47:00 EDT, [...] procedure., # 2 tab(s), Refills(s) 0, Pharmacy: [facility] [id number], 153, cm, 10/25/20 11:47:00 EDT, Height/Length Dosing, 125, kg, 10/25... Start Date: 05/10/22 Status: Ordered linaclotide 0.29 mg oral capsule (5 sources) Guanylate Cyclase-C Agonist Start: 07-02-2015 take [...] [Unspecified visual loss] Onset: 12-22-2022 12-22-2022 Chronic Cardiac dysrhythmias (12 sources) Chronic atrial fibrillation; Translations: [Longstanding persistent [...] Onset: 09-05-2022 Episodic Congestive heart failure; nonhypertensive (10 sources) Chronic diastolic heart failure; Translations: [Chronic diastolic (congestive) heart failure] Onset: 06-24-2015 03-15-2023 Chronic Coronary atherosclerosis and other heart disease (13 sources) Coronary arteriosclerosis; Translations: [Atherosclerotic heart disease of [place] coronary artery without angina pectoris] Onset: 06-24-2015 Resolved: 09-06-2017 03-15-2023 Chronic Deficiency and other anemia (1 source) [...] Essential (primary) hypertension; Translations: [Hypertensive disorder] Onset: 08-08-2016 07-02-2015 Chronic Genitourinary symptoms and ill-defined conditions (20 sources) Mixed incontinence; Translations: [Incontinence] Onset: 04-23-2022 Chronic Genitourinary symptoms and ill-defined conditions (20 sources) Dysuria; Translations: [Dysuria] Onset: 04-23-2022 Episodic Hypertension with complications and secondary hypertension (5 sources) Benign hypertensive heart disease with congestive [...] Onset: 12-22-2022 12-22-2022 Chronic Other gastrointestinal disorders (3 sources) Pelvic mass; Translations: [Intra-abdominal and pelvic [...] Chronic Other nutritional; endocrine; and metabolic disorders (3 sources) Body mass index 40+ - severely obese; Translations: [Body mass index (BMI) 50.0-59.9, adult] Onset: 08-08-2016 07-12-2023 Chronic Other screening for suspected conditions (not mental disorders or infectious disease) (1 source) Patient encounter status; Translations: [Encounter for screening for other disorder] 02-05-2024 Episodic Peripheral and visceral atherosclerosis (3 sources) Peripheral vascular disease; Translations: [Peripheral vascular disease, unspecified] Onset: 12-22-2022 12-22-2022 Chronic Phlebitis; thrombophlebitis and thromboembolism (6 [...] (PEDIATRIC)] Onset: 08-11-2018 Chronic Residual codes; unclassified (16 sources) Sleep apnea; Translations: [Sleep apnea, unspecified] [...] BOTH CERVIX AND UTERUS] Onset: 09-06-2022 Episodic Retinal detachments; defects; vascular occlusion; and retinopathy (4 sources) Exudative age-related macular degeneration; Translations: [Exudative age-related macular degeneration, unspecified eye, stage unspecified] Onset: 12-22-2022 12-22-2022 Chronic Rheumatoid arthritis and related disease (1 source) Rheumatoid arthritis; Translations: [Rheumatoid arthritis, unspecified] Onset: 12-22-2022 12-22-2022 Chronic Transient cerebral ischemia (17 sources) Transient cerebral ischemia; Translations: [Transient cerebral [...] Classification Problem Date Documented Da te Episodic/Chronic Calculus of urinary tract (20 sources) Calculus of kidney; Translations: [History of calculus of kidney] Onset: 08-08-2016 Episodic Nausea and vomiting (3 sources) Nausea; Translations: [NAUSEA] Onset: 02-03-2022 Episodic Other aftercare (1 source) snf (current) use of anticoagulants; Translations: [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 CURRNT USE ANTICOAGULANTS] Onset: 02-07-2022 Episodic Other aftercare (1 source) Other group home (current) drug therapy; Translations: [OTH THREADING 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 CURRENT DRUG THERAPY] Onset: 02-07-2022 Episodic Other connective tissue disease (1 source) [...] veins of left lower extremity] Onset: 08-11-2018 12-27-2022 Episodic Residual codes; unclassified (1 source) Altered [...] Translations: [Other amnesia] Onset: 12-22-2022 12-22-2022 Episodic Residual codes; unclassified (2 sources) Edema, unspecified; Translations: [Edema, unspecified] Onset: 05-25-2023 Episodic Spondylosis; intervertebral disc disorders; other back problems (4 sources) Lumbar radiculopathy; Translations: [Radiculopathy, lumbar region] Onset: 12-22-2022 05-03-2023 Episodic Unclassified (3 sources) Onset: 07-27-2023 07-27-2023 Results Test Name Value Interpretation Reference Range Facil ity 37on 02-06-2024 37 Increase lasix to 1 tablet twice a day for next 2-3 days and then return to 1 tab daily- (take in the morning and then again in early afternoon- 1-2 pm) Continue all other [facility] will call when to come in for Echocardigram *Continue heart healthy diet and low sodium diet. *Monitor daily weights, fluid restriction 1.5-2Liters/day, lab work to check kidney/renal function and electrolytes *Call office for weight gain of 2 pounds in 1 day or 5 pounds in 1 week, increased leg swelling, shortness of breath or shortness of breath at night and having to sleep sitting up taller/more pillows than normal or in recliner. Normal [facility] Office Visiton 02-06-2024 Follow-up visit [id number] Lacie Garza 1940 F Date Provider Department Center 02/06/2024 Alen-SHELL GUARDADO MAIA [place] Family History Problem Relation Age of Onset Coronary artery disease Mother Family Status - Relation Status Age at Mother Level of Service:77012 NE OFFICE/OUTPATIENT ESTABLISHED MOD MDM 30 MIN Normal [facility] CNOVon 02-05-2024 CNOV Office Visit (UROLMN) LACIE GARZA Nadya ([id number]) 1940 F CHT Date Time Provider Department 02/05/24 11:00 AM MITZI RANGEL During your visit today, we recorded the following information about you: Pulse Respiration Blood pressure Weight 55/minute 18/minute 129/81 125.6 kg Height 1.524 m Mitzi Rangel MD 02/05/2024 7:06 PM Signed STAFF UROLOGY NOTE: We had the pleasure [...] returns after approximately 7 years, referred by Theresa Milliganusky, for possible treatment of left renal stone [...] based on size, location, hounsfield units and hazt-hq-hwomu distance: 30% 3. Ureteroscopy - risks of [...] atrial fibrillation (HCC), Coronary artery disease involving [place] coronary artery of [place] heart without angina pectoris, 50% ostial LAD, [...] with more than 50% of the total qiun-qt-oxsc time of the visit devoted to patient counseling/coordinat ion of care. Mitzi Rangel MD Director, Surgical Stone Disease [facility] [place], [facility] Pager [phone] 02/05/2024 Referring Provider: SELF [200] Allergies As of Date: 02/05/2024 Noted Allergy Reaction LINACLOTIDE 03/02/2016 6 - Diarrhea 11 - Vomiting Comments: Bile regurgitation Date Reviewed: 02/05/2024 Reviewed by: Anna Benitez OCCA - Fully Assessed Primary Visit Diagnosis:Calculus of kidney [N20.0] Other Visit Diagnoses:Kidney stones [N20.0] Primary hypertension [I10] Paroxysmal atrial fibrillation (HCC) [I48.0] Coronary artery disease involving [place] coronary artery of [place] heart without angina pectoris, 50% ostial LAD, 60% OM1 [I25.10] Urinary incontinence, mixed [N39.46] Prescriptions as of 02/06/2024 - albuterol HFA (PROVENTIL HFA, VENTOLIN HFA) 90 mcg/actuation inhaler Inhale 2 Puffs as instructed every 6 hours as needed. - clotrimazole-betamet hasone (LOTRISONE) cream Apply 1 Application to affected area. - donepezil (ARICEPT) 5 mg tablet Take 5 mg by mouth. - FLUoxetine (PROZAC) 40 mg capsule Take 40 mg by mouth every morning. - memantine (NAMENDA) 10 mg tablet Take 10 mg by mouth. - QUEtiapine (SEROQ (more content not included)... Normal [facility] Screenson 01-09-2024 Screens [id number]# 1.00TIFF Normal [facility] Ambulatory Visit Summaryon 0 01-08-2024 Ambulatory Visit [...] REGINA VALIENTE PA-C Where: [facility] Emergency Department Patient Educationon 01-08-20 Patient Education Nephrology Laser [...] these instructions at home: Medicines ? Take uibo-dfc-oouibqc and prescription medicines only as told by [...] or treat constipation, such as: ? Take ikmi-jtq-wybhgek or prescription medicines. ? Eat foods that [...] provider. Document Revised: 11/29/2022 Document Reviewed: 03/27/2022 [employer] Patient Education ? 2022 [employer] Laser Therapy for Kidney Stones Laser [...] including vitamins, herbs, eye drops, creams, and otro-zqv-vrltwtz medicines. ? Any problems you or family [...] kidney st (more content not included)... Normal [facility] Urology Office/Clinic Noteon 01-08-2024 Urology Office/Clinic Note [...] and 05/25/20. Follow-up With When Contact Information REGINA VALIENTE PA-C, URL [address] [facility] [place] [address] Additional Instructions: schedule L URS, L laser litho with Dr. Regan Patient Education Laser Therapy for Kidney Stones, Care After Laser Therapy for Kidney Stones Documentation recorded by the scribe Caty Coyne accurately reflects the services(s) I performed and decisions made by me. Authenticated by Regina Valiente PA-C on 01/08/2024 15:45:37. Caty Becerra, personally scribed for [facility] on 01/08/2024 15:32:29. . Problem List/Past Medical History Ongoing Apnea, sleep At risk for falls Dysuria Flank pain GERD (gastroesophageal reflux disease) Hiatal hernia History of ki (more content not included)... Normal [facility] Comment on above: Result Comment: Elec tronically Signed By: MAVERICK TREJO, REGINA Covington\.br\Date and Time Signed: 01/08/24 15:46 EDT\.br\Electronically Co-Signed By: Caty Coyne\.br\Date and Time Co-Signed: 01/08/24 15:33 EDT RAD - CT Reporton 01-07-2024 RAD - CT Report [id number] #1.00TIFF Normal [facility] Pre-Certification Formon Pre-Certification Form [id number] #1.00TIFF Normal [facility] UTI (P4 Labs)on 12-25-2023 URINARY TRACT PATHOGENS PANEL:-:PT:URINE:-: PROBE.AMP.TAR Diagnosis Info Invalid Interpretation Code [facility] Comment on above: Result Comment: Álvaro verónica UTI Organisms Acinetobacter baumannii:NOTDETECTED Aerococcus urinae:DETECTED Alloscardovia [...] on: 12/25/2023 22:17:02 Performed By: #### 2 [id number] #### [facility] Laboratory [address] [place] [address] UTI ( Labs)on 12-20-2023 UTI Method of Extraction Voided Normal [facility] Comment on above: Performed By: #### 2 [id number] #### [facility] [address] [place] [address] UTI Number of Jars 1 Invalid Interpretation Code [facility] Comment on above: Performed By: #### 2 [id number] #### [facility] [address] [place] [address] UTI Specimen Urine Normal [facility] Comment on above: Performed By: #### 2 [id number] #### [facility] [address] [place] [address] UTI Type of Service Global Normal [facility] Comment on above: Performed By: #### 2 [id number] #### [facility] [address] [place] [address] C Urineon 12-09-2023 Bacteria identified Cx Nom [...] Locations R1: This test was performed at: [facility], [address] [place] [address], [address]- , [place], [facility] Comment on above: Performed By: #### 2 [id number] ####[address] [place] [address] C Urineon 11-29-2023 Bacteria identified Cx Nom [...] Locations R1: This test was performed at: [facility], [address] [place] [address], [address]- , [place], Normal [facility] Comment on above: Performed By: #### 2 [id number] ####[facility] [id number] [place] [address] Screenson 11-28-2023 Screens [id number] 9#1.00TIFF [facility] Ambulatory Visit Summaryon 0 11-27-2023 Ambulatory Visit [...] TREJO, FRANCISCA BALTAZAR When: Where: [address] [place] [address] [id number] Medications What How Much When Instructions Unchanged diazepam (Valium 5 mg Tab) 1 Tablets By Mouth Once Take 1 hour prior to procedure. Have a patient transportation driver Unchanged apixaban (Eliquis 5 mg oral [...] sexually active. (more content not included)... Normal [facility] Patient Educationon 11-27-19 Patient Education Obstetrics and [...] these instructions at home: Medicines ? Take trmg-qqe-nrltsii and prescription medicines only as told by [...] provider. Document Revised: 03/04/2021 Document Reviewed: 03/04/2021 [employer] Patient Education ? 2022 [employer]. [facility] Urology Office/Clinic Noteon 11-27-2023 Urology Office/Clinic Note [...] -Timed voids -bowel regimen -Cont Myrbetriq Ordered: 54018 Measure Post Void residual urine and/or bladder [...] Urnls Dip Stick Auto w/o Microscopy POC 90254 3. 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 Reported improvement in urination after dilation. Grade 2 cystocele noted at that time. S/p Cysto/UD 06/13/[address] Regan. No noticeable improvement this time. [2] Good, steady stream. Ordered: 76959 Measure Post Void residual urine and/or bladder [...] Urnls Dip Stick Auto w/o Microscopy POC 24826 4. History of kidney stones (Z87.442: Personal history of urinary calculi) Has passed stones on her own before. Has also required surgical intervention. No recent stone episodes. denies flank pain. Ordered: 62007 Measure Post Void residual urine and/or bladder capacity by US- non-imaging Body Mass Index (BMI) documented 3008F Current tobacco non-user 1036F Depression Screening Negative 3352F Influenza immunization status assessed 1030F Medication list documented in med (more content not included)... Normal [facility] Comment on above: Result Comment: Elec tronically Signed By: REGINA VALIENTE PA-C\.br\Date and Time Signed: 11/27/23 11:13 EDT\.br\Electronically Co-Signed By: Lauren Foote\.br\Date and Time Co-Signed: 11/27/23 10:54 EDT Consent for Procedure/Surger yon 08-30-2023 Consent for Procedure/Surgery [id number] 9#1.00TIFF [facility] Insurance Correspondenceon 0 08-09-2023 Insurance Correspondence [id number] 7#1.00TIFF Normal [facility] Consent for Procedure/Surger yon 08-07-2023 Consent for Procedure/Surgery [id number] 0#1.00TIFF Normal [facility] Consent for Treatmenton -0 Consent for Treatment [id number] #1.00TIFF Normal [facility] IntraOperative Documentson 0 08-07-2023 IntraOperative Documents [id number] 5#1.00TIFF [facility] Main OR Intraoperative Recor don 08-07-2023 Main OR Intraoperative Record IntraOp Document Type FTURO Summary Primary Physician: Leonardo REGAN MD Finalized Date/Time: 08/07/23 12:34:13 Pt. Name: LACIE GARZA/Sex: 1940 Female Med Rec #: [id number] Physician: Leonardo REGAN MD Financial #: [id number] Pt. Type: O Room/Bed: / Admit/Disch: 08/07/23 10:19:19 - Institution: Case Times FTURO Entry 1 Patient Times In Room 08/07/23 12:10:00 Out Room 08/07/23 12:30:00 Procedure Times Start 08/07/23 12:13:00 Stop 08/07/23 12:25:00 Anesthesia Times Last Modified By: Maritza CAVANAUGH, Samantha THURSTON 08/07/23 12:22:43 Case Attendance FTURO Entry 1 Entry 2 Entry 3 Case Attendee SHEREEN ELY, Leonardo Salas RN, KARENA, Rosy Warner Role Performed Surgeon - Primary Tailer In - Primary Scrub - Primary Time In 08/07/23 12:10:00 08/07/23 12:10:00 08/07/23 12:10:00 Time Out 08/07/23 12:30:00 08/07/23 12:30:00 08/07/23 12:30:00 Procedure CYSTOSCOPY LOCAL BOTOX CYSTOSCOPY LOCAL BOTOX CYSTOSCOPY LOCAL BOTOX INJECTION(.) INJECTION(.) INJECTION(.) Comments Last Modified By: Maritza CAVANAUGH, CNOR, Maritza CAVANAUGH, EVIEOR, Maritza CAVANAUGH, EVIEOR, Samantha 08/07/23 Samantha 08/07/23 Samantha 08/07/23 12:22:44 12:22:44 12:22:44 Surgical Procedures FTURO Entry 1 Procedure Description Procedure CYSTOSCOPY LOCAL [employer] Mod[employer] . INJECTION Surgeon Description CYSTO WITH BOTOX 100 UNITS Primary Procedure Yes Primary Surgeon Leonardo REGAN MD Start 08/07/23 12:13:00 Stop 08/07/23 12:25:00 Anesthesia Type Local Surgical Service Urology Wound Class 2 - Clean-Contaminated Last Modified By: Maritza CAVANAUGH, EVIEOR, Samantha 08/07/23 12:23:45 General Comments: BOTOX 100 UNITS OUTDATE 11/29 LOT [id number] General Case Data FTURO Pre-Care Text: Classifies surgical wound, implements aseptic technique, initiates traffic control Entry 1 Case Information OR URO 1 FT Case Level None Wound Class 2 - Clean-Contaminated Specialty Urology Preop Diagnosis MIXED INCONTINENCE Postop Same As Preop Yes Postop Diagnosis MIXED INCONTINENCE Outcomes Met? Yes Last Modified By: Maritza CAVANAUGH, EVIEOR, Samantha 08/07/23 12:23:54 Post-Care Text: The patient is [...] REGAN MD, Verified (If Participants Maritza CAVANAUGH, CNOR, Applicable) Timmy Singh Laura C Time Out [...] 12:25 KARENA Salas RN, Ruthann 08/07/23 12:34 [facility] Main OR Preoperative Recordo n 08-07-2023 Main OR Preoperative Record Holding Area Document Type FTURO Summary Primary Physician: Leonardo REGAN MD Finalized Date/Time: 08/07/23 12:22:25 Pt. Name: LACIE GARZA/Sex: 1940 Female Med Rec #: [id number] Physician: Leonardo REGAN MD Financial #: [id number] Pt. Type: O Room/Bed: / Admit/Disch: 08/07/23 [...] TO RIGHT LEG. MAO MÉNDEZ Finalized By: Maritza CAVANAUGH, Samantha THURSTON Document Signatures Signed By: Krysta Genao RN 08/07/23 12:01 Krysta Genao RN 08/07/23 11:49 KARENA Salas RN, Ruthann 08/07/23 12:22 Normal [facility] Operative Reporton Operative Report Patient: LACIE GARZA [...] with antibiotic coverage, Follow up arranged. Normal [facility] Comment on above: Result Comment: Elec tronically Signed By: SHEREEN ELY, Leonardo Cisneros\.br\Date and Time Signed: 08/07/23 12:28 EST Outpatient Surgery Discharge Instructionon 08-07-2023 Outpatient Surgery Discharge Instruction [id number] Normal [facility] Ambulatory Visit Summaryon 1 10-02-2022 Ambulatory Visit Summary LACIE GARZA :1940 Visit Date:08/01/2023 Ambulatory Visit Instructions Your Care Team Attending Physician - Leonardo REGAN MD Primary Care Physician - MARY LUGO MD [...] Appointments Sunday 9:00 AM EST With: Where: [facility] Services Sunday 11:30 AM EST With: Where: [facility] Services Sunday 10:00 AM EST With: REGINA VALIENTE PA-C Where: [facility] Normal [address] [place] [address] [place] [address]- \.br\ Medications\.br\ What How Much When Instructions\.br [...] 1 hour prior to procedure. Have a patient transportation driver \.br\ Unchanged donepezil (donepezil 5 mg [...] for choosing us for your care.\.br\ \.br\ [facility] Urology Office/Clinic Noteon 06-11-2023 Urology Office/Clinic Note [...] When Contact Information REGINA VALIENTE PA-C, URL [address] [facility] [place] [address] [phone] Additional Instructions: sched Botox Patient Education Overactive Bladder, Adult Documentation recorded by the bk Foote accurately reflects the services(s) I performed and decisions made by me. Authenticated by Regina Valiente PA-C on 06/11/2023 21:00:46. ILauren, personally scribed for Regina Valiente PA-C on 06/05/2023 13:12:10. . Problem List/Past Medical History Ongoing Apnea, sleep Dysuria Flank pain GERD (gastroesophageal reflux disease) Hiatal hernia History of kidney stones History of urethral stricture HTN (hypertension) Kidney stone Mixed incontinence Nocturia OA (osteoarthritis) Postinfectiv (more content not included)... Normal [facility] Comment on above: Result Comment: Elec tronically Signed By: REGINA VALIENTE PA-C\.br\Date and Time Signed: 06/11/23 21:04 EST [place] 06-06-2023 Screens [id number] #[id number] Normal [facility] Ambulatory Visit Summaryon 1 Ambulatory Visit Summary LACIE GARZA :1940 Visit Date:06/05/2023 Ambulatory Visit Instructions Your Diagnosis Mixed incontinence Nocturia Urinary tract infection Postinfective urethral stricture in female History of kidney stones Tests Performed Urnls Dip Stick Auto w/o Microscopy POC 18322 Your Care Team Attending Physician - REGINA [...] AM EST With: Where: [facility] Invalid Interpretation Code [address] [place] [address] [place] [address]- \.br\ Sunday 10:00 AM EDT \.br\ With: REGINA VALIENTE PA-C\.br\ Where: [facility] Patient Educationon 06-05-20 23 Patient Education [...] health care provider. General instructions ? Take [id number]-[id number] and prescription medicines only as told by [...] monitor yo (more content not included)... Normal [facility] 37on 05-25-2023 37 Resume metoprolol 100 mg daily Increase lasix (furosemide) to 40 mg daily Continue all other meds Normal [facility] Office Visiton 05-25-2023 Follow-up visit [id number] GregLacie Covington 1940 F Date Provider Department Center 05/25/2023 [facility] Family History Problem Relation Age of Onset Coronary artery disease Mother Family Status - Relation Status Age at Mother Level of Service:76421 NE OFFICE/OUTPATIENT ESTABLISHED LOW MDM 20-29 MIN Normal [facility] Documentationon 05-23-2023 Documentation [id number] Lacie Garza 1940 Provider Department Center 05/23/[address] Family History Problem Relation Age of Onset Coronary artery disease Mother Family Status - Relation Status Age at Mother Normal [facility] Patient Educationon 04-24-20 Patient Education Obstetrics and [...] provider. Document Revised: 12/01/2021 Document Reviewed: 12/01/2021 [employer] Patient Education ? 2022 Index. Normal [facility] Urology Office/Clinic Noteon 04-24-2023 Urology Office/Clinic Note [...] specified) Pt was c/o constant burning since [place], vaginal & urethral. UA was neg for [...] REGINA VALIENTE PA-C, GEMINIL In 7 months [address] [place] [address] Additional Instructions: Patient Education Nadeen Ku, personally scribed for Regina Valiente PA-C on 04/24/2023 10:38:59. . Documentation recorded by the bk Valentine accurately reflects the services(s) I performed and decisions made by me. Authenticated by Regina Valiente PA-C on 04/24/2023 10:45:05. Problem List/Past Medical History Ongoing Apnea, sleep Dysuria Flank pain GERD (gastroesophageal reflux disease) Hiatal hernia History of kidney stones History of urethral strict (more content not included)... Normal [facility] Comment on above: Result Comment: Elec tronically Signed By: REGINA VALIENTE PA-C\.br\Date and Time Signed: 04/24/23 10:45 EDT\.br\Electronically Co-Signed By: Nadeen Valentine E\.br\Date and Time Co-Signed: 04/24/23 10:39 EDT Office Visiton 03-02-2023 Follow-up visit [id number] Lacie Garza 1940 F Date Provider Department Center 03/02/2023 [id number] CASSIDY CARD [facility] Family History Problem Relation Age of Onset Coronary artery disease Mother Family Status - Relation Status Age at Mother Level of Service:04999 NE OFFICE/OUTPATIENT ESTABLISHED MOD MDM 30-39 MIN Reason for Visit and Comments: Follow-up [135407] Normal [facility] CULTURE URINEon 09-06-2022 CULTURE URINE Culture Observations: GREATER THAN TWO ORGANISMS PRESENT. PLEASE RESUBMIT CLEAN CATCH MID-STREAM URINE IF CLINICALLY INDICATED. Normal [facility] Comment on above: Performed By: #### B MP #### [facility] [address] [address] [address] Jesse Maldonado CBC W MANUAL DIFFon 09-05-19 23 ATYPICAL LYMPH # 0.00 103/ul Normal [facility] Comment on above: Performed By: #### B MP #### [facility] [address] [address] [address] Jesse Maldonado ATYPICAL LYMPH % 0 % Normal [facility] Comment on above: Performed By: #### B MP #### [facility] [address] [address] [address] Jesse Maldonado BAND # 0.7 103/ul Critically high 0.0-0.3 [facility] Comment on above: Performed By: #### B MP #### [facility] [address] [address] [address] Jesse Maldonado BAND % 14 % Critically high 0-5 [facility] Comment on above: Performed By: #### B MP #### [facility] [address] [address] [address] Jesse Maldonado BASOM # 0.11 103/ul Critically high 0.00-0.10 [facility] Comment on above: Performed By: #### B MP #### [facility] [address] [place] [address] Dr. Jesse Maldonado BASOM % 2.0 % Normal 0.2-2.[address] [facility] Comment on above: Performed By: #### B MP #### [facility] [address] [place] [address] Dr. Jesse Maldonado BLAST # 0.0 103/ul Normal [facility] Comment on above: Performed By: #### B MP #### [facility] [address] [place] [address] Dr. Jesse Maldonado BLAST % 0 % Normal [facility] Comment on above: Performed By: #### B MP #### [facility] [address] [place] [address] Dr. Jesse Maldonado CORRECTED WBC Normal 4.0-11.0 [facility] Comment on above: Performed By: #### B MP #### [facility] [address] [place] [address] Dr. Jesse Maldonado EOS # 0.05 103/ul Normal 0.00-0.[address] [facility] Comment on above: Performed By: #### B MP #### [facility] [address] [place] [address] Dr. Jesse Maldonado EOS% 1.0 % Normal 0.9-7.[address] [facility] Comment on above: Performed By: #### B MP #### [facility] [address] [place] [address] Dr. Jesse Maldonado HCT 41.5 % Normal 36.0-48.0 [facility] Comment on above: Performed By: #### B MP #### [facility] [address] [place] [address] Dr. Jesse Maldonado HGB 13.2 g/dl Normal 12.0-16.[address] [facility] Comment on above: Performed By: #### B MP #### [facility] [address] [place] [address] Dr. Jesse Maldonado LYMPHM # 0.42 103/ul Critically low 1.20-3.80 [facility] Comment on above: Performed By: #### B MP #### [facility] [address] [address] [address] Jesse Maldonado LYMPHM% 8.0 % Critically low 20.5-60.0 [facility] Comment on above: Performed By: #### B MP #### [facility] [address] [place] [address] Dr. Jesse Maldonado MCH 28.5 pg Normal 26.7-34.[address] [facility] Comment on above: Performed By: #### B MP #### [facility] [address] [place] [address] Dr. Jesse Maldonado MCHC 31.8 g/dl Normal 29.9-35.2 [facility] Comment on above: Performed By: #### B MP #### [facility] [address] [place] [address] Dr. Jesse Maldonado MCV 89.6 fL Normal 81.0-99.[address] [facility] Comment on above: Performed By: #### B MP #### [facility] [address] [place] [address] Dr. Jesse Maldonado METAMYELOCYTE # 0.2 103/ul Normal [facility] Comment on above: Performed By: #### B MP #### [facility] [address] [place] [address] Dr. Jesse Maldonado METAMYELOCYTE % 3 % Normal [facility] Comment on above: Performed By: #### B MP #### [facility] [address] [place] [address] Dr. Jesse Maldonado MONOM# 0.53 103/ul Normal 0.30-0.80 [facility] Comment on above: Performed By: #### B MP #### [facility] [address] [place] [address] Dr. Jesse Maldonado MONOM% 10.0 % Normal 1.7-12.[address] [facility] Comment on above: Performed By: #### B MP #### [facility] [address] [place] [address] Dr. Jesse Maldonado MPV 9.7 fL Normal 9.5-13.5 [facility] Comment on above: Performed By: #### B MP #### [facility] [address] [address] [address] Jesse Maldonado MYELOCYTE # 0.0 103/ul Normal [facility] Comment on above: Performed By: #### B MP #### [facility] [address] [place] [address] Dr. Jesse Maldonado MYELOCYTE % 0 % Normal [facility] Comment on above: Performed By: #### B MP #### [facility] [address] [place] [address] Dr. Jesse Maldonado NRBC [address] [facility] Comment on above: Performed By: #### B MP #### [facility] [address] [place] [address] Dr. Jesse Maldonado PLT 140 103/ul Critically low 150-450 [facility] Comment on above: Performed By: #### B MP #### [facility] [address] [place] [address] Dr. Jesse Maldonado RBC 4.63 106/ul Normal 4.20-5.[address] [facility] Comment on above: Performed By: #### B MP #### [facility] [address] [place] [address] Dr. Jesse Maldonado RDW 14.8 % Normal 11.0-15.[address] [facility] Comment on above: Performed By: #### B MP #### [facility] [address] [place] [address] Dr. Jesse Maldonado SEG # 3.29 103/ul Normal 1.40-6.[address] [facility] Comment on above: Performed By: #### B MP #### [facility] [address] [place] [address] Dr. Jesse Maldonado SEG % 62.0 % Normal 43.0-75.[address] [facility] Comment on above: Performed By: #### B MP #### [facility] [address] [place] [address] Dr. Jesse Maldonado WBC 5.3 103/ul Normal 4.0-11.[address] [facility] Comment on above: Performed By: #### B MP #### [facility] [address] [place] [address] Dr. Jesse Maldonado Covid-19 PCR (CVDTB)on 08-08 SARS-CoV-2 (COVID-19) RNA JOE+probe Ql (Unsp spec) Detected Abnormal NOT DETECTED [facility] Comment on above: Result Comment: This test is not yet approved or cleared by the [place] FDA. When there are no FDA-approved or cleared tests available, and other criteria are met, FDA can make tests available under an emergency access mechanism called an Emergency Use Authorization (EUA). The EUA for this test is supported by the Record Tabulating Clerk of Health and Human Service's declaration that [...] used). Performed By: #### C VDTB #### [facility] [address] [place] [address] Dr. Jesse Maldonado ER URINE PROFILEon Bilirubin Ql (U) SMALL Abnormal NEGATIVE [facility] Comment on above: Performed By: #### NICHOLAS QUINTERORO #### [facility] [address] [place] [address] Dr. Jesse Maldonado Clarity (U) CLEAR Normal CLEAR [facility] Comment on above: Performed By: #### BETTY QUINTEROICRO #### [facility] [address] [place] [address] Dr. Jesse Maldonado Color (U) YELLOW Normal YELLOW [facility] Comment on above: Performed By: #### NICHOLAS QUINTERORO #### [facility] [address] [place] [address] Dr. Jesse Maldonado ERUAHD A micrscopic examination will be performed if indicated. Normal [facility] Comment on above: Performed By: #### NICHOLAS QUINTERORO #### [facility] [address] [place] [address] Dr. Jesse Maldonado Glucose Ql (U) Negative Normal NEGATIVE [facility] Comment on above: Performed By: #### BETTY QUINTEROICRO #### [facility] [address] [place] [address] Dr. Jesse Maldonado Hemoglobin Ql (U) TRACE-INTACT Abnormal NEGATIVE [facility] Comment on above: Performed By: #### Nadya BEAUCHAMP UMICRO #### [facility] [address] [place] [address] Dr. Jesse Maldonado Ketones Ql (U) TRACE Abnormal NEGATIVE [facility] Comment on above: Performed By: #### Nadya BEAUCHAMP UMICRO #### [facility] [address] [place] [address] Dr. Jesse Maldonado LEUKOCYTES MODERATE Abnormal NEGATIVE [facility] Comment on above: Performed By: #### Nadya BEAUCHAMP UMICRO #### [facility] [address] [place] [address] Dr. Jesse Maldonado Nitrite Ql (U) Negative Normal NEGATIVE [facility] Comment on above: Performed By: #### Nadya BEAUCHAMP UMICRO #### [facility] [address] [place] [address] Dr. Jesse Maldonado pH (U) 5.5 [pH] Normal 5-[address] [facility] Comment on above: Performed By: #### Nadya BEAUCHAMP UMICRO #### [facility] [address] [place] [address] Dr. Jesse Maldonado Protein (U) [Mass/Vol] 100 mg/dL Abnormal NEGATIVE/ TRACE [facility] Comment on above: Performed By: #### Nadya BEAUCHAMP UMICRO #### [facility] [address] [place] [address] Dr. Jesse Maldonado SPEC GRAVITY >=1.030 Abnormal 1.005-<=1.025 [facility] Comment on above: Performed By: #### Nadya BEAUCHAMP UMICRO #### [facility] [address] [place] [address] Dr. Jesse Maldonado UR MICRO IND INDICATED Normal [facility] Comment on above: Performed By: #### E CAIN BEAUCHAMP #### [facility] [address] [place] [address] Dr. Jesse Maldonado Urobilinogen Qn (U) 1.0 {Christiano'U}/dL Normal 0.2 - 1. [address] [facility] Comment on above: Performed By: #### CAIN QUINTERO #### [facility] [address] [place] [address] Dr. Jesse Maldonado LACTATE/LACTIC ACIDon 2022 Lactate [Moles/Vol] 1.9 mmol/L Normal 0.4-1.9 [facility] Comment on above: Performed By: #### L ACT #### [facility] [address] [place] [address] Dr. Jesse Maldonado PROF 14(COMP METB)on 023 Albumin [Mass/Vol] 3.1 g/dL Critically low 3.4-5.0 [facility] Comment on above: Performed By: #### C DHAVAL, HSTROPN #### [facility] [address] [place] [address] Dr. Jesse Maldonado Albumin/Globulin [Mass ratio] 0.7 {ratio} [facility] Comment on above: Performed By: #### C MP, HSTROPN #### [facility] [address] [place] [address] Dr. Jesse Maldonado ALP [Catalytic activity/Vol] 70 U/L Normal 46-[address] [facility] Comment on above: Performed By: #### C MP, HSTROPN #### [facility] [address] [place] [address] Dr. Jesse Maldonado ALT [Catalytic activity/Vol] 17 U/L Normal 14-[address] [facility] Comment on above: Performed By: #### C MP, HSTROPN #### [facility] [address] [place] [address] Dr. Jesse Maldonado Anion gap [Moles/Vol] 16.4 mmol/L [facility] Comment on above: Performed By: #### C MP, HSTROPN #### [facility] [address] [address] [address] Jesse Maldonado AST [Catalytic activity/Vol] 23 U/L Normal 15-[address] [facility] Comment on above: Performed By: #### C MP, HSTROPN #### [facility] [address] [address] [address] Jesse Maldonado Bilirubin [Mass/Vol] 0.5 mg/dL Normal 0.2-1.[address] [facility] Comment on above: Performed By: #### C MP, HSTROPN #### [facility] [address] [place] [address] Dr. Jesse Maldonado Calcium [Mass/Vol] 8.4 mg/dL Critically low 8.5-10.1 [facility] Comment on above: Performed By: #### C MP, HSTROPN #### [facility] [address] [place] [address] Dr. Jesse Maldonado Chloride [Moles/Vol] 102 mmol/L Normal 98-107 [facility] Comment on above: Performed By: #### C MP, HSTROPN #### [facility] [address] [address] [address] Jesse Maldonado CO2 [Moles/Vol] 25.3 mmol/L Normal 21.0-32.0 [facility] Comment on above: Performed By: #### C MP, HSTROPN #### [facility] [address] [place] [address] Dr. Jesse Maldonado Creatinine [Mass/Vol] 0.95 mg/dL Normal 0.55-1.[address] [facility] Comment on above: Performed By: #### C MP, HSTROPN #### [facility] [address] [place] [address] Dr. Jesse Maldonado EGFR-AF SERBIAN >60 Normal >=60 [facility] Comment on above: Performed By: #### C MP, HSTROPN #### [facility] [address] [address] [address] Jesse Maldonado EGFR-NON AF SERBIAN 56 mL/min/1.73m2 Critically low >=[address] [facility] Comment on above: Performed By: #### C MP, HSTROPN #### [facility] [address] [place] [address] Dr. Jesse Maldonado Globulin (S) [Mass/Vol] 4.7 g/dL Normal [facility] Comment on above: Performed By: #### C MP, HSTROPN #### [facility] [address] [place] [address] Dr. Jesse Maldonado Glucose [Mass/Vol] 135 mg/dL Critically high 74-106 [facility] Comment on above: Performed By: #### C MP, HSTROPN #### [facility] [address] [place] [address] Dr. Jesse Maldonado Potassium [Moles/Vol] 3.7 mmol/L Normal 3.5-5.1 [facility] Comment on above: Performed By: #### C MP, HSTROPN #### [facility] [address] [place] [address] Dr. Jesse Maldonado Protein [Mass/Vol] 7.8 g/dL Normal 6.4-8.2 [facility] Comment on above: Performed By: #### C DHAVAL, HSTROPN #### [facility] [address] [place] [address] Dr. Jesse Maldonado Sodium [Moles/Vol] 140 mmol/L Normal 136-145 [facility] Comment on above: Performed By: #### C MP, HSTROPN #### [facility] [address] [place] [address] Dr. Jesse Maldonado Urea nitrogen [Mass/Vol] 12.0 mg/dL Normal 7.0-18.[address] [facility] Comment on above: Performed By: #### C MP, HSTROPN #### [facility] [address] [place] [address] Dr. Jesse Maldonado Urea nitrogen/Creatinine [Mass ratio] 12.6 mg/mg Normal [facility] Comment on above: Performed By: #### C MP, HSTROPN #### [facility] [address] [place] [address] Dr. Jesse Maldonado TROPONIN, HIGH SENSITIVITYon 09-05-2022 HSTROP 10.7 pg/mL Normal 4.0-51.3 [facility] Comment on above: Result Comment: CUT- OFF POINTS HAVE BEEN ESTABLISHED BASED ON THE FOURTH UNIVERSAL DEFINITIONS OF MYOCARDIAL INFARCTION. THE UPPER REFERENCE LIMIT (URL) OF TROPONIN, DEFINED THE 99TH PERCENTILE OF cTnI DISTRIBUTION IN A REFERENCE POPULATION, HAS BEEN CONFIRMED THE DECISION THRESHOLD FOR CO DIAGNOSIS. Performed By: #### C MP, HSTROPN #### [facility] [address] [place] [address] Dr. Jesse Maldonado URINE MICROSCOPIC ONLYon BACTERIA SMALL Abnormal NONE SEEN [facility] Comment on above: Performed By: #### Nadya BEAUCHAMP UMICRO #### [facility] [facility] [address] [place] [address] Dr. Jesse Maldonado Bacteria identified Cx Nom (U) INDICATED Normal [facility] Comment on above: Performed By: #### Nadya BEAUCHAMP UMICRO #### [facility] [address] [place] [address] Dr. Jesse Maldonado CAST NONE SEEN Normal NONE SEEN [facility] Comment on above: Performed By: #### Nadya BEAUCHAMP UMICRO #### [facility] [address] [place] [address] Dr. Jesse Maldonado Crystals LM Nom (Urine sed) NONE SEEN Normal NONE SEEN [facility] Comment on above: Performed By: #### Nadya BEAUCHAMP UMICRO #### [facility] [address] [place] [address] Dr. Jesse Maldonado Epithelial cells LM Ql (Urine sed) MODERATE Abnormal NONE SEEN /RARE [facility] Comment on above: Performed By: #### Nadya BEAUCHAMP UMICRO #### [facility] [address] [place] [address] Dr. Jesse Maldonado MUCOUS SMALL Abnormal NONE SEEN [facility] Comment on above: Performed By: #### Nadya BEAUCHAMP UMICRO #### [facility] [address] [place] [address] Dr. Jesse Maldonado RBC 0-2 Normal 0-[address] [facility] Comment on above: Performed By: #### CAIN QUINTERO #### [facility] [address] [place] [address] Dr. Jesse Maldonado WBC 5-10 Abnormal NONE SEEN [facility] Comment on above: Performed By: #### CAIN QUINTERO #### [facility] [address] [place] [address] Dr. Jesse Maldonado CULTURE URINEon 08-31-2022 CULTURE [...] thoxazole <=20 S F Normal [facility] Comment on above: Performed By: #### B MP #### [facility] [address] [place] [address] Dr. Jesse Maldonado CULTURE URINEon 04-20-2022 CULTURE URINE Isolate 1 [...] thoxazole <=20 S F Normal [facility] Comment on above: Performed By: #### B MP #### [facility] [address] [place] [address] Dr. Jesse Maldonado AMMONIAon 04-18-2022 Ammonia (P) [Mass/Vol] ug/dL Critically low 11-32 [facility] Comment on above: Performed By: #### A MM #### [facility] [address] [place] [address] Dr. Jesse Maldonado CBC AUTO DIFFon 04-18-2022 BASO # 0.0 103/ul Normal 0.0-0.[address] [facility] Comment on above: Performed By: #### C BC #### [facility] [address] [place] [address] Dr. Jesse Maldonado Basophils/100 WBC (Bld) 0.5 % Normal 0.2-2.[address] [facility] Comment on above: Performed By: #### C BC #### [facility] [address] [place] [address] Dr. Jesse Maldonado EO # 0.1 103/ul Normal 0.0-0.7 [facility] Comment on above: Performed By: #### C BC #### [facility] [address] [place] [address] Dr. Jesse Maldonado Eosinophils/100 WBC (Bld) 0.9 % Normal 0.9-7.[address] [facility] Comment on above: Performed By: #### C BC #### [facility] [address] [place] [address] Dr. Jesse Maldonado Erythrocyte distribution width (RBC) [Ratio] 14.4 % Normal 11.0-15.0 [facility] Comment on above: Performed By: #### C BC #### [facility] [address] [place] [address] Dr. Jesse Maldonado Hematocrit (Bld) [Volume fraction] 43.9 % Normal 36.0-48.0 [facility] Comment on above: Performed By: #### C BC #### [facility] [address] [place] [address] Dr. Jesse Maldonado Hemoglobin (Bld) [Mass/Vol] 13.9 g/dL Normal 12.0-16.0 [facility] Comment on above: Performed By: #### C BC #### [facility] [address] [place] [address] Dr. Jesse Maldonado IG # 0.03 10e3/ul Normal 0.00-0.[address] [facility] Comment on above: Performed By: #### C BC #### [facility] [address] [place] [address] Dr. Jesse Maldonado IG % 0.3 % Normal 0.0-0.[address] [facility] Comment on above: Performed By: #### C BC #### [facility] [address] [place] [address] Dr. Jesse Maldonado LYMPH # 2.5 103/ul Normal 1.2-3.[address] [facility] Comment on above: Performed By: #### C BC #### [facility] [address] [place] [address] Dr. Jesse Maldonado Lymphocytes/100 WBC (Bld) 29.0 % Normal 20.5-60.[address] [facility] Comment on above: Performed By: #### C BC #### [facility] [address] [place] [address] Dr. Jesse Maldonado MANUAL DIFF REQ NO Normal [facility] Comment on above: Performed By: #### C BC #### [facility] [address] [place] [address] Dr. Jesse Maldonado MCH (RBC) [Entitic mass] 28.9 pg Normal 26.7-34.[address] [facility] Comment on above: Performed By: #### C BC #### [facility] [address] [place] [address] Dr. Jesse Maldonado MCHC (RBC) [Mass/Vol] 31.7 g/dL Normal 29.9-35.2 [facility] Comment on above: Performed By: #### C BC #### [facility] [address] [place] [address] Dr. Jesse Maldonado MCV (RBC) [Entitic vol] 91.3 fL Normal 81.0-99.[address] [facility] Comment on above: Performed By: #### C BC #### [facility] [address] [place] [address] Dr. Jesse Maldonado MONO # 0.7 103/ul Normal 0.3-0.8 [facility] Comment on above: Performed By: #### C BC #### [facility] [address] [place] [address] Dr. Jesse Maldonado Monocytes/100 WBC (Bld) 7.6 % Normal 1.7-12.0 [facility] Comment on above: Performed By: #### C BC #### [facility] [address] [place] [address] Dr. Jesse Maldonado NEUT # 5.4 103/ul Normal 1.4-6.5 [facility] Comment on above: Performed By: #### C BC #### [facility] [address] [place] [address] Dr. Jesse Maldonado Neutrophils/100 WBC (Bld) 61.7 % Normal 43.0-75.0 [facility] Comment on above: Performed By: #### C BC #### [facility] [address] [place] [address] Dr. Jesse Maldonado Platelet mean volume (Bld) [Entitic vol] 9.7 fL Normal 9.5-13.[address] [facility] Comment on above: Performed By: #### C BC #### [facility] [address] [place] [address] Dr. Jesse Maldonado PLT 198 103/ul Normal 150-450 [facility] Comment on above: Performed By: #### C BC #### [facility] [address] [place] [address] Dr. Jesse Maldonado RBC 4.81 106/ul Normal 4.20-5.40 [facility] Comment on above: Performed By: #### C BC #### [facility] [address] [place] [address] Dr. Jesse Maldonado WBC 8.8 103/ul Normal 4.0-11.0 [facility] Comment on above: Performed By: #### C BC #### [facility] [address] [place] [address] Dr. Jesse Maldonado PROF 14(COMP METB)on 022 Albumin [Mass/Vol] 3.4 g/dL Normal 3.4-5.0 [place] Comment on above: Performed By: #### B MP #### [facility] [address] [place] [address] Dr. Jesse Maldonado Albumin/Globulin [Mass ratio] 0.7 {ratio} Normal [facility] Comment on above: Performed By: #### B MP #### [facility] [address] [place] [address] Dr. Jesse Maldonado ALP [Catalytic activity/Vol] 85 U/L Normal 46-[address] [facility] Comment on above: Performed By: #### B MP #### [facility] [address] [place] [address] Dr. Jesse Maldonado ALT [Catalytic activity/Vol] 13 U/L Critically low 14-[address] [facility] Comment on above: Performed By: #### B MP #### [facility] [address] [place] [address] Dr. Jesse Maldonado Anion gap [Moles/Vol] 11.3 mmol/L Normal [facility] Comment on above: Performed By: #### B MP #### [facility] [address] [place] [address] Dr. Jesse Maldonado AST [Catalytic activity/Vol] 13 U/L Critically low 15-[address] [facility] Comment on above: Performed By: #### B MP #### [facility] [address] [place] [address] Dr. Jesse Maldonado Bilirubin [Mass/Vol] 0.6 mg/dL Normal 0.2-1.[address] [facility] Comment on above: Performed By: #### B MP #### [facility] [address] [place] [address] Dr. Jesse Maldonado Calcium [Mass/Vol] 8.8 mg/dL Normal 8.5-10.1 [facility] Comment on above: Performed By: #### B MP #### [facility] [address] [place] [address] Dr. Jesse Maldonado Chloride [Moles/Vol] 104 mmol/L Normal 98-107 [facility] Comment on above: Performed By: #### B MP #### [facility] [address] [address] [address] Jesse Maldonado CO2 [Moles/Vol] 26.7 mmol/L Normal 21.0-32.0 [facility] Comment on above: Performed By: #### B MP #### [facility] [address] [address] [address] Jesse Maldonado Creatinine [Mass/Vol] 0.99 mg/dL Normal 0.55-1.[address] [facility] Comment on above: Performed By: #### B MP #### [facility] [address] [address] [address] Jesse Maldonado EGFR-AF SERBIAN >60 Normal >=60 [facility] Comment on above: Performed By: #### B MP #### [facility] [address] [address] [address] Jesse Maldonado EGFR-NON AF SERBIAN 53 mL/min/1.73m2 Critically low >=[address] [facility] Comment on above: Performed By: #### B MP #### [facility] [address] [place] [address] Dr. Jesse Maldonado Globulin (S) [Mass/Vol] 4.6 g/dL Normal [facility] Comment on above: Performed By: #### B MP #### [facility] [address] [address] [address] Jesse Maldonado Glucose [Mass/Vol] 106 mg/dL Normal 74-106 [facility] Comment on above: Performed By: #### B MP #### [facility] [address] [address] [address] Jesse Maldonado Potassium [Moles/Vol] 4.0 mmol/L Normal 3.5-5.1 [facility] Comment on above: Performed By: #### B MP #### [facility] [address] [place] [address] Dr. Jesse Maldonado Protein [Mass/Vol] 8.0 g/dL Normal 6.4-8.2 [facility] Comment on above: Performed By: #### B MP #### [facility] [address] [address] [address] Jesse Maldonado Sodium [Moles/Vol] 138 mmol/L Normal 136-145 [place] Comment on above: Performed By: #### B MP #### [facility] [address] [place] [address] Dr. Jesse Maldonado Urea nitrogen [Mass/Vol] 19.0 mg/dL Critically high 7.0-18.[address] [facility] Comment on above: Performed By: #### B MP #### [facility] [address] [place] [address] Dr. Jesse Maldonado Urea nitrogen/Creatinine [Mass ratio] 19.2 mg/mg Normal [facility] Comment on above: Performed By: #### B MP #### [facility] [address] [place] [address] Dr. Jesse Maldonado UA (CLEAN/CATCH) AUTOMATIC ENGRAVER/MICRO I F IND.on 04-18-2022 Bilirubin Ql (U) Negative Normal NEGATIVE [facility] Comment on above: Performed By: #### B MP #### [facility] [address] [place] [address] Dr. Jesse Maldonado Clarity (U) CLEAR Normal CLEAR [facility] Comment on above: Performed By: #### B MP #### [facility] [address] [place] [address] Dr. Jesse Maldonado Color (U) YELLOW Normal YELLOW [facility] Comment on above: Performed By: #### B MP #### [facility] [address] [place] [address] Dr. Jesse Maldonado Glucose Ql (U) Negative Normal NEGATIVE [facility] Comment on above: Performed By: #### B MP #### [facility] [address] [place] [address] Dr. Jesse Maldonado Hemoglobin Ql (U) Negative Normal NEGATIVE [facility] Comment on above: Performed By: #### B MP #### [facility] [address] [place] [address] Dr. Jesse Maldonado Ketones Ql (U) Negative Normal NEGATIVE [facility] Comment on above: Performed By: #### B MP #### [facility] [address] [place] [address] Dr. Jesse Maldonado LEUKOCYTES TRACE Abnormal NEGATIVE [facility] Comment on above: Performed By: #### B MP #### [facility] [address] [place] [address] Dr. Jesse Maldonado Nitrite Ql (U) Negative Normal NEGATIVE [facility] Comment on above: Performed By: #### B MP #### [facility] [address] [place] [address] Dr. Jesse Maldonado pH (U) 5.5 [pH] Normal 5-9 [facility] Comment on above: Performed By: #### B MP #### [facility] [address] [place] [address] Dr. Jesse Maldonado SPEC GRAVITY 1.025 Normal 1.005-<=1.025 [facility] Comment on above: Performed By: #### B MP #### [facility] [address] [place] [address] Dr. Jesse Maldonado UA PROTEIN Negative Normal NEGATIVE/ TRACE [facility] Comment on above: Performed By: #### B MP #### [facility] [address] [place] [address] Dr. Jesse Maldonado UR MICRO IND INDICATED Normal [facility] Comment on above: Performed By: #### B MP #### [facility] [address] [place] [address] Dr. Jesse Maldonado Urobilinogen Qn (U) 0.2 {Christiano'U}/dL Normal 0.2 - 1. 0 [facility] Comment on above: Performed By: #### B MP #### [facility] [address] [place] [address] Dr. Jesse Maldonado URINE MICROSCOPIC ONLYon BACTERIA SMALL Abnormal NONE SEEN [facility] Comment on above: Performed By: #### B MP #### [facility] [address] [place] [address] Dr. Jesse Maldonado Bacteria identified Cx Nom (U) INDICATED Normal [facility] Comment on above: Performed By: #### B MP #### [facility] [address] [place] [address] Dr. Jesse Maldonado CAST NONE SEEN Normal NONE SEEN [facility] Comment on above: Performed By: #### B MP #### [facility] [address] [place] [address] Dr. Jesse Maldonado Crystals LM Nom (Urine sed) NONE SEEN Normal NONE SEEN [facility] Comment on above: Performed By: #### B MP #### [facility] [address] [place] [address] Dr. Jesse Maldonado Epithelial cells LM Ql (Urine sed) MANY Abnormal NONE SEEN /RARE [facility] Comment on above: Performed By: #### B MP #### [facility] [address] [place] [address] Dr. Jesse Maldonado MUCOUS NONE SEEN Normal NONE SEEN [facility] Comment on above: Performed By: #### B MP #### [facility] [address] [place] [address] Dr. Jesse Maldonado RBC NONE SEEN Abnormal 0-2 [facility] Comment on above: Performed By: #### B MP #### [facility] [address] [place] [address] Dr. Jesse Maldonado WBC 10-20 Abnormal NONE SEEN [facility] Comment on above: Performed By: #### B MP #### [facility] [address] [place] [address] Dr. Jesse Maldonado CULTURE URINEon 02-05-2022 CULTURE [...] thoxazole <=20 S F Normal [facility] Comment on above: Performed By: #### B MP #### [facility] [address] [place] [address] Dr. Jesse Maldonado CBC AUTO DIFFon 02-03-2022 BASO # 0.0 103/ul Normal 0.0-0.[address] [facility] Comment on above: Performed By: #### C BC #### [facility] [address] [place] [address] Dr. Jesse Maldonado Basophils/100 WBC (Bld) 0.5 % Normal 0.2-2.[address] [facility] Comment on above: Performed By: #### C BC #### [facility] [address] [place] [address] Dr. Jesse Maldonado EO # 0.2 103/ul Normal 0.0-0.[address] [facility] Comment on above: Performed By: #### C BC #### [facility] [address] [place] [address] Dr. Jesse Maldonado Eosinophils/100 WBC (Bld) 2.0 % Normal 0.9-7.[address] [facility] Comment on above: Performed By: #### C BC #### [facility] [address] [place] [address] Dr. Jesse Maldonado Erythrocyte distribution width (RBC) [Ratio] 14.5 % Normal 11.0-15.[address] [facility] Comment on above: Performed By: #### C BC #### [facility] [address] [place] [address] Dr. Jesse Maldonado Hematocrit (Bld) [Volume fraction] 42.1 % Normal 36.0-48.[address] [facility] Comment on above: Performed By: #### C BC #### [facility] [address] [place] [address] Dr. Jesse Maldonado Hemoglobin (Bld) [Mass/Vol] 13.6 g/dL Normal 12.0-16.[address] [facility] Comment on above: Performed By: #### C BC #### [facility] [address] [place] [address] Dr. Jesse Maldonado IG # 0.03 10e3/ul Normal 0.00-0.[address] [facility] Comment on above: Performed By: #### C BC #### [facility] [address] [place] [address] Dr. Jesse Maldonado IG % 0.4 % Normal 0.0-0.[address] [facility] Comment on above: Performed By: #### C BC #### [facility] [address] [place] [address] Dr. Jesse Maldonado LYMPH # 2.1 103/ul Normal 1.2-3.[address] [facility] Comment on above: Performed By: #### C BC #### [facility] [address] [place] [address] Dr. Jesse Maldonado Lymphocytes/100 WBC (Bld) 28.4 % Normal 20.5-60.[address] [facility] Comment on above: Performed By: #### C BC #### [facility] [address] [place] [address] Dr. Jesse Maldonado MANUAL DIFF REQ NO Normal [facility] Comment on above: Performed By: #### C BC #### [facility] [address] [place] [address] Dr. Jesse Maldonado MCH (RBC) [Entitic mass] 29.3 pg Normal 26.7-34.[address] [facility] Comment on above: Performed By: #### C BC #### [facility] [address] [place] [address] Dr. Jesse Maldonado MCHC (RBC) [Mass/Vol] 32.3 g/dL Normal 29.9-35.2 [facility] Comment on above: Performed By: #### C BC #### [facility] [address] [place] [address] Dr. Jesse Maldonado MCV (RBC) [Entitic vol] 90.7 fL Normal 81.0-99.[address] [facility] Comment on above: Performed By: #### C BC #### [facility] [address] [place] [address] Dr. Jesse Maldonado MONO # 0.6 103/ul Normal 0.3-0.[address] [facility] Comment on above: Performed By: #### C BC #### [facility] [address] [place] [address] Dr. Jesse Maldonado Monocytes/100 WBC (Bld) 7.9 % Normal 1.7-12.[address] [facility] Comment on above: Performed By: #### C BC #### [facility] [address] [place] [address] Dr. Jesse Maldonado NEUT # 4.6 103/ul Normal 1.4-6.5 [facility] Comment on above: Performed By: #### C BC #### [facility] [address] [place] [address] Dr. Jesse Maldonado Neutrophils/100 WBC (Bld) 60.8 % Normal 43.0-75.[address] [facility] Comment on above: Performed By: #### C BC #### [facility] [address] [place] [address] Dr. Jesse Maldonado Platelet mean volume (Bld) [Entitic vol] 9.1 fL Critically low 9.5-13.5 [facility] Comment on above: Performed By: #### C BC #### [facility] [address] [place] [address] Dr. Jesse Maldonado PLT 178 103/ul Normal 150-450 [facility] Comment on above: Performed By: #### C BC #### [facility] [address] [place] [address] Dr. Jesse Maldonado RBC 4.64 106/ul Normal 4.20-5.40 [facility] Comment on above: Performed By: #### C BC #### [facility] [address] [place] [address] Dr. Jesse Maldonado WBC 7.5 103/ul Normal 4.0-11.0 [facility] Comment on above: Performed By: #### C BC #### [facility] [address] [place] [address] Dr. Jesse Maldonado ER URINE PROFILEon 2 Bilirubin Ql (U) Negative Normal NEGATIVE [facility] Comment on above: Performed By: #### B MP #### [facility] [address] [place] [address] Dr. Jesse Maldonado Clarity (U) CLEAR Normal CLEAR [facility] Comment on above: Performed By: #### B MP #### [facility] [address] [place] [address] Dr. Jesse Maldonado Color (U) LT. YELLOW Normal YELLOW [facility] Comment on above: Performed By: #### B MP #### [facility] [address] [place] [address] Dr. Jesse JOHNSON A micrscopic examination will be performed if indicated. Normal [facility] Comment on above: Performed By: #### B MP #### [facility] [address] [place] [address] Dr. Jesse Maldonado Glucose Ql (U) Negative Normal NEGATIVE [facility] Comment on above: Performed By: #### B MP #### [facility] [address] [place] [address] Dr. Jesse Maldonado Hemoglobin Ql (U) TRACE-LYSED Abnormal NEGATIVE [facility] Comment on above: Performed By: #### B MP #### [facility] [address] [place] [address] Dr. Jesse Maldonado Ketones Ql (U) Negative Normal NEGATIVE [facility] Comment on above: Performed By: #### B MP #### [facility] [address] [place] [address] Dr. Jesse Maldonado LEUKOCYTES Negative Normal NEGATIVE [facility] Comment on above: Performed By: #### B MP #### [facility] [address] [place] [address] Dr. Jesse Maldonado Nitrite Ql (U) Negative Normal NEGATIVE [facility] Comment on above: Performed By: #### B MP #### [facility] [address] [place] [address] Dr. Jesse Maldonado pH (U) 5.5 [pH] Normal 5-[address] [facility] Comment on above: Performed By: #### B MP #### [facility] [address] [place] [address] Dr. Jesse Maldonado SPEC GRAVITY 1.020 Normal 1.005-<=1.025 [facility] Comment on above: Performed By: #### B MP #### [facility] [address] [place] [address] Dr. Jesse Maldonado UA PROTEIN Negative Normal NEGATIVE/ TRACE [facility] Comment on above: Performed By: #### B MP #### [facility] [address] [place] [address] Dr. Jesse Maldonado UR MICRO IND INDICATED Normal [facility] Comment on above: Performed By: #### B MP #### [facility] [address] [place] [address] Dr. Jesse Maldonado Urobilinogen Qn (U) 0.2 {Christiano'U}/dL Normal 0.2 - 1. [address] [facility] Comment on above: Performed By: #### B MP #### [facility] [address] [place] [address] Dr. Jesse Maldonado PROF CHEM 8 (BAS METB)on Anion gap [Moles/Vol] 13.4 mmol/L Normal [facility] Comment on above: Performed By: #### B MP #### [facility] [address] [place] [address] Dr. Jesse Maldonado Calcium [Mass/Vol] 8.6 mg/dL Normal 8.5-10.1 [place] Comment on above: Performed By: #### B MP #### [facility] [address] [place] [address] Dr. Jesse Maldonado Chloride [Moles/Vol] 105 mmol/L Normal 98-107 [facility] Comment on above: Performed By: #### B MP #### [facility] [address] [place] [address] Dr. Jesse Maldonado CO2 [Moles/Vol] 23.4 mmol/L Normal 21.0-32.0 [facility] Comment on above: Performed By: #### B MP #### [facility] [address] [place] [address] Dr. Jesse Maldonado Creatinine [Mass/Vol] 1.02 mg/dL Normal 0.55-1.[address] [facility] Comment on above: Performed By: #### B MP #### [facility] [address] [address] [address] Jesse Maldonado EGFR-AF SERBIAN 63 mL/min/1.73m2 Normal >=60 [facility] Comment on above: Performed By: #### B MP #### [facility] [address] [address] [address] Jesse Maldonado EGFR-NON AF SERBIAN 52 mL/min/1.73m2 Critically low >=[address] [facility] Comment on above: Performed By: #### B MP #### [facility] [address] [address] [address] Jesse Maldonado Glucose [Mass/Vol] 101 mg/dL Normal 74-106 [place] Comment on above: Performed By: #### B MP #### [facility] [address] [address] [address] Jesse Maldonado Potassium [Moles/Vol] 3.8 mmol/L Normal 3.5-5.[address] [facility] Comment on above: Performed By: #### B MP #### [facility] [address] [address] [address] Jesse Maldonado Sodium [Moles/Vol] 138 mmol/L Normal 136-145 [place] Comment on above: Performed By: #### B MP #### [facility] [address] [address] [address] Jesse Maldonado Urea nitrogen [Mass/Vol] 18.0 mg/dL Normal 7.0-18.[address] [facility] Comment on above: Performed By: #### B MP #### [facility] [address] [address] [address] Jesse Maldonado Urea nitrogen/Creatinine [Mass ratio] 17.6 mg/mg Normal [facility] Comment on above: Performed By: #### B MP #### [facility] [address] [address] [address] Jesse Maldonado URINE MICROSCOPIC ONLYon BACTERIA SMALL Abnormal NONE SEEN [facility] Comment on above: Performed By: #### B MP #### [facility] [address] [place] [address] Dr. Jesse Maldonado Bacteria identified Cx Nom (U) INDICATED Normal [facility] Comment on above: Performed By: #### B MP #### [facility] [address] [place] [address] Dr. Jesse Maldonado CAST SEEN Abnormal NONE SEEN [facility] Comment on above: Performed By: #### B MP #### [facility] [address] [place] [address] Dr. Jesse Maldonado Crystals LM Nom (Urine sed) NONE SEEN Normal NONE SEEN [facility] Comment on above: Performed By: #### B MP #### [facility] [address] [place] [address] Dr. Jesse Maldonado Epithelial cells LM Ql (Urine sed) FEW Abnormal NONE SEEN /RARE [facility] Comment on above: Performed By: #### B MP #### [facility] [address] [place] [address] Dr. Jesse Maldonado HYALINE CAST RARE Normal [facility] Comment on above: Performed By: #### B MP #### [facility] [address] [place] [address] Dr. Jesse Maldonado MUCOUS TRACE Abnormal NONE SEEN [facility] Comment on above: Performed By: #### B MP #### [facility] [address] [place] [address] Dr. Jesse Maldonado RBC 0-2 Normal 0-2 [facility] Comment on above: Performed By: #### B MP #### [facility] [address] [place] [address] Dr. Jesse Maldonado WBC 5-10 Abnormal NONE SEEN [facility] Comment on above: Performed By: #### B MP #### [facility] [address] [place] [address] Dr. Jesse Maldonado BASIC METABOLIC PANELon Calcium mass conc 8.2 mg/dL Low 8.6-10.3 [facility] Comment on above: Order Comment: Yes: Add to Previous draw if able Performed By: #### 0 0071 #### [facility] [address] [place] [address], [facility] Chloride molar conc 104 mmol/L Normal 98-107 [facility] Comment on above: Order Comment: Yes: Add to Previous draw if able Performed By: #### 0 0071 #### [facility] [address] [place] [address], [place] CO2 molar conc 27 mmol/L Normal 21-31 [facility] Comment on above: Order Comment: Yes: Add to Previous draw if able Performed By: #### 0 0071 #### [facility] [address] [place] [address], [facility] Creatinine mass conc 0.70 mg/dL Normal 0.60-1.20 [facility] Comment on above: Order Comment: Yes: Add to Previous draw if able Performed By: #### 0 0071 #### [facility] [address] [place] [address], [place] GFR/1.73 sq M predicted among blacks MDRD vol rate/area (S/P/Bld) mL/min/{1.73_m2} Normal >60 [facility] Comment on above: Order Comment: Yes: Add to Previous draw if able Result Comment: Calc ulation may not be valid for patients over 70 years Performed By: #### 0 0071 #### [facility] [address] [place] [address], [place] GFR/1.73 sq M predicted among non-blacks MDRD vol rate/area (S/P/Bld) mL/min/{1.73_m2} Normal >60 [facility] Comment on above: Order Comment: Yes: Add to Previous draw if able Result Comment: Calc ulation may not be valid for patients over 70 years Performed By: #### 0 0071 #### [facility] [address] [place] [address], [place] Glucose mass conc 139 mg/dL High 70-100 [facility] Comment on above: Order Comment: Yes: Add to Previous draw if able Performed By: #### 0 0071 #### [facility] [address] [place] [address], [facility] Potassium molar conc 3.4 mmol/L Low 3.5-5.1 [facility] Comment on above: Order Comment: Yes: Add to Previous draw if able Performed By: #### 0 0071 #### [facility] [address] [place] [address], [facility] Sodium molar conc 139 mmol/L Normal 136-145 [facility] Comment on above: Order Comment: Yes: Add to Previous draw if able Performed By: #### 0 0071 #### [facility] [address] [place] [address], [facility] Urea nitrogen mass conc 12 mg/dL Normal 7-25 [facility] Comment on above: Order Comment: Yes: Add to Previous draw if able Performed By: #### 0 0071 #### [facility] [address] [place] [address], [facility] POC GLUCOSE LABon 08-14-2018 Glucose mass conc 134 mg/dL High 70-100 [facility] Comment on above: Performed By: #### 5 6101, 25394 #### [facility] [address] [place] [address], [facility] Glucose mass conc 123 mg/dL High 70-100 [facility] Comment on above: Performed By: #### 5 6101, 17255 #### [facility] [address] [place] [address], [place] ACTIVATED CLOTTING TIMEon ACTIVATED CLOTTING TIME 115 sec Normal 82-152 [facility] Comment on above: Performed By: #### 5 6101, [id number] #### [facility] [address] [place] [address], [place] BASIC METABOLIC PANELon 01-0 8-2019 Calcium mass conc 8.3 mg/dL Low 8.6-10.3 [facility] Comment on above: Order Comment: No: D o not add to previous draw Performed By: #### 5 6101, 44581 #### [facility] [address] [place] [address], [place] Chloride molar conc 105 mmol/L Normal 98-107 [facility] Comment on above: Order Comment: No: D o not add to previous draw Performed By: #### 5 6101, 49513 #### [facility] [address] [place] [address], [place] CO2 molar conc 25 mmol/L Normal 21-31 [facility] Comment on above: Order Comment: No: D o not add to previous draw Performed By: #### 5 6101, 12221 #### [facility] [address] [place] [address], [place] Creatinine mass conc 0.82 mg/dL Normal 0.60-1.20 [facility] Comment on above: Order Comment: No: D o not add to previous draw Performed By: #### 5 6101, 25560 #### [facility] [address] [place] [address], [place] GFR/1.73 sq M predicted among blacks MDRD vol rate/area (S/P/Bld) mL/min/{1.73_m2} Normal >60 [facility] Comment on above: Order Comment: No: D o not add to previous draw Result Comment: Calc ulation may not be valid for patients over 70 years Performed By: #### 5 6101, 51281 #### [facility] [address] [place] [address], [place] GFR/1.73 sq M predicted among non-blacks MDRD vol rate/area (S/P/Bld) mL/min/{1.73_m2} Normal >60 [facility] Comment on above: Order Comment: No: D o not add to previous draw Result Comment: Calc ulation may not be valid for patients over 70 years Performed By: #### 5 610, 01129 #### [facility] [address] [place] [address], [place] Glucose mass conc 133 mg/dL High 70-100 [facility] Comment on above: Order Comment: No: D o not add to previous draw Performed By: #### 5 610, 10023 #### [facility] [address] [place] [address], [place] Potassium molar conc 3.6 mmol/L Normal 3.5-5.1 [facility] Comment on above: Order Comment: No: D o not add to previous draw Performed By: #### 5 610, 33780 #### [facility] [address] [place] [address], [place] Sodium molar conc 139 mmol/L Normal 136-145 [facility] Comment on above: Order Comment: No: D o not add to previous draw Performed By: #### 5 610, 75106 #### [facility] [address] [place] [address], [place] Urea nitrogen mass conc 22 mg/dL Normal 7-25 [facility] Comment on above: Order Comment: No: D o not add to previous draw Performed By: #### 5 610, 03762 #### [facility] [address] [place] [address], [place] CBC COMPLETE BLOOD COUNTon 0 - Erythrocyte distribution width Ratio (RBC) 15.4 % High 11.5-15.0 [facility] Comment on above: Order Comment: No: D o not add to previous draw Performed By: #### 5 610, 81744 #### [facility] [address] [place] [address], [place] Hematocrit Volume Fraction (Bld) 33.0 % Low 36.0-45.0 [facility] Comment on above: Order Comment: No: D o not add to previous draw Performed By: #### 5 610, 79225 #### [facility] [address] Hemoglobin mass conc (Bld) 10.2 g/dL Low 12.0-15.0 [facility] Comment on above: Order Comment: No: D o not add to previous draw Performed By: #### 5 6100, 38855 #### [facility] [address] [place] [address], [facility] MCH Entitic mass (RBC) 26.6 pg Low 27.0-33.0 [facility] Comment on above: Order Comment: No: D o not add to previous draw Performed By: #### 5 6100, 99621 #### [facility] [address] [facility] [address] MCHC mass conc (RBC) 30.9 g/dL Low 32.0-35.0 [facility] Comment on above: Order Comment: No: D o not add to previous draw Performed By: #### 5 6100, 35510 #### [facility] [address] [facility] [address] MCV Entitic volume (RBC) 86.2 fL Normal 82.0-98.0 [facility] Comment on above: Order Comment: No: D o not add to previous draw Performed By: #### 5 6100, 69477 #### [facility] [address] [facility] Nucleated RBC/100 WBC Ratio (Bld) 0 % Normal 0-0 [facility] Comment on above: Order Comment: No: D o not add to previous draw Performed By: #### 5 6100, 25639 #### [facility] [address] [facility] [address], [facility] PLAT CNT 130 10*3/uL Low 150-400 [facility] Comment on above: Order Comment: No: D o not add to previous draw Performed By: #### 5 6100, 83817 #### [facility] [address] [place] [address], [facility] RBC #/vol (Bld) 3.83 10*6/uL Normal 3.80-5.00 [facility] Comment on above: Order Comment: No: D o not add to previous draw Performed By: #### 5 6100, 98174 #### [facility] [address] [place] [address], [facility] WBC #/vol (Bld) 11.09 10*3/uL High 4.00-10.60 [facility] Comment on above: Order Comment: No: D o not add to previous draw Performed By: #### 5 6100, 48910 #### [facility] [address] [place] [address], [facility] Erythrocyte distribution width Ratio (RBC) 15.2 % High 11.5-15.0 [facility] Comment on above: Order Comment: No: D o not add to previous draw Performed By: #### 5 6100, 84528 #### [facility] [address] [facility] [address] Hematocrit Volume Fraction (Bld) 33.0 % Low 36.0-45.0 [facility] Comment on above: Order Comment: No: D o not add to previous draw Performed By: #### 5 6100, 72112 #### [facility] [address] [facility] [place] [address], [facility] Hemoglobin mass conc (Bld) 10.3 g/dL Low 12.0-15.0 [facility] Comment on above: Order Comment: No: D o not add to previous draw Performed By: #### 5 6100, 34155 #### [facility] [address] [place] [address], [facility] MCH Entitic mass (RBC) 26.4 pg Low 27.0-33.0 [facility] Comment on above: Order Comment: No: D o not add to previous draw Performed By: #### 5 610, 10687 #### [facility] [address] [place] [address], [facility] MCHC mass conc (RBC) 31.2 g/dL Low 32.0-35.0 [facility] Comment on above: Order Comment: No: D o not add to previous draw Performed By: #### 5 6100, 51342 #### [facility] [address] [place] [address], [facility] MCV Entitic volume (RBC) 84.6 fL Normal 82.0-98.0 [facility] Comment on above: Order Comment: No: D o not add to previous draw Performed By: #### 5 6100, 58991 #### [facility] [address] [place] [address], [facility] Nucleated RBC/100 WBC Ratio (Bld) 0 % Normal 0-0 [facility] Comment on above: Order Comment: No: D o not add to previous draw Performed By: #### 5 6100, 75754 #### [facility] [address] [facility] [address], [facility] PLAT CNT 135 10*3/uL Low 150-400 [facility] Comment on above: Order Comment: No: D o not add to previous draw Performed By: #### 5 6100, 65001 #### [facility] [address] [facility] [place] [address], [facility] RBC #/vol (Bld) 3.90 10*6/uL Normal 3.80-5.00 [facility] Comment on above: Order Comment: No: D o not add to previous draw Performed By: #### 5 6100, 87824 #### [facility] [address] [place] [address], [facility] WBC #/vol (Bld) 12.38 10*3/uL High 4.00-10.60 [facility] Comment on above: Order Comment: No: D o not add to previous draw Performed By: #### 5 6100, 06179 #### [facility] [address] [place] [address], [facility] Erythrocyte distribution width Ratio (RBC) 15.3 % High 11.5-15.0 [facility] Comment on above: Order Comment: No: D o not add to previous draw Performed By: #### 5 6100, 49954 #### [facility] [address] [place] [address], [facility] Hematocrit Volume Fraction (Bld) 33.7 % Low 36.0-45.0 [facility] Comment on above: Order Comment: No: D o not add to previous draw Performed By: #### 5 6100, 41768 #### [facility] [address] [place] [id number], [facility] Hemoglobin mass conc (Bld) 10.7 g/dL Low 12.0-15.0 [facility] Comment on above: Order Comment: No: D o not add to previous draw Performed By: #### 5 6100, 43646 #### [facility] [address] [place] [address], [facility] MCH Entitic mass (RBC) 26.9 pg Low 27.0-33.0 [facility] Comment on above: Order Comment: No: D o not add to previous draw Performed By: #### 5 6100, 66436 #### [facility] [address] [place] [id number], [facility] MCHC mass conc (RBC) 31.8 g/dL Low 32.0-35.0 [facility] Comment on above: Order Comment: No: D o not add to previous draw Performed By: #### 5 6100, 80708 #### [facility] [address] [place] [address], [facility] MCV Entitic volume (RBC) 84.7 fL Normal 82.0-98.0 [facility] Comment on above: Order Comment: No: D o not add to previous draw Performed By: #### 5 6100, 35253 #### [facility] [address] [place] [address], [facility] Nucleated RBC/100 WBC Ratio (Bld) 0 % Normal 0-0 [facility] Comment on above: Order Comment: No: D o not add to previous draw Performed By: #### 5 6100, 54177 #### [facility] [address] [place] [address], [facility] PLAT CNT 138 10*3/uL Low 150-400 [facility] Comment on above: Order Comment: No: D o not add to previous draw Performed By: #### 5 6100, 93253 #### [facility] [address] [place] [address], [facility] RBC #/vol (Bld) 3.98 10*6/uL Normal 3.80-5.00 [facility] Comment on above: Order Comment: No: D o not add to previous draw Performed By: #### 5 6100, 90111 #### [facility] [address] [place] [address], [facility] WBC #/vol (Bld) 13.08 10*3/uL High 4.00-10.60 [facility] Comment on above: Order Comment: No: D o not add to previous draw Performed By: #### 5 6100, 63382 #### [facility] [address] [place] [address], [facility] Erythrocyte distribution width Ratio (RBC) 15.1 % High 11.5-15.0 [facility] Comment on above: Order Comment: No: D o not add to previous draw Performed By: #### 5 6100, 79622 #### [facility] [address] [place] [address], [facility] Hematocrit Volume Fraction (Bld) 33.7 % Low 36.0-45.0 [facility] Comment on above: Order Comment: No: D o not add to previous draw Performed By: #### 5 610, 68856 #### [facility] [address] [place] [address], [facility] Hemoglobin mass conc (Bld) 10.7 g/dL Low 12.0-15.0 [facility] Comment on above: Order Comment: No: D o not add to previous draw Performed By: #### 5 6100, 63146 #### [facility] [address] [place] [address], [facility] MCH Entitic mass (RBC) 27.0 pg Normal 27.0-33.0 [facility] Comment on above: Order Comment: No: D o not add to previous draw Performed By: #### 5 6100, 91626 #### [facility] [address] [facility] [place] [address], [facility] MCHC mass conc (RBC) 31.8 g/dL Low 32.0-35.0 [facility] Comment on above: Order Comment: No: D o not add to previous draw Performed By: #### 5 6100, 27154 #### [facility] [address] [facility] [address] MCV Entitic volume (RBC) 84.9 fL Normal 82.0-98.0 [facility] Comment on above: Order Comment: No: D o not add to previous draw Performed By: #### 5 6100, 85969 #### [facility] [address] [facility] [address] Nucleated RBC/100 WBC Ratio (Bld) 0 % Normal 0-0 [facility] Comment on above: Order Comment: No: D o not add to previous draw Performed By: #### 5 6100, 65621 #### [facility] [address] [facility] [address], [facility] PLAT CNT 136 10*3/uL Low 150-400 [facility] Comment on above: Order Comment: No: D o not add to previous draw Performed By: #### 5 6100, 04403 #### [facility] [address] RBC #/vol (Bld) 3.97 10*6/uL Normal 3.80-5.00 [facility] Comment on above: Order Comment: No: D o not add to previous draw Performed By: #### 5 6101, 24094 #### [facility] [address] [facility]. [address] WBC #/vol (Bld) 15.94 10*3/uL High 4.00-10.60 [facility] Comment on above: Order Comment: No: D o not add to previous draw Performed By: #### 5 6101, 35645 #### [facility] [address] [facility] Cardiovascular Lab Reporton 08-13-2018 Cardiovascular Lab Report [facility] Patient Name: Greg [facility] Nadya MR #: [id number] Department of Physician: Delroy Randolph MLeatha Division of Service Date: 08/12/2018 Cardiology Birthdate: 1940 Adult Cardiovascular Room #: [id number] [place] [address] Cardiovascular Laboratory Report PERIPHERAL INTERVENTION REPORT CLINICAL PRESENTATION: The patient is an 78-year-old female with past medical history significant for atrial fibrillation, hypertension, severe obesity, prior cholecystectomy and hysterectomy. The patient has been diagnosed with a staghorn calculus and is being evaluated by Urology. She recently developed severe left leg swelling and pain. She was evaluated in the [facility] Emergency Department and diagnosed with acute left leg DVT. She is transferred to the [facility] for further evaluation. I personally [...] a micropuncture access technique, I placed a 6-Mauritanian sheath in the left popliteal vein. Venograms were performed. This showed heavy thrombus burden throughout the entire popliteal, femoral, and iliac veins on the left side. Using a 5-Mauritanian angled glide catheter and angled Glidewire, I maneuvered to the IVC. Using an exchange J-wire, I exchanged to a 6-Mauritanian pigtail catheter. Venogram was performed. Venogram showed [...] Mulligan M.D. Date Trans: 08/13/2018 03:48 A/prashant [id number] cc: Maria Eugenia Miranda M.D. [address] [place] [id number] Normal [facility] FIBRINOGENon 08-13-2018 FIBRINOGEN 152 mg/dL Normal 150-425 [facility] Comment on above: Order Comment: No: D o not add to previous draw Performed By: #### 5 6101, [id number] #### [facility] [address] [place] [address], [facility] FIBRINOGEN 142 mg/dL Low 150-425 [facility] Comment on above: Order Comment: No: D o not add to previous draw Performed By: #### 5 6101, 71751 #### [facility] [address] [place] [address], [facility] FIBRINOGEN 162 mg/dL Normal 150-425 [facility] Comment on above: Performed By: #### 5 6101, 09308 #### [facility] [address] [place] [address], [facility] POC GLUCOSE LABon 08-13-2018 Glucose mass conc 157 mg/dL High 70-100 [facility] Comment on above: Performed By: #### 5 6101, 12022 #### [facility] [address] [place], [place] [id number] [place] [address] UFH HEPARIN ASSAYon 08-13-19 19 UNFRACTIONATED HEPARIN <0.10 Critically low 0.30-0.70 [facility] Comment on above: Result Comment: [place] roxaban and Apixaban will interfere with the anti Xa assay used to monitor UFH and LMWH. RESULTS CHECKED AND CALLED. ACCURATELY READ BACK BY LAZARO WISE RN @ 1528 Performed By: #### 5 6101, 07430 #### [facility] [address] [place] [address], [facility] UNFRACTIONATED HEPARIN <0.10 Critically low 0.30-0.70 [facility] Comment on above: Order Comment: No: D o not add to previous draw Result Comment: [place] roxaban and Apixaban will interfere with the anti Xa assay used to monitor UFH and LMWH. RESULTS CHECKED AND CALLED. ACCURATELY READ BACK BY Johana Zavaleta RN @ 0110 on 08-13-18 Performed By: #### 5 6101, 99855 #### [facility] [address] [place] [address], [facility] APTTon 08-12-2018 aPTT Coag time (Bld) 83.8 s Critically high 25.0-35.0 [facility] Comment on above: Result Comment: ALL RESULTS [...] ACCURATELY READ BACK BY DELROY GUIDO RN @9463 CLINICAL SIGNIFICANCE OF THE PTT RESULT IS QUESTIONABLE IN THE PRESENCE OF HEPARIN. Performed By: #### 3 0477, 78770 #### [facility] [address] [place] [address], [facility] BASIC METABOLIC PANELon 01-0 Calcium mass conc 8.8 mg/dL Normal 8.6-10.3 [facility] Comment on above: Order Comment: No: D o not add to previous draw Performed By: #### 4 999, 38705, 37050 #### [facility] [address] [place] [address], [place] Chloride molar conc 101 mmol/L Normal 98-107 [facility] Comment on above: Order Comment: No: D o not add to previous draw Performed By: #### 4 1000, 46209, 24126 #### [facility] [address] [place] [address], [place] CO2 molar conc 24 mmol/L Normal 21-31 [facility] Comment on above: Order Comment: No: D o not add to previous draw Performed By: #### 4 1000, 63985, 59484 #### [facility] [address] [place] [address], [place] Creatinine mass conc 0.88 mg/dL Normal 0.60-1.20 [facility] Comment on above: Order Comment: No: D o not add to previous draw Performed By: #### 4 999, 93555, 52943 #### [facility] [address] [place] [address], [place] GFR/1.73 sq M predicted among blacks MDRD vol rate/area (S/P/Bld) mL/min/{1.73_m2} Normal >60 [facility] Comment on above: Order Comment: No: D o not add to previous draw Result Comment: Calc ulation may not be valid for patients over 70 years Performed By: #### 4 1000, 17926, 62572 #### [facility] [address] [place] [address], [place] GFR/1.73 sq M predicted among non-blacks MDRD vol rate/area (S/P/Bld) mL/min/{1.73_m2} Normal >60 [facility] Comment on above: Order Comment: No: D o not add to previous draw Result Comment: Calc ulation may not be valid for patients over 70 years Performed By: #### 4 1000, 68342, 96078 #### [facility] [address] [place] [address], [place] Glucose mass conc 136 mg/dL High 70-100 [facility] Comment on above: Order Comment: No: D o not add to previous draw Performed By: #### 4 1000, 46362, 37961 #### [facility] [address] [place] [address], [place] Potassium molar conc 3.5 mmol/L Normal 3.5-5.1 [facility] Comment on above: Order Comment: No: D o not add to previous draw Performed By: #### 4 1000, 92730, 50993 #### [facility] [address] [place] [address], [place] Sodium molar conc 137 mmol/L Normal 136-145 [facility] Comment on above: Order Comment: No: D o not add to previous draw Performed By: #### 4 1000, 80854, 31625 #### [facility] [address] [place] [address], [place] Urea nitrogen mass conc 20 mg/dL Normal 7-25 [facility] Comment on above: Order Comment: No: D o not add to previous draw Performed By: #### 4 1000, 41784, 57372 #### [facility] [address] [place] [address], [place] Calcium mass conc 8.9 mg/dL Normal 8.6-10.3 [facility] Comment on above: Order Comment: Yes: Add to Previous draw if able Performed By: #### 0 0071 #### [facility] [address] [place] [address], [place] Chloride molar conc 100 mmol/L Normal 98-107 [facility] Comment on above: Order Comment: Yes: Add to Previous draw if able Performed By: #### 0 0071 #### [facility] [address] [place] [address], [place] CO2 molar conc 23 mmol/L Normal 21-31 [facility] Comment on above: Order Comment: Yes: Add to Previous draw if able Performed By: #### 0 0071 #### [facility] [address] [place] [address], [place] Creatinine mass conc 1.01 mg/dL Normal 0.60-1.20 [facility] Comment on above: Order Comment: Yes: Add to Previous draw if able Performed By: #### 0 0071 #### [facility] [address] [place] [address], [place] GFR/1.73 sq M predicted among blacks MDRD vol rate/area (S/P/Bld) mL/min/{1.73_m2} Normal >60 [facility] Comment on above: Order Comment: Yes: Add to Previous draw if able Result Comment: Calc ulation may not be valid for patients over 70 years Performed By: #### 0 0071 #### [facility] [address] [place] [address], [place] GFR/1.73 sq M predicted among non-blacks MDRD vol rate/area (S/P/Bld) 53 ml/min/1.73sq m Abnormal >60 [facility] Comment on above: Order Comment: Yes: Add to Previous draw if able Result Comment: Calc ulation may not be valid for patients over 70 years Performed By: #### 0 0071 #### [facility] [address] [place] [address], [facility] Glucose mass conc 167 mg/dL High 70-100 [facility] Comment on above: Order Comment: Yes: Add to Previous draw if able Performed By: #### 0 0071 #### [facility] [address] [place] [address], [facility] Potassium molar conc 3.4 mmol/L Low 3.5-5.1 [facility] Comment on above: Order Comment: Yes: Add to Previous draw if able Performed By: #### 0 0071 #### [facility] [address] [place] [address], [facility] Sodium molar conc 136 mmol/L Normal 136-145 [facility] Comment on above: Order Comment: Yes: Add to Previous draw if able Performed By: #### 0 0071 #### [facility] [address] [place] [address], [facility] Urea nitrogen mass conc 22 mg/dL Normal 7-25 [facility] Comment on above: Order Comment: Yes: Add to Previous draw if able Performed By: #### 0 0071 #### [facility] [address] [place] [address], [facility] CBC COMPLETE BLOOD COUNTon 0 08-12-2018 Erythrocyte distribution width Ratio (RBC) 15.0 % Normal 11.5-15.0 [facility] Comment on above: Order Comment: No: D o not add to previous draw Performed By: #### 5 6101, 50061 #### [facility] [address] [place] [address], [facility] Hematocrit Volume Fraction (Bld) 39.2 % Normal 36.0-45.0 [facility] Comment on above: Order Comment: No: D o not add to previous draw Performed By: #### 5 6100, 62323 #### [facility] [address] [place] [address], [facility] Hemoglobin mass conc (Bld) 11.9 g/dL Low 12.0-15.0 [facility] Comment on above: Order Comment: No: D o not add to previous draw Performed By: #### 5 6100, 31812 #### [facility] [address] [place] [address], [facility] MCH Entitic mass (RBC) 27.0 pg Normal 27.0-33.0 [facility] Comment on above: Order Comment: No: D o not add to previous draw Performed By: #### 5 6100, 07699 #### [facility] [address] MCHC mass conc (RBC) 30.4 g/dL Low 32.0-35.0 [facility] Comment on above: Order Comment: No: D o not add to previous draw Performed By: #### 5 6100, 10082 #### [facility] [address] [facility] [place] [address], [facility] MCV Entitic volume (RBC) 89.1 fL Normal 82.0-98.0 [facility] Comment on above: Order Comment: No: D o not add to previous draw Performed By: #### 5 6100, 29587 #### [facility] [address] [facility] [place] [address], [facility] Nucleated RBC/100 WBC Ratio (Bld) 0 % Normal 0-0 [facility] Comment on above: Order Comment: No: D o not add to previous draw Performed By: #### 5 610, 59064 #### [facility] [address] [place] [address], [facility] PLAT CNT 168 10*3/uL Normal 150-400 [facility] Comment on above: Order Comment: No: D o not add to previous draw Performed By: #### 5 6101, 12592 #### [facility] [address] [place] [address], [facility] RBC #/vol (Bld) 4.40 10*6/uL Normal 3.80-5.00 [facility] Comment on above: Order Comment: No: D o not add to previous draw Performed By: #### 5 6101, 55124 #### [facility] [address] [place] [address], [facility] WBC #/vol (Bld) 19.58 10*3/uL High 4.00-10.60 [facility] Comment on above: Order Comment: No: D o not add to previous draw Performed By: #### 5 6101, 40158 #### [facility] [address] Erythrocyte distribution width Ratio (RBC) 14.9 % Normal 11.5-15.0 [facility] Comment on above: Order Comment: No: D o not add to previous draw Performed By: #### 5 0608 #### [facility] [address] [place] [address], [facility] Hematocrit Volume Fraction (Bld) 36.7 % Normal 36.0-45.0 [facility] Comment on above: Order Comment: No: D o not add to previous draw Performed By: #### 5 0608 #### [facility] [address] [place] [address], [facility] Hemoglobin mass conc (Bld) 11.4 g/dL Low 12.0-15.0 [facility] Comment on above: Order Comment: No: D o not add to previous draw Performed By: #### 5 0608 #### [facility] [address] [place] [address], [facility] MCH Entitic mass (RBC) 26.3 pg Low 27.0-33.0 [facility] Comment on above: Order Comment: No: D o not add to previous draw Performed By: #### 5 0608 #### [facility] [address] [place] [address], [facility] MCHC mass conc (RBC) 31.1 g/dL Low 32.0-35.0 [facility] Comment on above: Order Comment: No: D o not add to previous draw Performed By: #### 5 0608 #### [facility] [address] [place] [address], [facility] MCV Entitic volume (RBC) 84.8 fL Normal 82.0-98.0 [facility] Comment on above: Order Comment: No: D o not add to previous draw Performed By: #### 5 0608 #### [facility] [address] Nucleated RBC/100 WBC Ratio (Bld) 0 % Normal 0-0 [facility] Comment on above: Order Comment: No: D o not add to previous draw Performed By: #### 5 0608 #### [facility] [address] [facility] [place] [address], [facility] PLAT CNT 183 10*3/uL Normal 150-400 [facility] Comment on above: Order Comment: No: D o not add to previous draw Performed By: #### 5 0608 #### [facility] [address] [facility] [place] [address], [facility] RBC #/vol (Bld) 4.33 10*6/uL Normal 3.80-5.00 [facility] Comment on above: Order Comment: No: D o not add to previous draw Performed By: #### 5 0608 #### [facility] [address] [place] [address], [facility] WBC #/vol (Bld) 11.41 10*3/uL High 4.00-10.60 [facility] Comment on above: Order Comment: No: D o not add to previous draw Performed By: #### 5 0608 #### [facility] [address] [place] [address], [facility] FIBRINOGENon 08-12-2018 FIBRINOGEN 324 mg/dL Normal 150-425 [facility] Comment on above: Order Comment: No: D o not add to previous draw Performed By: #### 5 6101, 83402 #### [facility] [address] [place] [address], [facility] MAGNESIUM BLOODon 08-12-2018 Magnesium mass conc 2.0 mg/dL Normal 1.9-2.7 [facility] Comment on above: Order Comment: No: D o not add to previous draw Performed By: #### 4 1000, 02415, 34422 #### [facility] [address] [place] [address], [facility] PHOSPHORUS BLOODon 9 Phosphate mass conc 4.0 mg/dL Normal 2.5-5.0 [facility] Comment on above: Order Comment: No: D o not add to previous draw Performed By: #### 4 1000, 83683, 17800 #### [facility] [address] TYPE AND SCREENon 08-12-2018 ABO INTERPRETATION O Normal [facility] Comment on above: Order Comment: No: D o not add to previous draw Performed By: #### 5 6101, 66015 #### [facility] [address] [facility] [place] [address], [facility] RH INTERPRETATION Positive Normal [facility] Comment on above: Order Comment: No: D o not add to previous draw Performed By: #### 5 6101, 99929 #### [facility] [address] UFH HEPARIN ASSAYon 08-12-19 19 UNFRACTIONATED HEPARIN 0.14 IU/mL Critically low 0.30-0.70 [facility] Comment on above: Order Comment: No: D o not add to previous draw Result Comment: [place] roxaban and Apixaban will interfere with the anti Xa assay used to monitor UFH and LMWH. RESULTS CHECKED AND CALLED. ACCURATELY READ BACK BY SALVATORE Mora9 Performed By: #### 5 6101, 49606 #### [facility] [address] [place] [address], [facility] UNFRACTIONATED HEPARIN 0.19 IU/mL Low 0.30-0.70 [facility] Comment on above: Result Comment: [place] roxaban and Apixaban will interfere with the anti Xa assay used to monitor UFH and LMWH. Performed By: #### 5 6101, 84138 #### [facility] [address] UNFRACTIONATED HEPARIN 0.79 IU/mL High 0.30-0.70 [facility] Comment on above: Result Comment: [place] roxaban and Apixaban will interfere with the anti Xa assay used to monitor UFH and LMWH. Performed By: #### 5 6101, 34838 #### [facility] [address] [facility] [place] [address], [facility] UNFRACTIONATED HEPARIN >1.00 Critically high 0.30-0.70 [facility] Comment on above: Result Comment: [place] roxaban and Apixaban will interfere with the anti Xa assay used to monitor UFH and LMWH. RESULTS CHECKED AND CALLED. ACCURATELY READ BACK BY DELROY GUIDO RN @9729 UFH=1.54 Performed By: #### 3 0477, 05258 #### [facility] [address] [facility] [address] APTTon 08-11-2018 aPTT Coag time (Bld) 36.9 s High 25.0-35.0 [facility] Comment on above: Order Comment: No: D [...] THIS PURPOSE. Performed By: #### 5 6101, 96985 #### [facility] [address] CBC COMPLETE BLOOD COUNTon 0 - Erythrocyte distribution width Ratio (RBC) 15.2 % High 11.5-15.0 [facility] Comment on above: Order Comment: No: D o not add to previous draw Performed By: #### 5 0608 #### [facility] [address] [facility] [address] Hematocrit Volume Fraction (Bld) 43.6 % Normal 36.0-45.0 [facility] Comment on above: Order Comment: No: D o not add to previous draw Performed By: #### 5 0608 #### [facility] [address] [facility] Hemoglobin mass conc (Bld) 13.4 g/dL Normal 12.0-15.0 [facility] Comment on above: Order Comment: No: D o not add to previous draw Performed By: #### 5 0608 #### [facility] [address] IMM PLATELET FRAC 2.6 % Normal 0.8-6.3 [facility] Comment on above: Order Comment: No: D o not add to previous draw Performed By: #### 5 0608 #### [facility] [address] [facility]. [address] MCH Entitic mass (RBC) 27.0 pg Normal 27.0-33.0 [facility] Comment on above: Order Comment: No: D o not add to previous draw Performed By: #### 5 0608 #### [facility] [address] [facility] [address] MCHC mass conc (RBC) 30.7 g/dL Low 32.0-35.0 [facility] Comment on above: Order Comment: No: D o not add to previous draw Performed By: #### 5 0608 #### [facility] [address] [place] [address], [facility] MCV Entitic volume (RBC) 87.7 fL Normal 82.0-98.0 [facility] Comment on above: Order Comment: No: D o not add to previous draw Performed By: #### 5 0608 #### [facility] [address] [place] [address], [facility] Nucleated RBC/100 WBC Ratio (Bld) 0 % Normal 0-0 [facility] Comment on above: Order Comment: No: D o not add to previous draw Performed By: #### 5 0608 #### [facility] [address] [place] [address], [facility] PLAT CNT 122 10*3/uL Low 150-400 [facility] Comment on above: Order Comment: No: D o not add to previous draw Performed By: #### 5 0608 #### [facility] [address] [place] [address], [facility] RBC #/vol (Bld) 4.97 10*6/uL Normal 3.80-5.00 [facility] Comment on above: Order Comment: No: D o not add to previous draw Performed By: #### 5 0608 #### [facility] [address] [place] [address], [facility] WBC #/vol (Bld) 12.98 10*3/uL High 4.00-10.60 [facility] Comment on above: Order Comment: No: D o not add to previous draw Performed By: #### 5 0608 #### [facility] [address] [place] [address], [facility] PROTHROMBIN TIMEon 9 INR Coag RelTime (PPP) 1.27 {INR} High 0.91-1.16 [facility] Comment on above: Order Comment: No: D [...] CHEST 1995;[id number]. Performed By: #### 5 6101, 65084 #### [facility] [address] Prothrombin time (PT) Coag time (PPP) 15.9 s High 12.3-14.8 [facility] Comment on above: Order Comment: No: D o not add to previous draw Result Comment: ALL RESULTS MUST BE INTERPRETED WITH RESPECT TO BLOOD DRAWING ARTIFACT OR DILUTION ERROR OF ANTICOAGULANT AT THE TIME OF SAMPLING. Performed By: #### 5 6101, 21192 #### [facility] [address] Vital Signs Date Time Vital Sign Value Performing Clinician Sergioi elissa 02-05-2024 11:18-040 Body height 152.4 cm Mitzi Rangel MD Work Phone: [facility] 02-05-2024 11:18-0400 Body mass index (BMI) [Ratio] 54.1 kg/m2 Mitzi Rangel MD Work Phone: [facility] 02-05-2024 11:18-0400 Body weight 125.65 kg Mitzi Rangel MD Work Phone: [facility] 02-05-2024 11:18-0400 Diastolic blood pressure 81 mm[Hg] Mitzi Rangel MD Work Phone: [facility] 02-05-2024 11:18-0400 Heart rate 55 /min Mitzi Rangel MD Work Phone: [facility] 02-05-2024 11:18-0400 Respiratory rate 18 /min Mitzi Rangel MD Work Phone: [facility] 02-05-2024 11:18-0400 Systolic blood pressure 129 mm[Hg] Mitzi Rangel MD Work Phone: [facility] 11-27-2023 10:18-0400 Blood Pressure Location REGINA MAVERICK [facility] 11-27-2023 10:18-0400 Diastolic blood pressure 71 mm[Hg] REGINA MAVERICK [facility] 11-27-2023 10:18-0400 Heart rate 77 /min REGINA MAVERICK [facility] 11-27-2023 10:18-0400 Respiratory rate 16 /min REGINA MAVERICK [facility] 11-27-2023 10:18-0400 Systolic blood pressure 131 mm[Hg] REGINA MAVERICK [facility] 04-24-2023 10:11-0400 Blood Pressure Location REGINA MAVERICK [facility] 04-24-2023 10:11-0400 Diastolic blood pressure 85 mm[Hg] REGINA MAVERICK [facility] 04-24-2023 10:11-0400 Heart rate 87 /min REGINA MAVERICK [facility] 04-24-2023 10:11-0400 Respiratory rate 16 /min REGINA VALIENTE [facility] 04-24-2023 10:11-0400 Systolic blood pressure 144 mm[Hg] REGINA VALIENTE [facility] 05-10-2022 13:43-0400 Blood Pressure Location Shayne England [facility] 05-10-2022 13:43-0400 Diastolic blood pressure 70 mm[Hg] Shayne England [facility] 05-10-2022 13:43-0400 Heart rate 77 /min Shayne England [facility] 05-10-2022 13:43-0400 Respiratory rate 16 /min Shayne England [facility] 05-10-2022 13:43-0400 Systolic blood pressure 117 mm[Hg] Shayne England [facility] Encounters Encounter Date Encounter Type Care Provider Facility Start: 02-18-2024 End: 02-18-[address] [facility] Start: 02-06-2024 End: 02-06-2024 ambulatory [facility] Start: 02-05-2024 End: 02-05-2024 ambulatory Mitzi Rangel MD Work Phone: Urology Start: 02-05-2024 End: 02-05-2024 Patient encounter procedure Mitzi Rangel MD Work Phone: Urology Comment on above: Calculus of kidney ( Primary Dx); Kidney stones; Primary hypertension; Paroxysmal atrial fibrillation (HCC); Coronary artery disease involving nisqually coronary artery of nisqually heart without angina pectoris, 50% ostial LAD, 60% OM1; Urinary incontinence, mixed Start: 02-01-2024 End: 02-01-2024 ambulatory [facility] Start: 01-28-2024 End: 01-28-[address] [facility] Start: 01-28-2024 Encounter for genera l adult medical examination without abnormal findings [facility] Start: 01-14-2024 End: 01-14-[address] [facility] Start: 01-08-2024 End: 01-08-2024 ambulatory [facility] Facility:[facility] Start: 01-08-2024 End: 01-08-2024 Patient encounter procedure REGINA VALIENTE [facility] Start: 12-20-2023 End: 12-20-2023 Lab Drop off REGINA VALIENTE [facility] Start: 12-20-2023 End: 12-20-2023 ambulatory [facility] Facility:[facility] Start: 12-20-2023 End: 12-20-2023 Patient encounter procedure Leonardo REGAN [facility] Start: 12-13-2023 End: 12-13-2023 ambulatory MAKENNA TAMAYO Not Available Start: 12-07-2023 End: 12-07-2023 Lab Drop off REGINA VALIENTE [facility] Start: 12-07-2023 End: 12-07-2023 ambulatory REGINA VALIENTE Facility:[facility] Start: 12-07-2023 End: 12-07-2023 Patient encounter procedure Leonardo REGAN [facility] Start: 11-27-2023 End: 11-27-2023 Lab Drop off REGINA VALIENTE [facility] Start: 11-27-2023 End: 11-27-2023 ambulatory REGINA VALIENTE Facility:[facility] Start: 11-27-2023 End: 11-27-2023 Patient encounter procedure REGINA VALIENTE [facility] Start: 09-20-2023 Refill [facility]anna [facility] Start: 09-13-2023 End: 09-13-2023 ambulatory MAKENNA TAMAYO Not Available Start: 09-12-2023 Chart abstracting Makenna malone MD Work Phone: [facility] Start: 08-28-2023 End: 08-28-2023 ambulatory JUAN DIEGO CASTILLO Facility:[facility] Start: 08-28-2023 End: 08-28-2023 Patient encounter procedure REGINA VALIENTE [facility] Start: 08-27-2023 Telephone encounter Estella Mills [facility] Start: 08-20-2023 Telephone encounter Griselda willson CNA Work Phone: [facility] Start: 08-07-2023 End: 08-07-2023 ambulatory Leonardo REGAN Facility:[facility] Start: 08-07-2023 End: 08-07-2023 Patient encounter procedure Leonardo REGAN [facility] Start: 08-01-2023 End: 08-01-2023 ambulatory Leonardo REGAN Facility:[facility] Start: 08-01-2023 End: 08-01-2023 Patient encounter procedure Leonardo REGAN [facility] Start: 07-27-2023 End: 07-27-[address] [facility] Start: 07-12-2023 End: 07-12-2023 ambulatory MAKENNA Garcia BAUER Not Available Start: 06-19-2023 End: 06-19-2023 ambulatory MICHELLE VIDALES Not Available Start: 06-05-2023 End: 06-05-2023 ambulatory REGINA VALIENTE Facility:[facility] [place] Start: 05-25-2023 End: 05-25-20[facility] Start: 04-24-2023 End: 04-24-2023 ambulatory REGINA VALIENTE Facility:[facility] Start: 04-24-2023 End: 04-24-2023 Patient encounter procedure [facility] VALIENTE [facility] Start: 03-02-2023 End: 03-02-2023 [facility] Start: 10-17-2022 End: 10-17-2022 Patient encounter procedure REGINA VALIENTE [facility] Start: 09-05-2022 End: 09-05-[address] DARYA BOYER Facility:[facility] Start: 08-29-2022 End: 08-29-[address] COMPA FOOTE Facility:[facility] Start: 06-13-2022 End: 06-13-2022 Patient encounter procedure Leonardo REGAN [facility] Start: 05-10-2022 End: 05-10-2022 Patient encounter procedure Shayne England [facility] Start: 04-18-2022 End: 04-19-[address] COMPA FOOTE Facility:[facility] Start: 02-03-2022 End: 02-03-[address] ANASTASIIA BUTCHER Facility:[facility] Start: 08-11-2018 End: 08-14-2018 Evaluation and management of inpatient DEE DEE GARBER Facility:[facility] Procedures Date Procedure Procedure Detail Performing Clinician Start: 02-18-2024 Follow-up visit Follow-up JUAN DIEGO CASTILLO Start: 08-07-2023 Injection of botulin um toxin type A into detrusor muscle of urinary bladder REGINA VALIENTE Start: 06-13-2022 Cystourethroscopy wi th dilation of urethral stricture REGINA VALIENTE Start: 05-25-2020 Cystourethroscopy wi th dilation of urethral stricture REGINA VALIENTE Start: 06-24-2019 Cystoscopic removal of ureteric stent REGINA VALIENTE Start: 08-12-2018 Antibody screen INDIGO GARBER Comment on above: Order Comment: No: D o not add to previous draw Performed By: #### 5 [id number] #### [address] [place] [address], [facility] Start: 08-12-2018 EXTIRPATION OF MATTE R FROM L COM ILIAC VEIN, PERC APPROACH KENNEDI ROSSPTA Start: 08-12-2018 EXTIRPATION OF MATTE R FROM LEFT FEMORAL VEIN, PERC APPROACH KENNEDI MULLIGAN Start: 08-12-2018 FLUOROSCOPY OF INFER IOR VENA CAVA USING OTHER CONTRAST KENNEDI ROSSPTA Start: 08-12-2018 FLUOROSCOPY OF LEFT LOWER EXTREMITY VEINS USING OTH CONTRAST KENNEDI ROSSPTA Start: 08-12-2018 FLUOROSCOPY OF LEFT PELVIC (ILIAC) VEINS USING OTH CONTRAST KENNEDI ROSSPTA Start: 08-12-2018 INSERTION OF INFUSIO N DEV INTO INF VENA CAVA, PERC APPROACH KENNEDI MULLIGAN Start: 08-12-2018 INSERTION OF INTRALU M DEV INTO INF VENA CAVA, PERC APPROACH KENNEDI MULLIGAN Start: 08-12-2018 INTRODUCE OTH THROMB OLYTIC IN CENTRAL VEIN, PERC KENNEDI MULLIGAN Cataract (disorder) Lannette Samanta Catheterization of aorta Cesar [place] Cholecystectomy Shayne Miguel mons Colonoscopy Lanmadai Piedra s Hernia repair Shayne Riveramo ns Hysterectomy Shayne Piedra s Knee region structur e (body structure) Shayne England Tonsillectomy and adenoidectomy Shayne England Total knee replacement Zia England Comment on above: rt Umbilical hernia (disorder) hSayne England Plan of Treatment Date Care Activity Detail Author Start: 04-01-2026 Diabetes Screening Diabetes Screenin g [facility] Start: 06-19-2025 Glaucoma screening Diabetes: R etinopathy Screening [facility] Start: 07-27-2024 Adult BMI Follow Up Plan Adult BMI Follow Up Plan [facility] Start: 07-27-2024 Adult BMI Screening Adult BMI Screen ing [facility] Start: 07-27-2024 Tobacco Screening Tobacco Screening [facility] Start: 06-10-2024 ambulatory Ambulatory Facility:E [facility] Start: 04-06-2024 Influenza vaccination Influenza Vacc ine (#1) [facility] Start: 01-28-2024 End: 01-28-2024 Patient encounter procedure 01/28/2024 9:00 AM EDT Office Visit [facility] [address] [place] [phone] Juan Diego Castillo, PEDIATRIC ALLERGIST-INSULATING 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 [address] [place] [address] [facility] Start: 11-14-2023 End: 11-14-2023 Patient encounter procedure 11/14/2023 1:30 PM EDT Office Visit [facility] [address] [place] [phone] Rajni Lopez, PEDIATRIC ALLERGIST-INSULATING 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 [address], [address] [place] [address] [facility] Start: 09-13-2023 End: 09-13-2023 Patient encounter procedure 09/13/2023 10:00 AM EST Office Visit [facility] [address] [place] [address] Makenna Tamayo MD [address] [place] [address] [place] [phone] [facility] Start: 08-29-2023 End: 08-29-2023 Patient encounter procedure 08/29/2023 9:00 AM EST Office Visit [facility] [facility] [place] [address] Rajni Lopez, PEDIATRIC ALLERGIST-INSULATING 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 [address], [address] [place] [phone] [facility] Start: 08-06-2023 Advance Directive Discussion Advance Directive Discussion [facility] Start: 08-06-2023 Behavioral Health Screening Behavioral Health Screening [facility] Start: 04-06-2023 COVID-19 Vaccine ( season) COVID-19 Vaccine ( season) [facility] Start: 04-06-2023 Influenza vaccination [facility] Start: 09-10-2021 Hemoglobin A1c measurement Diabetes: Hemoglobin A1C [facility] Start: 2003 Fall Risk Screening Fall Risk Screen ing [facility] Start: 1998 RSV Vaccine (1 - 1-d ose 60+ series) RSV Vaccine (1 - 1-dose 60+ series) [facility] Start: 01-27-1988 Administration of varicella zoster vaccine Zoster (Shingles) Vaccine (1 of 2) [facility] Start: 01-27-1988 Shingrix Vaccine (1 of 2) Shingrix Vaccine (1 of 2) [facility] Start: 1957 DTaP,Tdap and Td Vaccines (1 - Tdap) DTaP,Tdap and Td Vaccines (1 - Tdap) [facility] Start: 1957 Urine microalbumin profile DTaP,Tdap,Td Vaccine (1 - Tdap) [facility] Start: 01-27-1956 Hepatitis B surface antibody level LDL Cholesterol [facility] Start: 1950 Depression Screening Depression Scre ening [facility] Start: 01-27-1944 Pneumococcal Vaccine : 65+ (1 of 2 - PCV) Pneumococcal Vaccine: 65+ (1 of 2 - PCV) [facility] Start: 1938 Medicare Annual Well ness (AWV) Medicare Annual Wellness (AWV) [facility] Start: 1938 Medicare Annual Well ness Visit Medicare Annual Wellness Visit [facility] URINALYSIS, REFLEX MICROSCOPIC URINALYSIS, REFLEX MICROSCOPIC Lab Routine Screening for genitourinary condition Ordered: 02/05/2024 [facility] Work Phone: Comment on above: Ordered: 02/05/2024 Immunizations Immunization Date Immunization Notes Care Provider Zaid brown 06-21-2021 SARS-CoV-2 (COVID-19 ) mRNA BNT-162b2 [facility] [place] [facility] 11-25-2020 SARS-CoV-2 (COVID-19 ) [facility] 11-05-2020 SARS-CoV-2 (COVID-19 ) mRNA BNT-162b2 [facility] Payers Date Payer Category Payer [employer] ( and others) [id number] [facility] 2022 [employer] ( and others) [id number] 2022 Medicare [id number] 2022 Medicare [id number] [facility] 2015 Unknown [id number] [id number] [facility] 2015 [employer] ( and others) [id number] 1959 [employer] ( and others) [id number] 1959 Unknown [id number] 1938 Unknown [id number] 2.16.840.1.652032.3.579.2.647 1938 Unknown [id number] 2.16.840.1.331821.3.579.2.593 1938 Unknown [id number] 2.16.840.1.718394.3.579.2.593 1938 Unknown [id number] 2.16.840.1.073243.3.579.2.593 1938 Unknown [id number] 2.16.840.1.505402.3.579.2.593 1938 Unknown [id number] 2.16.840.1.680217.3.579.2.1259 1938 Unknown [id number] 2.16.840.1.465517.3.579.2.1259 1938 Unknown [id number] 2.16.840.1.885054.3.579.2.1259 1938 Unknown [id number] 2.16.840.1.940033.3.579.2.1259 1938 Unknown [id number] 2.16.840.1.531307.3.579.2.727 1938 Unknown [id number] 2.16.840.1.925997.3.579.2.727 1938 Unknown [id number] 2.16.840.1.777796.3.579.2.727 1938 Unknown [id number] 2.16.840.1.112957.3.579.2.727 1938 Unknown [id number] 2.16.840.1.345647.3.579.2.727 1938 Unknown [id number] 2.16.840.1.875470.3.579.2.727 1938 Unknown [id number] 2.16.840.1.820686.3.579.2.727 1938 Unknown [id number] 2.16.840.1.028797.3.579.2.727 1938 Unknown [id number] 2.16.840.1.131485.3.579.2.727 1938 Unknown [id number] 2.16.840.1.730710.3.579.2.727 1938 Unknown [id number] 2.16.840.1.647863.3.579.2.727 1938 Unknown [id number] 2.16.840.1.241993.3.579.2.727 1938 Unknown [id number] 2.16.840.1.926259.3.579.2. 1938 Unknown [id number] 2.16.840.1.955740.3.579.2.1286 1938 Unknown [id number] 2.16.840.1.860946.3.579.2.1286 1938 Unknown [id number] 2.16.840.1.715077.3.579.2.128 1938 Unknown [id number] 2.16.840.1.626588.3.579.2.128 1938 Unknown [id number] 2.16.840.1.709388.3.579.2.1286 Medicare [id number] Social History Date Type Detail Facility Start: 06-24-2015 End: 10-25-2020 Tobacco smoking status Never smoked tobacco (finding) [facility] Start: 09-17-2020 End: 07-27-2023 Sex Assigned At Female [facility] Tobacco smoking status Never [facility] Start: 06-24-2015 End: 11-01-2022 Tobacco use and exposure [facility]ok[facility] Start: 07-12-2023 End: 07-27-2023 Alcohol intake Lifetime non-drinker (finding) [facility] Start: 09-17-2020 End: 07-27-2023 History of Social function [facility] Start: 1940 Sex Assigned At Not on file [place] [facility] Start: 02-05-2024 Alcohol intake Current non-dr social work supervisor of alcohol (finding) [facility] Medical Equipment Procedure Code Equipment Code Equipment Origin al Text Equipment Identifier Dates Stent Inlay Opti ma 7fr Taper [place] [employer] Polymer Phreecoat 26cm Ureteral - [id number] Start: 06-11-2019 Functional Status Date Assessment Result Facility 01-08-2024 Functional Status N/A [facility] 11-27-2023 Functional Status N/A [facility] 08-07-2023 Functional Status N/A [facility] 04-24-2023 Functional Status N/A [facility] 06-06-2022 Functional Status N/A [facility] 05-10-2022 Functional Status N/A [facility] Clinical Notes 06-13-2022 to 02-06-2024 Mitzi Rangel MD - 02/05/2024 11:34 AM EDTTelephone Encounter - Arinana Miner LPN - 09/20/2023 9:39 AM ESTTelephone Encounter - Arianna Miner LPN - 09/20/2023 9:39 AM EST Note Date & Type Note Facility 02-06-2024 Note HTN well controlled and stable Continue all current meds Awaiting lab results today [facility] 02-06-2024 Note [facility] currently v olume overloaded, increased weight and leg edema today Continue GDMT- Diuretic therapy- increase lasix to 40 mg po bid x 2-3 days and then return to 1 tab daily. D/W family- Monitor daily weights, I&O, fluid restriction 1.5-2L/day, renal function and electrolytes [facility] 02-06-2024 Note Coronary artery dise ase is unchanged. Continue current treatment regimen. Continue current medications. Cardiac status will be reassessed in 3 months. Continue GDMT- lipitor, toprol continue risk factor modifications- heart healthy diet, regular exercise as tolerated and continue all medications. [facility] 02-06-2024 Note [id number]= 9- age , female, CHF, CAD/vascular, HTN, TIA, and DM Continue eliquis anticoagulation- denied any bleeding tendencieis Rate controlled with toprol [facility] 02-06-2024 Note Patient here for 9 m o follow up persistent afib, CAD, hypertension, and chronic diastolic heart failure. Metoprolol was restarted at last apt in May 2023. Says she had some sharp chest pain that woke her from sleep last night. Lasted about 1 hour. C/o increased LE edema. [facility] Had labs drawn this morning for PCP. Lightheadedness has improved. Denies bleeding on Eliquis. Review of Systems Cardiovascular: Positive for chest pain, dyspnea on exertion, leg swelling and palpitations ( sometimes ). Skin: Positive for color change. All other systems reviewed and are negative. [facility] 02-06-2024 Note [facility] CARDIOLOGY PROGR ESS NOTE HPI: Lacie Garza is a 84 y.o. female here for routine F/U HPI 84 yo female presents for routine F/U for known CAD- non obstructive, A fib, HTN, edema legs, h/o DVT Pt states that her legs are more swollen and difficult to walk at times. Admits SOB with ADLs, denied SOB at rest or orthopnea Denied any recent hospitalization or illness. Review of Systems Constitutional: Negative. Respiratory: Positive for shortness of breath. Cardiovascular: Positive for leg swelling. Neurological: Positive for dizziness and light-headedness. Negative for syncope. All other systems reviewed and are negative. Previous HPI Lacie Garza is a 83 y.o. female [...] the bag of her medication bottles today. HPI She is an 83-year-old female with [...] infection and is being treated with antibiotics. Update: 08/15/2022 She denies any changes from a cardiology [...] with a cane. Her accompanied her today. Update: 03/02/2023 She is nauseated a lot Her equilibrium is off, having dizziness She is seeing neurology for a pinched nerve She has been gaining weight is on Ozempic but forgets to take it Fell a couple of months ago Reports an incident of nocturnal chest pain that resolved with walking around the house Daughter reports she is very s (more content not included)... [facility] 02-05-2024 Note HNO ID: [id number] Author: MITZI RANGEL MD Service: ? Author Type: Physician Type: Progress Notes Filed: 02/05/2024 19:06 Note Text: STAFF UROLOGY NOTE: We had the pleasure [...] based on size, location, hounsfield units and qwjq-tt-kijvc distance: 30% 3. Ureteroscopy - risks of [...] atrial fibrillation (HCC), Coronary artery disease involving nisqually coronary artery of nisqually heart without angina pectoris, 50% ostial LAD, [...] with more than 50% of the total ghmt-zc-tpxu time of the visit devoted to patient counseling/coordination of care. Mitzi Rangel MD Director, Surgical Stone Disease [facility] [place], [facility] Pager [phone] 02/05/2024 [facility] 02-05-2024 History of Present illness Narrative STAFF [...] returns after approximately 7 years, referred by Theresa Milliganusky, for possible treatment of left renal stone [...] based on size, location, hounsfield units and gltp-yt-qyskx distance: 30% 3. Ureteroscopy - risks of [...] atrial fibrillation (HCC), Coronary artery disease involving nisqually coronary artery of nisqually heart without angina pectoris, 50% ostial LAD, [...] with more than 50% of the total wgxs-bn-gzii time of the visit devoted to patient counseling/coordination of care. Mitzi Rangel MD Director, Surgical Stone Disease [facility] [place], [facility] Pager [phone] 02/05/2024 documented in this encounter [facility] 02-05-2024 Note Patient Outreach (UR OLMN) GIANLUCA GARZAANNNadya Covington ([id number]) 1940 F CHT Date Time Provider Department 02/05/24 MITZI RANGEL During your visit today, we recorded the following information about you: Allergies As of Date: 02/05/2024 Noted Allergy Reaction LINACLOTIDE 03/02/2016 6 - Diarrhea 11 - Vomiting Comments: Bile regurgitation Date Reviewed: 02/05/2024 Reviewed by: Anna Benitez OCCA - Fully Assessed Visit Diagnosis:Screening for genitourinary condition [Z13.89] Order(s):URINALYSIS, REFLEX MICROSCOPIC [GCS9404] Order #: [id number]. #:[id number] Prescriptions as of 02/08/2024 - albuterol HFA (PROVENTIL HFA, VENTOLIN HFA) 90 mcg/actuation inhaler Inhale 2 Puffs as instructed every 6 hours as needed. - clotrimazole-betamethasone (LOTRISONE) cream Apply 1 Application to affected area. - donepezil (ARICEPT) 5 mg tablet Take 5 mg by mouth. - FLUoxetine (PROZAC) 40 mg capsule Take 40 mg by mouth every morning. - memantine (NAMENDA) 10 mg tablet Take 10 mg by mouth. - QUEtiapine (SEROQUEL) 25 mg tablet Take 25 mg by mouth. - tamsulosin ER (FLOMAX) 0.4 mg cap Take 1 capsule by mouth once daily. 30 minutes after the same meal each day. - acetaminophen (TYLENOL ARTHRITIS PAIN) 650 mg CR tablet Take 650 mg by mouth every 8 hours as needed. - docusate sodium (COLACE) 100 mg capsule Take 1 capsule by mouth twice daily. - pantoprazole DR (PROTONIX) 40 mg tablet pantoprazole 40 mg tablet,delayed release - apixaban (ELIQUIS) 5 mg tab(s) Eliquis 5 mg tablet - linaclotide (LINZESS) 145 mcg capsule Linzess 145 mcg capsule - metoprolol succinate ER (TOPROL XL) 50 mg 24 hr tablet 100 mg. - tamsulosin ER (FLOMAX) 0.4 mg cap q 24 HR. - furosemide (LASIX) 40 mg tablet Take 1 tablet by mouth once daily. - amLODIPine (NORVASC) 5 mg tablet Take 1 tablet by mouth once daily. - atorvastatin (LIPITOR) 40 mg tablet Take 1 tablet by mouth once daily. - OXYGEN, HOME THERAPY, 2 L/min by Nasal Cannula route as directed. - mirabegron (MYRBETRIQ) 50 mg Tb24 Take 50 mg by mouth once daily. Problem List As Of Date 02/05/2024 Noted Resolved Ischemic chest pain (HCC) [I20.9] 06/24/2015 09/06/2017 Chronic diastolic heart failure (HCC) [I50.32] 06/24/2015 TIA (transient ischemic attack) [G45.9] Sleep apnea [G47.30] Pelvic mass in female [R19.00] Kidney stones [N20.0] Hypertension [I10] GERD (gastroesophageal reflux disease) [K21.9] BMI 50.0-59.9, adult (HCC) [Z68.43] 08/08/2016 Coronary artery disease involving nisqually churchill*10/04/2017 Paroxysmal atrial fibrillation (HCC) [I48.0] 06/04/2018 Calculus of kidney [N20.0] 06/25/2018 Left renal stone [N20.0] 06/11/2019 Urinary incontinence, mixed [N39.46] 02/05/2024 Encounter Status:Closed by REYNALDO ORTEGA on 02/08/24 [facility] 01-08-2024 Hospital Discharge instructions Patient Education 01/08/2024 [...] Follow these instructions at home: Medicines Take mssu-yoa-kpermea and prescription medicines only as told by [...] prevent or treat constipation, such as: ?Take qjbz-gzf-qzjgwcn or prescription medicines. ?Eat foods that are [...] provider. Document Revised: 11/29/2022 Document Reviewed: 03/27/2022 [employer] Patient Education 2022 Index. 01/08/2024 15:29:36 Laser Therapy for Kidney Stones [...] including vitamins, herbs, eye drops, creams, and fesh-cpd-jpkqzwl medicines. Any problems you or family members [...] provider tells you to take them. ?Taking jyeo-nnr-jaygxsg medicines, vitamins, herbs, and supplements. Eating and [...] provider. Document Revised: 11/29/2022 Document Reviewed: 03/27/2022 [employer] Patient Education 2022 Index. Follow Up Care 01/02/2024 15:42:06 With:REGINA VALIENTE PA-C, URL Address: [address] [place], [place] [address] [address] When: Unknown [facility] [facility] 11-27-2023 Hospital Discharge instructions Patient Education 11/27/2023 10:53:04 Urinary Tract Infection, Adult, Pidz-nr-Cnii Urinary Tract Infection, Adult A urinary tract [...] Follow these instructions at home: Medicines Take wksv-ljr-jtjzrji and prescription medicines only as told by [...] provider. Document Revised: 03/04/2021 Document Reviewed: 03/04/2021 [employer] Patient Education 2022 Index. Follow Up Care 04/24/2023 10:40:01 With:MAVERICK TREJO, REGINA Covington, URL Address: [address] [place] [address]. [place] [address] [phone] When: Unknown [facility] 09-20-2023 Miscellaneous Notes Johann requesting refill of Atorvastatin to [facility] documented in this encounter [facility] 09-20-2023 Telephone encounter Note Johann requesting refill of Atorvastatin to [facility] 08-27-2023 Miscellaneous Notes Left voicemail for patient informing her appointment on 08/29/2023 with [facility] was cancelled due to provider out of office in the morning, asked that patient contact our office to reschedule the appointment. documented in this encounter [facility] 08-27-2023 Telephone encounter Note Left voicemail for patient informing her appointment on 08/29/2023 with [facility] was cancelled due to provider out of office in the morning, asked that patient contact our office to reschedule the appointment. [facility] 08-20-2023 Miscellaneous Notes Left voicemail to move 08/29 appointment to later time on same day or 09/05. documented in this encounter [facility] 08-20-2023 Telephone encounter Note Left voicemail to move 08/29 appointment to later time on same day or 09/05. [facility] Work Phone: 08-07-2023 Hospital Discharge instructions Patient [...] Address: [facility] [address], [place] [address]- Business (1) When:08/21/2023 12:26:37 Comments:With a bladder scan PVR [facility] 08-07-2023 Note [id number] [facility] 08-07-2023 Note Custom Cystoscopy with Botox injection [...] you have a fever over 100 degrees. [facility] 05-25-2023 Note Stable, continue top rol and eliquis D/W pt and family that if pt has recurrent falls/injury will need to revisit risk vs benefit of anticoagulation. [facility] 05-25-2023 Note [facility] II-III Continue GDMT- increase lasix to 40 mg daily- Diuretic therapy Monitor daily weights, I&O, fluid restriction 1.5-2L/day, renal function and electrolytes [facility] 05-25-2023 Note Hypertension is Elev ated 142/96- pt currently is not taking metoprolol 100 mg daily. Therefore, will resume toprol- script sent and med list sent with pt and family. [facility] 05-25-2023 Note Coronary artery dise ase is stable Continue GDMT- lipitor, toprol continue risk factor modifications- heart healthy diet, regular exercise as tolerated and continue all medications. [facility] 05-25-2023 Note Patient here per c/o LE [...] All other systems reviewed and are negative. [facility] 05-25-2023 Note [facility] CARDIOLOGY PROGR ESS NOTE [...] 10/16/2017 was negativ (more content not included)... [facility] 05-23-2023 Note [facility] in [place] called office today r/t concerns of uncontrolled HTN, leg edema of this pt at their visit today. State b/p was 140-150/80-90, sat 93%, HR stable in office- they asked if pt should be evaluated in ED. Recommended to offer to pt evaluation in ED, the other alternative is that she may be able to be seen in cardiology clinic in [place] tomorrow or Sunday depending if pulmonology provider feels pt is stable enough or not. Make sure pt is taking lasix and metoprolol as prescribed and I will send orders for labs- CBC, CMP and BNP Message sent to Lucia Graff MA in [facility] to set up appt tomorrow or Sunday and to call pt tomorrow. Shell Guardado NP Division of Cardiology, [facility]- [phone] Pager- [phone] Email- [email or web address] 04-24-2023 Hospital Discharge instructions Patient Education 04/24/2023 [...] provider. Document Revised: 12/01/2021 Document Reviewed: 12/01/2021 [employer] Patient Education 2022 Index. Follow Up Care 10/17/2022 10:59:55 With:MAVERICK TREJO, REGINA Covington, URL Address: [facility] [address] [facility] [place] [address] When:Within 7 Month(s) [facility] 03-02-2023 Note Subjective Patient ID: Lacie Garza [...] past 36 hour(s)). No follow-ups on file. [facility] 03-02-2023 Note Cardiology Clinic No te Subjective Lacie Garza is a 83 y.o. year old female patient with past medical history of atrial fibrillation on Eliquis, nonobstructive coronary artery disease, hypertension, peripheral artery disease, history of DVT, and morbid obesity seen in follow-up. Patient Active Problem List Diagnosis Coronary arteriosclerosis in nisqually artery Chronic diastolic heart failure (CMS/HCC) Calculus [...] fibrillation as k (more content not included)... [facility] 10-17-2022 Hospital Discharge instructions Patient Education 10/17/2022 [...] nerve stimulation). For women, using a medical physicist to prevent urine leaks. This is a [...] right after experiencing incontinence. General instructions Take qovv-uor-ltiulcw and prescription medicines only as told by [...] 08/30/2005 Document Revised: 08/02/2018 Document Reviewed: 11/01/2017 [employer] Patient Education 2020 Index. Follow Up Care 06/13/2022 11:49:22 With:REGINA VALIENTE PA-C, FRANCISCA Address: [address] [place] [address] When: Unknown [facility] 06-13-2022 Hospital Discharge instructions Patient Education [...] REGAN Address: [facility] [address] [place] [address]- Business (1) When:10/11/2022 11:35:57 Comments:Patient is to see the physician ophthalmology assistant [facility] Evaluation + Plan note No data available for this section [facility] Evaluation + Plan note Future Appointments Appointment Date:10/17/2022 11:00:00 AM Scheduled Provider:REGINA VALIENTE PA-C [facility] Office Visit [facility] Evaluation + Plan note Future Appointments Appointment Date:04/24/2023 10:00:00 AM Scheduled Provider:REGINA VALIENTE PA-C Location:[facility] Appointment Type:URO Office Visit [facility] Evaluation + Plan note Future Appointments Appointment Date:11/27/2023 10:00:00 AM Scheduled Provider:REGINA VALIENTE PA-C [facility] App[facility] Type:URO Office Visit [facility] Evaluation + Plan note Future Appointments Appointment Date:08/07/2023 11:30:00 AM Scheduled Provider: Location:[facility] Appointment Type:Urology FT Appointment Date:08/28/2023 10:00:00 AM Scheduled Provider:REGINA VALIENTE PA-C [facility] App[facility] Type:URO Office Visit Appointment Date:11/27/2023 10:00:00 AM Scheduled Provider:REGINA VALIENTE PA-C [facility] App[facility] Type:URO Office Visit [facility] Evaluation + Plan note Future Appointments Appointment Date:08/28/2023 10:00:00 AM Scheduled Provider:REGINA VALIENTE PA-C [facility] Appoint[facility] Type:URO Office Visit Appointment Date:11/27/2023 10:00:00 AM Scheduled Provider:REGINA VALIENTE PA-C [facility] App[facility] Type:URO Office Visit [facility] Evaluation + Plan note Future Appointments Appointment Date:06/10/2024 10:00:00 AM Scheduled Provider:REGINA VALIENTE PA-C Location:[facility] Appointment Type:URO Office Visit [facility] Evaluation + Plan note Future Appointments Appointment Date:06/10/2024 10:00:00 AM Scheduled Provider:REGINA VALIENTE PA-C Location:[facility] Appointment Type:URO Office Visit Diagnostic Tests PendingUrine Culture 11/27/23 [facility] Evaluation + Plan note Future Appointments Appointment Date:06/10/2024 10:00:00 AM Scheduled Provider:REGINA VALIENTE PA-C Location:[facility] Appointment Type:URO Office Visit Diagnostic Tests PendingUrine Culture 12/07/23 [facility] Evaluation + Plan note Future Appointments Appointment Date:06/10/2024 10:00:00 AM Scheduled Provider:REGINA VALIENTE PA-C Location:[facility] Appointment Type:URO Office Visit Diagnostic Tests PendingUTI ([facility]) 12/20/23 [facility] Evaluation note Diagnosis Calculus of kidney- Primary Kidney stones Calculus of kidney Primary hypertension Unspecified essential hypertension Paroxysmal atrial fibrillation (HCC) Atrial fibrillation Coronary artery disease involving nisqually coronary artery of nisqually heart without angina pectoris, 50% ostial LAD, 60% OM1 Urinary incontinence, mixed Mixed incontinence urge and stress (male)(female) [facility] Screening for genitourinary condition Screening for other and unspecified genitourinary condition documented in this [facility] instructions No data available for this section [facility] InstructionsNot on filedocumented in this encounter [facility] filed[facility] No data available for this section [facility] Summary Purpose Family History No Family History [...] FoundNo Family History Records Found Advance Directives No Advanced Directives Records FoundLatest Code Status on File Code Status Date Activated Date Inactivated Comments Full Code 11/01/2022 10:40 AM 11/01/2022 7:52 PM Documents on File Type Date Recorded Patient Location Analyst Expl anation Advance Directive(s) 08/02/2018 3:20 PM Hospital Course Note MR#: [id number] [facility] Pt. Name: Lacie Garza Admitted: 08/11/2018 [...] to have these renal calculi addressed at [facility] in [facility], but had not gone to (more content not included)... Additional Source Comments INFORMATION SOURCE (unrecogn ized section and content) DATE CREATED AUTHOR 09/24/2018 [facility] DATE CREATED AUTHOR AUTHOR'S ORGANIZ ATION 09/06/2022 [facility] DATE CREATED AUTHOR AUTHOR'S ORGANIZ ATION 12/15/2023 [facility] DATE CREATED AUTHOR AUTHOR'S ORGANIZ ATION 01/09/2024 [facility] DATE CREATED AUTHOR AUTHOR'S ORGANIZ ATION 02/03/2024 [facility] DATE CREATED AUTHOR AUTHOR'S ORGANIZ ATION 02/07/2024 [facility] DATE CREATED AUTHOR AUTHOR'S ORGANIZ ATION 02/09/2024 [facility] DATE CREATED AUTHOR AUTHOR'S ORGANIZ ATION 02/22/2024 [facility] Patient Care team informatio n (unrecognized section and content) Survey Project Manager Relationship Specialty Start Date End Date Juan Diego Castillo APRN-INSULATING 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 [address] [place] [address] PCP - General Family Medicine 03/15/23 Survey Project Manager Relationship Specialty Start Date End Date Juan Diego Castillo APRN-INSULATING 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 [address] [place] [address] PCP - General Family Medicine 03/15/23 Survey Project Manager Relationship Specialty Start Date End Date Compa Foote MD [address] [facility] [address] [place] [address] PCP - Abhay MESA 08/11/21 Mary Lugo MD [address] [place] [address] PCP - General Family Medicine 04/03/23 Survey Project Manager Relationship Specialty Start Date End Date Juan Diego Castillo APRN-INSULATING 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 [address] [place] [address] PCP - General Family Medicine 03/15/23 Survey Project Manager Relationship Specialty Start Date End Date Compa Foote II, MD [address] [facility] [address] [place] [address] PCP - General Internal Medicine 05/30/19 Maria Eugenia Bhatia MD [address] [place] [phone] Family Medicine 06/17/15 Survey Project Manager Relationship Specialty Start Date End Date Compa Foote II, MD [address] [facility] [address] [place] [address] PCP - General Internal Medicine 05/30/19 Maria Eugenia Bhatia MD [address] [place] [address] Family Medicine 06/17/15 Reason for Visit (unrecogniz [...] or prosecute any alcohol or drug abuse patient.[facility] Center[facility] the event this information is protected by the Federal Confidentiality of Alcohol and Drug Abuse Patient Records regulations: The Federal rules restrict any use of the information to criminally investigate or prosecute any alcohol or drug abuse patient.[facility] FOR RECORDS PERTAINING TO PATIENTS WHO ARE [...] BE BASED ON THE PRIMARY CLINICAL RECORDS. [facility] [employer] [facility]. provides no warranty or guarantee of the accuracy or completeness of information in this document.
== END 2024-03-14 09:54 | disposition home or self-care (01) ==
LOC: CARD 09:53
PROVIDERS: PCP Family Medicine; Visit Provider Nurse Practitioner
DX: I50.32 Chronic diastolic (congestive) heart failure (principal)
CPT/HCPCS: 93306

== ENCOUNTER 2024-06-09 15:12 | Observation (INO) | payer MEDICARE, OTHER, SELFPAY ==
[2024-06-09] VITALS (14 sets, daily range): BP systolic 121–151; BP diastolic 75–91; PULSE 62–74; TEMP 36.4–36.7; O2SAT 91–97; BMI 45.7; BMI 49.3
--- NOTE | 2024-06-09 15:46 | ECG_ITS ---
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
--- NOTE | 2024-06-09 15:46 | CT_ITS ---
The [address] [address] Patient Name: KEENAN SILVA MRN: [id number] date: 1940 Sex: F Assigned Patient Location: ER Current Patient Location: ER Accession/Order Number: [id number] Exam Date: 06/09/2024 17:00 Report Date: 06/09/2024 17:36 At the request of: NATALY BILL Procedure: CT head/brain wo con CT head/brain wo con, 06/09/2024 5:00 PM EST INDICATION: Altered mental status COMPARISON: There is no appropriate prior study for comparison. TECHNIQUE: Axial CT images of the brain from skull base to vertex, including portions of the face and sinuses, were obtained without contrast . Multiplanar reformatted images were generated and reviewed as needed. Dose reduction techniques were achieved by using automated exposure control and/or adjustment of mA and/or kV according to patient size and/or use of iterative reconstruction technique. FINDINGS: The cerebral sulci as well as ventricular system are appropriate for age. There is no intracranial mass, mass effect, midline shift, intra or extra-axial fluid collection or hemorrhage. Periventricular and centrum semiovale hypodensities are most likely consistent with microvascular ischemic changes. The visualized portions of orbits, mastoid air cells as well as paranasal sinuses are unremarkable. There is status post bilateral lens replacement. There is no suspicious osteolytic or osteoblastic lesion. Calcified subcutaneous lesion along the right frontal region is noted. Moderate degenerative changes of the TMJs. CT/CT head/brain wo con IMPRESSION: No acute intracranial process is noted. Electronically authenticated by: GAURAV VILLANUEVA Date: 06/09/2024 17:36
--- OUTSIDE RECORDS SUMMARY | 2024-06-09 15:57 | XMS_ITS | CCD ---
Author Organization [facility] Care Team Providers Care Stucco Plasterer Name Role Phone DEE DEE GARBER Admitting Unavailable SELF, REFERRED Referring Unavailable MARIA EUGENIA BHATIA Primary Care Unavailable MARY DRAKE Attending Unavailable [place] Procedure Practitioner Unavailab KENNEDI Warner Surgeon Unavailable COMPA FOOTE Primary Care Physician [phone] HADLEY, DR LAURENT Admitting Unavailable HADLEY, DR LAURENT Attending Unavailable HADLEY, DR LAURENT Consulting Unavailable QAMAR, DR DIXON Primary Care Unavailable QAMAR, DR DIXON Primary Care Unavailable REGINA VALIENTE Admitting Unavailable REGINA VALIENTE Attending Unavailable REGINA VALIENTE Consulting Unavailable QAMAR, DR DIXON Primary Care Unavailable ANASTASIIA ESTRADA Admitting Unavailable ANASTASIIA ESTRADA Attending Unavailable ANASTASIIA ESTRADA Consulting Unavailable MERLIN, DR DARYA Falk Attending Unavailavelino BOYER, DR DARYA Falk Consulting Unavailavelino FOOTE, DR DIXON Primary Care Unavailable MERLIN, DR DARYA Falk Admitting UnavailMARY Brewer Primary Care Physician [phone] JUAN DIEGO CASTILLO Primary Care Physician Unav ailable Anna EMPLOYMENT SPECIALIST/PROGRAM MANAGER-TERRAZZO WORKERJuan Diego Primary Care Provide r Compa Foote MD Unavailable [phone] Mary Lugo MD Primary Care Provider [phone] MICHELLE VIDALES Attending Unavailable MAKENNA TAMAYO Attending Unavailable MAKENNA TAMAYO Attending Unavailable MAKENNA TAMAYO Attending Unavailable Qamar GREENFIELD MD, Daniel B Primary Care Provider [phone] Maria Eugenia Bhatia MD Unavailable COMPA FOOTE II Primary Care Unavailable MITZI RANGEL Attending Unavailable MICHELLE VIDALES Attending Unavailable MAKENNA TAMAYO Attending Unavailable MAKENNA TAMAYO Attending Unavailable MAKENNA TAMAYO Attending Unavailable MAKENNA TAMAYO Attending Unavailable SCHLACHTER, JUAN DIEGO Referring Unavailable SCHLACHTER, JUAN DIEGO Primary Care Unavailable VANCE, YULISSA Referring Unavailable SCHLACHTER, JUAN DIEGO Primary Care Unavailable GEO, SHELL Attending Unavailable GEO, SHELL Attending Unavailable GEO, SHELL Attending Unavailable SCHLACHTER, JUAN DIEGO Attending Unavailable [...] SCHLACHTER, JUAN DIEGO Primary Care Unavailable MAVERICK, MAYA [place] Attending Unavailab le SCHLACHTER, JUAN DIEGO Primary Care Unavailable MAVERICKMAYA Attending Unavailab le MAVERICK, REGINA [place] Attending Unavailable SCHLACHTER, JUAN DIEGO Primary Care Unavailable SCHLACHTER, JUAN DIEGO Primary Care Unavailable MAVERICKREGINA Attending Unavailable REGANLeonardo Attending Unavailable SCHLACHTER, JUAN DIEGO Primary Care Unavailable SCHLACHTER, JUAN DIEGO Primary Care Unavailable REGAN, Leonardo Cisneros Attending Unavailable SCHLACHTER, JUAN DIEGO Primary Care Unavailable MAVERICKREGINA Attending Unavailable REGANLeonardo Attending Unavailable REGANLeonardo Attending Unavailable SCHLACHTER, JUAN DIEGO Primary Care Unavailable REGANLeonardo Referring Unavailable REGANLeonardo Admitting Unavailable SCHLACHTER, JUAN DIEGO Primary Care Unavailable MAVERICKREGINA Attending Unavailable MAVERICK, REGINA [place] Admitting Unavailable MAVERICK, REGINA [place] Admitting Unavailable MAVERICK, REGINA [place] Attending Unavailable SCHLACHTER, JUAN DIEGO Primary Care Unavailable MAVERICK, REGINA [place] Attending Unavailable MAVERICK, REGINA [place] Admitting Unavailable SCHLACHTER, JUAN DIEGO Primary Care Unavailable Allergies Allergy Classification Reported Allergen(s) Allergy Type Date of Onset Reaction(s) Facility (11 sources) linaclotide; Translations: [LINACLOTIDE] Drug Allergy 6 [...] every 8 hours as needed. 0 Active [id number] actuat albuterol 0.09 mg/actuat metered dose inhaler (10 sources) beta2-Adrenergic Agonist Start: 06-05-2023 take 2 puff(s) by inhalation every six hours as needed for chronic obstructive pulmonary disease albuterol (PROVENTIL HFA;VENTOLIN HFA) 90 mcg/actuation inhaler Indications: Chronic obstructive pulmonary disease, unspecified COPD type ([facility]) Inhale 2 puffs every 6 (six) hours as needed for wheezing or shortness of breath. For COPD 18 g 11 06/05/2023 Active Start: 06-05-2023 take 2 puff(s) by in halation every six hours as needed albuterol HFA (PROVENTIL HFA, VENTOLIN HFA) 90 mcg/actuation inhaler Inhale 2 Puffs as instructed every 6 hours as needed. 0 06/05/2023 Active Start: 04-19-2020 take 1 puff(s) [...] tablet (5 sources) Dihydropyridine Calcium Channel Hussein Start: 2014 take 1 tablet by mouth once daily amLODIPine (NORVASC) 5 mg tablet Take 1 tablet by mouth once daily. 90 tablet 3 05/22/2018 Active apixaban 5 mg oral tablet (20 sources) Factor Xa Inhibitor Start: 2019 take 1 mg by mouth twice daily Eliquis 5 mg oral tablet mg tab(s), Oral, BID, Refills(s) 0 Start Date: 05/17/20 Status: Ordered atorvastatin 40 mg oral tablet (20 sources) HMG-CoA Reductase Inhibitor Start: 2014 End: 2023 take 1 tablet by mouth in the morning atorvastatin (LIPITOR) 40 mg tablet Take 1 tablet (40 mg total) by mouth in the morning. 90 tablet 1 04/14/2024 Active betamethasone 0.5 mg/ml / clotrimazole 10 mg/ml topical cream (4 sources) Azole Antifungal, Corticosteroid Start: 2023 clotrimazole-betamethasone (LOTRISONE) cream Apply 1 Application topically in the morning and 1 Application before bedtime. 15 g 1 01/14/2024 Active Start: 01-14-2024 clotrimazole-b etamethasone (LOTRISONE) cream Apply 1 Application to affected [...] day(s), # 14 cap(s), Refills(s) 0, Pharmacy: [facility] #[id number], 153, cm, 11/27/23 10:33:00 EDT, Height/Length Dosing, 120, kg, 11/27/23 10:33:00 EDT, Weight Dosing Start Date: 11/27/23 Stop Date: 12/04/23 Status: Ordered Start: 07-27-2023 take 1 capsule by [facility] twice daily Keflex 500 mg Cap 500 mg = 1 cap(s), Oral, BID, Start the day prior to procedure, # 14 cap(s), Refills(s) 0, Pharmacy: [facility] #[id number], 153, cm, 06/05/23 11:56:00 EDT, Height/Length Dosing, 116, kg, 06/05/23 11:56:00 EDT, Weight Dosing Start Date: 07/27/23 Status: Ordered Start: 06-05-2023 take 1 capsule by [facility] twice daily Keflex 250 mg Cap 250 mg = 1 cap(s), Oral, BID, Start the day before the procedure, # 14 cap(s), Refills(s) 0, Pharmacy: [facility] #[id number], 153, cm, 06/05/23 11:56:00 EDT, Height/Length Dosing, 116, kg, 06/05/23 11:56:00 EDT, Weight Dosing Start Date: 06/05/23 Status: Ordered diazePAM 5 mg oral tablet (3 sources) Benzodiazepine Start: 07-27-2023 Valium 5 mg Tab 5 mg = 1 tab(s), Oral, Once, Take 1 hour prior to procedure. Have a driver/sales workers, # 1 tab(s), Refills(s) 0, Pharmacy: [facility] #[id number], 153, cm, 06/05/23 11:56:00 EDT, Height/Length Dosing, 116, kg, 06/05/23 11:56:00 EDT, Weight Dosing Start Date: 07/27/23 Status: Ordered docusate sodium 100 mg oral capsule (2 sources) Start: 06-11-2019 take 1 capsule by mouth twice daily docusate sodium (COLACE) 100 mg capsule Take 1 capsule by mouth twice daily. 30 capsule 0 06/11/2019 Active donepezil hydrochloride 5 mg oral tablet (20 sources) Start: 04-06-2023 donepezil 5 mg Tab Refills(s) 0 Start Date: 04/24/23 Status: Ordered FLUoxetine 40 mg oral capsule (20 sources) Serotonin Reuptake Inhibitor Start: 05-10-2022 End: 05-12-2024 FLUoxetine 40 mg Cap Refills(s) 0 Start [...] take 1 tablet by mouth once daily Lasix 40 mg Tab 40 mg = 1 tab(s), Oral, Daily, Refills(s) 0 Start Date: 07/02/15 Status: Ordered hyoscyamine sulfate 0.125 mg oral tablet (1 [...] Active memantine hydrochloride 10 mg oral tablet (17 sources) L-ktfyku-S-aspartate Receptor Antagonist Start: 01-11-2024 End: 02-10-2024 memantine (NAMENDA) 10 mg tablet Take 10 mg by mouth. 0 01/11/2024 02/10/2024 Active Start: 03-30-2023 memantine 5 mg Tab Refills(s) 0 Start Date: 04/24/23 Status: Ordered 24 hr metoprolol succinate 100 mg extended release oral tablet (10 sources) beta-Adrenergic Hussein Start: 05-28-2023 take 1 tablet by mouth every twenty-four hours in the morning metoprolol succinate XL (TOPROL XL) 100 mg 24 hr tablet Take 1 tablet (100 mg total) by mouth in the morning. 05/28/2023 Active Start: 05-17-2020 take 1 mg by mouth once daily metoprolol 50 mg ER Tab mg tab(s), Oral, Daily, Refills(s) 0 Start Date: 05/17/20 Status: Ordered metoprolol succi charlene ER (TOPROL XL) 50 mg 24 hr tablet 100 mg. 0 Active METOPROLOL SUCC ER 50 MG TAB (15 sources) Start: 05-10-2022 METOPROLOL SUC C ER 50 MG TAB METOPROLOL SUCC ER 50 MG TAB Start Date: 05/10/22 Status: Ordered 24 hr mirabegron 50 mg extended release oral tablet (20 sources) beta3-Adrenergi c Agonist Start: 02-26-2023 take 1 tablet by mouth every twenty-four hours in the morning mirabegron ER (Myrbetriq) 50 MG 24 hr tablet Indications: OAB (overactive bladder) Take 1 tablet (50 mg) by mouth in the morning. 100 tablet 3 02/26/2023 Active Start: 10-17-2022 End: 01-19-2025 take 1 tablet by mouth once daily Myrbetriq 50 mg oral tablet, extended release 50 mg = 1 tab(s), Oral, Daily, X 30 day(s), # 30 tab(s), Refills(s) 11, [facility]: [id number], 153, cm, 01/08/24 15:17:00 EDT, Height/Length Dosing, 116, kg, 01/08/24 15:17:00 EDT, Weight Dosing Start Date: 01/25/24 Stop Date: 01/19/25 Status: Ordered Start: 06-26-2021 End: 06-21-2022 take 2 tablets by mouth once daily Myrbetriq 50 mg oral tablet, extended release 100 mg = 2 tab(s), Oral, Daily, X 90 day(s), # 180 tab(s), Refills(s) 3, [facility]: [id number], 153, cm, 10/25/20 11:47:00 EDT, Height/Length [...] day(s), # 14 cap(s), Refills(s) 0, Pharmacy: [facility] #[id number], 153, cm, 01/08/24 15:17:00 EDT, Height/Length Dosing, [...] (20 sources) Proton Pump Inhibitor Start: 05-17-2020 End: 05-12-2024 take 1 mg by mouth once daily [...] day(s), # 9 tab(s), Refills(s) 0, Pharmacy: [facility] #[id number], 153, cm, 11/27/23 10:33:00 EDT, Height/Length Dosing, 120, kg, 11/27/23 10:33:00 EDT, Weight Dosing Start Date: 12/07/23 Stop Date: 12/10/23 Status: Ordered promethazine hydrochloride 25 mg oral tablet (20 sources) Phenothiazine Start: 06-04-2023 End: 05-12-2024 take 1 tablet by mouth every six hours as needed for nausea and vomiting promethazine (PHENERGAN) 25 mg tablet Take 1 tablet (25 mg total) by mouth every 6 (six) hours as needed for nausea or vomiting. 30 tablet 5 05/12/2024 Active Start: 12-26-2022 take 1 tablet by [...] Status: Ordered QUEtiapine 25 mg oral tablet (7 sources) Atypical Antipsychotic Start: 12-13-2023 quetiap ine [...] 2 diabetes mellitus without complication, unspecified whether supervisor intermediates insulin use ([facility]) Inject 0.5 mg under the skin [...] day(s), 20 tab(s), Refill(s) 0, [facility] #[id number], 153, cm, 11/27/23 10:33:00 EDT, Height/Length Dosing, [...] day(s), # 180 cap(s), Refills(s) 3, [id number], 153, cm, 10/25/20 11:47:00 EDT, Height/Length [...] procedure., # 2 tab(s), Refills(s) 0, Pharmacy: [facility] [id number], 153, cm, 10/25/20 11:47:00 EDT, Height/Length Dosing, [...] Date Documented Da te Episodic/Chronic Abdominal hernia (16 sources) Hiatal hernia; Translations: [Diaphragmatic hernia without obstruction or gangrene] Onset: 09-06-2022 07-02-2015 Episodic Abdominal pain (15 sources) Flank pain 05-17-2020 Episodic Blindness and vision defects (1 source) Visual impairment; Translations: [Unspecified visual loss] Onset: 12-22-2022 12-22-2022 Chronic Calculus of urinary tract (20 sources) Calculus of kidney; Translations: [History of calculus of kidney] Onset: 08-08-2016 Episodic Cardiac dysrhythmias (15 sources) Chronic atrial fibrillation; Translations: [Longstanding persistent atrial fibrillation] Onset: 06-04-2018 03-15-2023 Chronic Chronic kidney disease (7 sources) Chronic kidney disease stage 3A ; Translations: [Stage 3a chronic kidney disease] Onset: 12-22-2022 03-15-2023 Chronic Chronic kidney disease (1 source) Chronic kidney disease; Translations: [Chronic kidney disease, stage 3a] Onset: 03-15-2023 Chronic obstructive pulmonary disease and bronchiectasis (8 sources) Chronic obstructive lung disease; Translations: [Chronic obstructive pulmonary disease, unspecified] Onset: 12-22-2022 03-15-2023 Chronic Conditions associated with dizziness or vertigo (3 sources) Dizziness and giddiness; Translations: [DIZZINESS AND GIDDINESS] Onset: 09-05-2022 Episodic Congestive heart failure; nonhypertensive (13 sources) Chronic diastolic heart failure; Translations: [Chronic diastolic (congestive) heart failure] Onset: 06-24-2015 03-15-2023 Chronic Coronary atherosclerosis and other heart disease (16 sources) Coronary arteriosclerosis; Translations: [Atherosclerotic heart disease of [place] coronary artery without angina pectoris] Onset: 06-24-2015 Resolved: 09-06-2017 03-15-2023 Chronic Deficiency and other anemia (1 source) Anemia, unspecified; Translations: [ANEMIA, UNSPECIFIED] Onset: 08-11-2018 Episodic Delirium, dementia, and amnestic and other cognitive disorders (9 sources) Alzheimer's disease; Translations: [Alzheimer's disease, unspecified] [...] Episodic Hypertension with complications and secondary hypertension (6 sources) 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; Translations: [Hypertensive heart disease with heart failure] Onset: 12-22-2022 12-22-2022 Chronic Menopausal disorders (1 source) Decreased estrogen level; Translations: [Other primary ovarian failure] Onset: 12-22-2022 12-22-2022 Chronic Mood disorders (8 sources) Recurrent major depressive episodes, moderate ; Translations: [Major depressive disorder, recurrent, moderate] Onset: 12-22-2022 03-15-2023 Chronic Osteoarthritis (18 sources) Osteoarthritis; Translations: [Primary gonarthrosis, bilateral] Onset: 12-22-2022 07-02-2015 Chronic Osteoporosis (6 sources) Senile osteoporosis; Translations: [Age-related osteoporosis without [...] NO RESID DEFICIT] Onset: 09-06-2022 Episodic Other diseases of bladder and urethra (4 sources) Overactive bladder; Translations: [OVERACTIVE BLADDER] Onset: 04-18-2022 Chronic Other diseases of bladder and urethra (1 source) Overactive bladder; Translations: [Overactive bladder] Onset: 12-22-2022 12-22-2022 Chronic Other gastrointestinal disorders (3 sources) Pelvic mass; Translations: [Intra-abdominal and pelvic swelling, mass and lump, unspecified site] Onset: 08-15-2022 12-27-2022 Episodic Other lower respiratory disease (1 source) Shortness of breath; Translations: [Shortness of breath] Onset: 05-05-2024 Episodic Other nervous system disorders (6 sources) Polyneuropathy; Translations: [Polyneuropathy, unspecified] Onset: 12-22-2022 [...] disorder] 02-05-2024 Episodic Peripheral and visceral atherosclerosis (1 source) Peripheral vascular disease; Translations: [Peripheral vascular disease, unspecified] Onset: 12-22-2022 12-22-2022 Chronic Phlebitis; thrombophlebitis and thromboembolism (9 sources) 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; Translations: [Embolism from thrombosis of vein of distal lower extremity] Onset: 08-11-2018 03-15-2023 Chronic Residual codes; unclassified (1 source) Obstructive sleep apnea (adult) (pediatric); Translations: [OBSTRUCTIVE SLEEP APNEA (ADULT) (PEDIATRIC)] Onset: 08-11-2018 Chronic Residual codes; unclassified (17 sources) Sleep apnea; Translations: [Sleep apnea, unspecified] 07-02-2015 Chronic Residual codes; unclassified (1 source) Sleep apnea, unspecified; Translations: [SLEEP APNEA UNSPECIFIED] Onset: 09-06-2022 Chronic Residual codes; unclassified (6 sources) Obstructive sleep apnea syndrome; Translations: [Obstructive [...] Retinal detachments; defects; vascular occlusion; and retinopathy (7 sources) Exudative age-related macular degeneration; Translations: [Exudative age-related macular degeneration, unspecified eye, stage unspecified] Onset: 12-22-2022 12-22-2022 Chronic Rheumatoid arthritis and related disease (1 source) Rheumatoid arthritis; Translations: [Rheumatoid arthritis, unspecified] Onset: 12-22-2022 12-22-2022 Chronic Transient cerebral ischemia (18 sources) Transient cerebral ischemia; Translations: [Transient cerebral [...] Classification Problem Date Documented Da te Episodic/Chronic Allergic reactions (1 source) Dermatitis, unspecified; Translations: [Dermatitis, unspecified] Onset: 01-14-2024 Episodic Mood disorders (2 sources) Mood disorders Onset: 01-28-2024 01-28-2024 Nausea and vomiting (3 sources) Nausea; Translations: [NAUSEA] Onset: 02-03-2022 Episodic Other aftercare (1 source) correction (current) use of anticoagulants; Translations: [PENITENTIARY CURRNT USE ANTICOAGULANTS] Onset: 02-07-2022 Episodic Other aftercare (1 source) Other supervisor intermediates (current) drug therapy; Translations: [OTH PENITENTIARY CURRENT DRUG THERAPY] Onset: 02-07-2022 Episodic Other [...] weakness (generalized)] Onset: 12-22-2022 12-22-2022 Episodic Other connective tissue disease (2 sources) Other specified soft tissue disorders; Translations: [Other specified soft tissue disorders] Onset: 01-28-2024 Episodic Other diseases of kidney and ureters (5 sources) Renal impairment; Translations: [Disorder of kidney and ureter, unspecified] Onset: 11-01-2022 Resolved: 01-28-2024 11-01-2022 Episodic Other eye disorders (1 source) [...] joint, lower leg] Onset: 12-22-2022 12-22-2022 Episodic Other nutritional; endocrine; and metabolic disorders (6 sources) Obesity caused by energy imbalance; Translations: [Morbid (severe) obesity due to excess calories] Onset: 12-22-2022 Resolved: 01-14-2024 03-15-2023 Chronic Phlebitis; thrombophlebitis and thromboembolism (7 sources) Acute embolism and thrombosis of left femoral vein; Translations: [Acute embolism and thrombosis of unspecified deep veins of left lower extremity] Onset: 08-11-2018 12-27-2022 Episodic Residual codes; unclassified (1 source) Altered mental status, unspecified; Translations: [ALTERED MENTAL STATUS UNSPECIFIED] Onset: 04-23-2022 Episodic Residual codes; unclassified (6 sources) Altered mental status; Translations: [Altered mental status, unspecified] Onset: 11-01-2022 Resolved: 01-28-2024 11-01-2022 Episodic Residual codes; unclassified (1 source) Bilateral lower limb edema; Translations: [Localized edema] Onset: 12-22-2022 12-22-2022 Episodic Residual codes; unclassified (1 source) Amnesia; Translations: [Other amnesia] Onset: 12-22-2022 12-22-2022 Episodic Residual codes; unclassified (2 sources) Edema, unspecified; Translations: [Edema, unspecified] Onset: 05-25-2023 Episodic Spondylosis; intervertebral disc disorders; other back problems (6 sources) Lumbar radiculopathy; Translations: [Radiculopathy, lumbar region] Onset: 12-22-2022 05-03-2023 Episodic Unclassified (5 sources) Onset: 07-27-2023 Resolved: 05-19-2024 07-27-2023 Results Test Name Value Interpretation Reference Range Facil ity Ambulatory Visit Summaryon 1 Ambulatory Visit Summary Ambulatory Visit Summary LACIE GARZA :1940 Visit Date:06/03/2024 Ambulatory Visit Instructions Your Diagnosis Urinary tract infection Your Care Team Attending Physician - REGINA [...] REGINA VALIENTE PA-C Where: [facility] [address] [place] [address] [place] [address]- Medications What How Much When Instructions Unchanged apixaban (Eliquis 5 mg oral tablet) By Mouth 2 times a day Unchanged atorvastatin (Lipitor 40 mg Tab) 1 Tablets By Mouth Once a day (at bedtime) Unchanged donepezil (donepezil 5 mg Tab) Unchanged fluoxetine (FLUoxetine 40 mg Cap) Unchanged furosemide (Lasix 40 mg Tab) 1 Tablets By Mouth Every day Unchanged memantine (memantine 5 mg Tab) Unchanged mirabegron (Myrbetriq 50 mg oral tablet, extended release) 1 Tablets By Mouth Every day Duration: 30 Days Unchanged Misc Prescription (METOPROLOL SUCC ER 50 MG TAB) 0 Unchanged pantoprazole (Pantoprazole [address] Tab) By Mouth Every day Unchanged promethazine (promethazine 25 mg Supp) By rectum Every 6 hours Unchanged quetiapine (quetiapine 25 mg Tab) 1 Tablets Allergies No Known Allergies Problems Ongoing - Any problem that you are currently receiving treatment for. Apnea, sleep At risk for falls Dysuria Flank pain GERD (gastroesophageal reflux disease) Hiatal hernia History of kidney stones History of urethral stricture History of UTI HTN (hypertension) Kidney stone Left renal stone Mixed incontinence Nocturia OA (osteoarthritis) Postinfective urethral stricture in female TIA (transient ischemic attack) Urinary tract infection Patient Survey You may receive a survey via text or e-mail asking about your office visit. Please share your experience with us by completing your survey. We appreciate your feedback and thank you for choosing us for your care. Normal [facility] Office Visiton 05-08-2024 Follow-up visit [id number] Lacie Garza 1940 F Date Provider Department Center 05/08/2024 Alen-SHELL GUARDADO [facility] Family History Problem Relation Age of Onset Coronary artery disease Mother Family Status - Relation Status Age at Mother Level of Service:32436 [place] OFFICE/OUTPATIENT ESTABLISHED LOW MDM 20 MIN Normal [facility] BASIC METABOLIC PANLon 05-05 Anion gap [Moles/Vol] 9 mmol/L Normal 5-15 [facility] Comment on above: Performed By: #### 3 0934-4 #### [facility] ([id number]) [address] [place] [address] #### BMP #### [facility] ([id number]) [address], [address] [place] [address] Calcium [Mass/Vol] 8.6 mg/dL Normal 8.5-10.5 [facility] Comment on above: Performed By: #### 3 0934-4 #### [facility] ([id number]) [address] [place] [address] #### BMP #### [facility] ([id number]) [address], [address] [place] [address] Chloride [Moles/Vol] 106 mmol/L Normal 98-109 [facility] Comment on above: Performed By: #### 3 0934-4 #### [facility] ([id number]) [address] [place] [address] #### BMP #### [facility] ([id number]) [address], [address] [place] [address] CO2 [Moles/Vol] 27 mmol/L Normal 22-32 [facility] Comment on above: Performed By: #### 3 0934-4 #### [facility] ([id number]) [address] [place] [address] #### BMP #### [facility] ([id number]) [address], [address] [place] [address] Creatinine [Mass/Vol] 0.90 mg/dL Normal 0.40-1.00 [facility] Comment on above: Result Comment: METH OD TRACEABLE TO IDMS STANDARD Performed By: #### 3 0934-4 #### [facility] ([id number]) [address] [place] [address] #### BMP #### [facility] ([id number]) [address], [address] [place] [address] GFR/1.73 sq M.predicted among non-blacks MDRD (S/P/Bld) [Vol rate/Area] 62 mL/min/{1.73_m2} Normal >59 [facility] Comment on above: Result Comment: Reported eGFR is based on the CKD-EPI 2020 equation that does not use a race coefficient. Performed By: #### 3 0934-4 #### [facility] ([id number]) [address] [place] [address] #### BMP #### [facility] ([id number]) [address], [address] [place] [address] Glucose [Mass/Vol] 129 mg/dL High 65-99 [facility] Comment on above: Performed By: #### 3 0934-4 #### [facility] ([id number]) [address] [place] [address] #### BMP #### [facility] ([id number]) [address], [address] [place] [address] Potassium [Moles/Vol] 4.5 mmol/L Normal 3.5-5.0 [facility] Comment on above: Performed By: #### 3 0934-4 #### [facility] ([id number]) [address] [place] [address]9832 #### BMP #### [facility] ([id number]) [address], [address] [place] [address] Sodium [Moles/Vol] 142 mmol/L Normal 134-146 [facility] Comment on above: Performed By: #### 3 0934-4 #### [facility] [facility] ([id number]) [address] [place] [address] #### BMP #### [facility] ([id number]) [address], [address] [place] [address] Urea nitrogen [Mass/Vol] 17 mg/dL Normal 5-27 [facility] Comment on above: Performed By: #### 3 0934-4 #### [facility] ([id number]) [address] [place] [address] #### BMP #### [facility] ([id number]) [address], [address] [place] [address] Natriuretic peptide B [Mass/ Vol]on 05-05-2024 Natriuretic peptide B (Bld) [Mass/Vol] 282 pg/mL High <100.0 [facility] Comment on above: Performed By: #### 3 0934-4 #### [facility] ([id number]) [address] [place] [address] #### BMP #### [facility] ([id number]) [address] [address] [place] [address] 04-01-2024 36 1.5-2L a day [facility] 03-27-2024 36 She can start with PCP or see pulm if she already is established with one. [facility] 36 Can have her take lasix 40mg in AM, 20mg late afternoon. Follow-up BMP/BNP in 2 weeks and follow-up phone call. Also recommend follow-up with PCP as SOB may also be pulmonary related. Thanks! [facility] 3603-26-2024 36 Regarding echo result from 03/14/2024: KARYN Morales MA So I had increased her lasix for a couple days- please call her and see if she is feeling better, less swelling and SOB- Her echo looks like she was still fluid overloaded and like a RV/ rt sided heart failure. So if she is not feeling better than she probably needs more diuretic on a daily basis Just let me know please [facility] 37on 02-06-2024 37 Increase lasix to 1 tablet twice a day for next 2-3 days and then return to 1 tab daily- (take in the morning and then again in early afternoon- 1-2 pm) Continue all other meds [facility] will call when to come in [...] pillows than normal or in recliner. Normal [facility] Office Visiton 02-06-2024 Follow-up visit [id number] Lacie Garza 1940 F Date Provider Department Center 02/06/2024 120-SHELL GUARDADO MAIA [facility] Family History Problem Relation Age of Onset Coronary artery disease Mother Family Status - Relation Status Age at Mother Level of Service:94846 [place] OFFICE/OUTPATIENT ESTABLISHED MOD MDM 30 MIN Normal [facility] CNOVon 02-05-2024 CNOV Office Visit (UROLMN) LACEI GARZA ([id number]) 1940 F T Date Time Provider Department 02/05/24 11:00 AM [...] based on size, location, hounsfield units and fody-wz-yfyds distance: 30% 3. Ureteroscopy - risks of [...] atrial fibrillation (HCC), Coronary artery disease involving [place] coronary artery of [place] heart without angina pectoris, 50% ostial LAD, [...] with more than 50% of the total fcgd-hz-ssuw time of the visit devoted to patient counseling/coordinat ion of care. Mitzi Rangel MD Director, Surgical [facility] [place] Pager [phone] 02/05/2024 Referring Provider: SELF [200] Allergies As of Date: 02/05/2024 Noted Allergy Reaction LINACLOTIDE 03/02/2016 6 - Diarrhea 11 - Vomiting Comments: Bile regurgitation Date Reviewed: 02/05/2024 Reviewed by: Anna Benitez OCCA - Fully Assessed Primary Visit Diagnosis:Calculus of kidney [N20.0] Other Visit Diagnoses:Kidney stones [N20.0] Primary hypertension [I10] Paroxysmal atrial fibrillation (HCC) [I48.0] Coronary artery disease involving [place] coronary artery of [place] heart without angina pectoris, 50% ostial LAD, [...] QUEtiapine (SEROQ (more content not included)... Normal [facility] [place] 01-09-2024 Screens [id number]# 1.00TIFF [facility] Ambulatory Visit Summaryon 0 01-08-2024 Ambulatory Visit [...] REGINA VALIENTE PA-C Where: [facility] Patient Educationon 01-08-20 Patient Education [...] these instructions at home: Medicines ? Take disr-zre-rtqjvzy and prescription medicines only as told by [...] or treat constipation, such as: ? Take yihb-ryn-jbsdmmh or prescription medicines. ? Eat foods that [...] provider. Document Revised: 11/29/2022 Document Reviewed: 03/27/2022 [employer] Patient Education ? 2022 [employer]. Laser Therapy for Kidney Stones Laser therapy [...] including vitamins, herbs, eye drops, creams, and wwng-nth-yocjcyv medicines. ? Any problems you or family [...] kidney st (more content not included)... Normal [facility] Urology Office/Clinic Noteon 01-08-2024 Urology Office/Clinic Note [...] When Contact Information REGINA VALIENTE PA-C, URL [address] [facility] [address] Additional Instructions: schedule L URS, L laser litho with Dr. Regan Patient Education Laser Therapy for Kidney Stones, Care After Laser Therapy for Kidney Stones Documentation recorded by the scribe Caty Coyne accurately reflects the services(s) I performed and decisions made by me. Authenticated by Regina Valiente PA-C on 01/08/2024 15:45:37. ICaty, personally scribed for [place] on 01/08/2024 15:32:29. . Problem List/Past Medical History Ongoing Apnea, sleep At risk for falls Dysuria Flank pain GERD (gastroesophageal reflux disease) Hiatal hernia History of ki (more content not included)... Normal [facility] Comment on above: Result Comment: Elec tronically Signed By: REGINA VALIENTE PA-C\.br\Date and Time Signed: 01/08/24 15:46 EDT\.br\Electronically Co-Signed By: Caty Coyne\.br\Date and Time Co-Signed: 01/08/24 15:33 EDT RAD - CT Reporton 01-07-2024 RAD - CT Report [id number] #1.00TIFF Normal [facility] Pre-Certification Formon Pre-Certification Form [id number] #1.00TIFF Normal [facility] UTI (P4 Labs)on 12-25-2023 URINARY TRACT PATHOGENS PANEL:-:PT:URINE:-: PROBE.AMP.TAR Diagnosis Info Invalid Interpretation Code [facility] Comment on above: Result Comment: Álvaro [...] on: 12/25/2023 22:17:02 Performed By: #### 2 [id number] #### [facility] [address] [place] [address] UTI ( Labs)on 12-20-2023 UTI Method of Extraction Voided Normal [facility] Comment on above: Performed By: #### 2 [id number] #### [facility] [address] [place] [address] UTI Number of Jars 1 Invalid Interpretation Code [facility] Comment on above: Performed By: #### 2 [id number] #### [facility] [address] [place] [address] UTI Specimen Urine Normal [facility] Comment on above: Performed By: #### 2 [id number] #### [facility] [address] [place] [address] UTI Type of Service Global Normal [facility] Comment on above: Performed By: #### 2 [id number] #### [facility] [address] [place], [place] [address] C Urineon 12-09-2023 Bacteria identified Cx Nom [...] Locations R1: This test was performed at: [facility], [address] [place] [address], [address]- , [place], [facility] Comment on above: Performed By: #### 2 [id number] ####[facility] [address] [place] [address] C Urineon 11-29-2023 Bacteria identified Cx Nom [...] Locations R1: This test was performed at: [facility], [address] [place] [address], [facility]- , , [facility] Comment on above: Performed By: #### 2 [id number] ####[facility] [address] [place] [address] [place] 11-28-2023 Screens [id number] 9#1.00TIFF [facility] Ambulatory Visit Summaryon 0 11-27-2023 Ambulatory Visit [...] Schedule the Following Appointments Follow Up with REGINA VALIENTE PA-C, URL When: Where: [address] [place] [address] [id number] Medications What How Much When Instructions Unchanged diazepam (Valium 5 mg Tab) 1 Tablets By Mouth Once Take 1 hour prior to procedure. 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 (more content not included)... Normal [facility] Patient Educationon 11-27-19 Patient Education Obstetrics [...] these instructions at home: Medicines ? Take kcac-myq-yitykpx and prescription medicines only as told by [...] provider. Document Revised: 03/04/2021 Document Reviewed: 03/04/2021 [employer] Patient Education ? 2022 [employer]. [facility] Urology Office/Clinic Noteon 11-27-2023 Urology Office/Clinic Note [...] -Timed voids -bowel regimen -Cont Myrbetriq Ordered: 38050 Measure Post Void residual urine and/or bladder [...] Urnls Dip Stick Auto w/o Microscopy POC 25350 3. 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 Reported improvement in urination after dilation. Grade 2 cystocele noted at that time. S/p Cysto/UD 06/13/[address] Regan. No noticeable improvement this time. [2] Good, steady stream. Ordered: 42115 Measure Post Void residual urine and/or bladder [...] Urnls Dip Stick Auto w/o Microscopy POC 25772 4. History of kidney stones (Z87.442: Personal history of urinary calculi) Has passed stones on her own before. Has also required surgical intervention. No recent stone episodes. denies flank pain. Ordered: 39352 Measure Post Void residual urine and/or bladder capacity by US- non-imaging Body Mass Index (BMI) documented 3008F Current tobacco non-user 1036F Depression Screening Negative 3352F Influenza immunization status assessed 1030F Medication list documented in med (more content not included)... Normal [facility] Comment on above: Result Comment: Elec tronically Signed By: REGINA VALIENTE PA-C\.br\Date and Time Signed: 11/27/23 11:13 EDT\.br\Electronically Co-Signed By: Lauren Foote\.br\Date and Time Co-Signed: 11/27/23 10:54 EDT Consent for Procedure/Surger yon 08-30-2023 Consent for Procedure/Surgery [id number] 9#1.00TIFF [facility] Insurance Correspondenceon 0 08-09-2023 Insurance Correspondence [id number] 7#1.00TIFF [facility] Consent for Procedure/Surger yon 08-07-2023 Consent for Procedure/Surgery [id number] 0#1.00TIFF [facility] Consent for Treatmenton Consent for Treatment [id number] #1.00TIFF [facility] IntraOperative Documentson 0 08-07-2023 IntraOperative Documents [id number] 5#1.00TIFF [facility] Main OR Intraoperative Recor don 08-07-2023 Main OR Intraoperative Record IntraOp Document Type FTURO Summary Primary Physician: Leonardo REGAN MD Finalized Date/Time: 08/07/23 12:34:13 Pt. Name: LACIE GARZA/Sex: 1940 Female Med Rec #: [id number] Physician: Leonardo REGAN MD Financial #: [id number] Pt. Type: O Room/Bed: / Admit/Disch: 08/07/23 10:19:19 - Institution: Case Times FTURO Entry 1 Patient Times In Room 08/07/23 12:10:00 Out Room 08/07/23 12:30:00 Procedure Times Start 08/07/23 12:13:00 Stop 08/07/23 12:25:00 Anesthesia Times Last Modified By: KARENA Salas RN, Samantha 08/07/23 12:22:43 Case Attendance FTURO Entry 1 Entry 2 Entry 3 Case Attendee SHEREEN ELY, Leonardo Salas RN, CNOR, Rosy Warner Role Performed Surgeon - Primary Assistant County Attorney - Primary Scrub - Primary Time In 08/07/23 12:10:00 08/07/23 12:10:00 08/07/23 12:10:00 Time Out 08/07/23 12:30:00 08/07/23 12:30:00 08/07/23 12:30:00 Procedure CYSTOSCOPY LOCAL BOTOX CYSTOSCOPY LOCAL BOTOX CYSTOSCOPY LOCAL BOTOX INJECTION(.) INJECTION(.) INJECTION(.) Comments Last Modified By: Maritza CAVANAUGH, EVIEOR, Maritza CAVANAUGH, KARENA, Maritza CAVANAUGH, KARENA, Samantha 08/07/23 Samantha 08/07/23 Samantha 08/07/23 12:22:44 12:22:44 12:22:44 Surgical Procedures FTURO Entry 1 Procedure Description Procedure CYSTOSCOPY LOCAL BOTOX Modifiers . INJECTION Surgeon Description CYSTO WITH BOTOX 100 UNITS Primary Procedure Yes Primary Surgeon SHEREEN ELY, Leonardo Cisneros Start 08/07/23 12:13:00 Stop 08/07/23 12:25:00 Anesthesia Type Local Surgical Service Urology Wound Class 2 - Clean-Contaminated Last Modified By: KARENA Salas RN, Ruthann 08/07/23 12:23:45 General Comments: BOTOX 100 UNITS OUTDATE 11/29 LOT [id number] General Case Data FTURO Pre-Care Text: Classifies surgical wound, implements aseptic technique, initiates traffic control Entry 1 Case Information OR URO 1 FT Case Level None Wound Class 2 - Clean-Contaminated Specialty Urology Preop Diagnosis MIXED INCONTINENCE Postop Same As Preop Yes Postop Diagnosis MIXED INCONTINENCE Outcomes Met? Yes Last Modified By: KARENA Salas RN, Samantha 08/07/23 12:23:54 Post-Care Text: The patient [...] KARENA Salas RN, Ruthann 08/07/23 12:34 Normal [facility] Main OR Preoperative Recordo n 08-07-2023 Main OR Preoperative Record Holding Area Document Type FTURO Summary Primary Physician: Leonardo REGAN MD Finalized Date/Time: 08/07/23 12:22:25 Pt. Name: LACIE GARZA /Sex: 1940 Female Med Rec #: [id number] Physician: Leonardo REGAN MD Financial #: [id number] Pt. Type: O Room/Bed: / Admit/Disch: 08/07/23 [...] KARENA Salas RN, Ruthann 08/07/23 12:22 Normal [facility] Operative Reporton Operative Report Patient: LACIE [...] with antibiotic coverage, Follow up arranged. Normal [facility] Comment on above: Result Comment: Elec tronically Signed By: Leonardo REGAN MD\.br\Date and Time Signed: 08/07/23 12:28 EST Outpatient Surgery Discharge Instructionon 08-07-2023 Outpatient Surgery Discharge Instruction [id number] 9#1.00TIFF [facility] Ambulatory Visit Summaryon 1 10-02-2022 Ambulatory Visit Summary LACIE GARZA :1940 Visit Date:08/01/2023 Ambulatory Visit Instructions Your Care Team Attending Physician - SHEREEN ELY, Leonardo Cisneros Primary Care Physician - MARY LUGO MD This Is Your Medications List [facility] Prescription (METOPROLOL SUCC ER 50 MG TAB) [...] Appointments Sunday 9:00 AM EST With: Where: [facility] Surgical Services Sunday 11:30 AM EST With: Where: [facility] Services Sunday 10:00 AM EST With: REGINA VALIENTE PA-C Where: [facility] [address] [place] [address] \.br\ Medications\.br\ What How Much When Instructions\.br [...] 1 hour prior to procedure. Have a driver/sales workers \.br\ Unchanged donepezil (donepezil 5 mg Tab)\.br\ [...] choosing us for your care.\.br\ \.br\ [facility] 37on 05-25-2023 37 Resume metoprolol 100 mg daily Increase lasix (furosemide) to 40 mg daily Continue all other meds Normal [facility] Office Visiton 05-25-2023 Follow-up visit [id number] Lacie Garza 1940 F Date Provider Department Center 05/25/2023 SHELL BELL [facility] Family History Problem Relation Age of Onset Coronary artery disease Mother Family Status - Relation Status Age at Mother Level of Service:49653 [place] OFFICE/OUTPATIENT ESTABLISHED LOW MDM 20-29 MIN Normal [facility] Documentationon 05-23-2023 Documentation [id number] Lacie Garza 1940 F Date Provider Department Center 05/23/2023 SHELL BELL [facility] Family History Problem Relation Age of Onset Coronary artery disease Mother Family Status - Relation Status Age at Mother Normal [facility] CULTURE URINEon 09-06-2022 CULTURE URINE Culture Observations: GREATER THAN TWO ORGANISMS PRESENT. PLEASE RESUBMIT CLEAN CATCH MID-STREAM URINE IF CLINICALLY INDICATED. Normal [facility] Comment on above: Performed By: #### B MP #### [facility] [address] [place] [address] Dr. Jesse Maldonado CBC W MANUAL DIFFon 09-05-19 ATYPICAL LYMPH # 0.00 103/ul Normal [facility] Comment on above: Performed By: #### B MP #### [facility] [address] [address] [address] Jesse Maldonado ATYPICAL LYMPH % 0 % Normal [facility] Comment on above: Performed By: #### B MP #### [facility] [address] [place] [address] Dr. Jesse Maldonado BAND # 0.7 103/ul Critically high 0.0-0.3 [facility] Comment on above: Performed By: #### B MP #### [facility] [address] [address] [address] Jesse Maldonado BAND % 14 % Critically high 0-5 [facility] Comment on above: Performed By: #### B MP #### [facility] [address] [address] [address] Jesse Maldonado BASOM # 0.11 103/ul Critically high 0.00-0.10 [facility] Comment on above: Performed By: #### B MP #### [facility] [address] [place] [address] Dr. Jesse Maldonado BASOM % 2.0 % Normal 0.2-2.0 [facility] Comment on above: Performed By: #### B MP #### [facility] [address] [place] [address] Dr. Jesse Maldonado BLAST # 0.0 103/ul Normal [facility] Comment on above: Performed By: #### B MP #### [facility] [address] [place] [address] Dr. Jesse Maldonado BLAST % 0 % Normal [facility] Comment on above: Performed By: #### B MP #### [facility] [address] [place] [address] Dr. Jesse Maldonado CORRECTED WBC Normal 4.0-11.0 [facility] Comment on above: Performed By: #### B MP #### [facility] [address] [place] [address] Dr. Jesse Maldonado EOS # 0.05 103/ul Normal 0.00-0.70 [facility] Comment on above: Performed By: #### B MP #### [facility] [address] [place] [address] Dr. Jesse Maldonado EOS% 1.0 % Normal 0.9-7.0 [facility] Comment on above: Performed By: #### B MP #### [facility] [address] [place] [address] Dr. Jesse Maldonado HCT 41.5 % Normal 36.0-48.0 [facility] Comment on above: Performed By: #### B MP #### [facility] [address] [place] [address] Dr. Jesse Maldonado HGB 13.2 g/dl Normal 12.0-16.0 [facility] Comment on above: Performed By: #### B MP #### [facility] [address] [place] [address] Dr. Jesse Maldonado LYMPHM # 0.42 103/ul Critically low 1.20-3.80 [facility] Comment on above: Performed By: #### B MP #### [facility] [address] [place] [address] Dr. Jesse Maldonado LYMPHM% 8.0 % Critically low 20.5-60.0 [facility] Comment on above: Performed By: #### B MP #### [facility] [address] [place] [address] Dr. Jesse Maldonado MCH 28.5 pg Normal 26.7-34.0 [facility] Comment on above: Performed By: #### B MP #### [facility] [address] [place] [address] Dr. Jesse Maldonado MCHC 31.8 g/dl Normal 29.9-35.2 [facility] Comment on above: Performed By: #### B MP #### [facility] [address] [place] [address] Dr. Jesse Maldonado MCV 89.6 fL Normal 81.0-99.0 [facility] Comment on above: Performed By: #### B MP #### [facility] [address] [place] [address] Dr. Jesse Maldonado METAMYELOCYTE # 0.2 103/ul Normal [facility] Comment on above: Performed By: #### B MP #### [facility] [address] [place] [address] Dr. Jesse Maldonado METAMYELOCYTE % 3 % Normal [facility] Comment on above: Performed By: #### B MP #### [facility] [address] [place] [address] Dr. Jesse Maldonado MONOM# 0.53 103/ul Normal 0.30-0.80 [facility] Comment on above: Performed By: #### B MP #### [facility] [address] [place] [address] Dr. Jesse Maldonado MONOM% 10.0 % Normal 1.7-12.0 [facility] Comment on above: Performed By: #### B MP #### [facility] [address] [place] [address] Dr. Jesse Maldonado MPV 9.7 fL Normal 9.5-13.5 [facility] Comment on above: Performed By: #### B MP #### [facility] [address] [address] [address] Jesse Maldonado MYELOCYTE # 0.0 103/ul Normal [facility] Comment on above: Performed By: #### B MP #### [facility] [address] [place] [address] Dr. Jesse Maldonado MYELOCYTE % 0 % Normal [facility] Comment on above: Performed By: #### B MP #### [facility] [address] [place] [address] Dr. Jesse Maldonado NRBC 0 Normal [facility] Comment on above: Performed By: #### B MP #### [facility] [address] [place] [address] Dr. Jesse Maldonado PLT 140 103/ul Critically low 150-450 [facility] Comment on above: Performed By: #### B MP #### [facility] [address] [place] [address] Dr. Jesse Maldonado RBC 4.63 106/ul Normal 4.20-5.40 [facility] Comment on above: Performed By: #### B MP #### [facility] [address] [place] [address] Dr. Jesse Maldonado RDW 14.8 % Normal 11.0-15.0 [facility] Comment on above: Performed By: #### B MP #### [facility] [address] [place] [address] Dr. Jesse Maldonado SEG # 3.29 103/ul Normal 1.40-6.50 [facility] Comment on above: Performed By: #### B MP #### [facility] [address] [place] [address] Dr. Jesse Maldonado SEG % 62.0 % Normal 43.0-75.0 [facility] Comment on above: Performed By: #### B MP #### [facility] [address] [place] [address] Dr. Jesse Maldonado WBC 5.3 103/ul Normal 4.0-11.0 [facility] Comment on above: Performed By: #### B MP #### [facility] [address] [place] [address] Dr. Jesse Maldonado Covid-19 PCR (CVDTB)on 08-08 SARS-CoV-2 (COVID-19) RNA JOE+probe Ql (Unsp spec) Detected Abnormal NOT DETECTED [facility] Comment on above: Result Comment: This test is not yet approved or cleared by the [place] FDA. When there are no FDA-approved or cleared tests available, and other criteria are met, FDA can make tests available under an emergency access mechanism called an Emergency Use Authorization (EUA). The EUA for this test is supported by the [place] of Health and Human Service's declaration that [...] used). Performed By: #### C VDTB #### [facility] [address] [place] [address] Dr. Jesse Maldonado ER URINE PROFILEon 3 Bilirubin Ql (U) SMALL Abnormal NEGATIVE [facility] Comment on above: Performed By: #### CAIN QUINTERO #### [facility] [address] [place] [address] Dr. Jesse Maldonado Clarity (U) CLEAR Normal CLEAR [facility] Comment on above: Performed By: #### Nadya BEAUCHAMP UMICRO #### [facility] [address] [place] [address] Dr. Jesse Maldonado Color (U) YELLOW Normal YELLOW [facility] Comment on above: Performed By: #### Nadya BEAUCHAMP UMICRO #### [facility] [address] [place] [address] Dr. Jesse Maldonado ERUSHELLYD A micrscopic examination will be performed if indicated. Normal [facility] Comment on above: Performed By: #### Nadya BEAUCHAMP UMICRO #### [facility] [address] [place] [address] Dr. Jesse Maldonado Glucose Ql (U) Negative Normal NEGATIVE [facility] Comment on above: Performed By: #### NICHOLAS QUINTERORO #### [facility] [address] [place] [address] Dr. Jesse Maldonado Hemoglobin Ql (U) TRACE-INTACT Abnormal NEGATIVE [facility] Comment on above: Performed By: #### Nadya BEAUCHAMP UMTRACIRO #### [facility] [address] [place] [address] Dr. Jesse Maldonado Ketones Ql (U) TRACE Abnormal NEGATIVE [facility] Comment on above: Performed By: #### Nadya BEAUCHAMP UMICRO #### [facility] [address] [place] [address] Dr. Jesse Maldonado LEUKOCYTES MODERATE Abnormal NEGATIVE [facility] Comment on above: Performed By: #### Nadya BEAUCHAMP UMICRO #### [facility] [address] [place] [address] Dr. Jesse Maldonado Nitrite Ql (U) Negative Normal NEGATIVE [facility] Comment on above: Performed By: #### NICHOLAS QUINTERORO #### [facility] [address] [place] [address] Dr. Jesse Maldonado pH (U) 5.5 [pH] Normal 5-9 [facility] Comment on above: Performed By: #### NICHOLAS QUINTERORO #### [facility] [address] [place] [address] Dr. Jesse Maldonado Protein (U) [Mass/Vol] 100 mg/dL Abnormal NEGATIVE/ TRACE [facility] Comment on above: Performed By: #### NICHOLAS QUINTERORO #### [facility] [address] [place] [address] Dr. Jesse Maldonado SPEC GRAVITY >=1.030 Abnormal 1.005-<=1.025 [facility] Comment on above: Performed By: #### NICHOLAS QUINTERORO #### [facility] [address] [place] [address] Dr. Jesse Maldonado UR MICRO IND INDICATED Normal [facility] Comment on above: Performed By: #### NICHOLAS QUINTERORO #### [facility] [address] [place] [address] Dr. Jesse Maldonado Urobilinogen Qn (U) 1.0 {Christiano'U}/dL Normal 0.2 - 1. 0 [facility] Comment on above: Performed By: #### E CAIN BEAUCHAMP #### [facility] [address] [place] [address] Dr. Jesse Maldonado LACTATE/LACTIC ACIDon 2022 Lactate [Moles/Vol] 1.9 mmol/L Normal 0.4-1.9 [facility] Comment on above: Performed By: #### L ACT #### [facility] [address] [place] [address] Dr. Jesse Maldonado PROF 14(COMP METB)on 023 Albumin [Mass/Vol] 3.1 g/dL Critically low 3.4-5.0 [facility] Comment on above: Performed By: #### C DHAVAL HSTROPN #### [facility] [address] [place] [address] Dr. Jesse Maldonado Albumin/Globulin [Mass ratio] 0.7 {ratio} Normal [facility] Comment on above: Performed By: #### C DHAVAL HSTROPN #### [facility] [address] [place] [address] Dr. Jesse Maldonado ALP [Catalytic activity/Vol] 70 U/L Normal 46-116 [facility] Comment on above: Performed By: #### C DHAVAL HSTROPN #### [facility] [address] [place] [address] Dr. Jesse Maldonado ALT [Catalytic activity/Vol] 17 U/L Normal 14-59 [facility] Comment on above: Performed By: #### C DHAVAL HSTROPN #### [facility] [address] [place] [address] Dr. Jesse Maldonado Anion gap [Moles/Vol] 16.4 mmol/L Normal [facility] Comment on above: Performed By: #### C DHAVAL, HSTROPN #### [facility] [address] [place] [address] Dr. Jesse Maldonado AST [Catalytic activity/Vol] 23 U/L Normal 15-37 [facility] Comment on above: Performed By: #### C DHAVAL, HSTROPN #### [facility] [address] [place] [address] Dr. Jesse Maldonado Bilirubin [Mass/Vol] 0.5 mg/dL Normal 0.2-1.0 [facility] Comment on above: Performed By: #### C DHAVAL, HSTROPN #### [facility] [address] [address] [address] Jesse Maldoando Calcium [Mass/Vol] 8.4 mg/dL Critically low 8.5-10.1 [facility] Comment on above: Performed By: #### C DHAVAL, HSTROPN #### [facility] [address] [place] [address] Dr. Jesse Maldonado Chloride [Moles/Vol] 102 mmol/L Normal 98-107 [facility] Comment on above: Performed By: #### C DHAVAL, HSTROPN #### [facility] [address] [place] [address] Dr. Jesse Maldonado CO2 [Moles/Vol] 25.3 mmol/L Normal 21.0-32.0 [facility] Comment on above: Performed By: #### C DHAVAL, HSTROPN #### [facility] [address] [place] [address] Dr. Jesse Maldonado Creatinine [Mass/Vol] 0.95 mg/dL Normal 0.55-1.02 [facility] Comment on above: Performed By: #### C MP, HSTROPN #### [facility] [address] [place] [address] Dr. Jesse Maldonado EGFR-AF MACANESE >60 Normal >=60 [facility] Comment on above: Performed By: #### C MP, HSTROPN #### [facility] [address] [place] [address] Dr. Jesse Maldonado EGFR-NON AF MACANESE 56 mL/min/1.73m2 Critically low >=60 [facility] Comment on above: Performed By: #### C MP, HSTROPN #### [facility] [address] [address] [address] Jesse Maldonado Globulin (S) [Mass/Vol] 4.7 g/dL Normal [facility] Comment on above: Performed By: #### C MP, HSTROPN #### [facility] [address] [address] [address] Jesse Maldonado Glucose [Mass/Vol] 135 mg/dL Critically high 74-106 [facility] Comment on above: Performed By: #### C MP, HSTROPN #### [facility] [address] [address] [address] Jesse Maldonado Potassium [Moles/Vol] 3.7 mmol/L Normal 3.5-5.1 [facility] Comment on above: Performed By: #### C MP, HSTROPN #### [facility] [address] [address] [address] Jesse Maldonado Protein [Mass/Vol] 7.8 g/dL Normal 6.4-8.2 [facility] Comment on above: Performed By: #### C MP, HSTROPN #### [facility] [address] [address] [address] Jesse Maldonado Sodium [Moles/Vol] 140 mmol/L Normal 136-145 [facility] Comment on above: Performed By: #### C MP, HSTROPN #### [facility] [address] [address] [address] Jesse Maldonado Urea nitrogen [Mass/Vol] 12.0 mg/dL Normal 7.0-18.0 [facility] Comment on above: Performed By: #### C MP, HSTROPN #### [facility] [address] [address] [address] Jesse Maldonado Urea nitrogen/Creatinine [Mass ratio] 12.6 mg/mg Normal [facility] Comment on above: Performed By: #### C MP, HSTROPN #### [facility] [address] [address] [address] Jesse Maldonado TROPONIN, HIGH SENSITIVITYon 09-05-2022 HSTROP 10.7 pg/mL Normal 4.0-51.3 [facility] Comment on above: Result Comment: CUT- OFF POINTS HAVE BEEN ESTABLISHED BASED ON THE FOURTH UNIVERSAL DEFINITIONS OF MYOCARDIAL INFARCTION. THE UPPER REFERENCE LIMIT (URL) OF TROPONIN, DEFINED THE 99TH PERCENTILE OF cTnI DISTRIBUTION IN A REFERENCE POPULATION, HAS BEEN CONFIRMED THE DECISION THRESHOLD FOR GA DIAGNOSIS. Performed By: #### C MP, HSTROPN #### [facility] [address] [place] [address] Dr. Jesse Maldonado URINE MICROSCOPIC ONLYon BACTERIA SMALL Abnormal NONE SEEN [facility] Comment on above: Performed By: #### E RUR, UMICRO #### [facility] [address] [place] [address] Dr. Jesse Maldonado Bacteria identified Cx Nom (U) INDICATED Normal [facility] Comment on above: Performed By: #### E RUR, UMICRO #### [facility] [address] [place] [address] Dr. Jesse Maldonado CAST NONE SEEN Normal NONE SEEN [facility] Comment on above: Performed By: #### E RUR, UMICRO #### [facility] [address] [place] [address] Dr. Jesse Maldonado Crystals LM Nom (Urine sed) NONE SEEN Normal NONE SEEN [facility] Comment on above: Performed By: #### E RUR, UMICRO #### [facility] [address] [place] [address] Dr. Jesse Maldonado Epithelial cells LM Ql (Urine sed) MODERATE Abnormal NONE SEEN /RARE [facility] Comment on above: Performed By: #### E RUR, UMICRO #### [facility] [address] [place] [address] Dr. Jesse Maldonado MUCOUS SMALL Abnormal NONE SEEN [facility] Comment on above: Performed By: #### E RUR, UMICRO #### [facility] [address] [place] [address] Dr. Jesse Maldonado RBC 0-2 Normal 0-2 [facility] Comment on above: Performed By: #### E RUR, UMICRO #### [facility] [address] [place] [address] Dr. Jesse Maldonado WBC 5-10 Abnormal NONE SEEN [facility] Comment on above: Performed By: #### CAIN QUINTERO #### [facility] [address] [place] [address] Dr. Jesse Maldonado CULTURE URINEon 08-31-2022 CULTURE [...] F Trimethoprim/Sulfame thoxazole <=20 S F Normal [facility] Comment on above: Performed By: #### B MP #### [facility] [address] [place] [address] Dr. Jesse Maldonado CULTURE URINEon 04-20-2022 CULTURE [...] F Trimethoprim/Sulfame thoxazole <=20 S F Normal [facility] Comment on above: Performed By: #### B MP #### [facility] [address] [place] [address] Dr. Jesse Maldonado AMMONIAon 09-13-2022 Ammonia (P) [Mass/Vol] ug/dL Critically low 11-32 [facility] Comment on above: Performed By: #### A MM #### [facility] [address] [place] [address] Dr. Jesse Maldonado CBC AUTO DIFFon 04-18-2022 BASO # 0.0 103/ul Normal 0.0-0.1 [facility] Comment on above: Performed By: #### C BC #### [facility] [address] [place] [address] Dr. Jesse Maldonado Basophils/100 WBC (Bld) 0.5 % Normal 0.2-2.0 [facility] Comment on above: Performed By: #### C BC #### [facility] [address] [place] [address] Dr. Jesse Maldonado EO # 0.1 103/ul Normal 0.0-0.7 [facility] Comment on above: Performed By: #### C BC #### [facility] [address] [place] [address] Dr. Jesse Maldonado Eosinophils/100 WBC (Bld) 0.9 % Normal 0.9-7.0 [facility] Comment on above: Performed By: #### C BC #### [facility] [address] [place] [address] Dr. Jesse Maldonado Erythrocyte distribution width (RBC) [Ratio] 14.4 % Normal 11.0-15.0 [facility] Comment on above: Performed By: #### C BC #### [facility] [address] [place] [address] Dr. Jesse Maldonado Hematocrit (Bld) [Volume fraction] 43.9 % Normal 36.0-48.0 [facility] Comment on above: Performed By: #### C BC #### [facility] [address] [place] [address] Dr. Jesse Maldonado Hemoglobin (Bld) [Mass/Vol] 13.9 g/dL Normal 12.0-16.0 [facility] Comment on above: Performed By: #### C BC #### [facility] [address] [place] [address] Dr. Jesse Maldonado IG # 0.03 10e3/ul Normal 0.00-0.03 [facility] Comment on above: Performed By: #### C BC #### [facility] [address] [place] [address] Dr. Jesse Maldonado IG % 0.3 % Normal 0.0-0.5 [facility] Comment on above: Performed By: #### C BC #### [facility] [address] [place] [address] Dr. Jesse Maldonado LYMPH # 2.5 103/ul Normal 1.2-3.8 [facility] Comment on above: Performed By: #### C BC #### [facility] [address] [place] [address] Dr. Jesse Maldonado Lymphocytes/100 WBC (Bld) 29.0 % Normal 20.5-60.0 [facility] Comment on above: Performed By: #### C BC #### [facility] [address] [place] [address] Dr. Jesse Maldonado MANUAL DIFF REQ NO Normal [facility] Comment on above: Performed By: #### C BC #### [facility] [address] [place] [address] Dr. Jesse Maldonado MCH (RBC) [Entitic mass] 28.9 pg Normal 26.7-34.0 [facility] Comment on above: Performed By: #### C BC #### [facility] [address] [place] [address] Dr. Jesse Maldonado MCHC (RBC) [Mass/Vol] 31.7 g/dL Normal 29.9-35.2 [facility] Comment on above: Performed By: #### C BC #### [facility] [address] [place] [address] Dr. Jesse Maldonado MCV (RBC) [Entitic vol] 91.3 fL Normal 81.0-99.0 [facility] Comment on above: Performed By: #### C BC #### [facility] [address] [place] [address] Dr. Jesse Maldonado MONO # 0.7 103/ul Normal 0.3-0.8 [facility] Comment on above: Performed By: #### C BC #### [facility] [address] [place] [address] Dr. Jesse Maldonado Monocytes/100 WBC (Bld) 7.6 % Normal 1.7-12.0 [facility] Comment on above: Performed By: #### C BC #### [facility] [address] [place] [address] Dr. Jesse Maldonado NEUT # 5.4 103/ul Normal 1.4-6.5 [facility] Comment on above: Performed By: #### C BC #### [facility] [address] [place] [address] Dr. Jesse Maldonado Neutrophils/100 WBC (Bld) 61.7 % Normal 43.0-75.0 [facility] Comment on above: Performed By: #### C BC #### [facility] [address] [place] [address] Dr. Jesse Maldonado Platelet mean volume (Bld) [Entitic vol] 9.7 fL Normal 9.5-13.5 [facility] Comment on above: Performed By: #### C BC #### [facility] [address] [place] [address] Dr. Jesse Maldonado PLT 198 103/ul Normal 150-450 [facility] Comment on above: Performed By: #### C BC #### [facility] [address] [place] [address] Dr. Jesse Maldonado RBC 4.81 106/ul Normal 4.20-5.40 [facility] Comment on above: Performed By: #### C BC #### [facility] [address] [place] [address] Dr. Jesse Maldonado WBC 8.8 103/ul Normal 4.0-11.0 [facility] Comment on above: Performed By: #### C BC #### [facility] [address] [place] [address] Dr. Jesse Maldonado PROF 14(COMP METB)on 022 Albumin [Mass/Vol] 3.4 g/dL Normal 3.4-5.0 [facility] Comment on above: Performed By: #### B MP #### [facility] [address] [address] [address] Jesse Maldonado Albumin/Globulin [Mass ratio] 0.7 {ratio} Normal [facility] Comment on above: Performed By: #### B MP #### [facility] [address] [address] [address] Jesse Maldonado ALP [Catalytic activity/Vol] 85 U/L Normal 46-116 [facility] Comment on above: Performed By: #### B MP #### [facility] [address] [address] [address] Jesse Maldonado ALT [Catalytic activity/Vol] 13 U/L Critically low 14-59 [facility] Comment on above: Performed By: #### B MP #### [facility] [address] [place] [address] Dr. Jesse Maldonado Anion gap [Moles/Vol] 11.3 mmol/L Normal [facility] Comment on above: Performed By: #### B MP #### [facility] [address] [place] [address] Dr. Jesse Maldonado AST [Catalytic activity/Vol] 13 U/L Critically low 15-37 [facility] Comment on above: Performed By: #### B MP #### [facility] [address] [place] [address] Dr. Jesse Maldonado Bilirubin [Mass/Vol] 0.6 mg/dL Normal 0.2-1.0 [facility] Comment on above: Performed By: #### B MP #### [facility] [address] [place] [address] Dr. Jesse Maldnoado Calcium [Mass/Vol] 8.8 mg/dL Normal 8.5-10.1 [facility] Comment on above: Performed By: #### B MP #### [facility] [address] [address] [address] Jesse Maldonado Chloride [Moles/Vol] 104 mmol/L Normal 98-107 [facility] Comment on above: Performed By: #### B MP #### [facility] [address] [address] [address] Jesse Maldonado CO2 [Moles/Vol] 26.7 mmol/L Normal 21.0-32.0 [facility] Comment on above: Performed By: #### B MP #### [facility] [address] [address] [address] Jesse Maldonado Creatinine [Mass/Vol] 0.99 mg/dL Normal 0.55-1.02 [facility] Comment on above: Performed By: #### B MP #### [facility] [address] [address] [address] Jesse Maldonado EGFR-AF MACANESE >60 Normal >=60 [facility] Comment on above: Performed By: #### B MP #### [facility] [address] [place] [address] Dr. Jesse Maldonado EGFR-NON AF MACANESE 53 mL/min/1.73m2 Critically low >=60 [facility] Comment on above: Performed By: #### B MP #### [facility] [address] [address] [address] Jesse Maldonado Globulin (S) [Mass/Vol] 4.6 g/dL Normal [facility] Comment on above: Performed By: #### B MP #### [facility] [address] [place] [address] Dr. Jesse Maldonado Glucose [Mass/Vol] 106 mg/dL Normal 74-106 [facility] Comment on above: Performed By: #### B MP #### [facility] [address] [address] [address] Jesse Maldonado Potassium [Moles/Vol] 4.0 mmol/L Normal 3.5-5.1 [facility] Comment on above: Performed By: #### B MP #### [facility] [address] [address] [address] Jesse Maldonado Protein [Mass/Vol] 8.0 g/dL Normal 6.4-8.2 [facility] Comment on above: Performed By: #### B MP #### [facility] [address] [address] [address] Jsese Maldonado Sodium [Moles/Vol] 138 mmol/L Normal 136-145 [facility] Comment on above: Performed By: #### B MP #### [facility] [address] [place] [address] Dr. Jesse Maldonado Urea nitrogen [Mass/Vol] 19.0 mg/dL Critically high 7.0-18.0 [facility] Comment on above: Performed By: #### B MP #### [facility] [address] [place] [address] Dr. Jesse Maldonado Urea nitrogen/Creatinine [Mass ratio] 19.2 mg/mg Normal [facility] Comment on above: Performed By: #### B MP #### [facility] [address] [place] [address] Dr. Jesse Maldonado UA (CLEAN/CATCH) EDUCATION PROFESSIONAL/MICRO I F IND.on 04-18-2022 Bilirubin Ql (U) Negative Normal NEGATIVE [facility] Comment on above: Performed By: #### B MP #### [facility] [address] [place] [address] Dr. Jesse Maldonado Clarity (U) CLEAR Normal CLEAR [facility] Comment on above: Performed By: #### B MP #### [facility] [address] [place] [address] Dr. Jesse Maldonado Color (U) YELLOW Normal YELLOW [facility] Comment on above: Performed By: #### B MP #### [facility] [address] [place] [address] Dr. Jesse Maldonado Glucose Ql (U) Negative Normal NEGATIVE [facility] Comment on above: Performed By: #### B MP #### [facility] [address] [place] [address] Dr. Jesse Maldonado Hemoglobin Ql (U) Negative Normal NEGATIVE [facility] Comment on above: Performed By: #### B MP #### [facility] [address] [place] [address] Dr. Jesse Maldonado Ketones Ql (U) Negative Normal NEGATIVE [facility] Comment on above: Performed By: #### B MP #### [facility] [address] [place] [address] Dr. Jesse Maldonado LEUKOCYTES TRACE Abnormal NEGATIVE [facility] Comment on above: Performed By: #### B MP #### [facility] [address] [place] [address] Dr. Jesse Maldonado Nitrite Ql (U) Negative Normal NEGATIVE [facility] Comment on above: Performed By: #### B MP #### [facility] [address] [place] [address] Dr. Jesse Maldonado pH (U) 5.5 [pH] Normal 5-9 [facility] Comment on above: Performed By: #### B MP #### [facility] [address] [place] [address] Dr. Jesse Maldonado SPEC GRAVITY 1.025 Normal 1.005-<=1.025 [facility] Comment on above: Performed By: #### B MP #### [facility] [address] [place] [address] Dr. Jesse Maldonado UA PROTEIN Negative Normal NEGATIVE/ TRACE [facility] Comment on above: Performed By: #### B MP #### [facility] [address] [place] [address] Dr. Jesse Maldonado UR MICRO IND INDICATED Normal [facility] Comment on above: Performed By: #### B MP #### [facility] [address] [place] [address] Dr. Jesse Maldonado Urobilinogen Qn (U) 0.2 {Christiano'U}/dL Normal 0.2 - 1. 0 [facility] Comment on above: Performed By: #### B MP #### [facility] [address] [place] [address] Dr. Jesse Maldonado URINE MICROSCOPIC ONLYon BACTERIA SMALL Abnormal NONE SEEN [facility] Comment on above: Performed By: #### B MP #### [facility] [address] [place] [address] Dr. Jesse Maldonado Bacteria identified Cx Nom (U) INDICATED Normal [facility] Comment on above: Performed By: #### B MP #### [facility] [address] [place] [address] Dr. Jesse Maldonado CAST NONE SEEN Normal NONE SEEN [facility] Comment on above: Performed By: #### B MP #### [facility] [address] [place] [address] Dr. Jesse Maldonado Crystals LM Nom (Urine sed) NONE SEEN Normal NONE SEEN [facility] Comment on above: Performed By: #### B MP #### [facility] [address] [place] [address] Dr. Jesse Maldonado Epithelial cells LM Ql (Urine sed) MANY Abnormal NONE SEEN /RARE [facility] Comment on above: Performed By: #### B MP #### [facility] [address] [place] [address] Dr. Jesse Maldonado MUCOUS NONE SEEN Normal NONE SEEN [facility] Comment on above: Performed By: #### B MP #### [facility] [address] [place] [address] Dr. Jesse Maldonado RBC NONE SEEN Abnormal 0-2 [facility] Comment on above: Performed By: #### B MP #### [facility] [address] [place] [address] Dr. Jesse Maldonado WBC 10-20 Abnormal NONE SEEN [facility] Comment on above: Performed By: #### B MP #### [facility] [address] [place] [address] Dr. Jesse Maldonado CULTURE URINEon 02-05-2022 CULTURE [...] Trimethoprim/Sulfame thoxazole <=20 S F Normal [facility] Comment on above: Performed By: #### B MP #### [facility] [address] [address] [address] Jesse Maldonado CBC AUTO DIFFon 02-03-2022 BASO # 0.0 103/ul Normal 0.0-0.1 [facility] Comment on above: Performed By: #### C BC #### [facility] [address] [place] [address] Dr. Jesse Maldonado Basophils/100 WBC (Bld) 0.5 % Normal 0.2-2.0 [facility] Comment on above: Performed By: #### C BC #### [facility] [address] [place] [address] Dr. Jesse Maldonado EO # 0.2 103/ul Normal 0.0-0.7 [facility] Comment on above: Performed By: #### C BC #### [facility] [address] [place] [address] Dr. Jesse Maldonado Eosinophils/100 WBC (Bld) 2.0 % Normal 0.9-7.0 [facility] Comment on above: Performed By: #### C BC #### [facility] [address] [place] [address] Dr. Jesse Maldonado Erythrocyte distribution width (RBC) [Ratio] 14.5 % Normal 11.0-15.0 [facility] Comment on above: Performed By: #### C BC #### [facility] [address] [place] [address] Dr. Jesse Maldonado Hematocrit (Bld) [Volume fraction] 42.1 % Normal 36.0-48.0 [facility] Comment on above: Performed By: #### C BC #### [facility] [address] [place] [address] Dr. Jesse Maldonado Hemoglobin (Bld) [Mass/Vol] 13.6 g/dL Normal 12.0-16.0 [facility] Comment on above: Performed By: #### C BC #### [facility] [address] [place] [address] Dr. Jesse Maldonado IG # 0.03 10e3/ul Normal 0.00-0.03 [facility] Comment on above: Performed By: #### C BC #### [facility] [address] [place] [address] Dr. Jesse Maldonado IG % 0.4 % Normal 0.0-0.5 [facility] Comment on above: Performed By: #### C BC #### [facility] [address] [place] [address] Dr. Jesse Maldonado LYMPH # 2.1 103/ul Normal 1.2-3.8 [facility] Comment on above: Performed By: #### C BC #### [facility] [address] [place] [address] Dr. Jesse Maldonado Lymphocytes/100 WBC (Bld) 28.4 % Normal 20.5-60.0 [facility] Comment on above: Performed By: #### C BC #### [facility] [address] [place] [address] Dr. Jesse Maldonado MANUAL DIFF REQ NO Normal [facility] Comment on above: Performed By: #### C BC #### [facility] [address] [place] [address] Dr. Jesse Maldonado MCH (RBC) [Entitic mass] 29.3 pg Normal 26.7-34.0 [facility] Comment on above: Performed By: #### C BC #### [facility] [address] [place] [address] Dr. Jesse Maldonado MCHC (RBC) [Mass/Vol] 32.3 g/dL Normal 29.9-35.2 [facility] Comment on above: Performed By: #### C BC #### [facility] [address] [place] [address] Dr. Jesse Maldonado MCV (RBC) [Entitic vol] 90.7 fL Normal 81.0-99.0 [facility] Comment on above: Performed By: #### C BC #### [facility] [address] [place] [address] Dr. Jesse Maldonado MONO # 0.6 103/ul Normal 0.3-0.8 [facility] Comment on above: Performed By: #### C BC #### [facility] [address] [place] [address] Dr. Jesse Maldonado Monocytes/100 WBC (Bld) 7.9 % Normal 1.7-12.0 [facility] Comment on above: Performed By: #### C BC #### [facility] [address] [place] [address] Dr. Jesse Maldonado NEUT # 4.6 103/ul Normal 1.4-6.5 [facility] Comment on above: Performed By: #### C BC #### [facility] [address] [place] [address] Dr. Jesse Maldonado Neutrophils/100 WBC (Bld) 60.8 % Normal 43.0-75.0 [facility] Comment on above: Performed By: #### C BC #### [facility] [address] [place] [address] Dr. Jesse Maldonado Platelet mean volume (Bld) [Entitic vol] 9.1 fL Critically low 9.5-13.5 [facility] Comment on above: Performed By: #### C BC #### [facility] [address] [place] [address] Dr. Jsese Maldonado PLT 178 103/ul Normal 150-450 [facility] Comment on above: Performed By: #### C BC #### [facility] [address] [place] [address] Dr. Jesse Maldonado RBC 4.64 106/ul Normal 4.20-5.40 [facility] Comment on above: Performed By: #### C BC #### [facility] [address] [place] [address] Dr. Jesse Maldonado WBC 7.5 103/ul Normal 4.0-11.0 [facility] Comment on above: Performed By: #### C BC #### [facility] [address] [place] [address] Dr. Jesse Maldonado ER URINE PROFILEon 2 Bilirubin Ql (U) Negative Normal NEGATIVE [facility] Comment on above: Performed By: #### B MP #### [facility] [address] [place] [address] Dr. Jesse Maldonado Clarity (U) CLEAR Normal CLEAR [facility] Comment on above: Performed By: #### B MP #### [facility] [address] [place] [address] Dr. Jesse Maldonado Color (U) LT. YELLOW Normal YELLOW [facility] Comment on above: Performed By: #### B MP #### [facility] [address] [place] [address] Dr. Jesse Maldonado ERUAHD A micrscopic examination will be performed if indicated. Normal [facility] Comment on above: Performed By: #### B MP #### [facility] [address] [place] [address] Dr. Jesse Maldonado Glucose Ql (U) Negative Normal NEGATIVE [facility] Comment on above: Performed By: #### B MP #### [facility] [address] [place] [address] Dr. Jesse Maldonado Hemoglobin Ql (U) TRACE-LYSED Abnormal NEGATIVE [facility] Comment on above: Performed By: #### B MP #### [facility] [address] [place] [address] Dr. Jesse Maldonado Ketones Ql (U) Negative Normal NEGATIVE [facility] Comment on above: Performed By: #### B MP #### [facility] [address] [place] [address] Dr. Jesse Maldonado LEUKOCYTES Negative Normal NEGATIVE [facility] Comment on above: Performed By: #### B MP #### [facility] [address] [place] [address] Dr. Jesse Maldonado Nitrite Ql (U) Negative Normal NEGATIVE [facility] Comment on above: Performed By: #### B MP #### [facility] [address] [place] [address] Dr. Jesse Maldonado pH (U) 5.5 [pH] Normal 5-9 [facility] Comment on above: Performed By: #### B MP #### [facility] [address] [place] [address] Dr. Jesse Maldonado SPEC GRAVITY 1.020 Normal 1.005-<=1.025 [facility] Comment on above: Performed By: #### B MP #### [facility] [address] [address] [address] Jesse Maldonado UA PROTEIN Negative Normal NEGATIVE/ TRACE [facility] Comment on above: Performed By: #### B MP #### [facility] [address] [address] [address] Jesse Maldonado UR MICRO IND INDICATED Normal [facility] Comment on above: Performed By: #### B MP #### [facility] [address] [place] [address] Dr. Jesse Maldonado Urobilinogen Qn (U) 0.2 {Christiano'U}/dL Normal 0.2 - 1. 0 [facility] Comment on above: Performed By: #### B MP #### [facility] [address] [place] [address] Dr. Jesse Maldonado PROF CHEM 8 (BAS METB)on Anion gap [Moles/Vol] 13.4 mmol/L Normal [facility] Comment on above: Performed By: #### B MP #### [facility] [address] [place] [address] Dr. Jesse Maldonado Calcium [Mass/Vol] 8.6 mg/dL Normal 8.5-10.1 [facility] Comment on above: Performed By: #### B MP #### [facility] [address] [place] [address] Dr. Jesse Maldonado Chloride [Moles/Vol] 105 mmol/L Normal 98-107 [facility] Comment on above: Performed By: #### B MP #### [facility] [address] [place] [address] Dr. Jesse Maldonado CO2 [Moles/Vol] 23.4 mmol/L Normal 21.0-32.0 [facility] Comment on above: Performed By: #### B MP #### [facility] [address] [place] [address] Dr. Jesse Maldonado Creatinine [Mass/Vol] 1.02 mg/dL Normal 0.55-1.02 [facility] Comment on above: Performed By: #### B MP #### [facility] [address] [address] [address] Jesse Maldonado EGFR-AF MACANESE 63 mL/min/1.73m2 Normal >=60 [facility] Comment on above: Performed By: #### B MP #### [facility] [address] [address] [address] Jesse Maldonado EGFR-NON AF MACANESE 52 mL/min/1.73m2 Critically low >=60 [facility] Comment on above: Performed By: #### B MP #### [facility] [address] [address] [address] Jesse Maldonado Glucose [Mass/Vol] 101 mg/dL Normal 74-106 [facility] Comment on above: Performed By: #### B MP #### [facility] [address] [address] [address] Jesse Maldonado Potassium [Moles/Vol] 3.8 mmol/L Normal 3.5-5.1 [facility] Comment on above: Performed By: #### B MP #### [facility] [address] [address] [address] Jesse Maldonado Sodium [Moles/Vol] 138 mmol/L Normal 136-145 [facility] Comment on above: Performed By: #### B MP #### [facility] [address] [address] [address] Jesse Maldonado Urea nitrogen [Mass/Vol] 18.0 mg/dL Normal 7.0-18.0 [facility] Comment on above: Performed By: #### B MP #### [facility] [address] [address] [address] Jesse Maldonado Urea nitrogen/Creatinine [Mass ratio] 17.6 mg/mg Normal [facility] Comment on above: Performed By: #### B MP #### [facility] [address] [address] [address] Jesse Maldonado URINE MICROSCOPIC ONLYon BACTERIA SMALL Abnormal NONE SEEN [facility] Comment on above: Performed By: #### B MP #### [facility] [address] [place] [address] Dr. Jesse Maldonado Bacteria identified Cx Nom (U) INDICATED Normal [facility] Comment on above: Performed By: #### B MP #### [facility] [address] [place] [address] Dr. Jesse Maldonado CAST SEEN Abnormal NONE SEEN [facility] Comment on above: Performed By: #### B MP #### [facility] [address] [place] [address] Dr. Jesse Maldonado Crystals LM Nom (Urine sed) NONE SEEN Normal NONE SEEN [facility] Comment on above: Performed By: #### B MP #### [facility] [address] [place] [address] Dr. Jesse Maldonado Epithelial cells LM Ql (Urine sed) FEW Abnormal NONE SEEN /RARE [facility] Comment on above: Performed By: #### B MP #### [facility] [address] [place] [address] Dr. Jesse Maldonado HYALINE CAST RARE Normal [facility] Comment on above: Performed By: #### B MP #### [facility] [address] [place] [address] Dr. Jesse Maldonado MUCOUS TRACE Abnormal NONE SEEN [facility] Comment on above: Performed By: #### B MP #### [facility] [address] [place] [address] Dr. Jesse Maldonado RBC 0-2 Normal 0-2 [facility] Comment on above: Performed By: #### B MP #### [facility] [address] [place] [address] Dr. Jesse Maldonado WBC 5-10 Abnormal NONE SEEN [facility] Comment on above: Performed By: #### B MP #### [facility] [address] [place] [address] Dr. Jesse Maldonado BASIC METABOLIC PANELon Calcium mass conc 8.2 mg/dL Low 8.6-10.[address] [facility] Comment on above: Order Comment: Yes: Add to Previous draw if able Performed By: #### 0 [id number] #### [facility] [address] [place] [address], [place] Chloride molar conc 104 mmol/L Normal 98-[address] [facility] Comment on above: Order Comment: Yes: Add to Previous draw if able Performed By: #### 0 0071 #### [facility] [address] [place] [address], [place] CO2 molar conc 27 mmol/L Normal 21-[address] [facility] Comment on above: Order Comment: Yes: Add to Previous draw if able Performed By: #### 0 0071 #### [facility] [address] [place] [address], [place] Creatinine mass conc 0.70 mg/dL Normal 0.60-1.[address] [facility] Comment on above: Order Comment: Yes: Add to Previous draw if able Performed By: #### 0 0071 #### [facility] [address] [place] [address], [place] GFR/1.73 sq M predicted among blacks MDRD vol rate/area (S/P/Bld) mL/min/{1.73_m2} Normal >[address] [facility] Comment on above: Order Comment: Yes: Add to Previous draw if able Result Comment: Calc ulation may not be valid for patients over 70 years Performed By: #### 0 [id number] #### [facility] [address] [place] [address], [place] GFR/1.73 sq M predicted among non-blacks MDRD vol rate/area (S/P/Bld) mL/min/{1.73_m2} Normal >[address] [facility] Comment on above: Order Comment: Yes: Add to Previous draw if able Result Comment: Calc ulation may not be valid for patients over 70 years Performed By: #### 0 [id number] #### [facility] [address] [place] [address], [place] Glucose mass conc 139 mg/dL High 70-[address] [facility] Comment on above: Order Comment: Yes: Add to Previous draw if able Performed By: #### 0 0071 #### [facility] [address] [place] [id number], [facility] Potassium molar conc 3.4 mmol/L Low 3.5-5.[address] [facility] Comment on above: Order Comment: Yes: Add to Previous draw if able Performed By: #### 0 0071 #### [facility] [address] [place] [address], [facility] Sodium molar conc 139 mmol/L Normal 136-[address] [facility] Comment on above: Order Comment: Yes: Add to Previous draw if able Performed By: #### 0 0071 #### [facility] [address] [place] [address], [facility] Urea nitrogen mass conc 12 mg/dL Normal 7-[address] [facility] Comment on above: Order Comment: Yes: Add to Previous draw if able Performed By: #### 0 [id number] #### [facility] [address] [place] [address], [facility] POC GLUCOSE LABon 08-14-2018 Glucose mass conc 134 mg/dL High 70-[address] [facility] Comment on above: Performed By: #### 5 [id number], [id number] #### [facility] [address] [place] [address], [facility] Glucose mass conc 123 mg/dL High 70-[address] [facility] Comment on above: Performed By: #### 5 [id number], [id number] #### [facility] [address] [place] [id number], [facility] ACTIVATED CLOTTING TIMEon ACTIVATED CLOTTING TIME 115 sec Normal 82-[address] [facility] Comment on above: Performed By: #### 5 [id number], [id number] #### [facility] [address] [place] [id number], [facility] BASIC METABOLIC PANELon Calcium mass conc 8.3 mg/dL Low 8.6-10.[address] [facility] Comment on above: Order Comment: No: D o not add to previous draw Performed By: #### 5 610, [id number] #### [facility] [address] [place] [address], [place] Chloride molar conc 105 mmol/L Normal 98-[address] [facility] Comment on above: Order Comment: No: D o not add to previous draw Performed By: #### 5 610, [id number] #### [facility] [address] [place] [address], [place] CO2 molar conc 25 mmol/L Normal 21-[address] [facility] Comment on above: Order Comment: No: D o not add to previous draw Performed By: #### 5 610, [id number] #### [facility] [address] [place] [address], [place] Creatinine mass conc 0.82 mg/dL Normal 0.60-1.[address] [facility] Comment on above: Order Comment: No: D o not add to previous draw Performed By: #### 5 610, [id number] #### [facility] [address] [place] [address], [place] GFR/1.73 sq M predicted among blacks MDRD vol rate/area (S/P/Bld) mL/min/{1.73_m2} Normal >[address] [facility] Comment on above: Order Comment: No: D o not add to previous draw Result Comment: Calc ulation may not be valid for patients over 70 years Performed By: #### 5 610, [id number] #### [facility] [address] [place] [address], [place] GFR/1.73 sq M predicted among non-blacks MDRD vol rate/area (S/P/Bld) mL/min/{1.73_m2} Normal >[address] [facility] Comment on above: Order Comment: No: D o not add to previous draw Result Comment: Calc ulation may not be valid for patients over 70 years Performed By: #### 5 610, [id number] #### [facility] [address] [place] [address], [facility] Glucose mass conc 133 mg/dL High 70-[address] [facility] Comment on above: Order Comment: No: D o not add to previous draw Performed By: #### 5 610, [id number] #### [facility] [address] [place] [address], [place] Potassium molar conc 3.6 mmol/L Normal 3.5-5.[address] [facility] Comment on above: Order Comment: No: D o not add to previous draw Performed By: #### 5 610, [id number] #### [facility] [address] [place] [address], [facility] Sodium molar conc 139 mmol/L Normal 136-[address] [facility] Comment on above: Order Comment: No: D o not add to previous draw Performed By: #### 5 610, [id number] #### [facility] [address] [place] [address], [facility] Urea nitrogen mass conc 22 mg/dL Normal 7-[address] [facility] Comment on above: Order Comment: No: D o not add to previous draw Performed By: #### 5 610, [id number] #### [facility] [address] [place] [id number], [facility] CBC COMPLETE BLOOD COUNTon 0 - Erythrocyte distribution width Ratio (RBC) 15.4 % High 11.5-15.[address] [facility] Comment on above: Order Comment: No: D o not add to previous draw Performed By: #### 5 610, [id number] #### [facility] [address] [place] [address], [place] Hematocrit Volume Fraction (Bld) 33.0 % Low 36.0-45.[address] [facility] Comment on above: Order Comment: No: D o not add to previous draw Performed By: #### 5 610, [id number] #### [facility] [address] [place] [address], [place] Hemoglobin mass conc (Bld) 10.2 g/dL Low 12.0-15.[address] [facility] Comment on above: Order Comment: No: D o not add to previous draw Performed By: #### 5 610, [id number] #### [facility] [address] [place] [address], [facility] MCH Entitic mass (RBC) 26.6 pg Low 27.0-33.[address] [facility] Comment on above: Order Comment: No: D o not add to previous draw Performed By: #### 5 6100, 17385 #### [facility] [address] [place] [address], [facility] MCHC mass conc (RBC) 30.9 g/dL Low 32.0-35.[address] [facility] Comment on above: Order Comment: No: D o not add to previous draw Performed By: #### 5 6100, 92041 #### [facility] [address] MCV Entitic volume (RBC) 86.2 fL Normal 82.0-98.[address] [facility] Comment on above: Order Comment: No: D o not add to previous draw Performed By: #### 5 6100, 19602 #### [facility] [address] [place] [address], [facility] Nucleated RBC/100 WBC Ratio (Bld) 0 % Normal 0-[address] [facility] Comment on above: Order Comment: No: D o not add to previous draw Performed By: #### 5 610, 96000 #### [facility] [address] [place] [id number], [facility] PLAT CNT 130 10*3/uL Low 150-[address] [facility] Comment on above: Order Comment: No: D o not add to previous draw Performed By: #### 5 610, 48277 #### [facility] [address] [place] [address], [facility] RBC #/vol (Bld) 3.83 10*6/uL Normal 3.80-5.[address] [facility] Comment on above: Order Comment: No: D o not add to previous draw Performed By: #### 5 610, 07833 #### [facility] [address] [place] [address], [facility] WBC #/vol (Bld) 11.09 10*3/uL High 4.00-10.[address] [facility] Comment on above: Order Comment: No: D o not add to previous draw Performed By: #### 5 610, 69122 #### [facility] [address] [place] [address], [facility] Erythrocyte distribution width Ratio (RBC) 15.2 % High 11.5-15.[address] [facility] Comment on above: Order Comment: No: D o not add to previous draw Performed By: #### 5 6100, 76700 #### [facility] [address] [place] [address], [facility] Hematocrit Volume Fraction (Bld) 33.0 % Low 36.0-45.[address] [facility] Comment on above: Order Comment: No: D o not add to previous draw Performed By: #### 5 6100, 25442 #### [facility] [address] [place] [address], [facility] Hemoglobin mass conc (Bld) 10.3 g/dL Low 12.0-15.[address] [facility] Comment on above: Order Comment: No: D o not add to previous draw Performed By: #### 5 610, 70200 #### [facility] [address] [place] [address], [facility] MCH Entitic mass (RBC) 26.4 pg Low 27.0-33.[address] [facility] Comment on above: Order Comment: No: D o not add to previous draw Performed By: #### 5 610, 55273 #### [facility] [address] [place], [place] [id number] [place] [address] MCHC mass conc (RBC) 31.2 g/dL Low 32.0-35.[address] [facility] Comment on above: Order Comment: No: D o not add to previous draw Performed By: #### 5 610, 19286 #### [facility] [address] [place] [address], [facility] MCV Entitic volume (RBC) 84.6 fL Normal 82.0-98.[address] [facility] Comment on above: Order Comment: No: D o not add to previous draw Performed By: #### 5 610, 44375 #### [facility] [address] [place] [address], [facility] Nucleated RBC/100 WBC Ratio (Bld) 0 % Normal 0-[address] [facility] Comment on above: Order Comment: No: D o not add to previous draw Performed By: #### 5 6100, 35779 #### [facility] [address] [place] [address], [facility] PLAT CNT 135 10*3/uL Low 150-[address] [facility] Comment on above: Order Comment: No: D o not add to previous draw Performed By: #### 5 610, 20357 #### [facility] [address] [place] [address], [facility] RBC #/vol (Bld) 3.90 10*6/uL Normal 3.80-5.[address] [facility] Comment on above: Order Comment: No: D o not add to previous draw Performed By: #### 5 610, 11379 #### [facility] [address] [place] [id number], [facility] WBC #/vol (Bld) 12.38 10*3/uL High 4.00-10.[address] [facility] Comment on above: Order Comment: No: D o not add to previous draw Performed By: #### 5 610, 37806 #### [facility] [address] [place] [address], [facility] Erythrocyte distribution width Ratio (RBC) 15.3 % High 11.5-15.[address] [facility] Comment on above: Order Comment: No: D o not add to previous draw Performed By: #### 5 610, 06359 #### [facility] [address] [place] [id number], [facility] Hematocrit Volume Fraction (Bld) 33.7 % Low 36.0-45.[address] [facility] Comment on above: Order Comment: No: D o not add to previous draw Performed By: #### 5 610, 38163 #### [facility] [address] [place] [address], [facility] Hemoglobin mass conc (Bld) 10.7 g/dL Low 12.0-15.[address] [facility] Comment on above: Order Comment: No: D o not add to previous draw Performed By: #### 5 6100, 80221 #### [facility] [address] [place] [address], [facility] MCH Entitic mass (RBC) 26.9 pg Low 27.0-33.[address] [facility] Comment on above: Order Comment: No: D o not add to previous draw Performed By: #### 5 6100, 24624 #### [facility] [address] [place] [address], [facility] MCHC mass conc (RBC) 31.8 g/dL Low 32.0-35.[address] [facility] Comment on above: Order Comment: No: D o not add to previous draw Performed By: #### 5 610, 10942 #### [facility] [address] [place] [address], [facility] MCV Entitic volume (RBC) 84.7 fL Normal 82.0-98.[address] [facility] Comment on above: Order Comment: No: D o not add to previous draw Performed By: #### 5 610, 12813 #### [facility] [address] [place] [address], [facility] Nucleated RBC/100 WBC Ratio (Bld) 0 % Normal 0-[address] [facility] Comment on above: Order Comment: No: D o not add to previous draw Performed By: #### 5 610, 13193 #### [facility] [address] [place] [address], [facility] PLAT CNT 138 10*3/uL Low 150-[address] [facility] Comment on above: Order Comment: No: D o not add to previous draw Performed By: #### 5 610, 54271 #### [facility] [address] [place] [address], [facility] RBC #/vol (Bld) 3.98 10*6/uL Normal 3.80-5.[address] [facility] Comment on above: Order Comment: No: D o not add to previous draw Performed By: #### 5 610, 82916 #### [facility] [address] [place] [address], [facility] WBC #/vol (Bld) 13.08 10*3/uL High 4.00-10.[address] [facility] Comment on above: Order Comment: No: D o not add to previous draw Performed By: #### 5 610, 75480 #### [facility] [address] [place] [id number], [facility] Erythrocyte distribution width Ratio (RBC) 15.1 % High 11.5-15.[address] [facility] Comment on above: Order Comment: No: D o not add to previous draw Performed By: #### 5 610, 45360 #### [facility] [address] [place] [address], [facility] Hematocrit Volume Fraction (Bld) 33.7 % Low 36.0-45.[address] [facility] Comment on above: Order Comment: No: D o not add to previous draw Performed By: #### 5 610, 95114 #### [facility] [address] [place], [place] [id number] [place] [address] Hemoglobin mass conc (Bld) 10.7 g/dL Low 12.0-15.[address] [facility] Comment on above: Order Comment: No: D o not add to previous draw Performed By: #### 5 610, 67971 #### [facility] [address] [place] [address], [facility] MCH Entitic mass (RBC) 27.0 pg Normal 27.0-33.[address] [facility] Comment on above: Order Comment: No: D o not add to previous draw Performed By: #### 5 6100, 17958 #### [facility] [address] [place] [address], [facility] MCHC mass conc (RBC) 31.8 g/dL Low 32.0-35.[address] [facility] Comment on above: Order Comment: No: D o not add to previous draw Performed By: #### 5 6100, 19855 #### [facility] [address] MCV Entitic volume (RBC) 84.9 fL Normal 82.0-98.[address] [facility] Comment on above: Order Comment: No: D o not add to previous draw Performed By: #### 5 6100, 91053 #### [facility] [address] [place] [address], [facility] Nucleated RBC/100 WBC Ratio (Bld) 0 % Normal 0-[address] [facility] Comment on above: Order Comment: No: D o not add to previous draw Performed By: #### 5 6100, 75961 #### [facility] [address] [place] [address], [facility] PLAT CNT 136 10*3/uL Low 150-[address] [facility] Comment on above: Order Comment: No: D o not add to previous draw Performed By: #### 5 610, 53099 #### [facility] [address] [place] [address], [facility] RBC #/vol (Bld) 3.97 10*6/uL Normal 3.80-5.[address] [facility] Comment on above: Order Comment: No: D o not add to previous draw Performed By: #### 5 6101, 77539 #### [facility] [address] WBC #/vol (Bld) 15.94 10*3/uL High 4.00-10.[address] [facility] Comment on above: Order Comment: No: D o not add to previous draw Performed By: #### 5 6101, 51977 #### [facility] [address] Cardiovascular Lab Reporton 08-13-2018 Cardiovascular Lab Report [facility] Patient Name: Greg [facility] Nadya MR #: [id number] Department of Physician: Delroy Randolph M.D. Division of Service Date: 08/12/2018 Cardiology Birthdate: 1940 Adult Cardiovascular Room #: [id number] [facility] [address] [place] [address] Cardiovascular Laboratory Report PERIPHERAL INTERVENTION REPORT CLINICAL PRESENTATION: The patient is an 78-year-old female with past medical history significant for atrial fibrillation, hypertension, severe obesity, prior cholecystectomy and hysterectomy. The patient has been diagnosed with a staghorn calculus and is being evaluated by Urology. She recently developed severe left leg swelling and pain. She was evaluated in the [facility] Emergency Department and diagnosed with acute left leg DVT. She is transferred to the [facility] for further evaluation. I personally [...] a micropuncture access technique, I placed a 6-Kosovan sheath in the left popliteal vein. Venograms were performed. This showed heavy thrombus burden throughout the entire popliteal, femoral, and iliac veins on the left side. Using a 5-Kosovan angled glide catheter and angled Glidewire, I maneuvered to the IVC. Using an exchange J-wire, I exchanged to a 6-Kosovan pigtail catheter. Venogram was performed. Venogram showed [...] P/Kennedi Mulligan M.D. Date Trans: 08/13/2018 03:48 Gene/prashant [id number] cc: Maria Eugenia Miranda M.D. [address] [place] [id number] Normal [facility] FIBRINOGENon 08-13-2018 FIBRINOGEN 152 mg/dL Normal 150-[address] [facility] Comment on above: Order Comment: No: D o not add to previous draw Performed By: #### 5 6101, 28978 #### [facility] [address] [place] [address], [facility] FIBRINOGEN 142 mg/dL Low 150-[address] [facility] Comment on above: Order Comment: No: D o not add to previous draw Performed By: #### 5 6101, 62061 #### [facility] [address] [place] [address], [facility] FIBRINOGEN 162 mg/dL Normal 150-[address] [facility] Comment on above: Performed By: #### 5 6101, 31440 #### [facility] [address] [place] [address], [facility] POC GLUCOSE LABon 08-13-2018 Glucose mass conc 157 mg/dL High 70-[address] [facility] Comment on above: Performed By: #### 5 6101, 50166 #### [facility] [address] UFH HEPARIN ASSAYon 08-13-19 19 UNFRACTIONATED HEPARIN <0.10 Critically low 0.30-0.[address] [facility] Comment on above: Result Comment: Silvana roxaban and Apixaban will interfere with the anti Xa assay used to monitor UFH and LMWH. RESULTS CHECKED AND CALLED. ACCURATELY READ BACK BY LAZARO WISE RN @ 8113 Performed By: #### 5 6101, 88779 #### [facility] [address] UNFRACTIONATED HEPARIN <0.10 Critically low 0.30-0.[address] [facility] Comment on above: Order Comment: No: D o not add to previous draw Result Comment: [place] roxaban and Apixaban will interfere with the anti Xa assay used to monitor UFH and LMWH. RESULTS CHECKED AND CALLED. ACCURATELY READ BACK BY Johana Zavaleta RN @ 0110 on 08-13-18 Performed By: #### 5 6101, 90542 #### [facility] [address] [place] [address], [facility] APTTon 08-12-2018 aPTT Coag time (Bld) 83.8 s Critically high 25.0-35.[address] [facility] Comment on above: Result Comment: ALL [...] ACCURATELY READ BACK BY DELROY GUIDO RN @4480 CLINICAL SIGNIFICANCE OF THE PTT RESULT IS QUESTIONABLE IN THE PRESENCE OF HEPARIN. Performed By: #### 3 0477, 29874 #### [facility] [address] [place] [address], [facility] BASIC METABOLIC PANELon -0 Calcium mass conc 8.8 mg/dL Normal 8.6-10.[address] [facility] Comment on above: Order Comment: No: D o not add to previous draw Performed By: #### 4 1000, 21696, 73404 #### [facility] [address] [place] [address], [facility] Chloride molar conc 101 mmol/L Normal 98-[address] [facility] Comment on above: Order Comment: No: D o not add to previous draw Performed By: #### 4 1000, 11703, 58455 #### [facility] [address] [place] [address], [facility] CO2 molar conc 24 mmol/L Normal 21-[address] [facility] Comment on above: Order Comment: No: D o not add to previous draw Performed By: #### 4 1000, 07613, 99043 #### [facility] [address] [place] [address], [facility] Creatinine mass conc 0.88 mg/dL Normal 0.60-1.[address] [facility] Comment on above: Order Comment: No: D o not add to previous draw Performed By: #### 4 1000, 95802, 51281 #### [facility] [address] [place] [address], [place] GFR/1.73 sq M predicted among blacks MDRD vol rate/area (S/P/Bld) mL/min/{1.73_m2} Normal >[address] [facility] Comment on above: Order Comment: No: D o not add to previous draw Result Comment: Calc ulation may not be valid for patients over 70 years Performed By: #### 4 1000, 70405, 14000 #### [facility] [address] [place] [address], [place] GFR/1.73 sq M predicted among non-blacks MDRD vol rate/area (S/P/Bld) mL/min/{1.73_m2} Normal >[address] [facility] Comment on above: Order Comment: No: D o not add to previous draw Result Comment: Calc ulation may not be valid for patients over 70 years Performed By: #### 4 1000, 30989, 83462 #### [facility] [address] [place] [address], [place] Glucose mass conc 136 mg/dL High 70-[address] [facility] Comment on above: Order Comment: No: D o not add to previous draw Performed By: #### 4 1000, 81254, 66081 #### [facility] [address] [place] [address], [place] Potassium molar conc 3.5 mmol/L Normal 3.5-5.[address] [facility] Comment on above: Order Comment: No: D o not add to previous draw Performed By: #### 4 1000, 91026, 00334 #### [facility] [address] [place] [address], [place] Sodium molar conc 137 mmol/L Normal 136-[address] [facility] Comment on above: Order Comment: No: D o not add to previous draw Performed By: #### 4 1000, 29756, 95237 #### [facility] [address] [place] [address], [place] Urea nitrogen mass conc 20 mg/dL Normal 7-[address] [facility] Comment on above: Order Comment: No: D o not add to previous draw Performed By: #### 4 1000, 53708, 66054 #### [facility] [address] [place] [address], [facility] Calcium mass conc 8.9 mg/dL Normal 8.6-10.[address] [facility] Comment on above: Order Comment: Yes: Add to Previous draw if able Performed By: #### 0 0071 #### [facility] [address] [place] [address], [place] Chloride molar conc 100 mmol/L Normal 98-[address] [facility] Comment on above: Order Comment: Yes: Add to Previous draw if able Performed By: #### 0 0071 #### [facility] [address] [place] [address], [facility] CO2 molar conc 23 mmol/L Normal 21-[address] [facility] Comment on above: Order Comment: Yes: Add to Previous draw if able Performed By: #### 0 0071 #### [facility] [address] [place] [address], [facility] Creatinine mass conc 1.01 mg/dL Normal 0.60-1.[address] [facility] Comment on above: Order Comment: Yes: Add to Previous draw if able Performed By: #### 0 0071 #### [facility] [address] [place] [address], [place] GFR/1.73 sq M predicted among blacks MDRD vol rate/area (S/P/Bld) mL/min/{1.73_m2} Normal >[address] [facility] Comment on above: Order Comment: Yes: Add to Previous draw if able Result Comment: Calc ulation may not be valid for patients over 70 years Performed By: #### 0 0071 #### [facility] [address] [place] [address], [facility] GFR/1.73 sq M predicted among non-blacks MDRD vol rate/area (S/P/Bld) 53 ml/min/1.73sq m Abnormal >[address] [facility] Comment on above: Order Comment: Yes: Add to Previous draw if able Result Comment: Calc ulation may not be valid for patients over 70 years Performed By: #### 0 0071 #### [facility] [address] [place] [address], [facility] Glucose mass conc 167 mg/dL High 70-[address] [facility] Comment on above: Order Comment: Yes: Add to Previous draw if able Performed By: #### 0 0071 #### [facility] [address] [place] [address], [facility] Potassium molar conc 3.4 mmol/L Low 3.5-5.[address] [facility] Comment on above: Order Comment: Yes: Add to Previous draw if able Performed By: #### 0 0071 #### [facility] [address] [place] [address], [facility] Sodium molar conc 136 mmol/L Normal 136-[address] [facility] Comment on above: Order Comment: Yes: Add to Previous draw if able Performed By: #### 0 0071 #### [facility] [address] [place] [address], [facility] Urea nitrogen mass conc 22 mg/dL Normal 7-[address] [facility] Comment on above: Order Comment: Yes: Add to Previous draw if able Performed By: #### 0 0071 #### [facility] [address] [place] [address], [facility] CBC COMPLETE BLOOD COUNTon 0 - Erythrocyte distribution width Ratio (RBC) 15.0 % Normal 11.5-15.[address] [facility] Comment on above: Order Comment: No: D o not add to previous draw Performed By: #### 5 6101, 86667 #### [facility] [address] [place] [address], [facility] Hematocrit Volume Fraction (Bld) 39.2 % Normal 36.0-45.[address] [facility] Comment on above: Order Comment: No: D o not add to previous draw Performed By: #### 5 6101, 15932 #### [facility] [address] Hemoglobin mass conc (Bld) 11.9 g/dL Low 12.0-15.[address] [facility] Comment on above: Order Comment: No: D o not add to previous draw Performed By: #### 5 610, 75040 #### [facility] [address] [place] [id number], [facility] MCH Entitic mass (RBC) 27.0 pg Normal 27.0-33.[address] [facility] Comment on above: Order Comment: No: D o not add to previous draw Performed By: #### 5 610, 33785 #### [facility] [address] [facility] [place] [address], [facility] MCHC mass conc (RBC) 30.4 g/dL Low 32.0-35.[address] [facility] Comment on above: Order Comment: No: D o not add to previous draw Performed By: #### 5 6100, 99213 #### [facility] [address] MCV Entitic volume (RBC) 89.1 fL Normal 82.0-98.[address] [facility] Comment on above: Order Comment: No: D o not add to previous draw Performed By: #### 5 6100, 82212 #### [facility] [address] [facility] [address] Nucleated RBC/100 WBC Ratio (Bld) 0 % Normal 0-[address] [facility] Comment on above: Order Comment: No: D o not add to previous draw Performed By: #### 5 610, 41424 #### [facility] [address] [facility] [place] [address], [facility] PLAT CNT 168 10*3/uL Normal 150-[address] [facility] Comment on above: Order Comment: No: D o not add to previous draw Performed By: #### 5 610, 12085 #### [facility] [address] RBC #/vol (Bld) 4.40 10*6/uL Normal 3.80-5.[address] [facility] Comment on above: Order Comment: No: D o not add to previous draw Performed By: #### 5 6101, 62594 #### [facility] [address] [place] [address], [facility] WBC #/vol (Bld) 19.58 10*3/uL High 4.00-10.[address] [facility] Comment on above: Order Comment: No: D o not add to previous draw Performed By: #### 5 6101, 59229 #### [facility] [address] Erythrocyte distribution width Ratio (RBC) 14.9 % Normal 11.5-15.[address] [facility] Comment on above: Order Comment: No: D o not add to previous draw Performed By: #### 5 [id number] #### [facility] [address] Hematocrit Volume Fraction (Bld) 36.7 % Normal 36.0-45.[address] [facility] Comment on above: Order Comment: No: D o not add to previous draw Performed By: #### 5 [id number] #### [facility] [address] [place] [address], [facility] Hemoglobin mass conc (Bld) 11.4 g/dL Low 12.0-15.[address] [facility] Comment on above: Order Comment: No: D o not add to previous draw Performed By: #### 5 [id number] #### [facility] [address] [place] [address], [facility] MCH Entitic mass (RBC) 26.3 pg Low 27.0-33.[address] [facility] Comment on above: Order Comment: No: D o not add to previous draw Performed By: #### 5 [id number] #### [facility] [address] MCHC mass conc (RBC) 31.1 g/dL Low 32.0-35.[address] [facility] Comment on above: Order Comment: No: D o not add to previous draw Performed By: #### 5 [id number] #### [facility] [address] MCV Entitic volume (RBC) 84.8 fL Normal 82.0-98.[address] [facility] Comment on above: Order Comment: No: D o not add to previous draw Performed By: #### 5 [id number] #### [facility] [address] Nucleated RBC/100 WBC Ratio (Bld) 0 % Normal 0-[address] [facility] Comment on above: Order Comment: No: D o not add to previous draw Performed By: #### 5 [id number] #### [facility] [address] [place] [address], [facility] PLAT CNT 183 10*3/uL Normal 150-[address] [facility] Comment on above: Order Comment: No: D o not add to previous draw Performed By: #### 5 [id number] #### [facility] [address] [facility] [address] RBC #/vol (Bld) 4.33 10*6/uL Normal 3.80-5.[address] [facility] Comment on above: Order Comment: No: D o not add to previous draw Performed By: #### 5 [id number] #### [facility] [address] WBC #/vol (Bld) 11.41 10*3/uL High 4.00-10.[address] [facility] Comment on above: Order Comment: No: D o not add to previous draw Performed By: #### 5 [id number] #### [facility] [address] [place] [address], [facility] FIBRINOGENon 08-12-2018 FIBRINOGEN 324 mg/dL Normal 150-[address] [facility] Comment on above: Order Comment: No: D o not add to previous draw Performed By: #### 5 [id number], [id number] #### [facility] [address] [place] [address], [facility] MAGNESIUM BLOODon 08-12-2018 Magnesium mass conc 2.0 mg/dL Normal 1.9-2.[address] [facility] Comment on above: Order Comment: No: D o not add to previous draw Performed By: #### 4 1000, [id number], [id number] #### [facility] [address] [place] [address], [facility] PHOSPHORUS BLOODon 9 Phosphate mass conc 4.0 mg/dL Normal 2.5-5.[address] [facility] Comment on above: Order Comment: No: D o not add to previous draw Performed By: #### 4 1000, [id number], 05554 #### [facility] [address] [facility] [place] [address], [facility] TYPE AND SCREENon 08-12-2018 ABO INTERPRETATION O Normal [facility] Comment on above: Order Comment: No: D o not add to previous draw Performed By: #### 5 [id number], [id number] #### [facility] [address] [place] [address], [facility] RH INTERPRETATION Positive Normal [facility] Comment on above: Order Comment: No: D o not add to previous draw Performed By: #### 5 [id number], [id number] #### [facility] [address] [place] [address], [facility] UFH HEPARIN ASSAYon 08-12-19 19 UNFRACTIONATED HEPARIN 0.14 IU/mL Critically low 0.30-0.[address] [facility] Comment on above: Order Comment: No: D o not add to previous draw Result Comment: Silvana roxaban and Apixaban will interfere with the anti Xa assay used to monitor UFH and LMWH. RESULTS CHECKED AND CALLED. ACCURATELY READ BACK BY SALVATORE Garay Performed By: #### 5 [id number], [id number] #### [facility] [address] [place] [address], [facility] UNFRACTIONATED HEPARIN 0.19 IU/mL Low 0.30-0.[address] [facility] Comment on above: Result Comment: [place] roxaban and Apixaban will interfere with the anti Xa assay used to monitor UFH and LMWH. Performed By: #### 5 610, [id number] #### [facility] [address] [place] [address], [facility] UNFRACTIONATED HEPARIN 0.79 IU/mL High 0.30-0.[address] [facility] Comment on above: Result Comment: Silvana roxaban and Apixaban will interfere with the anti Xa assay used to monitor UFH and LMWH. Performed By: #### 5 610, [id number] #### [facility] [address] [facility] [place] [address], [facility] UNFRACTIONATED HEPARIN >1.00 Critically high 0.30-0.[address] [facility] Comment on above: Result Comment: [place] roxaban and Apixaban will interfere with the anti Xa assay used to monitor UFH and LMWH. RESULTS CHECKED AND CALLED. ACCURATELY READ BACK BY DELROY GUIDO RN @6378 UFH=1.54 Performed By: #### 3 0477, 26544 #### [facility] [address] [facility] [address] APTTon 08-11-2018 aPTT Coag time (Bld) 36.9 s High 25.0-35.[address] [facility] Comment on above: Order Comment: No: [...] THIS PURPOSE. Performed By: #### 5 [id number], [id number] #### [facility] [address] CBC COMPLETE BLOOD COUNTon 0 08-11-2018 Erythrocyte distribution width Ratio (RBC) 15.2 % High 11.5-15.[address] [facility] Comment on above: Order Comment: No: D o not add to previous draw Performed By: #### 5 [id number] #### [facility] [address] [place] [address], [facility] Hematocrit Volume Fraction (Bld) 43.6 % Normal 36.0-45.[address] [facility] Comment on above: Order Comment: No: D o not add to previous draw Performed By: #### 5 [id number] #### [facility] [address] [place] [address], [facility] Hemoglobin mass conc (Bld) 13.4 g/dL Normal 12.0-15.[address] [facility] Comment on above: Order Comment: No: D o not add to previous draw Performed By: #### 5 [id number] #### [facility] [address] [place] [address], [facility] IMM PLATELET FRAC 2.6 % Normal 0.8-6.[address] [facility] Comment on above: Order Comment: No: D o not add to previous draw Performed By: #### 5 [id number] #### [facility] [address] [place] [address], [facility] MCH Entitic mass (RBC) 27.0 pg Normal 27.0-33.[address] [facility] Comment on above: Order Comment: No: D o not add to previous draw Performed By: #### 5 [id number] #### [facility] [address] [place] [id number], [facility] MCHC mass conc (RBC) 30.7 g/dL Low 32.0-35.[address] [facility] Comment on above: Order Comment: No: D o not add to previous draw Performed By: #### 5 [id number] #### [facility] [address] MCV Entitic volume (RBC) 87.7 fL Normal 82.0-98.[address] [facility] Comment on above: Order Comment: No: D o not add to previous draw Performed By: #### 5 [id number] #### [facility] [address] Nucleated RBC/100 WBC Ratio (Bld) 0 % Normal 0-[address] [facility] Comment on above: Order Comment: No: D o not add to previous draw Performed By: #### 5 [id number] #### [facility] [address] [facility] [address], [facility] PLAT CNT 122 10*3/uL Low 150-[address] [facility] Comment on above: Order Comment: No: D o not add to previous draw Performed By: #### 5 [id number] #### [facility] [address] [facility] [address] RBC #/vol (Bld) 4.97 10*6/uL Normal 3.80-5.[address] [facility] Comment on above: Order Comment: No: D o not add to previous draw Performed By: #### 5 [id number] #### [facility] [address] [place] [address], [facility] WBC #/vol (Bld) 12.98 10*3/uL High 4.00-10.[address] [facility] Comment on above: Order Comment: No: D o not add to previous draw Performed By: #### 5 [id number] #### [facility] [address] PROTHROMBIN TIMEon 9 INR Coag RelTime (PPP) 1.27 {INR} High 0.91-1.[address] [facility] Comment on above: Order Comment: No: [...] CHEST 1995;[id number]. Performed By: #### 5 [id number], [id number] #### [facility] [address] Prothrombin time (PT) Coag time (PPP) 15.9 s High 12.3-14.[address] [facility] Comment on above: Order Comment: No: D o not add to previous draw Result Comment: ALL RESULTS MUST BE INTERPRETED WITH RESPECT TO BLOOD DRAWING ARTIFACT OR DILUTION ERROR OF ANTICOAGULANT AT THE TIME OF SAMPLING. Performed By: #### 5 [id number], [id number] #### [facility] [address] Vital Signs Date Time Vital Sign Value Performing Clinician Laura bowers 05-19-2024 09:03-0400 Body mass index (BMI) [Ratio] 50.64 kg/m2 Juan Diego BENTLEY Work Phone: [facility] 05-19-2024 09:03-0400 Body weight 121.56 kg Juan Diego BENTLEY Work Phone: [facility] 05-19-2024 09:03-0400 Diastolic blood pressure 76 mm[Hg] Juan Diego BENTLEY Work Phone: [facility] 05-19-2024 09:03-0400 Heart rate 75 /min Juan Diego Castillo EMPLOYMENT SPECIALIST/PROGRAM MANAGER-TERRAZZO WORKER Work Phone: [facility] 05-19-2024 09:03-0400 Respiratory rate 20 /min Juan Diego Castillo EMPLOYMENT SPECIALIST/PROGRAM MANAGER-TERRAZZO WORKER Work Phone: [facility] 05-19-2024 09:03-0400 SaO2% (BldA) [Mass fraction] 99 % Juan Diego Castillo EMPLOYMENT SPECIALIST/PROGRAM MANAGER-TERRAZZO WORKER Work Phone: [facility] 05-19-2024 09:03-0400 Systolic blood pressure 140 mm[Hg] Juan Diego Castillo EMPLOYMENT SPECIALIST/PROGRAM MANAGER-TERRAZZO WORKER Work Phone: [facility] 02-05-2024 11:18-0400 Body height 152.4 cm Mitzi Rangel MD Work Phone: [facility] 02-05-2024 11:18-0400 Body mass index (BMI) [Ratio] 54.1 kg/m2 Mitzi Rangel MD Work Phone: [facility] 02-05-2024 11:18-0400 Body weight 125.65 kg Mitzi Rangel MD Work Phone: [facility] 02-05-2024 11:18-0400 Diastolic blood pressure 81 mm[Hg] Mitzi Rangel MD Work Phone: [facility] 02-05-2024 11:18-0400 Heart rate 55 /min Mitzi Rangel MD Work Phone: [facility] 02-05-2024 11:18-0400 Respiratory rate 18 /min Mitzi Rangel MD Work Phone: [facility] 02-05-2024 11:18-0400 Systolic blood pressure 129 mm[Hg] Mitzi Rangel MD Work Phone: [facility] 11-27-2023 10:18-0400 Blood Pressure Location REGINA VALIENTE [facility] 11-27-2023 10:18-0400 Diastolic blood pressure 71 mm[Hg] REGINA MAVERICK [facility] 11-27-2023 10:18-0400 Heart rate 77 /min REGINA MAVERICK [facility] 11-27-2023 10:18-0400 Respiratory rate 16 /min REGINA MAVERICK [facility] 11-27-2023 10:18-0400 Systolic blood pressure 131 mm[Hg] REGINA MAVERICK [facility] 04-24-2023 10:11-0400 Blood Pressure Location REGINA MAVERICK [facility] 04-24-2023 10:11-0400 Diastolic blood pressure 85 mm[Hg] REGINA MAVERICK [facility] 04-24-2023 10:11-0400 Heart rate 87 /min REGINA MAVERICK [facility] 04-24-2023 10:11-0400 Respiratory rate 16 /min REGINA MAVERICK [facility] 04-24-2023 10:11-0400 Systolic blood pressure 144 mm[Hg] REGINA MAVERICK [facility] 05-10-2022 13:43-0400 Blood Pressure Location Shayne England [facility] 05-10-2022 13:43-0400 Diastolic blood pressure 70 mm[Hg] Shayne England [facility] 05-10-2022 13:43-0400 Heart rate 77 /min Shayne England [facility] 05-10-2022 13:43-0400 Respiratory rate 16 /min Sahyne England [facility] 05-10-2022 13:43-0400 Systolic blood pressure 117 mm[Hg] Shayne England [facility] Encounters Encounter Date Encounter Type Care Provider Facility Start: 06-10-2024 ambulatory REGINA Jonesi ty:[place] [place] Start: 06-03-2024 End: 06-03-2024 ambulatory JUAN DIEGO CASTILLO Facility:[facility] Start: 06-03-2024 End: 06-03-2024 Patient encounter procedure REGINA VALIENTE 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, unspecified laterality (CMS-HCC); Chronic diastolic heart failure ([facility]-HCC); Coronary artery disease, unspecified vessel or lesion type, unspecified whether angina present, unspecified whether [place] or transplanted heart; Chronic obstructive pulmonary disease, unspecified COPD type (CMS-HCC); Alzheimer's disease (CMS-HCC); Stage 3a chronic kidney disease ([facility]-HCC); Moderate episode of recurrent major depressive disorder ([facility]-HCC) Start: 05-19-2024 End: 05-19-2024 ambulatory [facility] Start: 05-12-2024 End: 05-12-2024 [facility] Start: 05-08-2024 End: 05-08-2024 ambulatory [facility] Start: 05-05-2024 End: 05-05-2024 ambulatory YULISSA [facility] Start: 03-13-2024 End: 03-13-2024 ambulatory MAKENNA TAMAYO Not Available Start: 02-18-2024 End: 02-18-2024 ambulatory [facility] Start: 02-06-2024 End: 02-06-2024 ambulatory [facility] Start: 02-05-2024 End: 02-05-2024 ambulatory Mitzi Rangel MD Work Phone: [facility]rology Start: 02-05-2024 End: 02-05-2024 Patient encounter procedure Mitzi Rangel MD Work Phone: [facility] Comment on above: Calculus of kidney ( Primary Dx); Kidney stones; Primary hypertension; Paroxysmal atrial fibrillation (HCC); Coronary artery disease involving [place] coronary artery of [place] heart without angina pectoris, 50% ostial LAD, 60% OM1; Urinary incontinence, mixed Start: 02-01-2024 End: 02-01-2024 ambulatory [facility] Start: 01-28-2024 End: 01-28-2024 ambulatory [facility] Start: 01-28-2024 Encounter for genera l adult medical examination without abnormal findings [facility] Start: 01-14-2024 End: 01-14-2024 ambulatory [facility] Start: 01-08-2024 End: 01-08-2024 ambulatory [facility] Facility:[facility] Start: 01-08-2024 End: 01-08-2024 Patient encounter procedure REGINA VALIENTE [facility] Start: 12-20-2023 End: 12-20-2023 Lab Drop off REGINA VALIENTE [facility] Start: 12-20-2023 End: 12-20-2023 ambulatory JUAN DIEGO CASTILLO [facility] Start: 12-20-2023 End: 12-20-2023 Patient encounter procedure Leonardo Cisneros SHEREEN [facility] Start: 12-13-2023 End: 12-13-2023 ambulatory MAKENNA TAMAYO Not Available Start: 12-13-2023 End: 12-13-2023 ambulatory MAKENNA TAMAYO Not Available Start: 12-07-2023 End: 12-07-2023 Lab Drop off REGINA E MAVERICK [facility] Start: 12-07-2023 End: 12-07-2023 ambulatory REGINA Nadya MEJIARY Facility[facility] Start: 12-07-2023 End: 12-07-2023 Patient encounter procedure Leonardo R SHEREEN [facility] Start: 11-27-2023 End: 11-27-2023 Lab Drop off REGINA E MAVERICK [facility] Start: 11-27-2023 End: 11-27-2023 ambulatory REGINA E MAVERICK Facility[facility] Start: 11-27-2023 End: 11-27-2023 Patient encounter procedure REGINA E MAVERICK [facility] Start: 09-20-2023 [facility] Start: 09-13-2023 End: 09-13-2023 ambulatory MAKENNA TAMAYO Not Available Start: 09-13-2023 End: 09-13-2023 ambulatory MAKENNA TAMAYO Not Available Start: 09-12-2023 Chart abstracting Makenna malone MD Work Phone: [facility] Start: 08-28-2023 End: 08-28-2023 ambulatory [facility] Facility:[facility] Start: 08-28-2023 End: 08-28-2023 Patient encounter procedure REGINA VALIENTE [facility] Start: 08-27-2023 Telephone encounter Estella Mills [facility] Start: 08-20-2023 Telephone encounter Griselda willson CNA Work Phone: [facility] Start: 08-07-2023 End: 08-07-2023 ambulatory Leonardo REGAN Facility[facility] Start: 08-07-2023 End: 08-07-2023 Patient encounter procedure Leonardo REGAN [facility] Start: 08-01-2023 End: 08-01-2023 ambulatory Leonardo REGAN Facility:[facility] Start: 08-01-2023 End: 08-01-2023 Patient encounter procedure Leonardo REGAN [facility] Start: 07-27-2023 End: 07-27-2023 ambulatory [facility] Start: 07-12-2023 End: 07-12-2023 ambulatory MAKENNA TAMAYO Not Available Start: 07-12-2023 End: 07-12-2023 ambulatory MAKENNA Garcia TAMAYO Not Available Start: 06-19-2023 End: 06-19-2023 ambulatory MICHELLE VIDALES Not Available Start: 06-19-2023 End: 06-19-2023 ambulatory MICHELLE VIDALES Not Available Start: 05-25-2023 End: 05-25-2023 ambulatory [facility] Start: 04-24-2023 End: 04-24-2023 Patient encounter procedure REGINA VALIENTE [facility] Start: 10-17-2022 End: 10-17-2022 Patient encounter procedure REGINA VALIENTE [facility] Start: 09-05-2022 End: 09-05-[address] DARYA BOYER Facility:[facility] Start: 08-29-2022 End: 08-29-[address] COMPA FOOTE Facility:[facility] Start: 06-13-2022 End: 06-13-2022 Patient encounter procedure Leonardo REGAN [facility] Start: 05-10-2022 End: 05-10-2022 Patient encounter procedure Shayne England [facility] Start: 04-18-2022 End: 04-19-[address] COMPA FOOTE Facility:[facility] Start: 02-03-2022 End: 02-03-[address] ANASTASIIA BUTCHER Facility:[facility] Start: 08-11-2018 End: 08-14-2018 Evaluation and management of inpatient DEE DEE GARBER Facility:[facility] Procedures Date Procedure Procedure Detail Performing Clinician Start: 01-28-2024 Adult depression scr eening assessment Lucia Granados CMA Start: 08-07-2023 Injection of botulin um toxin [...] previous draw Performed By: #### 5 [id number], [id number] #### [facility] [place] [address], [facility] Start: 08-12-2018 EXTIRPATION OF MATTE R FROM [...] (disorder) Shayne England Catheterization of aorta Cesar England Cholecystectomy Shayne Miguel mons Colonoscopy Shayne mcdonnell Hernia repair Shayne Gallo ns Hysterectomy Shayne mcdonnell Knee region structur e (body structure) Shayne England Tonsillectomy and adenoidectomy Shayne England Total knee replacement Zia England Comment on above: rt Umbilical hernia (disorder) Shayne England Plan of Treatment Date Care Activity Detail Author Start: 04-01-2026 Diabetes Screening Diabetes Screenin g [facility] Start: 06-19-2025 Glaucoma screening Diabetes: R etinopathy Screening [facility] Start: 05-19-2025 Adult BMI Screening Adult BMI Screen ing [facility] Start: 05-19-2025 Tobacco Screening Tobacco Screening [facility] Start: 02-17-2025 Adult BMI Screening Adult BMI Screen ing [facility] Start: 02-17-2025 Tobacco Screening Tobacco Screening [facility] Start: 01-27-2025 Depression Screening Depression Scre ening [facility] Start: 01-27-2025 Fall Risk Screening Fall Risk Screen ing [facility] Start: 01-27-2025 Medicare Annual Well ness Visit Medicare Annual Wellness Visit [facility] Start: 08-19-2024 End: 08-19-2024 Patient encounter procedure 08/19/2024 10:30 AM EST Office Visit [facility] [address] [place] [address] Juan Diego Castillo APRN-TERRAZZO WORKER [address] [place] [address] [facility] Start: 07-27-2024 Adult BMI Follow Up Plan Adult BMI Follow Up Plan [facility] Start: 07-27-2024 Adult BMI Screening Adult BMI Screen ing [facility] Start: 07-27-2024 Tobacco Screening Tobacco Screening [facility] Start: 05-19-2024 End: 05-19-2024 Patient encounter procedure 05/19/2024 9:00 AM EDT [facility] [address] [place] [address] Juan Diego Castillo APRN-TERRAZZO WORKER [address] [place] [address] [facility] Start: 04-06-2024 COVID-19 Vaccine ( season) COVID-19 Vaccine ( season) [facility] Start: 04-06-2024 Influenza vaccination [facility] Start: 01-28-2024 End: 01-28-2024 Patient encounter procedure 01/28/2024 9:00 AM EDT Office Visit [facility] [address] [place] [address] Juan Diego Castillo EMPLOYMENT SPECIALIST/PROGRAM MANAGER-TERRAZZO WORKER [address] [place] [address] [facility] Start: 11-14-2023 End: 11-14-2023 Patient encounter procedure 11/14/2023 1:30 PM EDT Office Visit [facility] [address] [place] [phone] Rajni Lopez, EMPLOYMENT SPECIALIST/PROGRAM MANAGER-TERRAZZO WORKER [address] [place] [id number] [facility] Start: 09-13-2023 End: 09-13-2023 Patient encounter procedure 09/13/2023 10:00 AM EST Office Visit [facility] [address] [facility] [address] [place] [address] Makenna Tamayo MD [address] [facility] [address] [facility] [place] [address] [place] [id number] [facility] Start: 08-29-2023 End: 08-29-2023 Patient encounter procedure 08/29/2023 9:00 AM EST Office Visit [facility] [address] [place] [id number] Rajni Lopez, EMPLOYMENT SPECIALIST/PROGRAM MANAGER-TERRAZZO WORKER [address] [place] [address] [facility] Start: 08-06-2023 Advance Directive Discussion Advance Directive Discussion [facility] Start: 08-06-2023 Behavioral Health Screening Behavioral Health Screening [facility] Start: 04-06-2023 COVID-19 Vaccine ( season) COVID-19 Vaccine () [facility] Start: 04-06-2023 Influenza vaccination P [facility] Start: 09-10-2021 Hemoglobin A1c measurement Diabetes: Hemoglobin A1C [facility] Start: 2003 Fall Risk Screening Fall Risk Screen ing [facility] Start: 1998 RSV Vaccine (1 - 1-d ose 60+ series) RSV Vaccine (1 - 1-dose 60+ series) [facility] Start: 01-27-1988 Administration of varicella zoster vaccine Zoster (Shingles) Vaccine (1 of 2) [facility] Start: 01-27-1988 Shingrix Vaccine (1 of 2) Shingrix Vaccine (1 of 2) [facility] Start: 1957 DTaP,Tdap and Td Vaccines (1 - Tdap) DTaP,Tdap and Td Vaccines (1 - Tdap) [facility] Start: 1957 Urine microalbumin profile DTaP,Tdap,Td Vaccine (1 - Tdap) [facility] Start: 01-27-1956 Hepatitis B surface antibody level LDL Cholesterol [facility] Start: 1950 Depression Screening Depression Scre ening [facility] Start: 01-27-1944 Pneumococcal Vaccine : 65+ (1 of 2 - PCV) Pneumococcal Vaccine: 65+ (1 of 2 - PCV) [facility] Start: 1938 Medicare Annual Well ness (AWV) Medicare Annual Wellness (AWV) [facility] Start: 1938 Medicare Annual Well ness Visit Medicare Annual Wellness Visit [facility] URINALYSIS, REFLEX MICROSCOPIC URINALYSIS, REFLEX MICROSCOPIC Lab Routine Screening for genitourinary condition Ordered: 02/05/2024 [facility] Work Phone: Comment on above: Ordered: 02/05/2024 Immunizations Immunization Date Immunization Notes Care Provider Zaid brown 06-21-2021 SARS-CoV-2 (COVID-19 ) mRNA BNT-162b2 [facility] Shayne Samanta [facility] 11-25-2020 SARS-CoV-2 (COVID-19 ) mRNA BNT-162b2 ncx [place] [facility] 11-05-2020 SARS-CoV-2 (COVID-19 ) [facility] [place] [facility] Payers Date Payer Category [facility]ayer [facility] and others) [id number] 2022 [employer] ( and others) [id number] 2022 Medicare [id number] 2022 Medicare [id number] [id number] 2015 Unknown [id number]. 1.13.159.2.7.3.6786 71.315 2015 [employer] ( and others) [id number] 1959 [employer] ( and others) [id number] 1959 Unknown [id number] 1938 Unknown [id number] 2.16.840.1.454955.3.579.2.647 1938 Unknown [id number] 2.16.840.1.827930.3.579.2.593 1938 Unknown [id number] 2.16.840.1.068244.3.579.2.593 1938 Unknown [id number] 2.16.840.1.485387.3.579.2.593 1938 Unknown [id number] 2.16.840.1.831487.3.579.2.593 1938 Unknown [id number] 2.16.840.1.999537.3.579.2.1259 1938 Unknown [id number] 2.16.840.1.756408.3.579.2.1259 1938 Unknown [id number] 2.16.840.1.474756.3.579.2.1259 1938 Unknown [id number] 2.16.840.1.568281.3.579.2.1259 1938 Unknown [id number] 2.16.840.1.630722.3.579.2.1259 1938 Unknown [id number] 2.16.840.1.316888.3.579.2.1259 1938 Unknown [id number] 2.16.840.1.152578.3.579.2.128 1938 Unknown [id number] 2.16.840.1.330367.3.579.2.1285 1938 Unknown [id number] 2.16.840.1.518418.3.579.2.1285 1938 Unknown [id number] 2.16.840.1.290755.3.579.2.1285 1938 Unknown [id number] 2.16.840.1.455982.3.579.2.1285 1938 Unknown [id number] 2.16.840.1.887482.3.579.2.1285 1938 Unknown [id number] 2.16.840.1.163298.3.579.2.1285 1938 Unknown [id number] 2.16.840.1.240982.3.579.2. 1938 Unknown [id number] 2.16.840.1.815183.3.579.2. 1938 Unknown [id number] 2.16.840.1.195936.3.579.2. 1938 Unknown [id number] 2.16.840.1.440113.3.579.2. 1938 Unknown [id number] 2.16.840.1.726793.3.579.2. 1938 Unknown [id number] 2.16.840.1.731997.3.579.2. 1938 Unknown [id number] 2.16.840.1.817533.3.579.2. 1938 Unknown [id number] 2.16.840.1.571316.3.579.2.727 1938 Unknown [id number] 2.16.840.1.945585.3.579.2.727 1938 Unknown [id number] 2.16.840.1.631131.3.579.2.727 1938 Unknown [id number] 2.16.840.1.647374.3.579.2.72 1938 Unknown [id number] 2.16.840.1.793873.3.579.2.727 Medicare [id number] Social History Date Type Detail Facility Start: 10-25-2020 End: 01-08-2024 Tobacco smoking status Never smoked tobacco (finding) [facility] Start: 07-27-2023 End: 01-14-2024 Sex Assigned At Female [facility] Tobacco smoking status Never [facility] [place] Start: 06-24-2015 End: 11-01-2022 Tobacco use and exposure Smokeless tobacco non-user [facility] Start: 07-27-2023 End: 05-19-2024 Alcohol intake Lifetime non-drinker (finding) [facility] Start: 07-27-2023 End: 01-14-2024 History of Social function [facility] Start: 1940 Sex [facility]igned At Not on file [facility] Start: 02-05-2024 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 Evaluation of progress towards goal: ongoing Functional Status Date Assessment Result Facility 01-08-2024 Functional Status N/A [facility] 11-27-2023 Functional Status N/A [facility] 08-07-2023 Functional Status N/A [facility] 04-24-2023 Functional Status N/A [facility] 06-06-2022 Functional Status N/A [facility] 05-10-2022 Functional Status N/A [facility] Clinical Notes 06-13-2022 to 05-19-2024 Juan Diego Castillo, EMPLOYMENT SPECIALIST/PROGRAM MANAGER-TERRAZZO WORKER - 05/19/2024 9:00 AM EDTMitzi Rangel MD - 02/05/2024 11:34 AM EDTTelephone Encounter - Arianna Miner LPN - 09/20/2023 9:39 AM EST Note Date & Type Note Facility 05-19-2024 History of Present illness Narrative Images from the original note were not included. [id number] [facility] [id number] SUBJECTIVE: Patient ID: Lacie Garza is a 84 y.o. female. Patient presents to the office with daughter. Patient's daughter states they fee like myrebetrrox is making her more incontinent since starting, she is going to follow up with urology regarding this. Cardiology did increase her lasix for a few days. Did see her in the office and she is doing well. Still following with neurology as well and daughter feels that is getting better. Granddaughter moved in with patient and things are going better. Follow-up Associated symptoms include fatigue. Pertinent negatives include no abdominal pain, arthralgias, chest pain, congestion, coughing, fever, joint swelling, nausea, neck pain, numbness, rash, sore throat, vomiting or weakness. The following portions of the patient's history were reviewed and updated as appropriate: allergies, current medications, past family history, past medical history, past social history, past surgical history and problem list. REVIEW OF SYSTEMS: Review of Systems Constitutional: Positive for fatigue. Negative for fever and unexpected weight change. HENT: Negative for congestion, ear pain, sinus pressure, sinus pain and sore throat. Eyes: Negative for photophobia, pain, discharge and visual disturbance. Respiratory: Positive for shortness of breath. Negative for cough. Cardiovascular: Negative for chest pain, palpitations and leg swelling. Gastrointestinal: Negative for abdominal pain, diarrhea, nausea and vomiting. Endocrine: Negative for polydipsia, polyphagia and polyuria. Genitourinary: Negative for difficulty urinating, frequency, hematuria and urgency. Musculoskeletal: Positive for gait problem. Negative for arthralgias, joint swelling and neck pain. Skin: Negative for pallor and rash. Neurological: Negative for dizziness, weakness, light-headedness and numbness. Psychiatric/Behavioral: Negative for sleep disturbance. The patient is not nervous/anxious. PHYSICAL EXAMINATION: Vitals: 05/19/24 0903 BP: 140/76 Pulse: 75 Resp: 20 SpO2: 99% Weight: 121.6 kg (268 lb) Physical Exam Constitutional: Appearance: She is well-developed. HENT: Head: Normocephalic and atraumatic. Right Ear: External ear normal. Left Ear: External ear normal. Eyes: Conjunctiva/sclera: Conjunctivae normal. Pupils: Pupils are equal, round, and reactive to light. Cardiovascular: Rate and Rhythm: Normal rate and regular rhythm. Heart sounds: Normal heart sounds. Pulmonary: Effort: Pulmonary effort is normal. Breath sounds: Normal breath sounds. Musculoskeletal: Cervical back: Normal range of motion. Skin: General: Skin is warm and dry. Neurological: Mental Status: She is alert and oriented to person, place, and time. Psychiatric: Mood and Affect: Mood normal. ASSESSMENT/PLAN: Lacie was seen today for follow-up. 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, unspecified laterality ([facility]) Chronic diastolic heart failure ([facility]) Coronary artery disease, unspecified vessel or lesion type, unspecified whether angina present, unspecified whether [place] or transplanted heart Chronic obstructive pulmonary disease, unspecified COPD type ([facility]) Alzheimer's disease ([facility]) Stage 3a chronic kidney disease ([facility]) Moderate episode of recurrent major depressive disorder ([facility]) Follow-up: Things appear to be stable Doing better with granddaughter is living with her, if that does not improve then intermediate option Follow up in three months or as needed Keep appointments with specialist Patient noted to have elevated BMI and the following intervention(s) were applied: encouragement to exercise. SHEREE Gomez 05/19/24 0920 documented in this encounter [facility] 05-08-2024 Note In office blood pres sure is elevated but family reports typically at home it is well-controlled Continue metoprolol [facility] 05-08-2024 Note [facility] II-III currentl y she remains fairly euvolemic without exacerbation remains on Lasix 40 mg daily for diuretic. Renal function remains normal Electrolytes stable Weight is down 10 pounds since our last visit Monitor daily weights, I&O, fluid restriction 1.5-2L/day, renal function and electrolytes- please maintain K+>4 and Mg > [address] [facility] 05-08-2024 Note Coronary artery dise ase is stable, no concerning symptoms currently Continue GDMT-continue Lipitor and Toprol, no aspirin in light of anticoagulation and her age continue risk factor modifications- heart healthy diet, regular exercise as tolerated and continue all medications. [facility] 05-08-2024 Note [id number]= 9- age , female, CHF, CAD/vascular, HTN, TIA, and DM Remains on Eliquis anticoagulation and denies any bleeding tendencies Rate is controlled with Toprol [facility] 05-08-2024 Note [facility]TP CARDIOLOGY PROGR ESS NOTE HPI: Lacie Garza is a 84 y.o. female here for 3 month routine F/U HPI 84 yo female presents for routine F/U for known CAD- non obstructive, A fib, HTN, edema legs, h/o DVT. Pt says she has chest pain after she eats sometimes, states pain in his right lateral chest only last for very short time/couple minutes, resolved spontaneously and she has never had to take any medicine for this pain. She admits shortness of breath on exertion but states this is no worse than usual she attributes it to her age of 84. Currently her grand kids are living with her for assistance. She is having physical therapy come to her home for strengthening and ambulation. Review of Systems Cardiovascular: Positive for chest pain and dyspnea on exertion. Palpitations: sometimes . Respiratory: Positive for shortness of breath. Skin: Positive for color change. All other systems reviewed and are negative. Previous HPI Previous HPI Lacie Garza is a 83 y.o. female here for F/U after visit with Pulm and concerns of elevated B/P and leg swelling Patient here per c/o LE edema and uncontrolled hypertension, per [facility]. Had labs today before apt. Amlodipine was stopped at last visit in February 2023 by Suzanne Jose CNP due to lightheadedness and hypotension. [...] today. Update: 03/02/2023 She is nauseated a lo (more content not included)... [facility] 05-08-2024 Note Pt is here for a thr ee month follow up. Pt says she has chest pain after she eats sometimes. Review of Systems Cardiovascular: Positive for chest pain and dyspnea on exertion. Palpitations: sometimes . Respiratory: Positive for shortness of breath. Skin: Positive for color change. All other systems reviewed and are negative. [facility] 02-06-2024 Note HTN well controlled and stable Continue all current meds Awaiting lab results today [facility] 02-06-2024 Note [facility] III currently v olume overloaded, increased weight and leg edema today Continue GDMT- Diuretic therapy- increase lasix to 40 mg po bid x 2-3 days and then return to 1 tab daily. D/W family- Monitor daily weights, I&O, fluid restriction 1.5-2L/day, renal function and electrolytes [facility] 02-06-2024 Note Coronary artery dise ase is unchanged. Continue current treatment regimen. Continue current medications. Cardiac status will be reassessed in 3 months. Continue GDMT- lipitor, toprol continue risk factor modifications- heart healthy diet, regular exercise as tolerated and continue all medications. [facility] 02-06-2024 Note [id number]= 9- age , female, CHF, CAD/vascular, HTN, TIA, and DM Continue eliquis anticoagulation- denied any bleeding tendencieis Rate controlled with toprol [facility] 02-06-2024 Note Patient here for 9 m o follow up persistent afib, CAD, hypertension, and chronic diastolic heart failure. Metoprolol was restarted at last apt in May 2023. Says she had some sharp chest pain that woke her from sleep last night. Lasted about 1 hour. C/o increased LE edema. She had LLE venous doppler last week at [facility]. Had labs drawn this morning for PCP. Lightheadedness has improved. Denies bleeding on Eliquis. Review of Systems Cardiovascular: Positive for chest pain, dyspnea on exertion, leg swelling and palpitations ( sometimes ). Skin: Positive for color change. All other systems reviewed and are negative. [facility] 02-06-2024 Note UTP CARDIOLOGY PROGR ESS NOTE [...] reviewed and are negative. Previous HPI Lacie Graza is a 83 y.o. female here for F/U after visit with Pulm and concerns of elevated B/P and leg swelling Patient here per c/o LE edema and uncontrolled hypertension, per [facility]. Had labs today before apt. Amlodipine was stopped at last visit in February 2023 by Suzanne Jose CNP due to lightheadedness and hypotension. [...] is very s (more content not included)... [facility] 02-05-2024 Note HNO ID: [id number] Author: MITZI RANGEL MD Service: ? Author [...] based on size, location, hounsfield units and xxsk-kx-vaipv distance: 30% 3. Ureteroscopy - risks of [...] atrial fibrillation (HCC), Coronary artery disease involving [place] coronary artery of [place] heart without angina pectoris, 50% ostial LAD, [...] with more than 50% of the total rvla-ce-pkgf time of the visit devoted to patient counseling/coordination of care. Mitzi Rangel MD Director, [facility] [place], [facility] Pager [phone] 02/05/2024 [facility] 02-05-2024 History of Present illness Narrative STAFF [...] based on size, location, hounsfield units and bmti-of-bxlqn distance: 30% 3. Ureteroscopy - risks of [...] atrial fibrillation (HCC), Coronary artery disease involving [place] coronary artery of [place] heart without angina pectoris, 50% ostial LAD, [...] with more than 50% of the total ivvt-eu-send time of the visit devoted to patient counseling/coordination of care. Mitzi Rangel MD Director, [facility] [place] Pager [phone] 02/05/2024 documented in this encounter [facility] 02-05-2024 Note Patient Outreach (UR OLMN) LACIE GARZA ([id number]) 1940 F CHT Date Time Provider Department 02/05/24 MITZI RANGEL During your visit today, we recorded the following information about you: Allergies As of Date: 02/05/2024 Noted Allergy Reaction LINACLOTIDE 03/02/2016 6 - Diarrhea 11 - Vomiting Comments: Bile regurgitation Date Reviewed: 02/05/2024 Reviewed by: Anna Benitez OCCA - Fully Assessed Visit Diagnosis:Screening for genitourinary condition [Z13.89] Order(s):URINALYSIS, REFLEX MICROSCOPIC [[id number]] Order #: [id number]. #:[id number] Prescriptions as of 02/08/2024 - albuterol HFA [...] (HCC) [Z68.43] 08/08/2016 Coronary artery disease involving [place] churchill*10/04/2017 Paroxysmal atrial fibrillation (HCC) [I48.0] 06/04/2018 Calculus of kidney [N20.0] 06/25/2018 Left renal stone [N20.0] 06/11/2019 Urinary incontinence, mixed [N39.46] 02/05/2024 Encounter Status:Closed by RENAE ORTEGAUSER on 02/08/24 [facility] 01-08-2024 Hospital Discharge instructions Patient Education 01/08/2024 [...] Follow these instructions at home: Medicines Take wqam-ral-xkwauie and prescription medicines only as told by [...] prevent or treat constipation, such as: ?Take anfb-ctl-lqcghsd or prescription medicines. ?Eat foods that are [...] provider. Document Revised: 11/29/2022 Document Reviewed: 03/27/2022 [employer] Patient Education 2022 Vyyo. 01/08/2024 15:29:36 Laser Therapy for Kidney Stones [...] including vitamins, herbs, eye drops, creams, and nexv-qjr-osffrec medicines. Any problems you or family members [...] provider tells you to take them. ?Taking rrpt-xtj-egsvdqk medicines, vitamins, herbs, and supplements. Eating and [...] provider. Document Revised: 11/29/2022 Document Reviewed: 03/27/2022 [employer] Patient Education 2022 Vyyo. Follow Up Care 01/02/2024 15:42:06 With:REGINA VALIENTE PA-C, URL Address: [address] [place] [address] When: Unknown [facility] 11-27-2023 Hospital Discharge instructions Patient Education 11/27/2023 10:53:04 Urinary Tract Infection, Adult, [facility] Urinary Tract Infection, Adult A urinary tract [...] Follow these instructions at home: Medicines Take hzvc-xza-ezfmcxe and prescription medicines only as told by [...] provider. Document Revised: 03/04/2021 Document Reviewed: 03/04/2021 [employer] Patient Education 2022 Vyyo. Follow Up Care 04/24/2023 10:40:01 With:MAVERICK TREJO, REGINA Covington, URL Address: [facility] [place] [place] [address] [phone] When: Unknown [facility] 09-20-2023 Miscellaneous Notes Johann requesting refill of Atorvastatin to [facility] documented in this encounter [facility] 09-20-2023 Telephone encounter Note Johann requesting refill of Atorvastatin to [facility] 08-27-2023 Miscellaneous Notes Left voicemail for patient informing her appointment on 08/29/2023 with SK was cancelled due to provider out of office in the morning, asked that patient contact our office to reschedule the appointment. documented in this encounter [facility] 08-27-2023 Telephone encounter Note Left voicemail for patient informing her appointment on 08/29/2023 with KOBE was cancelled due to provider out of office in the morning, asked that patient contact our office to reschedule the appointment. [facility] 08-20-2023 Miscellaneous Notes Left voicemail to move 08/29 appointment to later time on same day or 09/05. documented in this encounter [facility] 08-20-2023 Telephone encounter Note Left voicemail to move 08/29 appointment to later time on same day or 09/05. [facility] Work Phone: 08-07-2023 Hospital Discharge instructions Patient [...] With:Leonardo REGAN Address: [facility] [address] [place] [address]- Business (1) When:08/21/2023 12:26:37 Comments:With a bladder scan PVR [facility] 08-07-2023 Note [id number] [facility] 08-07-2023 Note Custom Cystoscopy with Botox [...] you have a fever over 100 degrees. [facility] 05-25-2023 Note Stable, continue top rol and eliquis D/W pt and family that if pt has recurrent falls/injury will need to revisit risk vs benefit of anticoagulation. [facility] 05-25-2023 Note [facility] II-III Continue GDMT- increase lasix to 40 mg daily- Diuretic therapy Monitor daily weights, I&O, fluid restriction 1.5-2L/day, renal function and electrolytes [facility] 05-25-2023 Note Hypertension is Elev ated 142/96- pt currently is not taking metoprolol 100 mg daily. Therefore, will resume toprol- script sent and med list sent with pt and family. [facility] 05-25-2023 Note Coronary artery dise ase is stable Continue GDMT- lipitor, toprol continue risk factor modifications- heart healthy diet, regular exercise as tolerated and continue all medications. [facility] 05-25-2023 Note [facility]TP CARDIOLOGY PROGR ESS NOTE HPI: Lacie Garza is a 83 y.o. female here for F/U after visit with Pulm and concerns of elevated B/P and leg swelling Patient here per c/o LE edema and uncontrolled hypertension, per [facility]. Had labs today before apt. Amlodipine was stopped at last visit in February 2023 by Suzanne Jose CNP due to lightheadedness and hypotension. [...] 10/16/2017 was negativ (more content not included)... [facility] 05-25-2023 Note Patient here per c/o LE edema and uncontrolled hypertension, per [facility]. Had labs today before apt. Amlodipine was stopped at last visit in February 2023 by Suzanne Jose CNP due to lightheadedness and hypotension. [...] All other systems reviewed and are negative. [facility] 05-23-2023 Note [facility] [place] [facility] office today r/t concerns of uncontrolled HTN, leg edema of this pt at their visit today. State b/p was 140-150/80-90, sat 93%, HR stable in office- they asked if pt should be evaluated in ED. Recommended to offer to pt evaluation in ED, the other alternative is that she may be able to be seen in cardiology clinic in [place] tomorrow or Sunday depending if pulmonology provider feels pt is stable enough or not. Make sure pt is taking lasix and metoprolol as prescribed and I will send orders for labs- CBC, CMP and BNP Message sent to Lucia Graff MA in [facility] to set up appt tomorrow or Sunday and to call pt tomorrow. Shell Guardado CERTIFIED LACTATION EDUCATOR Division of Cardiology, [facility]- [phone] Pager- [phone] Email- [email or web address] 04-24-2023 Hospital Discharge instructions Patient Education 04/24/2023 [...] provider. Document Revised: 12/01/2021 Document Reviewed: 12/01/2021 [employer] Patient Education 2022 Vyyo. Follow Up Care 10/17/2022 10:59:55 With:MAVERICK TREJO, REGINA Covington, URL Address: [address] [place] [place] [address] When:Within 7 Month(s) [facility] 10-17-2022 Hospital Discharge instructions Patient Education [...] nerve stimulation). For women, using a medical physiologist to prevent urine leaks. This is a [...] right after experiencing incontinence. General instructions Take rjnt-xou-upkelrb and prescription medicines only as told by [...] 08/30/2005 Document Revised: 08/02/2018 Document Reviewed: 11/01/2017 [employer] Patient Education 2020 Vyyo. Follow Up Care 06/13/2022 11:49:22 With:REGINA VALIENTE PA-C, URL Address: [address] [place] [address] When: Unknown [facility] 06-13-2022 Hospital Discharge instructions Patient Education [...] With:Leonardo REGAN Address: [facility] [address] [place] [address]- Business (1) When:10/11/2022 11:35:57 Comments:Patient is to see the physician assistant to the ceo [facility] Evaluation + Plan note No data available for this section [facility] Aaron Evaluation + Plan note Future Appointments Appointment Date:10/17/2022 11:00:00 AM Scheduled Provider:REGINA VALIENTE PA-C [facility] Office Visit [facility] Evaluation + Plan note Future Appointments Appointment Date:04/24/2023 10:00:00 AM Scheduled Provider:REGINA VALIENTE PA-C [facility] Type:[facility]O Office Visit [facility] Evaluation + Plan note Future Appointments Appointment Date:11/27/2023 10:00:00 AM Scheduled Provider:REGINA VALIENTE PA-C [facility] Type:[facility]O Office Visit [facility] Evaluation + Plan note Future Appointments Appointment Date:08/07/2023 11:30:00 AM Scheduled Provider: Location:[facility] Appointment Type:Urology FT Appointment Date:08/28/2023 10:00:00 AM Scheduled Provider:REGINA VALIENTE PA-C [facility] Type:URO Office Visit Appointment Date:11/27/2023 10:00:00 AM Scheduled Provider:REGINA VALIENTE PA-C [facility] Type:URO Office Visit [facility] Evaluation + Plan note Future Appointments Appointment Date:08/28/2023 10:00:00 AM Scheduled Provider:REGINA VALIENTE PA-C Location:[facility] Appointment Type:URO Office Visit Appointment Date:11/27/2023 10:00:00 AM Scheduled Provider:REGINA VALIENTE PA-C Location:[facility] [place] Appointment Type:URO Office Visit [facility] Evaluation + Plan note Future Appointments Appointment Date:06/10/2024 10:00:00 AM Scheduled Provider:REGINA VALIENTE PA-C Location:[facility] Appointment Type:URO Office Visit [facility] Evaluation + Plan note Future Appointments Appointment Date:06/10/2024 10:00:00 AM Scheduled Provider:REGINA VALIENTE PA-C Location:[facility] Appointment Type:URO Office Visit Diagnostic Tests PendingUrine Culture 11/27/23 [facility] Evaluation + Plan note Future Appointments Appointment Date:06/10/2024 10:00:00 AM Scheduled Provider:REGINA VALIENTE PA-C Location:[facility] Appointment Type:URO Office Visit Diagnostic Tests PendingUrine Culture 12/07/23 [facility] Evaluation + Plan note Future Appointments Appointment Date:06/10/2024 10:00:00 AM Scheduled Provider:REGINA VALIENTE PA-C Location:[facility] Appointment Type:URO Office Visit Diagnostic Tests PendingUTI ([facility]) 12/20/23 [facility] Evaluation note Diagnosis Calculus of kidney- Primary Kidney stones Calculus of kidney Primary hypertension Unspecified essential hypertension Paroxysmal atrial fibrillation (HCC) Atrial fibrillation Coronary artery disease involving [place] coronary artery of [place] heart without angina pectoris, 50% ostial LAD, 60% OM1 Urinary incontinence, mixed Mixed incontinence urge and stress (male)(female) [facility]* Diagnosis Screening for genitourinary condition Screening for other and unspecified genitourinary condition documented in this encounter [facility] note* Diagnosis Longstanding persistent atrial fibrillation ([facility])- Primary Secondary hypertension Other secondary hypertension, unspecified Exudative age-related macular degeneration of left eye with active choroidal neovascularization ([facility]) 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, unspecified laterality ([facility]) Chronic diastolic heart failure ([facility]) Coronary artery disease, unspecified vessel or lesion type, unspecified whether angina present, unspecified whether [place] or transplanted heart Chronic obstructive pulmonary disease, unspecified COPD type ([facility]) Alzheimer's disease ([facility]) Stage 3a chronic kidney disease ([facility]) Moderate episode of recurrent major depressive disorder ([facility]) documented in this encounter [facility] No data available for this section [facility] Constantine InstructionsNot on filedocumented in this encounter [facility] filedocumented in this encounter [facility] filedocumented in this encounter [facility]* Attachments The following attachments cannot be sent through Care Everywhere. 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 Name: Lacie Garza Admitted: 08/11/2018 [...] to have these renal calculi addressed at [facility] in [facility], but had not gone to t (more content not included)... Additional Source Comments INFORMATION SOURCE (unrecogn ized section and content) DATE CREATED AUTHOR 09/24/2018 [facility] DATE CREATED AUTHOR AUTHOR'S ORGANIZ ATION 09/06/2022 [facility] DATE CREATED AUTHOR AUTHOR'S ORGANIZ ATION 12/15/2023 [facility] EPIC DATE CREATED AUTHOR AUTHOR'S ORGANIZ ATION 02/09/2024 [facility] DATE CREATED AUTHOR AUTHOR'S ORGANIZ ATION 03/15/2024 [facility] EPIC DATE CREATED AUTHOR AUTHOR'S ORGANIZ ATION 05/07/2024 [facility] DATE CREATED AUTHOR AUTHOR'S ORGANIZ ATION 05/10/2024 [facility] DATE CREATED AUTHOR AUTHOR'S ORGANIZ ATION 05/20/2024 [facility] DATE CREATED AUTHOR AUTHOR'S ORGANIZ ATION 06/04/2024 [facility] DATE CREATED AUTHOR AUTHOR'S ORGANIZ ATION 06/09/2024 [facility] Patient Care team informatio n (unrecognized section and content) Stucco Plasterer Relationship Specialty Start Date End Date Juan Diego Castillo APRN-TERRAZZO WORKER [address] [place] [address] PCP - General Family Medicine 03/15/23 Stucco Plasterer Relationship Specialty Start Date End Date Juan Diego Castillo APRN-CNP [address] [place] [address] PCP - General Family Medicine 03/15/23 Stucco Plasterer Relationship Specialty Start Date End Date Compa Foote MD [address] [address] PCP - Abhay MESA 08/11/21 Mary Lugo MD [address] [place] [address] PCP - General Family Medicine 04/03/23 Stucco Plasterer Relationship Specialty Start Date End Date Juan Diego Castillo APRN-TERRAZZO WORKER [address] [place] [place] [address] PCP - General Family Medicine 03/15/23 Stucco Plasterer Relationship Specialty Start Date End Date Compa Foote II, MD [address] [facility] [address] [place] [address] PCP - General Internal Medicine 05/30/19 Maria Eugenia Bhatia MD [address] [place] [phone] Family Medicine 06/17/15 Stucco Plasterer Relationship Specialty Start Date End Date Compa Foote II, MD [address] [address] PCP - General Internal Medicine 05/30/19 Maria Eugenia Bhatia MD [address] [place] [phone] Family Medicine 06/17/15 Stucco Plasterer Relationship Specialty Start Date End Date Juan Diego Castillo APRN-TERRAZZO WORKER [address] [place] [place] [address] PCP - General Family Medicine 03/15/23 Royer Stockton RN [facility] Nurse - [facility] 12/24/23 Stucco Plasterer Relationship Specialty Start Date End Date Juan Diego Castillo JAMAL-TERRAZZO WORKER [address] [place] [address] PCP - General Family Medicine 03/15/23 Royer Stockton RN [facility] Nurse - [employer] 12/24/23 Reason for Visit (unrecogniz ed section and content) Reason Onset Date Comments Med Refill 09/20/2023 Reason Onset Date Comments Med Refill 05/12/2024 Reason Comments Follow-up Source Comments (unrecognize d section and content) In the event this informatio n is protected by the Federal Confidentiality of Alcohol and Drug Abuse Patient Records regulations: The Federal rules restrict any use of the information to criminally investigate or prosecute any alcohol or drug abuse patient.[facility] the event this information is protected by the Federal Confidentiality of Alcohol and Drug Abuse Patient Records regulations: The Federal rules restrict any use of the information to criminally investigate or prosecute any alcohol or drug abuse patient.[facility] FOR RECORDS PERTAINING TO PATIENTS [...] BE BASED ON THE PRIMARY CLINICAL RECORDS. [facility], [facility]. provides no warranty or guarantee of the accuracy or completeness of information in this document.
--- NOTE | 2024-06-09 16:09 | ED.AMS1 ---
HPI - Altered Mental Status General Chief Complaint: Altered Mental Status Stated Complaint: UTI Time Seen by Provider: 06/09/24 15:45 Source: patient Mode of arrival: Wheelchair Limitations: no limitations History of Present Illness HPI narrative: Patient is an 84-year-old female who presents to the emergency department with her daughter and granddaughter for increasing altered mental status over the last 3 days. Granddaughter states that she lives with the patient and cares for her. She states that last week the patient who has a history of chronic incontinence seem to have cloudy urine. They went to urgent care and the patient was placed on Bactrim. She has now been on Bactrim for 3 days and granddaughter states that she has been hallucinating, last night she thought there were people in the home her were not there. She has seen mice chasing her and was trying to picking belt operator objects on the floor that were not there. No falls or injuries. Patient has had no fevers or vomiting. She has no complaints of pain at this time. Related Data Home Medications ?Medication ?Instructions ?Recorded ?Confirmed sulfamethoxazole 800 1 tab PO BID 06/09/24 06/09/24 mg-trimethoprim 160 mg tablet Allergies Allergy/AdvReac Type Severity Reaction Status Date / Time No Known Drug Allergies Allergy Verified 06/09/24 15:31 Review of Systems ROS Constitutional Denies: fever or chills Ears, nose, mouth, and throat Denies: throat pain or nasal congestion Cardiovascular Denies: chest pain Respiratory Denies: shortness of breath Gastrointestinal Denies: nausea or vomiting Musculoskeletal Denies: back pain Integumentary/Breast Denies: rash Neurological Reports: confusion and behavioral changes; Denies: numbness in extremities or weakness in extremities Hematologic/Lymphatic Denies: easy bruising or easy bleeding Exam Narrative Exam Narrative: Gen.: Awake, alert, in no distress Head: Normocephalic, atraumatic ENT: Moist mucous membranes Respiratory: No respiratory distress, lungs clear bilaterally Cardio: Regular rate and rhythm Gastrointestinal: Abdomen is soft, nondistended and nontender to palpation Extremities: Moves extremities equally, no injuries noted Psych: Normal mood and affect Neuro: No focal neuro deficit Skin: Warm, dry, intact Constitutional Vital Signs, click to edit/add: Last Vital Signs Temp 97.8 F 06/09/24 15:24 Pulse 71 06/09/24 18:02 Resp 19 06/09/24 18:02 BP 125/85 06/09/24 15:24 Pulse Ox 96 06/09/24 18:02 O2 Del Method Room Air 06/09/24 16:34 Course Vital Signs Vital signs: Vital Signs Temperature 97.8 F 06/09/24 15:24 Pulse Rate 73 06/09/24 15:24 Respiratory Rate 24 H 06/09/24 15:24 Blood Pressure 125/85 06/09/24 15:24 Pulse Oximetry 95 06/09/24 15:24 Temperature 97.8 F 06/09/24 15:24 Pulse Rate 71 06/09/24 18:02 Respiratory Rate 19 06/09/24 18:02 Blood Pressure 125/85 06/09/24 15:24 Pulse Oximetry 96 06/09/24 18:02 Oxygen Delivery Method Room Air 06/09/24 16:34 MDM - Altered Mental Status MDM Narrative Medical decision making narrative: Patient treated with IV fluids, hemodynamically stable. Labs show elevated lactic acid and uptrending creatinine. CT of the brain and chest x-ray are unremarkable. Patient is in rate controlled A-fib in the ER which she has a history of and is anticoagulated for. She has no complaints of pain. No focal neurodeficits in the ER. She is admitted for altered mental status, dehydration. Stable at time of admission to the hospitalist service. SUPERVISED APC VISIT, PHYSICIAN ATTESTATION: Based on the medical record the care appears appropriate. ? Medical Records Attestation: I reviewed the patient's medical records. Lab Data Attestation: I reviewed the patient's lab results. Labs: Lab Results 06/09/24 06/09/24 Range/Units 15:55 16:12 WBC 7.5 (4.0-11.0) 10^3/uL RBC 4.56 (4.20-5.40) 10^6/uL Hgb 13.7 (12.0-16.0) g/dL Hct 41.4 (36.0-48.0) % MCV 90.8 (81.0-99.0) fL MCH 30.0 (26.7-34.0) pg MCHC 33.1 (29.9-35.2) g/dL RDW 14.8 (11.0-15.0) % Plt Count 191 (150-450) 10^3/uL MPV 9.5 (9.5-13.5) fL Neut % (Auto) 78.6 H (43.0-75.0) % Lymph % (Auto) 14.2 L (20.5-60.0) % [place] % (Auto) 5.8 (1.7-12.0) % Eos % (Auto) 0.4 L (0.9-7.0) % Baso % (Auto) 0.3 (0.2-2.0) % Neut # (Auto) 5.9 (1.4-6.5) 10^3/uL Lymph # (Auto) 1.1 L (1.2-3.8) 10^3/uL [place] # (Auto) 0.4 (0.3-0.8) 10^3/uL Eos # (Auto) 0.0 (0.0-0.7) 10^3/uL Baso # (Auto) 0.0 (0.0-0.1) 10^3/uL Abs Immat Gran (auto) 0.05 H (0.00-0.03) 10^3/uL Imm/Tot Granulo (auto) 0.7 H (0.0-0.5) % PT 11.4 (9.0-11.6) sec INR 1.08 VBG pH 7.419 (7.330-7.430) VBG pCO2 32.8 L (40.0-52.0) mmHg Sodium 139 (136-145) mmol/L Potassium 4.5 (3.5-5.1) mmol/L Chloride 103 (98-107) mmol/L Carbon Dioxide 21.5 (21.0-32.0) mmol/L Anion Gap 19.0 BUN 19.0 H (7.0-18.0) mg/dL Creatinine 1.58 H (0.55-1.02) mg/dL Est GFR ( Amer) 38 L (>=60 mL/min/1.73m^2) Est GFR (Non-Af Amer) 31 L (>=60 mL/min/1.73m^2) BUN/Creatinine Ratio 12.0 Glucose 160 H (74-106) mg/dL Lactate 3.2 H* (0.4-2.0) mmol/L Calcium 9.2 (8.5-10.1) mg/dL Total Bilirubin 0.5 (0.2-1.0) mg/dL AST 19 (15-37) U/L ALT 15 (14-59) U/L Alkaline Phosphatase 85 (46-116) U/L Troponin I High Sens 8.7 (4.0-51.3) pg/mL Total Protein 8.0 (6.4-8.2) g/dL Albumin 3.2 L (3.4-5.0) g/dL Globulin 4.8 g/dL Albumin/Globulin Ratio 0.7 TSH 1.378 (0.358-3.740) uIU/mL Urine Color Lt. yellow (YELLOW) Urine Clarity Clear (CLEAR) Urine pH 5.5 (5.0-9.0) Ur Specific Points 1.025 (1.005-1.025) Urine Protein Negative (NEG/TRACE) mg/dL Urine Glucose (UA) Negative (NEGATIVE) mg/dL Urine Ketones Negative (NEGATIVE) mg/dL Urine Occult Blood Trace-l (NEGATIVE) Urine Nitrite Negative (NEGATIVE) Urine Bilirubin Negative (NEGATIVE) Urine Urobilinogen 0.2 (0.2-1.0) EU/dL Ur Leukocyte Esterase Trace A (NEGATIVE) Urine RBC 0-2 (0-2) #/HPF Urine WBC 2-5 A (NONE SEEN) #/HPF Ur Squamous Epith Cells Moderate A (NONE/RARE) #/LPF Urine Crystals None seen (None Seen) #/HPF Urine Bacteria Trace A (NONE SEEN) #/HPF Urine Casts None seen (NONE SEEN) #/LPF Urine Mucus None seen (NONE SEEN) Imaging Data CT scan - head: Attestation: I have reviewed the pertinent imaging results. Radiologist's impression: ITS Impressions Head CT 06/09/24 15:46 IMPRESSION: No acute intracranial process is noted. Electronically authenticated by: GAURAV VILLANUEVA Date: 06/09/2024 17:36 ECG Data Attestation: I personally reviewed and interpreted this ECG as follows: (Atrial fibrillation at a rate of [address] elevation or ectopy. EKG reviewed by attending physician.) Discharge Plan Discharge Chief Complaint: Altered Mental Status Patient Disposition: Admitted as Observation Time of Disposition Decision: 19:08 Prescriptions / Home Meds: No Action sulfamethoxazole-trimethoprim 800-160 mg tablet 1 tab PO BID Print Language: Polish Referrals: Tammy Castillo NP [Primary Care Provider] - 1 week
[2024-06-09] MEDS: 0.9 % SODIUM CHLORIDE 1,000 ML 999 ML IV (16:21)
[2024-06-09 16:22] LABS: Basophils Percent Auto 0.3 % (0.2-2.0); Eosinophils Percent Auto 0.4 % (0.9-7.0); Hematocrit 41.4 % (36.0-48.0); Hemoglobin 13.7 g/dL (12.0-16.0); Immature Granulocytes Abs Auto 0.05 10^3/uL (0.00-0.03); Immature Granulocytes Pct Auto 0.7 % (0.0-0.5); Lymphocytes Absolute Auto 1.1 10^3/uL (1.2-3.8); Lymphocytes Percent Auto 14.2 % (20.5-60.0); Mean Corpuscular HGB Conc 33.1 g/dL (29.9-35.2); Mean Corpuscular Volume 90.8 fL (81.0-99.0); Mean Platelet Volume 9.5 fL (9.5-13.5); Monocytes Absolute Auto 0.4 10^3/uL (0.3-0.8); Monocytes Percent Auto 5.8 % (1.7-12.0); Neutrophils Absolute Auto 5.9 10^3/uL (1.4-6.5); Neutrophils Percent Auto 78.6 % (43.0-75.0); Platelet Count 191 10^3/uL (150-450); Red Blood Count 4.56 10^6/uL (4.20-5.40); Red Cell Distribution Width 14.8 % (11.0-15.0); White Blood Count 7.5 10^3/uL (4.0-11.0)
[2024-06-09 16:25] LABS: PCO2 VBG 32.8 mmHg (40.0-52.0); pH VBG 7.419 (7.330-7.430)
[2024-06-09 16:31] LABS: Bilirubin Urine NEGATIVE (NEGATIVE); Blood Urine TRACE-L (NEGATIVE); Clarity Urine CLEAR (CLEAR); Color Urine LT. YELLOW (YELLOW); Glucose Urine UA NEGATIVE (NEGATIVE); Ketones Urine NEGATIVE (NEGATIVE); Leukocyte Esterase Urine TRACE (NEGATIVE); Nitrite Urine NEGATIVE (NEGATIVE); Protein Urine NEGATIVE (NEG/TRACE); Specific Gravity Urine 1.025 (1.005-1.025); Urobilinogen Urine 0.2 EU/dL (0.2-1.0); pH Urine 5.5 (5.0-9.0)
[2024-06-09 16:32] LABS: Urine Microscopic Indicated YES
[2024-06-09 16:36] LABS: INR 1.08; Prothrombin Time 11.4 sec (9.0-11.6)
[2024-06-09 16:42] LABS: RBC Urine 0-2 #/HPF (0-2)
[2024-06-09 16:44] LABS: Squamous Epithelial Cell Urine MODERATE #/LPF (NONE/RARE)
[2024-06-09 16:45] LABS: Bacteria Urine TRACE #/HPF (NONE SEEN); Cast Seen? NONE SEEN #/LPF (NONE SEEN); Crystals Seen? None Seen #/HPF (None Seen); Mucus Urine NONE SEEN (NONE SEEN)
[2024-06-09 16:51] LABS: Alanine Aminotransferase 15 U/L (14-59); Albumin Globulin Ratio 0.7; Albumin Level 3.2 g/dL (3.4-5.0); Alkaline Phosphatase 85 U/L (46-116); Aspartate Amino Transferase 19 U/L (15-37); Bilirubin Total 0.5 mg/dL (0.2-1.0); Calcium 9.2 mg/dL (8.5-10.1); Carbon Dioxide 21.5 mmol/L (21.0-32.0); Chloride 103 mmol/L (98-107); Estimated GFR (African America 38 (>=60 mL/min/1.73m^2); Estimated GFR (Non-African Ame 31 (>=60 mL/min/1.73m^2); Globulin 4.8 g/dL; Glucose 160 mg/dL (74-106); Potassium 4.5 mmol/L (3.5-5.1); Sodium 139 mmol/L (136-145); Thyroid Stimulating Hormone 1.378 uIU/mL (0.358-3.740); Troponin I High Sensitivity 8.7 pg/mL (4.0-51.3)
[2024-06-09 16:56] LABS: Lactate/Lactic Acid 3.2 mmol/L (0.4-2.0)
--- NOTE | 2024-06-09 18:42 | XR_ITS ---
The [address] [address] Patient Name: KEENAN SILVA MRN: [id number] date: 1940 Sex: F Assigned Patient Location: ER Current Patient Location: [place] Accession/Order Number: [id number] Exam Date: 06/09/2024 16:54 Report Date: 06/09/2024 20:54 At the request of: NATALY BILL Procedure: XR chest 1V EXAM: XR chest 1V HISTORY: Altered mental status COMPARISON: None. TECHNIQUE: Chest X-ray AP, 1 view FINDINGS: Support devices: None. Lungs/pleura: No consolidation, effusion, or pneumothorax. Heart and mediastinum: Mild cardiomegaly. Normal mediastinal contours. Bones: No acute abnormality identified. XR/XR chest 1V Impression: Mild cardiomegaly. No radiographic evidence of acute cardiopulmonary process. Electronically authenticated by: CRISTOBAL JOHNOSN Date: 06/09/2024 20:54
[2024-06-09] MEDS: 0.9 % SODIUM CHLORIDE 1,000 ML 100 ML IV (19:29)
[2024-06-09 20:01] LABS: Lactate/Lactic Acid 1.4 mmol/L (0.4-2.0)
[2024-06-09] MEDS: CEFTRIAXONE 1,000 MG in 0.9 % SODIUM CHLORIDE 50 ML 100 MG IV (21:49)
[2024-06-09] MEDS: APIXABAN 5 MG TABLET PO (22:25)
[2024-06-09] MEDS: DONEPEZIL HCL 5 MG TABLET PO (22:26)
[2024-06-09] MEDS: QUETIAPINE FUMARATE 25 MG TABLET PO (22:26)
[2024-06-10] VITALS (10 sets, daily range): BP systolic 145–156; BP diastolic 67–79; PULSE 55–68; TEMP 36.4–36.6; O2SAT 92–93
[2024-06-10] MEDS: 0.9 % SODIUM CHLORIDE 1,000 ML 100 ML IV (05:49)
[2024-06-10 07:01] LABS: Basophils Percent Auto 0.4 % (0.2-2.0); Eosinophils Absolute Auto 0.1 10^3/uL (0.0-0.7); Eosinophils Percent Auto 1.8 % (0.9-7.0); Hematocrit 37.7 % (36.0-48.0); Hemoglobin 11.9 g/dL (12.0-16.0); Immature Granulocytes Abs Auto 0.03 10^3/uL (0.00-0.03); Immature Granulocytes Pct Auto 0.4 % (0.0-0.5); Lymphocytes Absolute Auto 1.8 10^3/uL (1.2-3.8); Lymphocytes Percent Auto 27.4 % (20.5-60.0); Mean Corpuscular HGB Conc 31.6 g/dL (29.9-35.2); Mean Corpuscular Hemoglobin 29.3 pg (26.7-34.0); Mean Corpuscular Volume 92.9 fL (81.0-99.0); Mean Platelet Volume 9.7 fL (9.5-13.5); Monocytes Absolute Auto 0.5 10^3/uL (0.3-0.8); Monocytes Percent Auto 7.7 % (1.7-12.0); Neutrophils Absolute Auto 4.2 10^3/uL (1.4-6.5); Neutrophils Percent Auto 62.3 % (43.0-75.0); Platelet Count 150 10^3/uL (150-450); Red Blood Count 4.06 10^6/uL (4.20-5.40); Red Cell Distribution Width 15.1 % (11.0-15.0); White Blood Count 6.7 10^3/uL (4.0-11.0)
[2024-06-10 07:25] LABS: Alanine Aminotransferase 16 U/L (14-59); Albumin Globulin Ratio 0.7; Albumin Level 2.7 g/dL (3.4-5.0); Alkaline Phosphatase 73 U/L (46-116); Anion Gap 15.7; Aspartate Amino Transferase 18 U/L (15-37); BUN Creatinine Ratio 13.5; Bilirubin Total 0.4 mg/dL (0.2-1.0); Calcium 8.5 mg/dL (8.5-10.1); Carbon Dioxide 22.3 mmol/L (21.0-32.0); Chloride 109 mmol/L (98-107); Estimated GFR (African America 46 (>=60 mL/min/1.73m^2); Estimated GFR (Non-African Ame 38 (>=60 mL/min/1.73m^2); Globulin 4.1 g/dL; Glucose 100 mg/dL (74-106); Sodium 143 mmol/L (136-145); Total Protein 6.8 g/dL (6.4-8.2)
[2024-06-10] MEDS: APIXABAN 5 MG TABLET PO (09:15)
[2024-06-10] MEDS: METOPROLOL SUCCINATE 100 MG TAB.ER.24H PO (09:15)
--- NOTE | 2024-06-10 10:07 | CM.NOTE ---
Rounds made with Dr. Elizondo, pt A&Ox3 this AM and answers questions appropriately. Discussed with pt about having PT evaluate for discharge planning. Pt will discharge to home today, pt has granddaughter that lives with her.
--- NOTE | 2024-06-10 10:31 | PM.HP ---
HPI H&P: HPI History of Present Illness Chief complaint: UTI Dehydration Altered Mental Status Narrative: HPI and Hospital course: 84-year-old female who lives with her family at home, with history of dementia was brought in by her family for increased confusion and hallucinations. Patient was evaluated at an urgent care and was prescribed Bactrim for UTI 3 days ago. I was unable to obtain any meaningful information from the patient as she could not recall why she was here at the hospital. However she answered my questions appropriately and was alert and oriented with no visual or auditory hallucinations. I was able to speak with 2 of her daughters who informed me that patient has dementia with periods of confusion, paranoia but for past couple of days she is having auditory and visual hallucinations that are new. She follows up with neurology as outpatient and is currently on Seroquel for behavioral disturbances associated with Alzheimer's dementia. She was admitted overnight and her workup was consistent with possible urinary tract infection for which she was treated with IV Rocephin. She also had mild acute kidney injury for which she received IV fluids with improvement in her renal function/serum creatinine. At this time, it seems that patient is more or less at her baseline and her change in mental status is likely secondary to progression of her dementia with intermittent behavioral disturbances and psychosis. She is medically stable for discharge on oral cefdinir. Family was given information on memory units that they can look into if they are unable to take care of her at home moving forward. Opioid HPI Opioid Management Most Recent Pain and Opioid Data: Last Pain Scale 5 06/10/24 09:00 06/10/24 Last Pain Assessment 06/10/24 12:00 Last ORT Total Score 0 06/09/24 20:34 06/09/24 Last ORT Risk Category Low Risk 06/09/24 20:34 06/09/24 Review of Systems ROS Status of ROS 10 or more systems reviewed and unremarkable except as noted in history and below [facility] Medical History (Updated 06/10/24 @ 12:53 by Shaikh Caro MD) Alzheimer dementia ?G30.9 - Alzheimer's disease, unspecified (ICD-10) ?F02.80 - Dementia in other diseases classified elsewhere, unspecified severity, without behavioral disturbance, psychotic disturbance, mood disturbance, and anxiety (ICD-10) FH: cholecystectomy ?Z83.79 - Family history of other diseases of the digestive system (ICD-10) Incontinence ?R32 - Unspecified urinary incontinence (ICD-10) Kidney stones ?N20.0 - Calculus of kidney (ICD-10) Hypertension ?I10 - Essential (primary) hypertension (ICD-10) Afib ?I48.91 - Unspecified atrial fibrillation (ICD-10) Surgical History (Updated 06/09/24 @ 22:46 by Demetrice Lang) Total knee replacement status ?Z96.659 - Presence of unspecified artificial knee joint (ICD-10) History of hysterectomy ?Z90.710 - Acquired absence of both cervix and uterus (ICD-10) Family History (Updated 06/09/24 @ 20:38 by Karolina Cunningham) Mother Family history of cancer Family history of diabetes mellitus Daughter Family history of hypertension Granddaughter Family history of stroke Social History (Updated 06/09/24 @ 20:39 by Karolina Cunningham) Within the past year, how often did you have a drink containing alcohol: never Score interpretation: A score less than 3 is consistent with normal alcohol consumption. Smoking status: Never smoker Non-prescribed substance use: denies use Previous occupational history: retired Highest level of school completed/degree received: high school graduate Are you now , , , , never or living with a partner: In a typical week, how many times do you talk on the telephone with family, friends, or neighbors: 3 or more times per week How often do you get together with friends or relatives: 3 or more times per week How often do you attend spiritism or buddhist services: never Do you belong to any clubs or organizations such as spiritism groups unions, fraternal or athletic groups, or school groups: no Total score: 2 Score interpretation: A score of greater than or equal to 2 indicates the lowest level of social isolation. Little interest or pleasure in doing things: not at all Feeling down, depressed, or hopeless: not at all Feel stressed/tense/nervous/anxious/difficulty sleeping: not at all Do you think of yourself as: straight/heterosexual Gender Identity: female Meds Home Medications and Allergies Home Medications ?Medication ?Instructions ?Recorded ?Confirmed ?Type apixaban 5 mg tablet (Eliquis) 5 mg PO Q12H 06/09/24 06/09/24 History atorvastatin 40 mg tablet 40 mg PO .q am 06/09/24 06/09/24 History donepezil 5 mg tablet 5 mg PO .q hs 06/09/24 06/09/24 History fluoxetine 40 mg capsule 40 mg PO .q am 06/09/24 06/09/24 History furosemide 40 mg tablet 40 mg PO .q am 06/09/24 06/09/24 History metoprolol succinate 100 mg 100 mg PO QAM 06/09/24 06/09/24 History tablet,extended release 24 hr mirabegron 50 mg tablet,extended 50 mg PO QAM 06/09/24 06/09/24 History release 24 hr pantoprazole 40 mg tablet,delayed 40 mg PO QAM 06/09/24 06/09/24 History release quetiapine 25 mg tablet 25 mg PO QPM 06/09/24 06/09/24 History memantine 28 mg capsule 28 mg PO .qhs 06/10/24 06/10/24 History sprinkle,extended release 24hr Allergies Allergy/AdvReac Type Severity Reaction Status Date / Time No Known Drug Allergies Allergy Verified 06/09/24 15:31 Exam Constitutional Vital Signs, click to edit/add: Last Vital Signs Temp 97.5 F L 06/10/24 08:00 Pulse 60 06/10/24 10:00 Resp 18 06/10/24 08:00 BP 145/67 H 06/10/24 08:00 Pulse Ox 92 L 06/10/24 08:00 O2 Del Method Room Air 06/10/24 08:00 Documenting provider has reviewed patient's vital signs: yes Common normals: no apparent distress and oriented x3 General appearance: cooperative [facility] Common normals: normocephalic and head/scalp atraumatic Head and scalp: normocephalic and atraumatic Eye Common normals: conjunctivae normal and no scleral icterus Conjunctiva: conjunctiva(e) normal Respiratory Common normals: normal respiratory effort and clear to auscultation bilaterally Effort & inspection: able to speak in complete sentences Auscultation: clear to auscultation bilaterally Cardio Common normals: regular rate, S1 normal heart sound and S2 normal heart sound Rate: regular rate Heart sounds: S1 normal and S2 normal GI Common normals: Normal to inspection, nondistended, normoactive bowel sounds present, soft to palpation, non-tender and no hepatosplenomegaly Palpation: soft and no hepatosplenomegaly Extremity Common normals: no clubbing, cyanosis or edema Neuro Common normals: oriented x3, moves all extremities and no focal motor deficits Psych Common normals: mental status grossly normal, denies hallucinations, denies homicidal ideation and denies suicidal ideation Results Labs Labs: Short CBC 06/09/24 06/10/24 Range/Units 16:12 06:19 WBC 7.5 6.7 (4.0-11.0) 10^3/uL Hgb 13.7 11.9 L (12.0-16.0) g/dL Hct 41.4 37.7 (36.0-48.0) % Plt Count 191 150 (150-450) 10^3/uL BMP 06/09/24 06/10/24 16:12 06:19 Sodium 139 143 Potassium 4.5 4.0 Chloride 103 109 H Carbon Dioxide 21.5 22.3 BUN 19.0 H 18.0 Creatinine 1.58 H 1.33 H Glucose 160 H 100 Calcium 9.2 8.5 Liver Function 06/09/24 06/10/24 Range/Units 16:12 06:19 Total Bilirubin 0.5 0.4 (0.2-1.0) mg/dL AST 19 18 (15-37) U/L ALT 15 16 (14-59) U/L Alkaline Phosphatase 85 73 (46-116) U/L Albumin 3.2 L 2.7 L (3.4-5.0) g/dL Urine 06/09/24 Range/Units 15:55 Urine Color Lt. yellow (YELLOW) Urine Clarity Clear (CLEAR) Urine pH 5.5 (5.0-9.0) Ur Specific [place] 1.025 (1.005-1.025) Urine Protein Negative (NEG/TRACE) mg/dL Urine Glucose (UA) Negative (NEGATIVE) mg/dL ABG ABG results: 06/09/24 16:12 VBG pH 7.419 VBG pCO2 32.8 L Assessment and Plan Assessment and Plan (1) Altered mental status: Assessment and Plan: Patient is more or less at her baseline now. CT head with no acute intracranial pathology. Change in mental status likely secondary to urinary tract infection. Qualifiers: Altered mental status type: disorientation Qualified Code(s): R41.0 - Disorientation, unspecified (2) ANTONI (acute kidney injury): Assessment and Plan: She has normal renal function at baseline. Serum creatinine was 1.58 upon arrival with improvement with IV hydration. (3) Acute dehydration: Assessment and Plan: Improved with IV hydration. Encourage oral intake (4) Alzheimer dementia: Assessment and Plan: Progressive decline in her mental status/memory with behavioral disturbances and psychosis. On Seroquel. She already has an appointment with neurology as outpatient. Follow-up with neurology. Continue with donezepil and memantine. Qualifiers: Alzheimer's disease onset: late onset Dementia severity: moderate Dementia behavioral or psychological symptom: with psychotic disturbance Qualified Code(s): G30.1 - Alzheimer's disease with late onset; F02.B2 - Dementia in other diseases classified elsewhere, moderate, with psychotic disturbance (5) Afib: Assessment and Plan: In normal sinus rhythm. Continue with Eliquis. Qualifiers: Atrial fibrillation type: paroxysmal Qualified Code(s): I48.0 - Paroxysmal atrial fibrillation (6) Hypertension: Assessment and Plan: Continue with home medications. Qualifiers: Hypertension type: primary hypertension Qualified Code(s): I10 - Essential (primary) hypertension Plan Patient medically stable for discharge on oral antibiotic for UTI. She will need follow-up with neurology as outpatient. She lives with her granddaughter who is her primary caregiver along with help from different family members. She has no specific needs currently but family was provided information on possible placement into a memory unit if she continues to have neurological decline and they are unable to take care of her at home moving forward.
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
--- NOTE | 2024-06-10 14:17 | SWNOTE1 ---
Medicare Outpatient Observation Notice reviewed and discussed with patient's daughter, Demetrice. Demetrice verbalized understanding and signed the form. Original given to patient's daughter and copy placed in patient?s chart.
--- NOTE | 2024-06-10 14:21 | SWNOTE1 ---
RANDY faxed ED note, H&P, dc summary, and CRF to [address]
--- NOTE | 2024-06-13 10:19 | CM.DCFOLLOWU ---
Person spoke with: daughter, Demetrice How are you feeling? she is doing well How is your pain?none Did you understand your discharge instructions?yes Do you have any questions about your discharge instructions?no Were you given any prescriptions at discharge? yes Were you able to get your prescriptions filled?yes Do you understand how to take your medications as ordered?yes Do you have any questions about your follow up appointment and do you plan to keep your follow up appointment? no questions, follow up reviewed Is there anything else that you would like to discuss?no Questions/Comments/Concerns/Other: no
== END 2024-06-10 14:28 | disposition home health service (06) ==
LOC: ER 19:08 → MS 20:27
PROVIDERS: Physician Assistant; Registered Nurse; Admitting Provider Internal Medicine; Emergency Provider Student in an Organized Health Care Education/Training Program; PCP Nurse Practitioner Family; Visit Provider Internal Medicine
DX: E86.0 Dehydration (principal); N39.0 Urinary tract infection, site not specified; Z79.01 Long term (current) use of anticoagulants; N17.9 Acute kidney failure, unspecified; I10 Essential (primary) hypertension; Z87.442 Personal history of urinary calculi; Z90.710 Acquired absence of both cervix and uterus; Z79.899 Other long term (current) drug therapy; I48.0 Paroxysmal atrial fibrillation; G30.1 Alzheimer's disease with late onset; F02.B2 Dementia in other diseases classified elsewhere, moderate, with psychotic disturbance
CPT/HCPCS: 36415; 70450; 71045; 80053; 81001; 82800; 83605; 83735; 84443; 84484; 85025; 85610; 87040; 93005; 94761; 96361; 96365; 97161; 99285; G0378; J0696